=== PATIENT | male | born 1955 | race Caucasian/White ===

== ENCOUNTER 2017-11-28 12:49 | Emergency (ER) | payer OTHER ==
--- OUTSIDE RECORDS SUMMARY | 2017-11-28 12:51 | XMS REPORT | Summary of Care ---
:1955 Author Name SHENG QUIGLEY N.P. Address Unavailable Unavailable , Care Team Providers Name Role Phone DANN Sarabia, SHENG Unavailable Unavailable Functional Status Name Dates Details Functional status health issues are not documented Status: Name Dates Details Cognitive status health issues are not documented Status: Problems Name Dates Details Abdominal aortic aneurysm (AAA) without rupture (441.4, I71.4) Status: Active Abdominal cramping (789.00, R10.9) Status: Active Diabetes (250.00, E11.9) Status: Active History of hyperlipidemia (V12.29, Z86.39) Status: Active Essential hypertriglyceridemia (272.1, E78.1) Status: Active Left knee injury (959.7, S89.92XA) Status: Active Acute pain of left knee (719.46, M25.562) Status: Active Medications Name Dates Details AmLODIPine Besylate TABS Refills: 0 Active Atorvastatin Calcium TABS Refills: 0 Active Carvedilol TABS Refills: 0 Active Clopidogrel Bisulfate TABS Refills: 0 Active Dexilant CPDR Refills: 0 Active Digoxin TABS Refills: 0 Active Fenofibrate TABS Refills: 0 Active Furosemide TABS Refills: 0 Active Gabapentin TABS Refills: 0 Active Losartan Potassium-HCTZ TABS Refills: 0 Active Lantus SoloStar SOLN Refills: 0 Active HumaLOG SOLN Refills: 0 Active Xyzal TABS Refills: 0 Active Multi-Vitamin TABS Refills: 0 Active Ambien TABS Refills: 0 Active Valsartan-Hydrochlorothiazide 320-12.5 MG Oral Tablet Refills: 0 Active HydroCHLOROthiazide 12.5 MG Oral Capsule Refills: 0 Active Zolpidem Tartrate 10 MG Oral Tablet Refills: 0 Active NexIUM 20 MG Oral Capsule Delayed Release Refills: 0 Active Allergies and Adverse Reactions Name Dates Details Codeine Derivatives (Allergy) Status: Active Past Medical History Name Dates Details History of Anxiety (300.00, F41.9) Status: Resolved History of back pain (V13.59, Z87.39) Status: Resolved History of CAD in [place] artery (414.01, I25.10) Status: Resolved History of chronic kidney disease (V13.09, Z87.448) Status: Resolved History of depression (V11.8, Z86.59) Status: Resolved History of diabetes mellitus (V12.29, Z86.39) Status: Resolved History of diverticulosis (V12.79, Z87.19) Status: Resolved History of Gallbladder problem (575.9, K82.9) Status: Resolved History of hypertension (V12.59, Z86.79) Status: Resolved History of NAFLD (nonalcoholic fatty liver disease) (571.8, K76.0) Status: Resolved History of peripheral vascular disease (V12.59, Z86.79) Status: Resolved Procedures Procedure Dates Details MR Sinclair wo contrast 72900 Date: 09-Oct-2017 History of aortic aneurysm repair Completed History of cholecystectomy Completed History of appendectomy Completed History of back surgery Completed History of shoulder surgery Completed History of tonsillectomy Completed History of shoulder replacement Completed Immunization Name Dates Details Immunizations not documented Family History Name Dates Details Family history of hypertension (V17.49, Z82.49) Status: Active Family history of diabetes mellitus (V18.0, Z83.3) Status: Active Family history of Cardiac abnormality (746.9, Q24.9) Status: Active Family history of arthritis (V17.7, Z82.61) Status: Active Family history of malignant neoplasm (V16.9, Z80.9) Status: Active Name Dates Details Family history of alcohol abuse (V61.41, Z81.1) Status: Active Social History Name Dates Details - Status: Name Dates Details Never smoker Vital Signs Date Test Result Details [id number] BP Systolic 173 mm[Hg] Status: Comments: Location: RUE; Position: Sitting BP Diastolic 82 mm[Hg] Status: Comments: Location: RUE; Position: Sitting Weight 228 lb Status: Height 69 in Status: Body Mass Index Calculated 33.67 kg/m2 Status: Body Surface Area Calculated 2.18 m2 Status: Heart Rate 73 /min Status: Results Date Description Value Details [id number] [U] XRAY KNEE 3 VWS LEFT [id number] XR KNEE 3 VWS LEFT Images acquired, not reported on this accession number. Plan of Care Name Dates Details Planned Observations Planned Goals not documented Planned Encounters Appointment; ORVILLE JACKSON M.D. On: 03-Dec-2017 15:00 Interventions Provided Labs/Procedures/ImagingMR Knee wo contrast 13029; To Be Done: 09 Oct 2017[U] XRAY KNEE 3 VWS LEFT [id number]; Done: 09 Oct 2017PlanPatient Education/Instructions : Patient Education Provided Reassurance Counseling Provided - Discussed with Family/Patient Family/Patient given opportunity to ask questions. Family/ Patient Verbalized Understanding. Patient/Parent to call or return with any abnormal changes Orders: MRI Scan Follow Up: Return to the clinic after imaging study completed or as needed. Will MRI the knee to evaluate for meniscus pathology Instructions Name Dates Details Instructions not documented Encounters Appointment; DANILO CHING M.D. On: 31-Jan-2017 8:30 Encounter Diagnosis: Problem not documented Appointment; DANILO CHING M.D. On: 02-May-2017 8:00 Encounter Diagnosis: Problem not documented Appointment; ALFREDO MUNIZ M.D. On: 31-Jul-2017 13:30 Encounter Diagnosis: Problem not documented Appointment; ALFREDO MUNIZ M.D. On: 01-Aug-2017 10:15 Encounter Diagnosis: Problem not documented Appointment; SHENG QUIGLEY NP On: 09-Oct-2017 8:45 Encounter Diagnosis: Problem not documented
--- OUTSIDE RECORDS SUMMARY | 2017-11-28 12:51 | XMS REPORT | Clinical Summary ---
:1955 Author Organization [facility] Address [address] [place] [address] Care Team Providers Name Role Phone Asked, No Pcp Primary Care Provider Unavailable Allergies Active Allergy Reactions Severity Noted Date Comments Codeine 05/24/2017 Current Medications Prescription Sig. Disp. Refills Start Date End Date Status amLODIPine (NORVASC) 10 mg Take 10 mg by Active tablet mouth daily. atorvastatin (LIPITOR) 40 Take 40 mg by Active MG tablet mouth daily. carvedilol (COREG) 25 MG Take 25 mg by Active tablet mouth 2 (two) times a day with meals. clopidogrel (PLAVIX) 75 mg Take 75 mg by Active tablet mouth daily. dexlansoprazole (DEXILANT) Take 60 mg by Active 60 mg capsule mouth daily. digOXIN (LANOXIN) 125 mcg Take 125 mcg by Active tablet mouth daily. fenofibric acid (FIBRICOR) Take 105 mg by Active 105 mg tablet mouth daily. furosemide (LASIX) 20 mg Take 20 mg by Active tablet mouth 2 (two) times a day. gabapentin (NEURONTIN) 300 Take 300 mg by Active mg capsule mouth 3 (three) times a day. insulin GLARGINE (LANTUS) Inject under the Active 100 unit/mL injection skin nightly. (vial) valsartan-hydrochlorothiaz Take 1 tablet by Active alverto (DIOVAN-HCT) 320-25 mg mouth daily. per tablet insulin lispro (HumaLOG) Inject under the Active 100 unit/mL injection skin 3 (three) times a day before meals. levocetirizine (XYZAL) 5 Take 5 mg by mouth Active MG tablet every evening. zolpidem (AMBIEN) 10 mg Take 10 mg by Active tablet mouth nightly as needed for sleep. Active Problems Problem Noted Date Iliac artery aneurysm, right 05/24/2017 Last Assessment & Plan: s/p EVAR 2008; Excision R IIA aneurysm; ligation of branches of internal iliac 2013. CTA reviewed by me shows a stable infrarenal abdominal aortic aneurysm with patent aortic bi-iliac stent graft. We are not able to see if this is acute or chronic dilation or is there is a true Endoleak. I advised the patient he may resume normal activity. Plan for [facility] MRI. Encounters Date Type Specialty Care Team Description 06/28/2017 Telephone Cardiovascular Kraig Whitehead MD 06/26/2017 Telephone Cardiovascular Veronique Dotson MA 06/04/2017 Hospital Encounter Procedural Cardiology Kraig Whitehead, Iliac artery aneurysm, right; Abdominal aortic aneurysm (AAA) without rupture 05/24/2017 Lab Lab Kraig Whitehead, Aneurysm of iliac artery (Primary Dx); Abdominal aortic aneurysm without rupture 05/24/2017 Office Visit Cardiovascular Kraig Whitehead, Iliac artery aneurysm , right (Primary Dx); Abdominal aortic aneurysm (AAA) without rupture after 11/27/2016 Family History Relation Name Status Comments Mother Alive Social History Tobacco Use Types Packs/Day Years Used Date Former Smoker Sex Assigned at Date Recorded Not on file Last Filed Vital Signs Vital Sign Reading Time Taken Blood Pressure 135/75 06/04/2017 1:51 PM [facility] Pulse 68 06/04/2017 1:51 PM [facility] Temperature 36.3 C (97.3 F) 05/24/2017 9:34 AM CDT Respiratory Rate 18 06/04/2017 1:51 PM [facility] Oxygen Saturation 95% 06/04/2017 1:51 PM [facility] Inhaled Oxygen Concentration - - Weight 103 kg (228 lb) 05/24/2017 9:34 AM CDT Height 175.3 cm (5' 9") 06/04/2017 1:51 PM [facility] Body Mass Index 33.67 05/24/2017 9:34 AM CDT Plan of Treatment Health Maintenance Due Date Last Done Comments COLONOSCOPY 12/06/2007 SHINGRIX VACCINE (#1) 12/06/2007 INFLUENZA VACCINE 02/27/2018 Results Cardiac mra abd pelvis w wo contrast (06/04/2017 2:08 PM) Specimen Performing Laboratory [facility] [id number] [place] [address] [facility] CMR Report Name:FARSHAD SIMMS :1955 Scan Date: 2017-06-04 14:18:39 Signed by Mo Ribera M.D. (uid:34) 18:37:13. SUMMARY ====== 1.ABDOMINAL AORTA: Normal supra-renal and juxta-renal aorta. Normal SMA, celiac and bilateral renal arteries. There is an infrarenal abdominal aortic aneurysm measuring 6.0cm. There is a patent stent graft in the infrarenal abdominal aorta extending distally to the bilateral common iliac arteries.There is no enhancement of the aneurysm on first pass. NO endoleak identified. 2.PELVIC ARTERIES: Bilateral common iliac arteries are enlarged (2.0cm). Bilateral external iliac and femoralarteries are of normal caliber without aneurysm or dissection. 5. VENOUS SYSTEM:The IVC, hepatic veins, and bilateral iliac veins are of normal caliber without dilatation, thrombus or evidence of extrinsic compression. 6.OTHER: Right kidney cyst. VASCULAR ====== SCAN INFO ====== GENERAL ------ ---- SEDATION SEDATION USED?:Yes TYPE:Lorazepam DOSE:1 mg ANY REACTION?:No CONTRAST AGENT TYPE:Other... OTHER TYPE:Feraheme LOT NUMBER:[id number] EXPIRATION DATE:2019-11-28 00:00:00 VOLUME ADMINISTERED:3 ml DOSAGE FOR 0.5M:0.01 mmol/kg SERUM CREATININE:2.4 sCr GFR:29.6 ml/min/1.73m^2 FEMALE:No OR BLACK:No CREATININE DATE:2017-05-24 00:00:00 FERAHEME ADMINISTERED:90 mg VITALS HEIGHT:68.9 in HEIGHT:175.01 cm BODY WEIGHT:227.08 lbs BODY WEIGHT:103 kgs BSA::2.18 m^2 SYSTOLIC BP:135 mmHg DIASTOLIC BP:75 mmHg HEART RATE:68 BPM HEART RHYTHM:Sinus Rhythm PULSE SEQUENCE PULSE SEQUENCES:Single-Shot SSFP, SSFP Cine, Phase Contrast Velocity Mapping, Post-Contrast T1 3D GRE, Time-Resolved 3D MRA SETUP TYPE:Clinical INPATIENT:No [facility] INCOMPLETE SCAN:No REASON(S) FOR SCAN:Aortic Aneurysm REFERRING PHYSICIAN:Kraig Whitehead MD ATTENDING PHYSICIAN:Mo Ribera MD TECHNICIANS:Eliseo Ledesma, RT ASSISTANTS:1) Zhang Chang 2) Phillip FRIEDMAN ------ ---- Patient Account [id number] CPT Codes 45226, [ , ]32808 ICD10 Codes I72.3, [ , ]I71.4 Procedure Note Interface, Radiology Results In - 06/04/2017 6:37 PM [facility] CMR Report Name: FARSHAD SIMMS : 1955 Scan Date: 2017-06-04 14:18:39 Signed by Mo Ribera M.D. (uid:34) 18:37:13. SUMMARY 1. ABDOMINAL AORTA: Normal supra-renal and juxta-renal aorta. Normal SMA, celiac and bilateral renal arteries. There is an infrarenal abdominal aortic aneurysm measuring 6.0cm. There is a patent stent graft in the infrarenal abdominal aorta extending distally to the bilateral common iliac arteries. There is no enhancement of the aneurysm on first pass. NO endoleak identified. 2. PELVIC ARTERIES: Bilateral common iliac arteries are enlarged (2.0cm). Bilateral external iliac and femoral arteries are of normal caliber without aneurysm or dissection. 5. VENOUS SYSTEM: The IVC, hepatic veins, and bilateral iliac veins are of normal caliber without dilatation, thrombus or evidence of extrinsic compression. 6. OTHER: Right kidney cyst. VASCULAR SCAN INFO GENERAL SEDATION SEDATION USED?: Yes TYPE: Lorazepam DOSE: 1 mg ANY REACTION?: No CONTRAST AGENT TYPE: Other... OTHER TYPE: Feraheme LOT NUMBER: [id number] EXPIRATION DATE: 2019-11-28 00:00:00 VOLUME ADMINISTERED: 3 ml DOSAGE FOR 0.5M: 0.01 mmol/kg SERUM CREATININE: 2.4 sCr GFR: 29.6 ml/min/1.73m^2 FEMALE: No OR BLACK: No CREATININE DATE: 2017-05-24 00:00:00 FERAHEME ADMINISTERED: 90 mg VITALS HEIGHT: 68.9 in HEIGHT: 175.01 cm BODY WEIGHT: 227.08 lbs BODY WEIGHT: 103 kgs BSA:: 2.18 m^2 SYSTOLIC BP: 135 mmHg DIASTOLIC BP: 75 mmHg HEART RATE: 68 BPM HEART RHYTHM: Sinus Rhythm PULSE SEQUENCE PULSE SEQUENCES: Single-Shot SSFP, SSFP Cine, Phase Contrast Velocity Mapping, Post-Contrast T1 3D GRE, Time-Resolved 3D MRA SETUP TYPE: Clinical INPATIENT: No LOCATION: [facility] INCOMPLETE SCAN: No REASON(S) FOR SCAN: Aortic Aneurysm REFERRING PHYSICIAN: Kraig Whitehead MD ATTENDING PHYSICIAN: Mo Ribera MD TECHNICIANS: Eliseo Ledesma, RT ASSISTANTS: 1) Zhang Chang 2) Phillip FRIEDMAN Patient Account [id number] CPT Codes 88129, [ , ]14312 ICD10 Codes I72.3, [ , ]I71.4 Total iron binding capacity (05/24/2017 11:52 AM) Component Value Ref Range Iron level 95 59 - 158 ug/dL Iron binding capacity 112 (L) 200 - 400 ug/dL % Saturation 84.8 (H) 20.0 - 40.0 % Specimen Performing Laboratory Plasma specimen [facility] [address] [place] [address] Estimated GFR (05/24/2017 11:52 AM) Component Value Ref Range GFR Non Af Amer 28 (A) mL/min/1.73 m2 GFR Af Amer 34 (A) mL/min/1.73 m2 Comment: Chronic kidney disease: <60 mL/min/1.73m2 Kidney failure: <15 mL/min/1.73m2 The estimated GFR is calculated from the IDMS-traceable Modification of Diet in Renal Disease Equation. The accuracy of the calculation is poor when the creatinine is normal. Calculated values >90 mL/min/1.73m2 are not reported. This equation has not been validated in children (<18 years), women, the elderly (>70 years), or ethnic groups other than Caucasians and Americans. Specimen Performing Laboratory Plasma specimen [facility] [address] [place] [address] BUN level (05/24/2017 11:52 AM) Component Value Ref Range BUN 60 (H) 6 - 20 mg/dL Specimen Performing Laboratory Plasma specimen [facility] [address] [place] [address] Ferritin level (05/24/2017 11:52 AM) Component Value Ref Range Ferritin level 105 30 - 400 ng/mL Specimen Performing Laboratory Plasma specimen [facility] [address] [place] [id number] Creatinine level (05/24/2017 11:52 AM) Component Value Ref Range Creatinine 2.4 (H) 0.7 - 1.2 mg/dL Specimen Performing Laboratory Plasma specimen [facility] [address] [place] [address] after 11/27/2016 Insurance Payer Benefit Plan / Group Subscriber ID Type Phone Address MEDICARE MEDICARE PART A AND B xxxxxxxxxx Medicare [place], [place] MEDICAID MEDICAID xxxxxxxxx Medicaid Home: [address] [phone] [place] [phone]
--- NOTE | 2017-11-28 14:26 | RAD REPORT ---
EXAM DESCRIPTION: RAD - Foot Right 3 View - 11/28/2017 2:04 pm CLINICAL HISTORY: Right foot pain FINDINGS: No fracture or dislocation is seen The bones are osteoporotic. Vascular calcifications are seen. A large plantar calcaneal spur is prese nt. Moderate narrowing involves the first MTP joint with osteophytes. This probably represents osteoarthr itis
[2017-11-28] MEDS ORDERED: IBUPROFEN 400 MG TAB ONE (15:08)
--- NOTE | 2017-11-28 15:11 | EDPHYS ---
Physician Documentation [facility] Name: Farshad Padilla Age: 61 yrs Sex: Male : 1955 Arrival Date: 11/28/2017 Time: 12:53 Bed 17 Private MD: ED Physician Dannie Mas HPI: 11/28 14:30 This 61 yrs old Male presents to ER via Wheelchair with complaints of Foot cp Pain. Historical: - Allergies: 13:16 Codeine; aj - PMHx: 13:16 AAA; Diabetes - IDDM; Hypertension; aj - PSHx: 13:16 Cholecystectomy; Appendectomy; AAA repair; shoulder replacement x 2; back surgery x 5; aj - Immunization history:: Adult Immunizations up to date. - Social history:: Smoking status: Patient/guardian denies using tobacco. ROS: 14:25 Constitutional: Negative for body aches, chills, fever, poor PO intake. cp 14:25 Eyes: Negative for injury, pain, redness, and discharge. cp 14:25 ENT: Negative for drainage from ear(s), ear pain, sore throat, difficulty swallowing, difficulty handling secretions. 14:25 Cardiovascular: Negative for chest pain, palpitations. 14:25 Respiratory: Negative for cough, shortness of breath, wheezing. 14:25 Abdomen/GI: Negative for abdominal pain, nausea, vomiting, and diarrhea. 14:25 MS/extremity: Positive for erythema, pain, swelling, tenderness, of the right first toe, Negative for injury or acute deformity, paresthesias. 14:25 All other systems are negative. Exam: 14:45 Constitutional: The patient appears in no acute distress, alert, awake, non-toxic, well cp developed, well nourished, uncomfortable. 14:45 Head/Face: Normocephalic, atraumatic. cp 14:45 Eyes: Periorbital structures: appear normal, Conjunctiva: normal, no exudate, no injection, Sclera: no appreciated abnormality, Lids and lashes: appear normal, bilaterally. 14:45 ENT: External ear(s): are unremarkable, Nose: is normal, Mouth: is normal. 14:45 Chest/axilla: Inspection: normal. 14:45 Cardiovascular: Rate: normal, Pulses: Pulses are 2+ in right dorsalis pedis artery. Edema: is not appreciated, JVD: is not appreciated. 14:45 Respiratory: the patient does not display signs of respiratory distress, Respirations: normal, no use of accessory muscles, no retractions, no splinting, no tachypnea. 14:45 Abdomen/GI: Exam negative for discomfort, distension, guarding, Inspection: abdomen appears normal. 14:45 Musculoskeletal/extremity: Extremities: grossly normal except: noted in the right great toe: noted erythema, swelling, tenderness to palpation. 14:45 Skin: noted superficial wounds anterior aspect right lower leg with erythema, mild swelling. Vital Signs: 13:16 BP 162 / 91; Pulse 76; Resp 18; Temp 98.0; Pulse Ox 97% on R/A; Weight 99.79 kg; Height aj 5 ft. 9 in. (175.26 cm); Pain 10/10; 14:45 BP 154 / 87; Pulse 68; Resp 16; Pulse Ox 97% on R/A; Pain 9/10; em 13:16 Body Mass Index 32.49 (99.79 kg, 175.26 cm) MDM: 14:28 Patient medically screened. 15:08 Data reviewed: vital signs, nurses notes, radiologic studies, plain films, and as a cp result, I will discharge patient. 15:08 Counseling: I had a detailed discussion with the patient and/or guardian regarding: the cp historical points, exam findings, and any diagnostic results supporting the discharge/admit diagnosis, radiology results, the need for outpatient follow up, a family practitioner, to return to the emergency department if symptoms worsen or persist or if there are any questions or concerns that arise at home. 11/28 13:18 Order name: XRAY Foot RIGHT 3 View; Complete Time: 14:38 11/28 14:39 Interpretation: Report reviewed. cp 11/28 15:11 Order name: Crutches; Complete Time: 15:11 cp 11/28 15:11 Order name: Post-op shoe; Complete Time: 15:42 cp Administered Medications: 15:12 Not Given (Patient Refused): Ibuprofen 800 mg PO once em Disposition: 11/28/17 15:10 Discharged to Home. Impression: Cellulitis of right toe - Right Great. - Condition is Stable. - Discharge Instructions: Cellulitis. - Prescriptions for Tramadol 50 mg Oral Tablet - take 1 tablet by ORAL route every 8 hours as needed; 20 tablet. Clindamycin HCl 300 mg Oral Capsule - take 1 capsule by ORAL route every 6 hours for 10 days; 40 capsule. Prednisone 20 mg Oral Tablet - take 1 tablet by ORAL route every 12 hours for 5 days; 10 tablet. - Medication Reconciliation Form, Thank You Letter, Antibiotic Education, Prescription Opioid Use form. - Follow up: Private Physician; When: 48 Hours; Reason: Recheck today's complaints. - Problem is new. - Symptoms are unchanged. Addendum: 11/30/2017 06:42 Co-signature as Attending Physician, Dannie Mas MD I agree with the assessment and w a plan of care. Signatures: Dispatcher [employer] Babs Dewey RN RN Jonathon Newberry, MIDDLE SCHOOL COACH [employer] COACH em Heber Manzanares PA PA cp Appiah, William, MD MD nm Corrections: (The following items were deleted from the chart) 11/28 15:51 15:10 11/28/2017 15:10 Discharged to Home. Impression: Cellulitis of right toe - Right em Great. Condition is Stable. Forms are Medication Reconciliation Form, Thank You Letter, Antibiotic Education, Prescription Opioid Use. Follow up: Private Physician; When: 48 Hours; Reason: Recheck today's complaints. Problem is new. Symptoms are unchanged. cp
--- NOTE | 2017-11-28 15:11 | ER ---
Nurse's Notes [facility] Name: Farshad Padilla Age: 61 yrs Sex: Male : 1955 Arrival Date: 11/28/2017 Time: 12:53 Bed 17 Private MD: Diagnosis: Cellulitis of right toe-Right Great Presentation: 11/28 13:14 Presenting complaint: Patient states: Right great toe pain for 2 days. Transition of aj care: patient was not received from another setting of care. Onset of symptoms was November 27, 2017. Initial Sepsis Screen: Does the patient meet any 2 criteria? No. Patient's initial sepsis screen is negative. Does the patient have a suspected source of infection? No. Patient's initial sepsis screen is negative. Care prior to arrival: None. 13:14 Method Of Arrival: Wheelchair aj 13:14 Acuity: DEVAUGHN 3 aj Triage Assessment: 13:16 General: Appears in no apparent distress. uncomfortable, Behavior is calm, cooperative, aj appropriate for age. Pain: Complains of pain in right first toe Pain currently is 10 out of 10 on a pain scale. Neuro: Level of Consciousness is awake, alert, obeys commands, Oriented to person, place, time, situation, Appropriate for age. Respiratory: Airway is patent Respiratory effort is even, unlabored, Respiratory pattern is regular, symmetrical. Derm: Skin is intact, is healthy with good turgor, Skin is pink, warm \\T\\ dry. normal. Musculoskeletal: Reports pain in right first toe. Historical: - Allergies: 13:16 Codeine; aj - PMHx: 13:16 AAA; Diabetes - IDDM; Hypertension; aj - PSHx: 13:16 Cholecystectomy; Appendectomy; AAA repair; shoulder replacement x 2; back surgery x 5; aj - Immunization history:: Adult Immunizations up to date. - Social history:: Smoking status: Patient/guardian denies using tobacco. Screenin:00 Abuse screen: Denies threats or abuse. Nutritional screening: No deficits noted. em Tuberculosis screening: No symptoms or risk factors identified. Fall Risk None identified. Assessment: 14:45 General: Appears in no apparent distress. uncomfortable, Behavior is calm, cooperative, em Reports reports pain in right toe of right foot for 2 days Denies fever. Pain: Complains of pain in right first toe. Neuro: Level of Consciousness is awake, alert, obeys commands, Oriented to person, place, time, situation. Cardiovascular: Capillary refill < 3 seconds Patient's skin is warm and dry. Respiratory: Airway is patent Respiratory effort is even, unlabored, Respiratory pattern is regular, symmetrical. GI: Abdomen is round. : No signs and/or symptoms were reported regarding the genitourinary system. EENT: No signs and/or symptoms were reported regarding the EENT system. Derm: Skin is intact, Skin is pink, warm \\T\\ dry. redness noted to right toe. Musculoskeletal: Range of motion: intact in all extremities. 15:00 Reassessment: Patient appears in no apparent distress at this time. No changes from iw previously documented assessment. I agree with above assessment by Jonathon Briscoe LVN. 15:10 Reassessment: pt refused medication due to "bad kidneys," FRANCISCO Isabel notified. em 15:10 Reassessment: Patient appears in no apparent distress at this time. Patient and/or em family updated on plan of care and expected duration. Pain level reassessed. Patient is alert, oriented x 3, equal unlabored respirations, skin warm/dry/pink. Vital Signs: 13:16 BP 162 / 91; Pulse 76; Resp 18; Temp 98.0; Pulse Ox 97% on R/A; Weight 99.79 kg; Height aj 5 ft. 9 in. (175.26 cm); Pain 10/10; 14:45 BP 154 / 87; Pulse 68; Resp 16; Pulse Ox 97% on R/A; Pain 9/10; em 13:16 Body Mass Index 32.49 (99.79 kg, 175.26 cm) aj ED Course: 12:53 Patient arrived in ED. rg4 13:15 Triage completed. aj 13:16 Arm band placed on right wrist. Patient placed in waiting room, Patient notified of aj wait time. X-ray ordered. 14:00 Patient has correct armband on for positive identification. Bed in low position. Call em light in reach. Side rails up X2. 14:03 X-ray completed. Patient tolerated procedure well. Patient moved back from radiology. jb2 14:04 XRAY Foot RIGHT 3 View In Process Unspecified. EDMS 14:28 Heber Manzanares PA is PHCP. cp 14:28 Dannie Mas MD is Attending Physician. cp 14:51 Jonathon Briscoe LVN is Primary Nurse. em 15:44 No provider procedures requiring assistance completed. Patient did not have IV access em during this emergency room visit. Administered Medications: 15:12 Not Given (Patient Refused): Ibuprofen 800 mg PO once em Outcome: 15:10 Discharge ordered by MD. cp 15:50 Discharged to home via wheelchair. em 15:50 Condition: good 15:50 Discharge instructions given to patient, Instructed on discharge instructions, follow up and referral plans. medication usage, Demonstrated understanding of instructions, follow-up care, medications, Prescriptions given X 3. 15:51 Patient left the ED. em Signatures: Dispatcher [employer] EDMS Babs Campuzano RN RN Doron Mary jb2 Jonathon Briscoe LVN LVN em Princess Retana RN Heber Castillo, FRANCISCO PA Leilani Funes rg4
[2017-11-28 15:56] VITALS: TEMP 98; O2SAT 97
[2017-11-28 15:57] VITALS: BP 154/87
== END 2017-11-28 15:51 | disposition home or self-care (01) ==
LOC: ER 12:49
DX: L03.031 Cellulitis of right toe (principal); Z88.6 Allergy status to analgesic agent
CPT/HCPCS: 99283

== ENCOUNTER 2017-12-01 00:09 | Emergency (ER) | payer OTHER ==
--- OUTSIDE RECORDS SUMMARY | 2017-12-01 00:11 | XMS REPORT | Clinical Summary ---
:1955 Author Organization [facility] Address [address] [place] [address] Care Team Providers Name Role Phone Asked, [...] he may resume normal activity. Plan for [facility] MRI. Encounters Date Type Specialty Care Team [...] Abdominal aortic aneurysm (AAA) without rupture after 11/30/2016 Family History Relation Name Status Comments Mother Alive Social History Tobacco Use Types Packs/Day Years Used Date Former Smoker Sex Assigned at Date Recorded Not on file Last Filed Vital Signs Vital Sign Reading Time Taken Blood Pressure 135/75 06/04/2017 1:51 PM [employer]AL[employer] ASS[employer]ANCE PRACTICE MANAGER Pulse 68 06/04/2017 1:51 PM QUALITY ASS[employer]ANCE PRACTICE MANAGER Temperature 36.3 C (97.3 F) 05/24/2017 9:34 AM CDT Respiratory Rate 18 06/04/2017 1:51 PM QUALITY ASSURANCE PRACTICE MANAGER Oxygen Saturation 95% 06/04/2017 1:51 PM QUALITY ASSURANCE PRACTICE MANAGER Inhaled Oxygen Concentration - - Weight 103 kg (228 lb) 05/24/2017 9:34 AM CDT Height 175.3 cm (5' 9") 06/04/2017 1:51 PM QUALITY ASSURANCE PRACTICE MANAGER Body Mass Index 33.67 05/24/2017 9:34 AM CDT Plan of Treatment Health Maintenance Due Date Last Done Comments COLONOSCOPY 12/06/2007 SHINGRIX VACCINE (#1) 12/06/2007 INFLUENZA VACCINE 02/27/2018 Results Cardiac mra abd pelvis w wo contrast (06/04/2017 2:08 PM) Specimen Performing Laboratory [facility] [address] [place] [address] [facility] CMR Report Name:FARSHAD SIMMS :1955 Scan Date: [...] REACTION?:No CONTRAST AGENT TYPE:Other... OTHER TYPE:Feraheme LOT NUMBER:[id number] EXPIRATION DATE:2019-11-28 00:00:00 VOLUME ADMINISTERED:3 ml DOSAGE [...] GRE, Time-Resolved 3D MRA SETUP TYPE:Clinical INPATIENT:No [facility]:No REASON(S) FOR SCAN:Aortic Aneurysm REFERRING PHYSICIAN:Kraig Whitehead MD ATTENDING PHYSICIAN:Mo Ribera MD TECHNICIANS:Eliseo Ledesma, RT ASSISTANTS:1) Zhang Chang 2) Phillip FRIEDMAN ------ ---- Patient Account [id number] CPT Codes 18849, [ , ]88062 ICD10 Codes I72.3, [ , ]I71.4 Procedure Note Interface, Radiology Results In - 06/04/2017 6:37 PM [facility] CMR Report Name: FARSHAD SIMMS : 1955 [...] TYPE: Other... OTHER TYPE: Feraheme LOT NUMBER: [id number] EXPIRATION DATE: 2019-11-28 00:00:00 VOLUME ADMINISTERED: 3 [...] Zhang Chang 2) Phillip FRIEDMAN Patient Account [id number] CPT Codes 55590, [ , ]30052 ICD10 Codes I72.3, [ , ]I71.4 Total iron binding capacity (05/24/2017 11:52 AM) Component Value Ref Range Iron level 95 59 - 158 ug/dL Iron binding capacity 112 (L) 200 - 400 ug/dL % Saturation 84.8 (H) 20.0 - 40.0 % Specimen Performing Laboratory Plasma specimen [facility] DEPARTMENT OF PATHOLOGY AND GENOMIC MEDICINE [address] [place] [id number] Estimated GFR (05/24/2017 11:52 AM) Component Value [...] and Americans. Specimen Performing Laboratory Plasma specimen [facility] DEPARTMENT OF PATHOLOGY AND GENOMIC MEDICINE [address] [place] [id number] BUN level (05/24/2017 11:52 AM) Component Value Ref Range BUN 60 (H) 6 - 20 mg/dL Specimen Performing Laboratory Plasma specimen [facility] DEPARTMENT OF PATHOLOGY AND GENOMIC MEDICINE [address] [place] [id number] Ferritin level (05/24/2017 11:52 AM) Component Value Ref Range Ferritin level 105 30 - 400 ng/mL Specimen Performing Laboratory Plasma specimen [facility] DEPARTMENT OF PATHOLOGY AND GENOMIC MEDICINE [address] [place] [id number] Creatinine level (05/24/2017 11:52 AM) Component Value Ref Range Creatinine 2.4 (H) 0.7 - 1.2 mg/dL Specimen Performing Laboratory Plasma specimen [facility] DEPARTMENT OF PATHOLOGY AND GENOMIC MEDICINE [address] [place] [address] after 11/30/2016 Insurance Payer Benefit Plan / Group Subscriber ID Type Phone Address MEDICARE MEDICARE PART A AND B xxxxxxxxxx Medicare [place], [place] MEDICAID MEDICAID xxxxxxxxx Medicaid Home: [address] [phone] [place] [phone]
[2017-12-01 00:44] LABS: Absolute Lymphocytes (CBC) 0.9 K/uL (0.7-4.9); Absolute Monocytes 0.5 K/uL (0.1-1.3); Absolute Neutrophil 7.3 K/uL (1.8-8.0); Basophils % 0.3 % (0-1.3); Eosinophils % 0.4 % (0-4.4); Hematocrit 30.8 % (39.6-49.0); Lymphocytes % 9.8 % (15.3-44.8); MCH 30.2 pg (27.0-35.0); MCV 83.5 fL (80-100); MPV 8.7 fL (7.6-11.3); Monocytes % 6.2 % (3.3-12.3); RBC Red Blood Cell Count 3.69 M/uL (4.33-5.43)
[2017-12-01 00:54] LABS: Protime INR 1.03
[2017-12-01 01:33] LABS: Potassium 4.5 mEq/L (3.6-5.0)
[2017-12-01 01:54] LABS: Albumin 3.4 g/dL (3.2-5.5); Bilirubin Direct 0.1 mg/dL (0-0.2); Bilirubin Total 0.5 mg/dL (0.3-1.2); Digoxin Level 0.2 ng/ml (1.0-2.0); Magnesium 1.6 mg/dL (1.8-2.5); Protein, Total 6.9 g/dL (6.0-8.3)
[2017-12-01 01:58] LABS: CKMB Creatine Kinase MB 31.5 ng/ml (0.3-4.0)
--- NOTE | 2017-12-01 02:37 | ER ---
Nurse's Notes [facility] Name: Farshad Padilla Age: 61 yrs Sex: Male : 1955 Arrival Date: 12/01/2017 Time: 00:10 Bed 19 Private MD: Diagnosis: Renal Insufficiency;Atrial fibrillation and flutter;Palpitations;Dehydration Presentation: 12/01 00:24 Presenting complaint: Patient states: palpitations. pt with hx afib. pt does not ak1 currently have a consultant intern. Transition of care: patient was not received from another setting of care. Onset of symptoms was December 01, 2017. Initial Sepsis Screen: Does the patient meet any 2 criteria? No. Patient's initial sepsis screen is negative. Does the patient have a suspected source of infection? No. Patient's initial sepsis screen is negative. Care prior to arrival: None. 00:24 Method Of Arrival: Wheelchair ak1 00:24 Acuity: DEVAUGHN 3 ak1 Triage Assessment: 00:34 General: Appears in no apparent distress. Behavior is calm, cooperative. Pain: ak1 Complains of pain in chest. EENT: No signs and/or symptoms were reported regarding the EENT system. Neuro: No deficits noted. Cardiovascular: Rhythm is atrial fibrillation. Respiratory: No deficits noted. GI: No signs and/or symptoms were reported involving the gastrointestinal system. : No signs and/or symptoms were reported regarding the genitourinary system. Derm: No signs and/or symptoms reported regarding the dermatologic system. Musculoskeletal: No signs and/or symptoms reported regarding the musculoskeletal system. Historical: - Allergies: 00:34 Codeine; ak1 - Home Meds: 00:34 amlodipine 10 mg tab 1 tab once daily [Active]; atorvastatin 40 mg oral tab 1 tab once ak1 daily [Active]; carvedilol 25 mg oral tab 1 tab 2 times per day [Active]; clopidogrel 75 mg oral tab 1 tab once daily [Active]; digoxin 125 mcg Oral tab 1 tab once daily [Active]; fenofibric acid (choline) 135 mg oral cpDR 1 cap once daily [Active]; furosemide 20 mg Oral tab 1 tab once daily [Active]; gabapentin 300 mg oral cap 2 caps daily [Active]; hydrochlorothiazide-valsartan 25mg-320mg daily [Active]; Dexilant 60 mg oral CpDB 1 cap once daily [Active]; Insulin Glargine 50 units Sub-Q nightly [Active]; Humalog Pen 45 units Sub-Q three times a day [Active]; levocetrizine 5mg daily [Active]; Ambien 10 mg Oral tab 1 tab once daily [Active]; - PMHx: 00:34 AAA; Diabetes - IDDM; Hypertension; Atrial Fib; ak1 - PSHx: 00:34 Cholecystectomy; Appendectomy; AAA repair; shoulder replacement x 2; back surgery x 5; ak1 - Immunization history:: Adult Immunizations unknown. - Social history:: Smoking status: Patient/guardian denies using tobacco. Screenin:34 Abuse screen: Denies threats or abuse. Denies injuries from another. Nutritional ak1 screening: No deficits noted. Tuberculosis screening: No symptoms or risk factors identified. Fall Risk None identified. Assessment: 00:35 Pain: Pain does not radiate. Pain began 1 hour ago. ak1 00:35 Reassessment: Patient appears in no apparent distress at this time. No changes from ak1 previously documented assessment. see triage assessment. 00:38 General: Appears distressed, uncomfortable, well groomed, Behavior is calm, mb3 cooperative, appropriate for age. Neuro: No deficits noted. Cardiovascular: Reports palpitations, shortness of breath, Heart tones present Capillary refill < 3 seconds Pulses are all present. are 2+ in right radial artery, right posterior tibial artery, right dorsalis pedis artery, left radial artery, left posterior tibial artery and left dorsalis pedis artery Rhythm is atrial fibrillation. Respiratory: Respiratory effort is even, unlabored, Respiratory pattern is regular, symmetrical, Breath sounds are clear bilaterally. GI: No signs and/or symptoms were reported involving the gastrointestinal system. : No signs and/or symptoms were reported regarding the genitourinary system. EENT: No signs and/or symptoms were reported regarding the EENT system. Musculoskeletal: No signs and/or symptoms reported regarding the musculoskeletal system. Vital Signs: 00:27 BP 166 / 88; Pulse 84 MON; Resp 17; Temp 98; Pulse Ox 97% on R/A; Weight 99.79 kg (R); ak1 Height 5 ft. 9 in. (175.26 cm) (R); Pain 2/10; 00:41 BP 157 / 91; Pulse 95; Resp 20; Pulse Ox 94% on R/A; mb3 01:29 BP 144 / 88; Pulse 67; Resp 16; Pulse Ox 96% on R/A; Pain 0/10; mb3 02:48 BP 124 / 73; Pulse 74; Resp 18; Pulse Ox 95% on R/A; mb3 00:27 Body Mass Index 32.49 (99.79 kg, 175.26 cm) ak1 00:27 A fib ak1 ED Course: 00:10 Patient arrived in ED. al2 00:17 Mike Coats, RN is Primary Nurse. mb3 00:22 Ade Saldana FNP-C is PHCP. snw 00:22 Jonn Tierney MD is Attending Physician. snw 00:25 Triage completed. ak1 00:28 Patient has correct armband on for positive identification. Placed in gown. Bed in low mb3 position. Call light in reach. Side rails up X 1. clinical research monitor on. Pulse ox on. NIBP on. 00:29 Inserted saline lock: 18 gauge in right forearm, using aseptic technique. mb3 00:34 Arm band placed on Patient placed in an exam room, on a stretcher, on quality assurance monitor, ak1 on pulse oximetry, Patient notified of wait time. EKG completed in triage. Results shown to MD. 00:34 No provider procedures requiring assistance completed. Patient maintains SpO2 ak1 saturation greater than 95% on room air. 00:56 X-ray completed. Portable x-ray completed in exam room. jr1 00:57 XRAY Chest (1 view) In Process Unspecified. EDMS 02:34 Alexey George MD is Hospitalizing Provider. snw 03:39 IV discontinued, intact, bleeding controlled, No redness/swelling at site. Pressure ak1 dressing applied. Administered Medications: 02:55 Drug: NS 0.9% 1000 ml Route: IV; Rate: 125 ml/hr; Site: right forearm; mb3 03:39 Follow up: IV Status: Order to discontinue infusion ak1 Output: 03:07 Urine: 500ml (Voided); Total: 500ml. mb3 Outcome: 02:36 Decision to Hospitalize by Provider. snw 03:26 Discharge ordered by . snw 03:39 Discharged to home ambulatory. ak1 03:39 Condition: stable 03:39 Discharge instructions given to patient, Instructed on discharge instructions, follow up and referral plans. medication usage, Demonstrated understanding of instructions, follow-up care, medications. 03:55 Patient left the ED. ak1 Signatures: Dispatcher [employer] EDMS Ade Saldana, PCAT INSTRUCTOR-C PCAT INSTRUCTOR-Csnw Julia Lobo Amber RN RN ak1 Sanjuana Thapa Mark RN RN mb3
--- NOTE | 2017-12-01 02:37 | EDPHYS ---
Physician Documentation [facility] Name: Farshad Padilla Age: 61 yrs Sex: Male : 1955 Arrival Date: 12/01/2017 Time: 00:10 Bed 19 Private MD: ED Physician Jonn Tierney HPI: 12/01 00:47 This 61 yrs old Male presents to ER via Wheelchair with complaints of snw Irregular Pulse, IRREGULAR HEARTBEAT, Chest Pain. 00:47 The patient presents with a history of irregular heart beat, heart racing. Context: The snw symptoms occur at rest. Onset: The symptoms/episode began/occurred suddenly, and became persistent. Duration: The patient or guardian reports a single episode. Modifying factors: The symptoms are aggravated by nothing. Associated signs and symptoms: Pertinent positives: anxiety, Pertinent negatives: chest pain, cough, lightheadedness, nausea, SOB, syncope, vomiting. Severity of symptoms: At their worst the symptoms were moderate. The patient has experienced a previous episode, approximately 5 years ago. The patient has not recently seen a physician. Historical: - Allergies: 00:34 Codeine; ak1 - Home Meds: 00:34 amlodipine 10 mg tab 1 tab once daily [Active]; atorvastatin 40 mg oral tab 1 tab once ak1 daily [Active]; carvedilol 25 mg oral tab 1 tab 2 times per day [Active]; clopidogrel 75 mg oral tab 1 tab once daily [Active]; digoxin 125 mcg Oral tab 1 tab once daily [Active]; fenofibric acid (choline) 135 mg oral cpDR 1 cap once daily [Active]; furosemide 20 mg Oral tab 1 tab once daily [Active]; gabapentin 300 mg oral cap 2 caps daily [Active]; hydrochlorothiazide-valsartan 25mg-320mg daily [Active]; Dexilant 60 mg oral CpDB 1 cap once daily [Active]; Insulin Glargine 50 units Sub-Q nightly [Active]; Humalog Pen 45 units Sub-Q three times a day [Active]; levocetrizine 5mg daily [Active]; Ambien 10 mg Oral tab 1 tab once daily [Active]; - PMHx: 00:34 AAA; Diabetes - IDDM; Hypertension; Atrial Fib; ak1 - PSHx: 00:34 Cholecystectomy; Appendectomy; AAA repair; shoulder replacement x 2; back surgery x 5; ak1 - Immunization history:: Adult Immunizations unknown. - Social history:: Smoking status: Patient/guardian denies using tobacco. ROS: 00:45 Constitutional: Negative for fever, chills, and weight loss, Eyes: Negative for injury, snw pain, redness, and discharge, ENT: Negative for injury, pain, and discharge, Neck: Negative for injury, pain, and swelling, Respiratory: Negative for shortness of breath, cough, wheezing, and pleuritic chest pain, Abdomen/GI: Negative for abdominal pain, nausea, vomiting, diarrhea, and constipation, Back: Negative for injury and pain, : Negative for injury, bleeding, discharge, and swelling, MS/Extremity: Negative for injury and deformity, Skin: Negative for injury, rash, and discoloration, Neuro: Negative for headache, weakness, numbness, tingling, and seizure. 00:45 Cardiovascular: Positive for palpitations. Exam: 00:44 Constitutional: This is a well developed, well nourished patient who is awake, alert, snw and in no acute distress. Head/Face: Normocephalic, atraumatic. Eyes: Pupils equal round and reactive to light, extra-ocular motions intact. Lids and lashes normal. Conjunctiva and sclera are non-icteric and not injected. Cornea within normal limits. Periorbital areas with no swelling, redness, or edema. ENT: Nares patent. No nasal discharge, no septal abnormalities noted. Tympanic membranes are normal and external auditory canals are clear. Oropharynx with no redness, swelling, or masses, exudates, or evidence of obstruction, uvula midline. Mucous membranes moist. Neck: Trachea midline, no thyromegaly or masses palpated, and no cervical lymphadenopathy. Supple, full range of motion without nuchal rigidity, or vertebral point tenderness. No Meningismus. Chest/axilla: Normal chest wall appearance and motion. Nontender with no deformity. No lesions are appreciated. Cardiovascular: Irregular rate and rhythm with a normal S1 and S2. No gallops, murmurs, or rubs. Normal PMI, no JVD. No pulse deficits. Respiratory: Lungs have equal breath sounds bilaterally, clear to auscultation and percussion. No rales, rhonchi or wheezes noted. No increased work of breathing, no retractions or nasal flaring. Abdomen/GI: Soft, non-tender, with normal bowel sounds. No distension or tympany. No guarding or rebound. No evidence of tenderness throughout. Back: No spinal tenderness. No costovertebral tenderness. Full range of motion. Skin: Warm, dry with normal turgor. Normal color with no rashes and no evidence of cellulitis. + scabbed areas to right lower leg that are improved per pt report post beginning Clindamycin and Prednisone. Pt states blood sugars are increased since steroids MS/ Extremity: Pulses equal, no cyanosis. Neurovascular intact. Full, normal range of motion. Neuro: Awake and alert, GCS 15, oriented to person, place, time, and situation. Cranial nerves II-XII grossly intact. Motor strength 5/5 in all extremities. Sensory grossly intact. Cerebellar exam normal. Normal gait. Vital Signs: 00:27 BP 166 / 88; Pulse 84 MON; Resp 17; Temp 98; Pulse Ox 97% on R/A; Weight 99.79 kg (R); ak1 Height 5 ft. 9 in. (175.26 cm) (R); Pain 2/10; 00:41 BP 157 / 91; Pulse 95; Resp 20; Pulse Ox 94% on R/A; mb3 01:29 BP 144 / 88; Pulse 67; Resp 16; Pulse Ox 96% on R/A; Pain 0/10; mb3 02:48 BP 124 / 73; Pulse 74; Resp 18; Pulse Ox 95% on R/A; mb3 00:27 Body Mass Index 32.49 (99.79 kg, 175.26 cm) ak1 00:27 A fib ak1 MDM: 00:22 Patient medically screened. snw 02:33 Data reviewed: vital signs, nurses notes. Data interpreted: Pulse oximetry: on room air snw is 96 %. Interpretation: acceptable. Counseling: I had a detailed discussion with the patient and/or guardian regarding: the historical points, exam findings, and any diagnostic results supporting the discharge/admit diagnosis, the presence of at least one elevated blood pressure reading (>120/80) during this emergency department visit, lab results, the need for outpatient follow up, to return to the emergency department if symptoms worsen or persist or if there are any questions or concerns that arise at home. Physician consultation: Alexey George MD was called at 02:34, was contacted at 02:34, regarding admission, to the telemetry unit. 03:22 Special discussion: Based on the patient's history, exam, and Dx evaluation, there is snw no indication for emergent intervention or inpatient Tx. It is understood by the patient/guardian that if the Sx's persist or worsen they need to return immediately for re-evaluation. I have referred the patient to see his PCP for further evaluation of high blood pressure. Based on the history and exam findings, there is no indication for further emergent testing or inpatient evaluation. I discussed with the patient/guardian the need to see the branch chief for further evaluation of the symptoms. I discussed with the patient/guardian the need to see the primary care provider for further evaluation of the symptoms. Nephrology. ED course: Pt does not really desire admission. States he will follow up with Cardiology and Nephrology next week. Will suggest aspirin and follow up. 12/01 00:24 Order name: Basic Metabolic Panel; Complete Time: 02: snw 12/01 00:24 Order name: BNP; Complete Time: 01:24 snw 12/01 00:24 Order name: CBC with Diff; Complete Time: 00:49 snw 12/01 00:24 Order name: Ckmb; Complete Time: 02: snw 12/01 00:24 Order name: CPK; Complete Time: 02: snw 12/01 00:24 Order name: LFT's; Complete Time: 02:02 snw 12/01 00:24 Order name: Magnesium; Complete Time: 02:02 snw 12/01 00:24 Order name: PT-INR; Complete Time: 01:08 snw 12/01 00:24 Order name: Ptt, Activated; Complete Time: 01:08 snw 12/01 00:24 Order name: Troponin (emerg Dept Use Only); Complete Time: 01:08 snw 12/01 00:24 Order name: XRAY Chest (1 view) snw 12/01 00:24 Order name: Digoxin; Complete Time: 02:02 snw 12/01 03:24 Order name: Urine Dipstick--Ancillary (enter results) em1 12/01 00:24 Order name: EKG; Complete Time: 00:25 snw 12/01 00:24 Order name: Cardiac monitoring; Complete Time: 00:36 12/01 00:24 Order name: EKG - Nurse/Tech; Complete Time: 00:36 12/01 00:24 Order name: IV Saline Lock; Complete Time: 00:41 12/01 00:24 Order name: Labs collected and sent; Complete Time: 00:41 12/01 00:24 Order name: O2 Per Protocol; Complete Time: 00:36 12/01 00:24 Order name: O2 Sat Monitoring; Complete Time: 00:36 12/01 00:24 Order name: Urine Dipstick-Ancillary (obtain specimen); Complete Time: 03:06 snw Administered Medications: 02:55 Drug: NS 0.9% 1000 ml Route: IV; Rate: 125 ml/hr; Site: right forearm; mb3 03:39 Follow up: IV Status: Order to discontinue infusion ak1 Disposition: 12/01/17 03:26 Discharged to Home. Impression: Renal Insufficiency, Atrial fibrillation and flutter, Palpitations, Dehydration. - Condition is Stable. - Discharge Instructions: Atrial Fibrillation, Dehydration, Adult, Palpitations, Aspirin and Your Heart, Rehydration, Adult. - Medication Reconciliation Form, Thank You Letter, Antibiotic Education, Prescription Opioid Use form. - Follow up: Private Physician; When: 48 Hours; Reason: Recheck today's complaints, Continuance of care, Re-evaluation by your physician. Follow up: Emergency Department; When: As needed; Reason: Worsening of condition. Addendum: 12/04/2017 19:49 Co-signature as Attending Physician, Jonn Tierney MD. g s Signatures: Dispatcher [employer] EDPR Ade Saldana, RAILWAY YARD ASSISTANT-C RAILWAY YARD ASSISTANT-Csnw Antonia Gonzalez, RN RN ak1 Jonn Tierney MD MD gs Barnett, Mark, RN RN mb3 Corrections: (The following items were deleted from the chart) 12/01 00:46 00:44 Constitutional: This is a well developed, well nourished patient who is awake, snw alert, and in no acute distress. Head/Face: Normocephalic, atraumatic. Eyes: Pupils equal round and reactive to light, extra-ocular motions intact. Lids and lashes normal. Conjunctiva and sclera are non-icteric and not injected. Cornea within normal limits. Periorbital areas with no swelling, redness, or edema. ENT: Nares patent. No nasal discharge, no septal abnormalities noted. Tympanic membranes are normal and external auditory canals are clear. Oropharynx with no redness, swelling, or masses, exudates, or evidence of obstruction, uvula midline. Mucous membranes moist. Neck: Trachea midline, no thyromegaly or masses palpated, and no cervical lymphadenopathy. Supple, full range of motion without nuchal rigidity, or vertebral point tenderness. No Meningismus. Chest/axilla: Normal chest wall appearance and motion. Nontender with no deformity. No lesions are appreciated. Cardiovascular: Irregular rate and rhythm with a normal S1 and S2. No gallops, murmurs, or rubs. Normal PMI, no JVD. No pulse deficits. Respiratory: Lungs have equal breath sounds bilaterally, clear to auscultation and percussion. No rales, rhonchi or wheezes noted. No increased work of breathing, no retractions or nasal flaring. Abdomen/GI: Soft, non-tender, with normal bowel sounds. No distension or tympany. No guarding or rebound. No evidence of tenderness throughout. Back: No spinal tenderness. No costovertebral tenderness. Full range of motion. Skin: Warm, dry with normal turgor. Normal color with no rashes, no lesions, and no evidence of cellulitis. MS/ Extremity: Pulses equal, no cyanosis. Neurovascular intact. Full, normal range of motion. Neuro: Awake and alert, GCS 15, oriented to person, place, time, and situation. Cranial nerves II-XII grossly intact. Motor strength 5/5 in all extremities. Sensory grossly intact. Cerebellar exam normal. Normal gait. snw 03:22 02:36 Hospitalization Ordered by Alexey George MD for Inpatient Admission. Preliminary snw diagnosis is Atrial fibrillation and flutter; Renal failure; Hypomagnesemia; Subtherapeutic digoxin level. Bed requested for Telemetry/MedSurg (Inpatient). Status is Inpatient Admission. Condition is Stable. Problem is an acute exacerbation. Symptoms have worsened. UTI on Admission? No. snw 03:55 03:26 12/01/2017 03:26 Discharged to Home. Impression: Renal Insufficiency; Atrial ak1 fibrillation and flutter; Palpitations; Dehydration. Condition is Stable. Forms are Medication Reconciliation Form, Thank You Letter, Antibiotic Education, Prescription Opioid Use. Follow up: Private Physician; When: 48 Hours; Reason: Recheck today's complaints, Continuance of care, Re-evaluation by your physician. Follow up: Emergency Department; When: As needed; Reason: Worsening of condition. snw
[2017-12-01] MEDS ORDERED: NA CHLORIDE 0.9% 1,000 ML ONE (02:55)
[2017-12-01 04:13] LABS: Urine Blood 2+ (NEG); Urine Glucose TRACE (NEG); Urine Protein 3+ (NEG); Urine pH 5.5 (5.0-7.0)
[2017-12-01 04:17] VITALS: TEMP 98
[2017-12-01 04:20] VITALS: BP 124/73; O2SAT 95
--- NOTE | 2017-12-01 07:39 | EKG ---
Test Date: 2017-12-01 Test Time: 00:18:47 Shuttler Car: MIAH MEASUREMENT RESULTS: Intervals: Rate: 80 HI: QRSD: 96 QT: 346 QTc: 399 [place]: P: HI: QRS: 0 T: 45 INTERPRETIVE STATEMENTS: Atrial fibrillation Septal infarct, age undetermined Abnormal ECG Compared to ECG 07/05/2016 09:42:11 Myocardial infarct finding now present Sinus rhythm no longer present ST (T wave) deviation no longer present Electronically Signed On 12-01-17 07:38:17 CDT by Oliver Woods
--- NOTE | 2017-12-01 09:50 | RAD REPORT ---
EXAM DESCRIPTION: [place] Single View12/01/2017 1:00 am CLINICAL HISTORY: Chest pain and palpitations COMPARISON: 2016 FINDINGS: The lungs appear clear of acute infiltrate. The heart is normal size IMPRESSION: No acute abnormalities displayed
== END 2017-12-01 03:55 | disposition home or self-care (01) ==
LOC: ER 00:09 → ERHOLD 02:36 → UNDOADMIN 02:36
DX: E86.0 Dehydration (principal); I48.91 Unspecified atrial fibrillation; I48.92 Unspecified atrial flutter; N28.9 Disorder of kidney and ureter, unspecified; I10 Essential (primary) hypertension; E11.9 Type 2 diabetes mellitus without complications; Z79.4 Long term (current) use of insulin; Z88.5 Allergy status to narcotic agent
CPT/HCPCS: 36415; 71045; 80048; 80076; 80162; 81003; 82550; 82553; 83735; 83880; 84484; 85025; 85610; 85730; 93005; 96360; 99285; J7030

== ENCOUNTER 2018-06-30 11:46 | Inpatient (IN) | payer OTHER ==
--- OUTSIDE RECORDS SUMMARY | 2018-06-30 11:49 | XMS REPORT | Clinical Summary ---
:1955 Author Organization [facility] Address [address] [place] [address] Care Team Providers Name Role Phone Asked, No Pcp Primary Care Provider Unavailable Allergies Active Allergy Reactions Severity Noted Date Comments Codeine 05/24/2017 Medications Medication Sig Dispensed Refills Start Date End Date Status amLODIPine (NORVASC) 10 Take 10 mg by 0 Active mg tablet mouth daily. atorvastatin (LIPITOR) Take 40 mg by 0 Active 40 MG tablet mouth daily. carvedilol (COREG) 25 MG Take 25 mg by 0 Active tablet mouth 2 (two) times a day with meals. clopidogrel (PLAVIX) 75 Take 75 mg by 0 Active mg tablet mouth daily. dexlansoprazole Take 60 mg by 0 Active (DEXILANT) 60 mg capsule mouth daily. digOXIN (LANOXIN) 125 Take 125 mcg by 0 Active mcg tablet mouth daily. fenofibric acid Take 105 mg by 0 Active (FIBRICOR) 105 mg tablet mouth daily. furosemide (LASIX) 20 mg Take 20 mg by 0 Active tablet mouth 2 (two) times a day. gabapentin (NEURONTIN) Take 300 mg by 0 Active 300 mg capsule mouth 3 (three) times a day. insulin GLARGINE Inject under the 0 Active (LANTUS) 100 unit/mL skin nightly. injection (vial) valsartan-hydrochlorothi Take 1 tablet by 0 Active azide (DIOVAN-HCT) mouth daily. 320-25 mg per tablet insulin lispro (HumaLOG) Inject under the 0 Active 100 unit/mL injection skin 3 (three) times a day before meals. levocetirizine (XYZAL) 5 Take 5 mg by 0 Active MG tablet mouth every evening. zolpidem (AMBIEN) 10 mg Take 10 mg by 0 Active tablet mouth nightly as needed for [...] he may resume normal activity. Plan for fareheme MRI. Family History Relation Name Status Comments Mother Alive Social History Tobacco Use Types Packs/Day Years Used Date Former Smoker Sex Assigned at Date Recorded Not on file Job Start Date Occupation Industry Not on file Not on file Not on file Travel History Travel Start Travel End No recent travel history available. Last Filed Vital Signs Not on file Plan of Treatment Health Maintenance Due Date Last Done Comments MMR VACCINES (1 of 1 - Standard 1958 series) COLON CANCER SCREENING 12/06/2007 SHINGRIX VACCINE (1 of 2) 12/06/2007 ZOSTER VACCINE 2017 INFLUENZA VACCINE 02/27/2018 HEPATITIS B VACCINES Aged Out No longer eligible based on patient's age to complete this topic IPV VACCINES Aged Out No longer eligible based on patient's age to complete this topic MENINGOCOCCAL VACCINE Aged Out No longer eligible based on patient's age to complete this topic VARICELLA VACCINES Aged Out No longer eligible based on patient's age to complete this topic Results Not on fileafter 06/29/2017 Insurance Payer Benefit Plan / Group Subscriber ID Type Phone Address MEDICARE MEDICARE PART A AND B xxxxxxxxxx Medicare [place], [place] MEDICAID MEDICAID xxxxxxxxx Medicaid Advance Directives Patient has advance care planning documents on file. For more information, please contact:[place] [address]
--- OUTSIDE RECORDS SUMMARY | 2018-06-30 11:56 | XMS REPORT | Continuity of Care Document ---
:1955 Author Organization Interface Problems Problem Status Onset Classification Date Comments Source Date Reported Unspecified injury of right lower leg, 018 8 [facility] subsequent encounter Encounter for medical Medical screening examination 018 8 Group Injury of right knee Medical 018 8 Group LEFT KNEE INJURY Active [facility] 018 Alex UNK Active [facility] 017 Alex FLUID OVERLOAD, AORTIC Active [facility] ANEURYSM 017 [place] DOC SENT Active [facility] 017 Alex Allergic Active Problem Data [facility] rhinitis<sup>1</sup> 015 8 migrated [facility] on 02/03/15. Cramp<sup>3</sup> Resolved Problem Data OPID 015 8 [facility] on 02/03/15. Fracture of Resolved Problem Data OPID rib<sup>5</sup> 015 8 [facility] on 02/03/15. Hip pain<sup>6</sup> Active Problem Data OPID 015 8 [facility] on 02/03/15. Allergic Active Problem Data OPID rhinitis<sup>1</sup> 015 8 Jenifer Kim from [facility] on 02/03/15. Cramp<sup>3</sup> Resolved Problem Data MH OPID 015 8 Jenifer Kim from [facility] on 02/03/15. Fracture of Resolved Problem Data OPID rib<sup>5</sup> 015 8 migrated Jenifer Martinez from [facility] on 02/03/15. Hip pain<sup>6</sup> Active Problem Data OPID 015 8 migrated Jenifer Martinez from [facility] on 02/03/15. Fracture of Active Problem Data rib<sup>4</sup> 015 7 migrated Michelle from [facility] on 02/03/15. Hip pain<sup>5</sup> Active Problem Data 015 7 migrated Michelle from [facility] on 02/03/15. MUSCLE CRAMPS Active Condition [facility] 015 5 Group FRACTURE, RIB Active Condition [facility] 015 5 Group HIP PAIN, BILATERAL Active Condition Medical 015 5 Group ALLERGIC RHINITIS Active Condition Medical 015 5 Group SPLENOMEGALY Active Condition Medical 014 5 Group Final: Other and Unspecified Disc 014 4 [facility] Disorder of Cervical Region 724.1/724.4/722.[address] 780.2 - SYNCOPE AND Active OPID COL 014 [facility] SYNCOPE AND COLLAPSE Active Condition Medical 014 5 Group HYPOCALCEMIA Active Condition Medical 014 5 Group BACK PAIN, LUMBAR Active Condition Medical 014 5 Group Abnormal liver Resolved Problem OPID function 013 8 [facility] Abnormal liver Resolved Problem OPID function 013 8 [facility] DIABETES MELLITUS, Active Condition [facility] TYPE II, UNCONTROLLED, 013 5 Group W/NEUROLO COMPS PARONYCHIA, RIGHT Active Condition [facility] GREAT TOE 013 5 Group DIARRHEA, CHRONIC Active Condition Medical 013 5 Group ABDOMINAL PAIN, RIGHT Active Condition [facility] UPPER QUADRANT 013 5 Group NAUSEA Active Condition Medical 013 5 Group FATIGUE Active Condition Medical 012 5 Group ROUTINE GENERAL Inactive Condition [facility] MEDICAL EXAM@HEALTH 012 5 Group CARE FACL ANXIETY DEPRESSION Active Condition Medical 012 5 Group GERD Active Condition Medical 012 5 Group RIB PAIN, LEFT SIDED Inactive Condition Medical 012 5 Group MONOCYTOSIS Inactive Condition [facility] SYMPTOMATIC 012 5 Group UNSPECIFIED ANEMIA Active Condition Medical 012 5 Group LIVER MASS Active Condition Medical 012 5 Group ARRHYTHMIA NOS Active Condition Medical 012 5 Group Bronchitis<sup>2</sup> Resolved Problem Data OPID 012 8 migrated [facility],M from [employer] [facility] [facility] on 02/12/15. Bronchitis<sup>2</sup> Resolved Problem Data OPID 012 8 migrated Tar[facility],M from [employer] on 02/12/15. MUSCLE SPASM, BACK Inactive Condition Medical 012 5 Group BRONCHITIS Inactive Condition Medical 012 5 Group BACK PAIN WITH Active Condition [facility] RADICULOPATHY 012 5 Group FLANK PAIN, RIGHT Inactive Condition Medical 012 5 Group WELL ADULT Inactive Condition Medical 012 5 Group NEUROPATHY, Active Condition Medical UNSPECIFIED 012 5 Group MUSCLE SPASM, LUMBAR Active Condition [facility] REGION 012 5 Group INSOMNIA Active Condition Medical 012 5 Group AAA - Abdominal aortic Active Problem aneurysm [place], [facility] Acid reflux Active Problem 7 [place], [facility] Anxiety depression Active Problem 7 [place], [facility] Atrial fibrillation Active Problem 7 [place], [facility] CAD - Coronary artery Active Problem disease 7 [place], [facility] Hypercholesterolemia Active Problem 7 [place], [facility] Hypertension Active Problem 7 [place], [facility] IDDM Active Problem 7 [place], [facility] Poor peripheral Active Problem circulation 7 [place], [facility] Stented coronary Active Problem artery 7 [place], [facility] non-alcholic fatty Active Problem liver disease 4 [place], [facility] AAA - Abdominal aortic Active Problem aneurysm 8 [place] Acid reflux Active Problem 8 [place] Anxiety depression Active Problem 8 [place] Atrial fibrillation Active Problem 8 [place] CAD - Coronary artery Active Problem disease 8 [place] Chronic diarrhea Active Problem OPID 8 [facility] CKD stage 3, GFR Active Problem OPID 38(<span 8 [facility] ID="[id number]">Conf Medical irmed</span>) Group Shortness of Active Problem worse at OPID breath<sup>4</sup> 8 night [facility] GERD (<span Active Problem OPID [id number]">Conf 8 [facility] irmed</span>) Medical Group Hypercholesterolemia Active Problem [facility] [place] Hypertension Active Problem 8 [place] IDDM Active Problem 8 [place] Neuropathy Active Problem OPID 8 [facility] Obesity Active Problem OPID 8 [facility] Poor peripheral Active Problem circulation 8 [place], [facility] Stented coronary Active Problem artery 8 [place], [facility] CKD stage 4, GFR 15-29 Active Problem OPID ml/min(<span 8 [facility],M ID="[id number]">Conf [facility] irmed</span>) Group AAA - Abdominal aortic Active Problem aneurysm 8 [place], [facility] Acid reflux Active Problem 8 [place], [facility] Anxiety depression Active Problem 8 [place], [facility] Atrial fibrillation Active Problem 8 [place], [facility] CAD - Coronary artery Active Problem disease 8 [place], [facility] Chronic diarrhea Active Problem OPID 8 [facility] CKD stage 3, GFR Active Problem OPID 38(<span 8 [facility],M ID="[id number]">Conf [facility] irmed</span>) Shortness of Active Problem worse at OPID breath<sup>4</sup> 8 night [facility] GERD (<span Active Problem OPID ID="[id number]">Conf 8 [facility] irmed</span>) [facility] Hypercholesterolemia Active Problem 8 [place], [facility] Hypertension Active Problem 8 [place], [facility] IDDM Active Problem 8 [place], [facility] Neuropathy Active Problem OPID 8 [facility] Obesity Active Problem OPID 8 [facility] Poor peripheral Active Problem circulation 8 [place], [facility] Stented coronary Active Problem artery 8 [place], [facility] Final: Other Chronic Nonalcoholic Liver 4 [facility] Disease Final: Other and Unspecified Disc 4 [facility] Disorder of Thoracic Region Final: Diabetes mellitus without 4 [place] mention of complication, type II or unspecified type, not stated as uncontrolled Final: Coronary Atherosclerosis of 4 [place] Coronary Artery Final: Unspecified Essential Hypertension 4 [place] Final: Atrial Fibrillation 4 [place] Final: Other Constipation 4 [place] Final: Other Sedatives and Hypnotics Causing 4 Adverse Effects in Therapeutic Use Final: Pure Hypercholesterolemia 4 [place] Final: Pure Hyperglyceridemia 4 [place] Final: Unspecified Gastritis and 4 [place] Gastroduodenitis, without Mention of Hemorrhage Final: Unspecified Disorder of Stomach 4 [place] and [place] Final: Abdominal Aortic Aneurysm 4 without Mention of Rupture Final: Percutaneous Transluminal Coronary 4 [place] Angioplasty, Postsurgical Status Final: Personal History of Tobacco Use 4 Final: Personal History of Colonic 4 Polyps Chronic pain Active Problem Medical 8 Group,[facility] Personal history of nicotine dependence 8 [facility] Atherosclerotic heart disease of [place] 8 [facility] coronary artery without angina pectoris Type 2 diabetes mellitus with diabetic 8 [facility] chronic kidney disease Hypertensive chronic kidney disease with 8 [facility] stage 1 through stage 4 chronic kidney disease, or unspecified chronic kidney disease Chronic kidney disease, stage 4 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 [facility] Type 2 diabetes mellitus with diabetic 8 [facility] neuropathy, unspecified Overexertion from prolonged static or 8 [facility] awkward postures, subsequent encounter CKD stage 4, GFR 15-29 Active Problem OPID ml/min(<span 8 [facility] ID="[id number]">Conf H [facility] irmed</span>) DEPRESSION Active Condition Medical 5 Group HYPERCHOLESTEROLEMIA Active Condition Medical 5 Group HYPERTENSION - BENIGN Active Condition Medical ESSENTIAL 5 Group LEUKEMIA CANCER Inactive Condition Medical 5 Group DIABETES - DM Inactive Condition Medical 5 Group FAMILY HISTORY OF Inactive Condition Medical ALCOHOLISM 5 Group DEPRESSION Inactive Condition Medical 5 Group FH STROKE Inactive Condition Medical 5 Group PAIN IN THORACIC SPINE Active [facility] LUMBOSACRAL NEURITIS Active NOS [facility] THORACIC DISC DEGEN Active [facility] 724.4, 724.1 Active [facility] FLUID OVERLOAD, Active [facility] UNSPECIFIED [place] AORTIC ANEURYSM OF [facility] UNSPECIFIED SITE, WIT [place] CHANGE IN BOWEL HABIT Active [facility] EPIGASTRIC PAIN Active [facility] MELENA Active [facility] Medications Medication Details Route Status Patient Ordering Order Source Instructions Provider Date Zolpidem tartrate 10 mg=1 tab, Active 01/29[facility] Medical 10 MG Oral Tablet PO, Bedtime, 2018 Group [Ambien] PRN for sleep, # 30 tab, 5 Refill(s) Colchicine 0.6 MG 0.6 mg=1 tab, Active 01/21[facility] Medical Oral Tablet PO, Daily, # 2018 Group 30 tab, 2 Refill(s), Pharmacy: [facility]/pharmacy #[id number] amitriptyline 25 25 mg=1 tab, Active 12/27[facility] Medical mg oral tablet PO, Bedtime, # 2018 Group 90 tab, 3 Refill(s), Pharmacy: [facility]/pharmacy #[id number] gabapentin 600 mg 1,200 mg=2 Active 11/28[facility] Medical oral tablet, tab, PO, BID, 2018 Group extended release # 360 tab, 3 Refill(s), Pharmacy: [facility]/pharmacy #[id number] 3 ML Insulin 45 unit, Active 11/22[facility] Medical Lispro 100 UNT/ML SUB-Q, 2018 Group Pen Injector TID-Before [Humalog] Meals, # 15 mL, 3 Refill(s), Pharmacy: [facility]/pharmacy #[id number] tizanidine 4 mg 4 mg=1 tab, Active 11/02[facility] Medical oral tablet PO, Q8H, PRN 2018 Group for muscle spasms, # 90 tab, 1 Refill(s), Pharmacy: [facility]/pharmacy #[id number] Vitamin B12 2500 2,500 Active 10/25[facility] Medical mcg sublingual microgram=1 2018 Group tablet tab, SL, Daily, # 90 tab, 0 Refill(s), Pharmacy: [facility]/pharmacy #[id number] Calcium Carbonate 2 tab, PO, Active Medical 298 MG / Daily, # 60 2018 Group Magnesium tab, 1 Chloride 596 MG Refill(s), Enteric Coated Pharmacy: Tablet [Slow-Mag [facility]/pharmacy Reformulated Fe #[id number] 2011] Ergocalciferol 50,000 Active Medical 76210 UNT Oral IntlUnit=1 2018 Group Capsule cap, PO, qWeek, # 12 cap, 1 Refill(s), Pharmacy: [facility]/pharmacy #[id number] amitriptyline 25 25 mg=1 tab, No Longer Medical mg oral tablet PO, Bedtime, # Active 2018 Group 30 tab, 1 Refill(s), Pharmacy: [facility]/pharmacy #[id number] Furosemide 20 MG 20 mg=1 tab, Active Medical Oral Tablet PO, Daily, # 2018 Group 90 tab, 1 Refill(s), Pharmacy: [facility]/pharmacy #[id number] Acetaminophen 325 1 tab, PO, No Longer Medical MG / tramadol Q8H, PRN Pain, Active 2018 Group hydrochloride X 20 day, # 60 37.5 MG Oral tab, 2 Tablet [Ultracet] Refill(s) BD ULTRA-FINE PEN See Active Medical NDL [id number] Instructions, 2018 Group # 100 syr, Refill(s) 1, USE WITH INSULIN, Pharmacy: [facility]/pharmacy #[id number] gabapentin 600 mg 600 mg=1 tab, Active Medical oral tablet, PO, BID, # 180 2017 Group extended release tab, 3 Refill(s), Pharmacy: [facility] Acetaminophen 325 1 tab, PO, Active Medical MG / tramadol Q8H, PRN Pain, 2017 Group hydrochloride X 10 day, # 30 37.5 MG Oral tab, 2 Tablet [Ultracet] Refill(s) DME Prescription See Active 07/11[facility] Medical Instructions, 2017 Group MISC, ONCE, Disability Parking Plate and Placard, one of each, # 1 ea, 0 Refill(s) dexlansoprazole See Active Medical 60 MG Enteric Instructions, 2017 Group Coated Capsule # 90 unknown [Dexilant] unit, Refill(s) 3, TAKE ONE CAPSULE BY MOUTH EVERY DAY, Pharmacy: [facility]/pharmacy #[id number] gabapentin 300 MG See Active Medical Oral Capsule Instructions, 2017 Group # 180 unknown unit, Refill(s) 3, TAKE ONE CAPSULE BY MOUTH TWICE A DAY, Pharmacy: [facility]/pharmacy #[id number] sodium chloride 1,000 mL, Inactive 0.9% 1000 ml INJ Rate: 2016 [facility] 1,000 mL ml/hr, Infuse over: 40 hr, Route: IV, Dosing Weight 100 kg, Total Volume: 1,000, Start date: 04/20/17 7:32:00 CDT, Duration: 30 day, Stop date: 05/20/17 7:31:00 CDT Sodium Chloride 500 mL, Route: Inactive 0.9% (Bolus) IV IV, ONCE, 2016 [facility] Dosing Weight 100 kg, Start date: 04/20/17 7:30:00 CDT, Stop date: 04/20/17 7:30:00 CDT, Bolus carvedilol 12.5 12.5 mg=1 tab, Active mg oral tablet PO, Q12H, # 60 2016 [facility] tab, 0 Refill(s) Ondansetron 4 MG 4 mg=1 tab, Active Disintegrating PO, BID, PRN 2017 [facility] Tablet [Zofran] Nausea and Vomiting, Dissolve tab under tongue, X 5 day, # 10 tab, 0 Refill(s) carvedilol 12.5 mg, 1 Inactive tab, Route: 2017 [facility] PO, Drug form: TAB, Q12H, Dosing Weight 109.091, kg, Start date: 01/11/17 9:00:00 CDT, Duration: 30 day, Stop date: 02/09/17 21:00:00 CDTNotes: Give with food. (Same As: Coreg) Hydralazine 10 mg, 0.5 mL, Inactive Route: IV, 2016 [facility] Drug form: INJ, Q6H, Dosing Weight 109.091, kg, PRN Hypertension, Start date: 01/11/17 4:14:00 CDT, Duration: 30 day, Stop date: 02/10/17 4:13:00 CDTNotes: (Same as: Apresoline) Push over 5 minutes Dilaudid 0.2 mg, 0.2 No Longer mL, Route: Active 2016 [facility] IVP, Drug form: INJ, ONCE, Dosing Weight 109.091, kg, PRN Pain Score 7-10, Start date: 01/10/17 23:12:00 CDTNotes: Same as: Dilaudid Atropine Sulfate 1 tab, Route: No Longer 0.025 MG / PO, Drug Form: Active 2016 [facility] Diphenoxylate TAB, Dosing Hydrochloride 2.5 Weight MG Oral Tablet 109.091, kg, [Lomotil] QID, PRN Loose Stools, Start date: 01/10/17 9:51:00 CDT, Duration: 30 day, Stop date: 02/09/17 9:50:00 CDTNotes: (Same As: Lomotil) MAX Adult dose=8 tabs/day Dilaudid 0.2 mg, 0.2 Inactive mL, Route: 2016 [facility] IVP, Drug form: INJ, ONCE, Dosing Weight 109.091, kg, Priority: STAT, Start date: 01/10/17 9:51:00 CDT, Stop date: 01/10/17 9:51:00 CDTNotes: Same as: Dilaudid Acetylcysteine 600 mg, 3 mL, No Longer 200 MG/ML Route: PO, Active 2016 [facility] Inhalant Solution Drug form: SOLN, BID, Dosing Weight 109.091, kg, Start date: 01/09/17 17:00:00 CDT, Duration: 2 day, Stop date: 01/11/17 9:00:00 CDTNotes: (Same as: Acetadote) MEDICATION WASTE Product Size: 6000 mg Product Wasted: ___ mg WASTE: F/P - Black; E - Municipal Trash Bin multivitamin with 1 tab, Route: No Longer minerals PO, Drug Form: Active 2017 [facility] TAB, Daily, Start date: 01/09/17 10:00:00 CDT, Duration: 30 day, Stop date: 02/08/17 9:00:00 CDTNotes: (Same as:Thera-M, Theragran-M) WASTE: F/P - Black; E - Municipal Trash Bin Give with food. clopidogrel 75 mg, 1 tab, No Longer Route: PO, Active 2017 [facility] Drug form: TAB, Daily, Dosing Weight 109.091, kg, Start date: 01/09/17 9:00:00 CDT, Duration: 30 day, Stop date: 02/07/17 9:00:00 CDTNotes: (Same As: Plavix) atorvastatin 40 mg, 1 tab, No Longer Route: PO, Active 2017 [facility] Drug form: TAB, Daily, Dosing Weight 109.091, kg, Start date: 01/09/17 9:00:00 CDT, Duration: 30 day, Stop date: 02/07/17 9:00:00 CDTNotes: (Same as: Lipitor) gabapentin 300 MG 300 mg, 1 cap, No Longer Oral Capsule Route: PO, Active 2016 [facility] Drug form: CAP, Daily, Dosing Weight 109.091, kg, Start date: 01/09/17 9:00:00 CDT, Duration: 30 day, Stop date: 02/07/17 9:00:00 CDTNotes: (Same as: Neurontin) Furosemide 20 MG 20 mg, 1 tab, No Longer Oral Tablet Route: PO, Active 2016 [facility] Drug form: TAB, Daily, Dosing Weight 109.091, kg, Start date: 01/09/17 9:00:00 CDT, Duration: 30 day, Stop date: 02/07/17 9:00:00 CDTNotes: (Same as: Lasix) May cause GI upset. Give with food or milk. Trilipix 135 mg, Route: No Longer PO, Drug form: Active 2017 [facility] CAP, Daily, Dosing Weight 109.091, kg, Start date: 01/09/17 9:00:00 CDT, Duration: 30 day, Stop date: 02/07/17 9:00:00 CDT Escitalopram 20 mg, 2 tab, No Longer Route: PO, Active 2017 [facility] Drug form: TAB, Daily, Dosing Weight 109.091, kg, Start date: 01/09/17 9:00:00 CDT, Duration: 30 day, Stop date: 02/07/17 9:00:00 CDTNotes: (Same as: Lexapro) Amlodipine 10 mg, 2 tab, No Longer Route: PO, Active 2016 [facility] Drug form: TAB, Daily, Dosing Weight 109.091, kg, Start date: 01/09/17 9:00:00 CDT, Duration: 30 day, Stop date: 02/07/17 9:00:00 CDTNotes: (Same as: Norvasc) Cetirizine 5 mg, 1 tab, No Longer Route: PO, Active 2016 [facility] Drug form: TAB, Daily, Dosing Weight 109.091, kg, Start date: 01/09/17 9:00:00 CDT, Duration: 30 day, Stop date: 02/07/17 9:00:00 CDTNotes: (Same As: Zyrtec) digoxin 125 mcg 0.125 mg, 1 No Longer (0.125 mg) oral tab, Route: Active 2016 [facility] tablet PO, Drug form: TAB, Daily, Dosing Weight 109.091, kg, Start date: 01/09/17 9:00:00 CDT, Duration: 30 day, Stop date: 02/07/17 9:00:00 CDTNotes: Take on an Empty Stomach (Same as: Lanoxin) fenofibrate 145 mg, 1 tab, No Longer Route: PO, Active 2016 [facility] Drug form: TAB, Daily, Start date: 01/09/17 9:00:00 CDT, Duration: 30 day, Stop date: 02/07/17 9:00:00 CDTNotes: (Same as: Tricor) Dexilant 60 mg, Route: No Longer PO, Drug form: Active 2016 [facility] DRC, Daily, Dosing Weight 109.091, kg, Start date: 01/09/17 9:00:00 CDT, Duration: 30 day, Stop date: 02/07/17 9:00:00 CDT multivitamin with 1 cap, Route: Inactive minerals Multiple PO, Drug Form: 2017 [facility] Vitamins with CAP, Dosing Zinc oral capsule Weight 109.091, kg, Daily, Start date: 01/09/17 9:00:00 CDT, Duration: 30 day, Stop date: 02/07/17 9:00:00 CDTNotes: Same as: Hemocyte Plus Give with Food Non-Formulary Neurontin 300 mg, 1 cap, No Longer Route: PO, Active 2016 [facility] Drug form: CAP, QPM, Start date: 01/08/17 21:36:00 CDT, Duration: 30 day, Stop date: 02/07/17 17:00:00 CDTNotes: (Same as: Neurontin) Levemir FlexPen 50 unit, 0.5 No Longer mL, Route: Active 2016 [facility] SUB-Q, Drug form: SOLN, Bedtime, Start date: 01/08/17 21:00:00 CDT, Stop date: 02/06/17 21:00:00 CDTNotes: Same as Levemir Do not hold insulin without contacting prescriber WASTE: F/P - Black; E - Municipal Trash Bin "single patient use only" metoprolol 50 mg, 1 tab, No Longer tartrate Route: PO, Active 2016 [facility] Drug form: TAB, Q12H, Dosing Weight 109.091, kg, Start date: 01/08/17 21:00:00 CDT, Duration: 30 day, Stop date: 02/07/17 9:00:00 CDTNotes: (Same as: Lopressor) 3 ML Insulin 50 unit, Inactive Glargine 100 Route: SUB-Q, 2017 [facility] UNT/ML Prefilled Drug form: Syringe [Lantus] SOLN, Bedtime, Dosing Weight 109.091, kg, Start date: 01/08/17 21:00:00 CDT, Duration: 30 day, Stop date: 02/06/17 21:00:00 CDT Acetaminophen 325 1 tab, Route: No Longer MG / Hydrocodone PO, Drug Form: Active 2016 [facility] Bitartrate 5 MG TAB, Dosing Oral Tablet Weight [[place] 5/325] 109.091, kg, Q6H, PRN Pain Score 1-3, Start date: 01/08/17 18:06:00 CDT, Duration: 30 day, Stop date: 02/07/17 18:05:00 CDTNotes: (Same as: [place] 325/5) Do not exceed 4gm/day of acetaminophen. Protonix 40 mg, 1 tab, No Longer Route: PO, Active 2016 [facility] Drug form: ECTAB, Q24H, Start date: 01/08/17 18:00:00 CDT, Duration: 30 day, Stop date: 02/06/17 18:00:00 CDTNotes: Tablet should not be chewed or crushed. (Same as: Protonix) insulin aspart 45 unit, 0.45 No Longer mL, Route: Active 2016 Michelle SUB-Q, Drug form: SOLN, TID-Meals, Start date: 01/08/17 18:00:00 CDT, Duration: 30 day, Stop date: 02/07/17 17:00:00 CDTNotes: Roll in palms of hands gently; Do not shake vigorously. (Same as: NovoLOG) "single patient use only" WASTE: F/P - Black; E - [employer] Trash Bin Stable for 28 days at room temperature. Expires in days from Date Docusate 100 mg, 1 cap, No Longer Route: PO, Active 2016 Michelle Drug form: CAP, BID, Dosing Weight 109.091, kg, Start date: 01/08/17 17:00:00 CDT, Duration: 30 day, Stop date: 02/07/17 9:00:00 CDTNotes: (Same as: Colace) (Do Not Crush) Acetylcysteine 800 mg, 4 mL, No Longer 200 MG/ML Route: PO, Active 2016 Michelle Inhalant Solution Drug form: SOLN, BID, Dosing Weight 109.091, kg, Start date: 01/08/17 17:00:00 CDT, Duration: 2 day, Stop date: 01/10/17 9:00:00 CDT Guild-3 Acid 2,000 mg, 2 Inactive Ethyl Esters cap, Route: 2017 [facility] (SNF) 1000 MG PO, Drug Form: Oral Capsule CAP, Dosing [Lovaza] Weight 109.091, kg, BID, Start date: 01/08/17 17:00:00 CDT, Duration: 30 day, Stop date: 02/07/17 9:00:00 CDT Sodium Chloride 1,000 mL, No Longer 0.154 MEQ/ML Rate: 75 Active 2016 [facility] Injectable ml/hr, Infuse Solution over: 13.3 hr, Route: IV, Dosing Weight 109.091 kg, Total Volume: 1,000, Start date: 01/08/17 16:58:00 CDT, Duration: 30 day, Stop date: 02/07/17 16:57:00 CDT Insulin Lispro 45 unit, Inactive Route: SUB-Q, 2016 [facility] Drug form: SOLN, TID-Before Meals, Dosing Weight 109.091, kg, Start date: 01/08/17 16:30:00 CDT, Duration: 30 day, Stop date: 02/07/17 11:30:00 CDT Ambien 10 mg, 2 tab, No Longer Route: PO, Active 2016 [facility] Drug form: TAB, Bedtime, Dosing Weight 109.091, kg, PRN Sleep, Start date: 01/08/17 15:44:00 CDT, Duration: 30 day, Stop date: 02/07/17 15:43:00 CDTNotes: (Same As: Ambien) Hydralazine 10 mg, 0.5 mL, No Longer Route: IVP, Active 2016 [facility] Drug form: INJ, Q4H, Dosing Weight 109.091, kg, PRN Hypertension, Start date: 01/08/17 14:31:00 CDT, Duration: 30 day, Stop date: 02/07/17 14:30:00 CDTNotes: (Same as: Apresoline) Push over 5 minutes Insulin, Aspart, 10 unit, 0.1 No Longer Human mL, Route: Active 2016 [facility] SUB-Q, Drug form: SOLN, TID-Before Meals, Dosing Weight 109.091, kg, PRN Blood Glucose Results, Start date: 01/08/17 14:27:00 CDT, Duration: 30 day, Stop date: 02/07/17 14:26:00 CDTNotes: Roll in palms of hands gently; Do not shake vigorously. (Same as: NovoLOG) "single patient use only" WASTE: F/P - Black; E - Municipal Trash Bin Stable for 28 days at room temperature. Expires in days from Date Glucagon 1 mg, Route: No Longer IM, Drug form: Active 2016 [facility] PDR/INJ, PRN, Dosing Weight 109.091, kg, PRN Blood Glucose Results, Start date: 01/08/17 14:27:00 CDT, Duration: 30 day, Stop date: 02/07/17 14:26:00 CDT Dextrose 50% 25 gm, 50 mL, No Longer Syringe Route: IVP, Active 2016 [facility] Drug Form: INJ, Dosing Weight 109.091, kg, PRN, PRN Blood Glucose Results, Start date: 01/08/17 14:27:00 CDT, Duration: 30 day, Stop date: 02/07/17 14:26:00 CDT Acetaminophen 650 mg, 2 tab, No Longer Route: PO, Active 2016 [facility] Drug form: TAB, Q4H, Dosing Weight 109.091, kg, PRN Pain 1-3/Temp > 100.4 F, Start date: 01/08/17 14:24:00 CDT, Duration: 30 day, Stop date: 02/07/17 14:23:00 CDTNotes: Do not exceed 4 gm/day. (Same as: Tylenol) Ondansetron 4 mg, 2 mL, No Longer Route: IVP, Active 2016 [facility] form: INJ, Q6H, Dosing Weight 109.091, kg, PRN Nausea & Vomiting, Start date: 01/08/17 14:24:00 CDT, Duration: 30 day, Stop date: 02/07/17 14:23:00 CDTNotes: (Same as: Baldev) MEDICATION WASTE Product Size: 4 mg Product Wasted: ___ mg Morphine 2 mg, 1 mL, No Longer Route: IVP, Active 2016 [facility] Drug form: INJ, Q4H, Dosing Weight 109.091, kg, PRN Pain Score 7-10, Start date: 01/08/17 14:24:00 CDT, Duration: 30 day, Stop date: 02/07/17 14:23:00 CDTNotes: (Same as:MORPhine Sulfate) Hydralazine 20 mg, Route: Inactive IVP, ONCE, 2016 [facility] Dosing Weight 109.091, kg, Priority: STAT, Start date: 01/08/17 13:59:00 CDT, Stop date: 01/08/17 13:59:00 CDT Morphine 4 mg, Route: Inactive IVP, ONCE, 2016 [facility] Dosing Weight 109.091, kg, Priority: STAT, Start date: 01/08/17 11:09:00 CDT, Stop date: 01/08/17 11:09:00 CDT Ondansetron 4 mg, Route: Inactive IVP, Drug 2016 [facility] form: INJ, ONCE, Dosing Weight 109.091, kg, Priority: STAT, Start date: 01/08/17 11:09:00 CDT, Stop date: 01/08/17 11:09:00 CDT XYZAL 5 MG TABS 1 tablet daily Active Medical for allergies 2014 Group LUNESTA 3 MG TABS 1 tablet at Active Medical bedtime as 2015 Group needed for insomnia PATANASE 0.6 % Two sprays Active Medical SOLN each nostril 2014 Group twice daily for allergies BLOOD GLUCOSE Check blood Active Medical TEST STRP sugar before 2013 Group meals 3x daily Diagnosis - Insulin dependent diabetes type II, uncontrolled BD ULTRA-FINE use 3x daily Active Medical LANCETS [facility] [place] for blood 2014 Group glucose testing Indication: insulin dependent type II diabetes, uncontrolled LYRICA 75 MG CAPS Take one Active Medical capsule by 2013 Group mouth twice a day for nerve pain LANTUS SOLOSTAR 50 units Active Medical 100 UNIT/ML SOLN nightly 2013 Group HUMALOG KWIKPEN 40 units with Active Medical 100 UNIT/ML SOLN meals 2013 Group BLOOD GLUCOSE Check blood Active Medical TEST STRP sugar before 2013 Group meals 3x daily LANTUS SOLOSTAR 50 units Active Medical 100 UNIT/ML SOLN nightly 2013 Group HUMALOG KWIKPEN 40 units with Active Medical 100 UNIT/ML SOLN meals 2013 Group Insulin, Regular, Route: IV, Inactive Pork ONCE, Dosing 2013 [facility] Weight 100, kg, Start date: 10/01/13 13:53:00, Stop date: 10/01/13 13:53:00 Ancef 1 gm, Route: Inactive IVPB, ONCE, 2013 [facility] Dosing Weight 100, kg, Start date: 10/01/13 10:21:00, Duration: 1 doses or times, Stop date: 10/01/13 10:21:00 Calcium Chloride 1,000 mL, Inactive 0.0014 MEQ/ML / Rate: 25 2013 [facility] Potassium ml/hr, Infuse Chloride 0.004 over: 40 hr, MEQ/ML / Sodium Route: IV, Chloride 0.103 Dosing Weight MEQ/ML / Sodium 100 kg, Total Lactate 0.028 Volume: 1,000, MEQ/ML Injectable Start date: Solution 10/01/13 10:18:00, Duration: 30 day, Stop date: 10/31/13 10:17:00 Fentanyl 25 microgram, Inactive Route: IV, 2013 [facility] ONCE, Dosing Weight 100, kg, Start date: 10/01/13 9:57:00, Stop date: 10/01/13 9:57:00 Aspirin Low Dose 81 mg=1 tab, No Longer 81 mg oral tablet PO, Daily, 0 Active 2013 [facility] Refill(s) 3 ML Insulin 30 units, Active Lispro 100 UNT/ML SUB-Q, 2013 [facility] Prefilled Syringe TID-Before [Humalog] Meals, 0 Refill(s) Acetaminophen 325 2 tab, PO, No Longer MG / Hydrocodone Q4H, Pain Active 2013 [facility] Bitartrate 5 MG Score 6-10, # Oral Tablet 30 tab, 0 Refill(s) cyclobenzaprine 10 mg=1 tab, No Longer 10 mg oral tablet PO, TID, Active 2013 [facility] Spasm, # 30 tab, 0 Refill(s) Saline Flush 0.9% 5 ml, Route: No Longer IVP, Drug Active 2013 [facility] Form: INJ, Dosing Weight 100, kg, Q12H, Start date: 09/18/13 21:00:00, Duration: 30 day, Stop date: 10/18/13 9:00:00preserv ative free. Morphine 4 mg, 2 mL, No Longer Route: IV, Active 2013 [facility] Drug form: INJ, Q2H, Dosing Weight 100, kg, PRN Pain Score 7-10, Start date: 09/18/13 16:44:00, Duration: 30 day, Stop date: 10/18/13 16:43:00(Same as:MORPhine Sulfate) Dilaudid 1 mg, 1 mL, Inactive Route: IVP, 2013 [facility] Drug form: INJ, ONCE, Dosing Weight 100, kg, PRN Pain Score 7-10, Priority: NOW, Start date: 09/18/13 16:34:00 Sodium Chloride 1,000 mL, No Longer 0.154 MEQ/ML Rate: 200 Active 2013 [facility] Injectable ml/hr, Infuse Solution over: 5 hr, Route: IV, Dosing Weight 100 kg, Total Volume: 1,000, Start date: 09/18/13 13:21:00, Duration: 30 day, Stop date: 10/18/13 13:20:00 Acetaminophen 325 2 tab, Route: No Longer MG / Hydrocodone PO, Drug Form: Active 2013 [facility] Bitartrate 5 MG TAB, Dosing Oral Tablet Weight 100, kg, Q4H, PRN Pain Score 6-10, Start date: 09/18/13 13:21:00, Duration: 30 day, Stop date: 10/18/13 13:20:00(Same as: [place] 325/5) Do not exceed 4gm/day of acetaminophen. Ondansetron 4 mg, 1 tab, No Longer Route: PO, Active 2013 [facility] Drug form: TAB, Q8H, Dosing Weight 100, kg, PRN Nausea & Vomiting, Start date: 09/18/13 13:21:00, Duration: 30 day, Stop date: 10/18/13 13:20:00(Same as: Zofran) Acetaminophen 650 mg, 2 tab, No Longer Route: PO, Active 2013 [facility] Drug form: TAB, Q4H, Dosing Weight 100, kg, PRN Headache 1-5, Start date: 09/18/13 13:21:00, Duration: 30 day, Stop date: 10/18/13 13:20:00Do not exceed 4 gm/day. (Same as: Tylenol) Diphenhydramine 25 mg, 1 tab, No Longer Route: PO, Active 2013 [facility] Drug form: TAB, Bedtime, Dosing Weight 100, kg, PRN Insomnia, Start date: 09/18/13 13:21:00, Duration: 30 day, Stop date: 10/18/13 13:20:00 Docusate Sodium 100 mg, 1 cap, No Longer 100 MG Oral Route: PO, Active 2013 [facility] Capsule Drug form: CAP, Q12H, Dosing Weight 100, kg, PRN as needed for constipation, Start date: 09/18/13 13:21:00, Duration: 30 day, Stop date: 10/18/13 13:20:00(Same as: Colace) (Do Not Crush) Nitroglycerin 0.4 mg, Route: Inactive SL, Drug form: 2013 TAB, Q5Min, Dosing Weight 100, kg, PRN Chest Pain, Start date: 09/18/13 13:21:00, Duration: 3 doses or times, Stop date: Limited # of times Saline Flush 0.9% 5 ml, Route: No Longer IVP, Drug Active 2013 [facility] Form: INJ, Dosing Weight 100, kg, PRN, PRN Line Flush, Start date: 09/18/13 13:21:00, Duration: 30 day, Stop date: 10/18/13 14:20:00preser vative free. 24 HR Niacin 500 500 mg, 2 cap, No Longer MG Extended Route: PO, Active 2013 [facility] Release Tablet Drug form: [Niaspan] ERCAP, Daily, Dosing Weight 100, kg, Start date: 09/18/13 9:00:00, Duration: 30 day, Stop date: 10/17/13 9:00:00With food. NovoLOG FlexPen 20 unit, 0.2 No Longer 02/20/ MH mL, Route: Active 2013 [facility] SUB-Q, Drug form: SOLN, TID-Before Meals, Start date: 09/18/13 7:30:00, Duration: 30 day, Stop date: 10/17/13 16:30:00Roll in palms of hands gently; Do not shake vigorously. (Same as: NovoLOG) "single patient use only" Stable for 28 days at room temperature. Expires in days from Date Levemir FlexPen 50 unit, 0.5 No Longer mL, Route: Active 2013 [facility] SUB-Q, Drug form: INJ, Bedtime, Start date: 09/17/13 21:00:00, Duration: 30 day, Stop date: 10/16/13 21:00:00Same as Levemir "single patient use only" Ativan 0.5 mg, 0.25 No Longer 09/18/ MH mL, Route: IV, Active 2013 [facility] Drug form: INJ, ONCE, Dosing Weight 100, kg, PRN Other -See Comment, Start date: 09/17/13 20:01:00, MRI/MRA(Same as: Ativan) Ativan 0.5 mg, 0.25 Inactive MH mL, Route: IV, 2013 [facility] Drug form: INJ, ONCE, Dosing Weight 100, kg, repeat one more dose if the first one does not work., Start date: 09/17/13 19:59:00, Stop date: 09/17/13 19:59:00(Same as: Ativan) Protonix 40 mg, 1 tab, No Longer Route: PO, Active 2013 [facility] Drug form: ECTAB, Before Dinner, Start date: 09/17/13 16:30:00, Duration: 30 day, Stop date: 10/16/13 16:30:00Tablet should not be chewed or crushed. (Same as: Protonix) nitroglycerin 0.4 0.4 mg, 1 tab, No Longer mg sublingual Route: SL, Active 2013 [facility] tablet Drug form: TAB, Q5Min, PRN Chest Pain, Start date: 09/17/13 14:27:00, Duration: 30 day, Stop date: 10/17/13 15:26:00(Same as:Nitroquick, Nitrostat) "Do Not Crush" Sublingual tablet atropine 0.5 mg, 5 mL, No Longer Route: IVP, Active 2013 [facility] Drug form: INJ, PRN, PRN Bradycardia, Start date: 09/17/13 14:27:00, Duration: 30 day, Stop date: 10/17/13 15:26:00 Calcium Gluconate 1,000 mg, 10 Inactive mL, Route: 2013 [facility] IVPB, ONCE, Dosing Weight 100, kg, Start date: 09/17/13 9:21:00, Stop date: 09/17/13 9:21:00 Magnesium Sulfate 4 gm, Route: Inactive IV, ONCE, 2013 [facility] Dosing Weight 100, kg, Start date: 09/17/13 9:20:00, Stop date: 09/17/13 9:20:00 TriCor 145 mg, 1 tab, No Longer Route: PO, Active 2013 [facility] Drug form: TAB, Daily, Start date: 09/17/13 9:00:00, Duration: 30 day, Stop date: 10/16/13 9:00:00(Same as: Tricor) Saline Flush 0.9% 5 ml, Route: No Longer IVP, Drug Active 2013 [facility] Form: INJ, Dosing Weight 100, kg, Q12H, Start date: 09/17/13 9:00:00, Duration: 30 day, Stop date: 10/16/13 21:00:00Same as: BD Posiflush Sterile Ascorbic Acid / 1 cap, Route: No Longer Beta Carotene / PO, Drug Form: Active 2013 [facility] cuprous oxide / TAB, Dosing Lutein / sodium Weight 100, selenate / kg, Daily, Vitamin E / Zinc Start date: Oxide 09/17/13 9:00:00, Duration: 30 day, Stop date: 10/16/13 9:00:00(Same as:Thera-M, Theragran-M) Give with food. metoprolol 25 mg, 1 tab, No Longer tartrate Route: PO, Active 2013 [facility] Drug form: TAB, BID, Dosing Weight 100, kg, Start date: 09/17/13 9:00:00, Duration: 30 day, Stop date: 10/16/13 21:00:00(Same as: Lopressor) Lisinopril 40 mg, 2 tab, No Longer Route: PO, Active 2013 [facility] Drug form: TAB, Daily, Dosing Weight 100, kg, Start date: 09/17/13 9:00:00, Duration: 30 day, Stop date: 10/16/13 17:00:00(Same as: Prinivil, Zestril) Trilipix 135 mg, Route: Inactive PO, Drug form: 2013 [facility] CAP, Daily, Dosing Weight 100, kg, Start date: 09/17/13 9:00:00, Duration: 30 day, Stop date: 10/16/13 9:00:00 Digoxin 0.125 MG 0.125 mg, 1 No Longer Oral Tablet tab, Route: Active 2013 [facility] PO, Drug form: TAB, Daily, Dosing Weight 100, kg, Start date: 09/17/13 9:00:00, Duration: 30 day, Stop date: 10/16/13 9:00:00Take on an Empty Stomach (Same as: Lanoxin) Dexilant 60 mg, Route: Inactive PO, Drug form: 2013 [facility] DRC, Daily, Dosing Weight 100, kg, Start date: 09/17/13 9:00:00, Duration: 30 day, Stop date: 10/16/13 9:00:00 Plavix 75 mg, 1 tab, No Longer Route: PO, Active 2013 [facility] Drug form: TAB, Daily, Dosing Weight 100, kg, Start date: 09/17/13 9:00:00, Duration: 30 day, Stop date: 10/16/13 9:00:00(Same As: Plavix) Bisoprolol 10 mg, 2 tab, No Longer Route: PO, Active 2013 [facility] Drug form: TAB, Daily, Dosing Weight 100, kg, Start date: 09/17/13 9:00:00, Stop date: 10/16/13 9:00:00(Same As: Zebeta) Citalopram 20 mg, 1 tab, No Longer Route: PO, Active 2013 [facility] Drug form: TAB, Daily, Dosing Weight 100, kg, Start date: 09/17/13 9:00:00, Duration: 30 day, Stop date: 10/16/13 9:00:00(Same As: CeleXA) Aspirin 81 MG 81 mg, 1 tab, Inactive Enteric Coated Route: PO, 2013 [facility] Tablet Drug form: ECTAB, Daily, Dosing Weight 100, kg, Start date: 09/17/13 9:00:00, Duration: 30 day, Stop date: 10/16/13 9:00:00 Amlodipine 10 mg, 2 tab, No Longer Route: PO, Active 2013 [facility] Drug form: TAB, Daily, Dosing Weight 100, kg, Start date: 09/17/13 9:00:00, Duration: 30 day, Stop date: 10/16/13 9:00:00(Same as: Norvasc) atorvastatin 40 mg, 1 tab, No Longer Route: PO, 2013 [facility] Drug form: TAB, Daily, Dosing Weight 100, kg, Start date: 09/17/13 9:00:00, Duration: 30 day, Stop date: 10/16/13 17:00:00(Same as: Lipitor) Zofran 4 mg, Route: Inactive IVP, Drug 2013 [facility] form: INJ, ONCE, Dosing Weight 100, kg, Start date: 09/17/13 7:32:00, Stop date: 09/17/13 7:32:00 Calcium Gluconate 2,000 mg, 20 Inactive mL, Route: 2013 [facility] IVPB, ONCE, Dosing Weight 100, kg, Priority: STAT, Start date: 09/17/13 3:11:00, Stop date: 09/17/13 3:11:00 Aspirin 325 MG 325 mg, 1 tab, No Longer Enteric Coated Route: PO, 2013 [facility] Tablet Drug form: ECTAB, Q24H, Dosing Weight 100, kg, Start date: 09/17/13 1:00:00, Duration: 30 day, Stop date: 10/16/13 1:00:00(Do Not Crush) Do not crush or chew. Ambien 10 mg, 1 tab, No Longer Route: PO, Active 2013 [facility] Drug form: TAB, Bedtime, Dosing Weight 100, kg, PRN as needed for sleep, Start date: 09/17/13 0:25:00, Duration: 30 day, Stop date: 10/17/13 0:24:00(Same As: Ambien) Flexeril 10 mg, 1 tab, No Longer Route: PO, Active 2013 [facility] Drug form: TAB, TID, Dosing Weight 100, kg, PRN Spasm, Start date: 09/17/13 0:23:00, Duration: 30 day, Stop date: 10/17/13 0:22:00(Same As: Flexeril) Insulin, Aspart, 10 unit, 0.1 No Longer Human mL, Route: Active 2013 [facility] SUB-Q, Drug form: SOLN, Sliding Scale, Dosing Weight 100, kg, PRN Blood Glucose Results, Start date: 09/17/13 0:20:00, Duration: 30 day, Stop date: 10/17/13 1:19:00Roll in palms of hands gently; Do not shake vigorously. (Same as: NovoLOG) "single patient use only" Stable for 28 days at room temperature. Expires in days from Date Dextrose 50% 12.5 gm, 25 No Longer Syringe mL, Route: Active 2013 [facility] IVP, Drug Form: INJ, Dosing Weight 100, kg, PRN, PRN Blood Glucose Results, Start date: 09/17/13 0:20:00, Duration: 30 day, Stop date: 10/17/13 1:19:00 Glucagon 1 mg, Route: No Longer IM, Drug form: Active 2013 [facility] PDR/INJ, PRN, Dosing Weight 100, kg, PRN Blood Glucose Results, Start date: 09/17/13 0:20:00, Duration: 30 day, Stop date: 10/17/13 1:19:00 Sodium Chloride 1,000 mL, No Longer 0.154 MEQ/ML Rate: 100 Active 2013 [facility] Injectable ml/hr, Infuse Solution over: 10 hr, Route: IV, Dosing Weight 100 kg, Total Volume: 1,000, Start date: 09/17/13 0:19:00, Duration: 30 day, Stop date: 10/17/13 0:18:00 Saline Flush 0.9% 5 ml, Route: No Longer IVP, Drug [facility] 2013 [facility] Form: INJ, Dosing Weight 100, kg, PRN, PRN Line Flush, Start date: 09/17/13 0:08:00, Duration: 30 day, Stop date: 10/17/13 1:07:00Same as: BD Posiflush Sterile Morphine 2 mg, 1 mL, No Longer Route: IVP, Active 2013 [facility] Drug form: INJ, Q4H, Dosing Weight 100, kg, PRN Pain Score 4-6, Start date: 09/17/13 0:08:00, Duration: 30 day, Stop date: 10/17/13 0:07:00(Same as:MORPhine Sulfate) Nitroglycerin 0.4 mg, 1 tab, Inactive Route: SL, 2013 [facility] Drug form: TAB, Q5Min, Dosing Weight 100, kg, PRN Chest Pain, Start date: 09/17/13 0:08:00, Duration: 3 doses or times, Stop date: Limited # of times(Same as:Nitroquick, Nitrostat) "Do Not Crush" Sublingual tablet Acetaminophen 650 mg, 2 tab, No Longer Route: PO, Active 2013 [facility] Drug form: TAB, Q4H, Dosing Weight 100, kg, PRN Headache 1-5, Start date: 09/17/13 0:08:00, Duration: 30 day, Stop date: 10/17/13 0:07:00Do not exceed 4 gm/day. (Same as: Tylenol) Temazepam 15 mg, 1 cap, No Longer Route: PO, Active 2013 [facility] Drug form: CAP, Bedtime, Dosing Weight 100, kg, PRN Insomnia, Start date: 09/17/13 0:08:00, Duration: 30 day, Stop date: 10/17/13 0:07:00(Same As: Restoril) lisinopril 40 mg 40 mg=1 tab, No Longer oral tablet PO, Daily, # Active 2013 [facility] 30 tab, 0 Refill(s) citalopram 20 mg 20 mg=1 tab, Active oral tablet PO, Daily, # 2014 [facility] 30 tab, 0 Refill(s) Cyclobenzaprine 10 mg=1 tab, Active hydrochloride 10 PO, TID, for 2013 [facility] MG Oral Tablet spasm, # 30 [Flexeril] tab, 0 Refill(s) Dilaudid 1 mg, Route: Inactive IV, ONCE, 2013 [facility] Dosing Weight 100, kg, Start date: 09/16/13 22:27:00, Stop date: 09/16/13 22:27:00 Zofran 4 mg, Route: Inactive IVP, Drug 2013 [facility] form: INJ, ONCE, Dosing Weight 100, kg, Priority: STAT, Start date: 09/16/13 20:20:00, Stop date: 09/16/13 20:20:00 Hydromorphone 1 mg, 1 mL, Inactive Route: IVP, 2013 [facility] Drug form: INJ, ONCE, Dosing Weight 100, kg, Priority: STAT, Start date: 09/16/13 20:04:00, Stop date: 09/16/13 20:04:00 METOPROLOL 1 1/2 tab po Active Medical TARTRATE 25 MG bid 2013 Group TABS CYCLOBENZAPRINE 1 tab po Active Medical HCL 10 MG TABS nightly as 2013 Group needed for muscle spasms AMBIEN 10 MG TABS 1 tab po qhs No Longer Medical prn Active 2013 Group NORCO 10-325 MG 1 tab po daily No Longer Medical TABS as needed for Active 2013 Group severe pain AMBIEN 10 MG TABS 1 tab po qhs No Longer Medical prn Active 2013 Group METOPROLOL 1 tab po bid Active Medical TARTRATE 50 MG 2013 Group TABS CYCLOBENZAPRINE 1 tab po Active Medical HCL 10 MG TABS nightly as 2013 Group needed for muscle spasms BACTRIM DS Take one (1) No Longer Medical 800-160 MG TABS by mouth twice Active 2012 Group a day for toenail infection x 7 days PROMETHAZINE HCL 1 tab po q6-8 No Longer Medical 25 MG TABS hrs prn Active 2012 Group nausea/vomitin g HYDROCODONE-ACETA 1 tab po q6 No Longer Medical MINOPHEN 10-325 hours prn Active 2012 Group MG TABS severe pain MUPIROCIN 2 % apply to No Longer Medical OINT affected area Active 2012 Group twice daily for 7 days BACTRIM DS Take one (1) No Longer Medical 800-160 MG TABS by mouth twice Active 2012 Group a day for toenail infection x 7 days PROMETHAZINE HCL 1 tab po q6-8 No Longer Medical 25 MG TABS hrs prn Active 2012 Group nausea/vomitin g HYDROCODONE-ACETA 1 tab po q6 No Longer Medical MINOPHEN 10-325 hours prn Active 2012 Group MG TABS severe pain MUPIROCIN 2 % apply to No Longer Medical OINT affected area Active 2012 Group twice daily for 7 days LANTUS SOLOSTAR start 40 units No Longer Medical 100 UNIT/ML SOLN nightly for Active 2012 Group blood sugar, titrate up as directed LANTUS SOLOSTAR start 40 units No Longer Medical 100 UNIT/ML SOLN nightly for Active 2012 Group blood sugar, titrate up as directed AMBIEN 10 MG TABS 1 tab po qhs No Longer Medical Active 2012 Group AMBIEN 10 MG TABS 1 tab po qhs No Longer Medical Active 2012 Group CITALOPRAM 1 tab po daily Active Medical HYDROBROMIDE 20 for mood 2011 Group MG TABS ALPRAZOLAM 0.5 MG 1 tab po daily Active Medical TABS as needed 2011 Group ALPRAZOLAM 0.5 MG 1 tab po daily Active Medical TABS as needed 2011 Group CITALOPRAM 1 tab po daily Active Medical HYDROBROMIDE 40 for mood 2011 Group MG TABS CARVEDILOL 25 MG 1 tab po twice No Longer Medical TABS daily Active 2011 Group CARVEDILOL 25 MG 1 tab po twice No Longer Medical TABS daily Active 2011 Group DIGOXIN 0.125 MG 1 tab po daily Active Medical TABS for heart 2012 Group PLAVIX 75 MG TABS 1 po qd for Active Medical heart 2012 Group AMLODIPINE 1 tab po daily Active Medical BESYLATE 10 MG for blood 2012 Group TABS pressure TRILIPIX 135 MG 1 tab po daily Active Medical CPDR for 2012 Group cholesterol LISINOPRIL 40 MG 1 tab po daily Active Medical TABS for blood 2012 Group pressure DEXILANT 60 MG 1 tab po daily Active Medical CPDR for stomach 2011 Group ATORVASTATIN 1 tab po Active Medical CALCIUM 40 MG nightly for 2012 Group TABS cholesterol LOVAZA 1 GM CAPS 2 tabs po Active Medical twice daily 2011 Group for cholesterol PEN NEEDLES 31G X insulin pen Active Medical 6 MM MISC needles use as 2012 Group directed AMIODARONE HCL 1/2 tablet No Longer Medical 200 MG TABS daily for Active 2011 Group heart AMLODIPINE 1 tab po daily Active Medical BESYLATE 10 MG for blood 2011 Group TABS pressure LISINOPRIL 40 MG 1 tab po daily Active Medical TABS for blood 2011 Group pressure LOVAZA 1 GM CAPS 2 tabs po Active Medical twice daily 2011 Group for cholesterol ZOLPIDEM TARTRATE 1 tab po Active Medical 10 MG TABS nightly prn 2011 Group sleep ZOLPIDEM TARTRATE 1 tab po No Longer Medical 10 MG TABS nightly prn Active 2011 Group sleep HYDROCODONE-ACETA 1 tabs po q No Longer Medical MINOPHEN 5-500 MG 4-6 hrs as Active 2011 Group TABS needed for pain CYCLOBENZAPRINE 1 tab po No Longer Medical HCL 10 MG TABS nightly for Active 2011 Group muscle spasm FLEXERIL 10 MG 1 po qhs prn No Longer Medical TABS spasm Active 2011 Group HYDROCODONE-ACETA 1 tabs po q No Longer Medical MINOPHEN 5-500 MG 4-6 hrs as Active 2011 Group TABS needed for pain CYCLOBENZAPRINE 1 tab po No Longer Medical HCL 10 MG TABS nightly for Active 2011 Group muscle spasm PREDNISONE 20 MG 2 tabs po qd X No Longer 10/24/ Medical TABS 5 days Active 2011 Group LEVAQUIN 500 MG 1 po qd No Longer 10/24/ Medical TABS Active 2011 Group VENTOLIN HFA 108 2 puffs No Longer 10/24/ Medical (90 BASE) MCG/ACT inhaled q4h Active 2011 Group AERS prn shortness of breath PREDNISONE 20 MG 2 tabs po qd X No Longer 10/24/ Medical TABS 5 days Active 2011 Group LEVAQUIN 500 MG 1 po qd No Longer 10/24/ Medical TABS Active 2011 Group VENTOLIN HFA 108 2 puffs No Longer 10/24/ Medical (90 BASE) MCG/ACT inhaled q4h Active 2011 Group AERS prn shortness of breath CYMBALTA 60 MG 1 po qhs for No Longer Medical CPEP pain and mood Active 2011 Group CYMBALTA 60 MG 1 po qhs for No Longer Medical CPEP pain and mood Active 2011 Group Allergies, Adverse Reactions, Alerts Substance Category Reaction Severity Reaction Status Date Comments Source type Reported codeine Assertion Drug Active allergy Medical Group Immunizations Immunization Date Given Site Status Last Updated Comments Source Results Order Name Results Value Reference Date Interpretation Comments Source Range Hip bilat Hip bilat w BILATERAL HIP, 2 VIEWS AND PELVIS, 1 VIEW 07/11 - OPID w pelvis pelvis 09/30 - [facility] 3/4 views views DX DX HISTORY: - severe bilateral hip pain, limited ROM on internal rotation and adduction; neuropathy Read by: Evgeny Stanley MD Dictated Date/time: 07/11/17 15:59 Electronically Signed by: Evgeny Stanley MD 07/11/17 16:03 FINAL REPORT COMPARISON: CT abdomen/pelvis dated 05/04/2017 RIGHT HIP: No fracture, subluxation, or aggressive osseous lesion. No evidence of femoral head osteonecrosis. The right hip joint space is grossly preserved. Right groin and right pelvic surgical vascular clips ar e noted. Right iliac vascular stent, partially visualized. LEFT HIP: No fracture, subluxation, or aggressive osseous lesion. No evidence of femoral head osteonecrosis. The left hip joint space is grossly preserved. Left iliac vascular stent, partially visualized. PELVIS: Normal bony pelvis. No fracture or aggressive osseous lesion. Sacroiliac joints and symphysis pubis are unremarkable. SL: [id number] Abdomen/Pe Abdomen/Pelv Study: Abdomen/Pelvis wo IV contrast CT 05/04 - [facility] OPID lvis wo IV is wo /2016 - [facility] contrast contrast CT CT Clinical Indication: - eval aaa Read by: Shahid Mccall MD Dictated Date/time: 05/04/17 11:38 Electronically Signed by: Shahid Mccall MD 05/04/17 11:45 FINAL REPORT Comparison: CT of the chest, abdomen, and pelvis from 01/10/2017. TECHNIQUE: Multiple axial CT images of the abdomen and pelvis were acquired without the administration of intravenous contrast. Sagittal and coronal reformatted images were performed. CT Radiation Dose DLP 1135.82 mGy-cm FINDINGS: Limited views of the lung bases show partial visualization of a 9 mm nodule in the left lower lobe. This is stable. Hepatosplenomegaly and mild hepatic steatosis is seen. Patient is status post cholecystectomy. Pancreas, adrenal glands, and right kidney are within the normal limits imposed by the lack of intravenous contrast. Hypodense 1.6 cm left renal cyst is stable. Urinary bladder and prostate are unremarkable. Multiple colonic diverticula are seen without inflammatory change to suggest acute diverticulitis. The appendix is not clearly visualized. No free air, free fluid, or pathologic adenopathy is seen. Stable changes of endovascular stent graft placement across a fusiform infrarenal abdominal aortic aneurysm are seen. The aneurysmal sac measures 5.9 cm transversely and 5.2 cm AP dimension, grossly stable. Small, fat-containing umbilical hernia is present and stable. Degenerative changes of the lumbar spine are seen. Postoperative changes of multilevel laminectomy in the lower lumbar spine are seen. IMPRESSION: 1. Stable changes of endovascular stent graft placement across an infrarenal abdominal aortic aneurysm. The aneurysmal sac measures 5.9 x 5.2 cm axial dimension, stable. 2. Hepatosplenomegaly with hepatic steatosis. 3. Colonic diverticulosis without acute diverticulitis. 4. Stable 9 mm left lower lobe pulmonary nodule. 5. Small, fat-containing umbilical hernia. SL: [id number] CHEM PANEL eGFR 04/20 Result Comment: The eGFR is calculated using the CKD-EPI formula. In most young, healthy individuals the eGFR will be >90 mL/ min/1.73m2. The eGFR declines with age. An eGFR of 60-89 may be normal in mL/min/1.7 /2017 some populations, particularly the elderly, for whom the CKD-EPI formula has not been extensively validated. Use of the eGFR is not recommended in the following populations: [facility] 3m2 Individuals with unstable creatinine concentrations, including patients and those with serious co-morbid conditions. Patients with extremes in muscle mass or diet. The data above are obtained from the National Kidney Disease Education Program (NKDEP) which additionally recommends that when the eGFR is used in patients with extremes of body mass index for purposes of drug dosing, the eGFR should be multiplied by the estimated BMI. CHEM PANEL Calcium Lvl 7.9 mg/dL 8.5 - 10.5 04/20 [facility] CHEM PANEL Glucose Lvl 183 mg/dL 70 - 99 04/20 [facility] CHEM PANEL Creatinine 2.42 mg/dL 0.50 - 04/20 [facility] Lvl 1.40 [facility] CHEM PANEL BUN 49 mg/dL - 04/20 [facility] Comment: [facility] Lipemic specimen. CHEM PANEL Chloride Lvl 101 meq/L 95 - 109 04/20 [facility] CHEM PANEL Potassium 4.4 meq/L 3.5 - 5.1 04/20 Lvl [facility] CHEM PANEL Sodium Lvl 136 meq/L 135 - 145 04/20 [facility] CHEM PANEL AGAP 11.4 meq/L 10.0 - 04/20.0 [facility] CHEM PANEL CO2 28 meq/L 04/20 [facility] SPECIAL Hgb A1C 7.4 % <=5.6 % 04/20 CHEMISTRY [facility] ELECTROLYT CO2 30 meq/L 24 - 32 01/11 ES [facility] ELECTROLYT Sodium Lvl 141 meq/L 135 - 145 01/11 ES [facility] ELECTROLYT Chloride Lvl 105 meq/L 95 - 109 01/11 [facility] ELECTROLYT Calcium Lvl 7.8 mg/dL 8.5 - 10.5 01/11 [facility] ELECTROLYT Potassium 4.2 meq/L 3.5 - 5.1 01/11 ES Lv [facility] ELECTROLYT BUN 30 mg/dL - 01/11 [facility] ELECTROLYT Creatinine 1.79 mg/dL 0.50 - 01/11 ES Lvl 1.40 /2016 [facility] ELECTROLYT Glucose Lvl 185 mg/dL 70 - 99 01/11 ES /2016 [facility] ELECTROLYT AGAP 10.2 meq/L 10.0 - 01/11 ES 20.0 [facility] ELECTROLYT eGFR 41 01/11 Result Comment: The eGFR is calculated using the CKD-EPI formula. In most young, healthy individuals the eGFR will be >90 mL/ min/1.73m2. The eGFR declines with age. An eGFR of 60-89 [address] normal in [facility] mL/min/1.7 some populations, particularly the elderly, for whom the CKD-EPI formula has not been extensively validated. Use of the eGFR is not recommended in the following populations: [place] [address] Individuals with unstable creatinine concentrations, including patients and those with serious co-morbid conditions. Patients with extremes in muscle mass or diet. The data above are obtained from the National Kidney Disease Education Program (NKDEP) which additionally recommends that when the eGFR is used in patients with extremes of body mass index for purposes of drug dosing, the eGFR should be multiplied by the estimated BMI. Chest/Abdo Chest/Abdomi ADDENDUM: The study was reviewed at the request of Dr. Lee. There is faint arterial opacification without demonstration of a large persistent endoleak in the aneurysm sac, although a small endoleak w - [facility] Aorta ould be difficult to exclude without the arterial phase. Due to concerns regarding patient's abnormal renal function, the study will be repeated later date. - [place] Aorta with with Runoff Runoff CTA CTA Read by: Figueroa Madrigal MD [id number] Dictated Date/time: 01/11/17 09:42 Electronically Signed by: Figueroa Madrigal MD 01/11/17 09:46 FINAL REPORT - EXAM: CT ANGIOGRAM AORTA AND RUNOFF WITH CONTRAST - Read by: Janes Ogden MD DATE: 01/10/2017 at 1927 hours. Dictated Date/time: 01/10/17 20:22 Electronically Signed by: Janes Ogden MD 01/10/17 20:45 FINAL REPORT INDICATION: Abdominal pain, acute. Lower extremity edema. COMPARISON: CT abdomen and pelvis dated 01/08/2017 and 10/15/2013.. TECHNIQUE: Helical CT imaging of the chest, abdomen, pelvis, and lower extremities was performed following the intravenous administration of 100 mL Visipaque 320. Axial, sagittal and coronal multiplana r reconstructions provided. 3D reconstructions and maximum intensity projection images were also generated for review. CT radiation dose: TYX=1172.89 mGy-cm FINDINGS: The examination is nondiagnostic for arterial pathology given that the examination was performed in the venous rather than the arterial phase. CHEST LUNG PARENCHYMA AND PLEURA: Mild atelectatic changes are visualized. No interstitial or airspace opacities. No pulmonary nodules or masses visualized. No pneumothorax or pleural effusion. AIRWAYS: The central airways are unremarkable. The trachea is midline. MEDIASTINUM: No significant mediastinal lymphadenopathy. HEART: The heart is not enlarged, however aortic root and coronary artery calcifications are visualized. There is no pericardial effusion. VASCULAR: There is atherosclerotic calcification of the aorta without evidence for aneurysmal dilatation or dissection. The pulmonary arteries are within normal limits. AXILLAE AND LOWER NECK: Visible portions unremarkable. 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 Mild degenerative changes are present within the thoracic spine. No acute osseous abnormality is present. SOFT TISSUES: Unremarkable ABDOMEN AND PELVIS: LIVER: Diffuse fatty infiltration of the liver. GALLBLADDER/BILIARY: Patient is status post cholecystectomy. PANCREAS: Unremarkable SPLEEN: Spleen is enlarged. ADRENALS: Unremarkable KIDNEYS AND URETERS: Simple cortical cyst within the left kidney measures 1.6 cm. BLADDER: Unremarkable STOMACH: Unremarkable BOWEL: The small bowel is normal in course and caliber without evidence for obstruction. Mild diverticulosis is noted throughout the colon. There is mild wall thickening of the sigmoid colon, series 2 i mage 110. No significant surrounding inflammatory stranding is visualized. PELVIS: No pelvic mass or adenopathy. PERITONEUM: No ascites or free air. LYMPH NODES: Unremarkable. VASCULAR: An aortobiiliac stent graft is identified, and appears grossly patent. The surrounding thrombosed infrarenal abdominal aortic aneurysm sac measures approximately 6.0 cm, slightly increased in size from 2014 where previously measured 5.2 cm. No significant surrounding inflammatory stranding within the retroperitoneum is identified. There is no contrast enhancement of the aneurysm sac, althoug h evaluation is limited. There is occlusion of the internal iliac arteries at its origin bilaterally. OSSEOUS STRUCTURES: Degenerative changes are noted throughout the lumbar spine. Postsurgical changes are noted within the lower lumbar spine. SOFT TISSUES: Minimal fat-containing inguinal hernias. A fat-containing lesion adjacent to the sigmoid colon is unchanged from previous examination. LOWER EXTREMITIES: Again, evaluation of the lower extremities arteries was markedly limited given that the contrast bolus is noted in the venous rather than the arterial phase. There is complete thrombosis of the popliteal arteries bilaterally secondary to a combination of both calcified and noncalcified atherosclerotic plaque. Varying degrees of mild to moderate stenosis of t he common femoral and superficial femoral arteries is identified. There is some moderate to severe stenosis involving the distal branches of the profunda femoris artery. A normal trifurcation is not vis ualized, with extensive atherosclerotic disease involving the anterior tibial, posterior tibial, and peroneal arteries of the lower extremities bilaterally. Mild subcutaneous edema is noted throughout the lower extremities bilaterally. No acute osseous abnormality is identified. There is no evidence for a suprapatellar joint effusion. IMPRESSION: 1. Markedly limited, nearly nondiagnostic evaluation for arterial pathology , given that the contrast bolus was noted in the venous rather than the arterial phase throughout the exam. 2. Aortobiiliac stent graft is grossly patent with mild increase in size of the surrounding thrombosed infrarenal abdominal aortic aneurysm sac, now measuring 6.0 cm and previously measuring 5.2 cm in 2 014. No significant surrounding inflammatory stranding within the retroperitoneum or contrast enhancement within the aneurysm sac is visualized on the current study although evaluation for a subtle endoleak would be limited. 3. Occlusion and complete thrombosis of the popliteal arteries bilaterally secondary to a combination of both calcified and noncalcified atherosclerotic plaque. A normal trifurcation within the lower le gs is not visualized with extensive atherosclerotic disease of the anterior tibial, posterior tibial, and peroneal arteries likely with multifocal moderate to severe stenosis. The arteries themselves were not well opacified. 4. Moderate to severe stenosis involving the distal branches of the profunda femoris artery. Varying degrees of mild to moderate stenosis along the common femoral and superficial femoral arteries is noted. 5. Occlusion at the origin of the internal iliac arteries bilaterally secondary to extensive atherosclerotic plaque. 6. Mild subcutaneous edema throughout the lower extremities bilaterally. No organizing fluid collections to suggest abscess formation. 7. Questionable wall thickening of the sigmoid colon with a background of diverticulosis. No surrounding inflammatory stranding is identified, however a low-grade diverticulitis cannot be fully excluded. 8. Diffuse fatty infiltration of the liver with hepatomegaly. Nonspecific enlargement of the spleen. SL: [id number] CHEM PANEL Phosphorus 3.4 mg/dL 2.5 - 4.5 01/10 [facility] CHEM PANEL eGFR 39 01/10 Result Comment: The eGFR is calculated using the CKD-EPI formula. In most young, healthy individuals the eGFR will be >90 mL/ min/1.73m2. The eGFR declines with age. An eGFR of 60-89 may be normal in [facility] mL/min/1. some populations, particularly the elderly, for whom the CKD-EPI formula has not been extensively validated. Use of the eGFR is not recommended in the following populations: [address] Individuals with unstable creatinine concentrations, including patients and those with serious co-morbid conditions. Patients with extremes in muscle mass or diet. The data above are obtained from the National Kidney Disease Education Program (NKDEP) which additionally recommends that when the eGFR is used in patients with extremes of body mass index for purposes of drug dosing, the eGFR should be multiplied by the estimated BMI. CHEM PANEL Sodium Lvl 139 meq/L 135 - 145 01/10 [facility] CHEM PANEL Creatinine 1.86 mg/dL 0.50 - 01/10 MH Lvl 1.40 [facility] CHEM PANEL Glucose Lvl 218 mg/dL 70 - 99 01/10 [facility] CHEM PANEL Calcium Lvl 7.8 mg/dL 8.5 - 10.5 01/10 [facility] CHEM PANEL AGAP 11.9 meq/L 10.0 - 01/10 MH 20.0 [facility] CHEM PANEL CO2 27 meq/L 24 - 32 01/10 [facility] CHEM PANEL Potassium 4.9 meq/L 3.5 - 5.1 01/10 MH Lvl [facility] CHEM PANEL Chloride Lvl 105 meq/L 95 - 109 01/10 [facility] CHEM PANEL BUN 30 mg/dL 7 - 22 01/10 [facility] HEMATOLOGY PROTIME 12.4 s 12.0 - 01/10 MH 14. [facility] HEMATOLOGY INR 0.91 0.85 - 01/10 MH 1.17 [facility] CHEM PANEL Phosphorus 3.4 mg/dL 2.5 - 4.5 01/09 [facility] CHEM PANEL Magnesium 1.8 mg/dL 1.8 - 2.4 01/09 MH Lvl /2017 [facility] CHEM PANEL Calcium Lvl 8.1 mg/dL 8.5 - 10.5 01/09 [facility] CHEM PANEL eGFR 42 01/09 Result Comment: The eGFR is calculated using the CKD-EPI formula. In most young, healthy individuals the eGFR will be >90 mL/ min/1.73m2. The eGFR declines with age. An eGFR of 60-89 may be normal in mL/min/1.7 some populations, particularly the elderly, for whom the CKD-EPI formula has not been extensively validated. Use of the eGFR is not recommended in the following populations: [address] Individuals with unstable creatinine concentrations, including patients and those with serious co-morbid conditions. Patients with extremes in muscle mass or diet. The data above are obtained from the National Kidney Disease Education Program (NKDEP) which additionally recommends that when the eGFR is used in patients with extremes of body mass index for purposes of drug dosing, the eGFR should be multiplied by the estimated BMI. CHEM PANEL CO2 31 meq/L 24 - 32 01/09 [facility] CHEM PANEL Chloride Lvl 103 meq/L 95 - 109 01/09 [facility] CHEM PANEL AGAP 10.5 meq/L 10.0 - 01/09 MH 20.0 [facility] CHEM PANEL Creatinine 1.75 mg/dL 0.50 - 01/09 MH Lvl 1.40 [facility] CHEM PANEL Sodium Lvl 140 meq/L 135 - 145 01/09 [facility] CHEM PANEL Potassium 4.5 meq/L 3.5 - 5.1 01/09 Lvl [facility] CHEM PANEL Glucose Lvl 216 mg/dL 70 - 99 01/09 [facility] CHEM PANEL BUN 27 mg/dL 7 - 22 01/09 [facility] HEMATOLOGY Hct 34.8 % 42.0 - 01/09 MH 54.0 [facility] HEMATOLOGY Hgb 12.3 g/dL 14.0 - 01/09 MH 18.0 [facility] HEMATOLOGY RDW 14.3 % 11.5 - 01/09 MH 14. [facility] HEMATOLOGY RBC X 10x6 3.89 M/CMM 4.70 - 01/09 MH 6.10 [facility] HEMATOLOGY WBC X 10x3 7.2 K/CMM 3.7 - 10.4 01/09 [facility] HEMATOLOGY MCV 83.5 fL 80.0 - 01/09 MH 94.0 [facility] HEMATOLOGY MCH 29.8 pg 27.0 - 01/09 MH 31.0 [facility] HEMATOLOGY MCHC 35.0 g/dL 32.0 - 01/09 MH 36.0 [facility] HEMATOLOGY Platelet 266 K/CMM 133 - 450 01/09 [facility] HEMATOLOGY MPV 9.4 fL 7.4 - 10.4 01/09 [facility] HEMATOLOGY RBC Morph Normal 01/09 [facility] (01/09/17 4:04 AM) HEMATOLOGY Lymphocytes 20.5 % 20.0 - 01/09 MH 40.0 [facility] HEMATOLOGY Plt Morph Normal 01/09 [facility] (01/09/17 4:04 AM) HEMATOLOGY Segs 67.5 % 45.0 - 01/09 MH 75.0 [facility] HEMATOLOGY Lymphocytes 1.5 K/CMM 1.0 - 5.5 01/09 MH # [facility] HEMATOLOGY Basophils 1.6 % 0.0 - 1.0 01/09 [facility] HEMATOLOGY Basophils # 0.1 K/CMM 0.0 - 0.2 01/09 [facility] HEMATOLOGY Monocytes 7.2 % 2.0 - 12.0 01/09 [facility] HEMATOLOGY Segs-Bands # 4.8 K/CMM 1.5 - 8.1 01/09 [facility] HEMATOLOGY Eosinophils 3.2 % 0.0 - 4.0 01/09 [facility] HEMATOLOGY Monocytes # 0.5 K/CMM 0.0 - 0.8 01/09 [facility] HEMATOLOGY Eosinophils 0.2 K/CMM 0.0 - 0.5 01/09 MH # [facility] CARDIAC Troponin-I 0.03 ng/mL 0.00 - 01/09 ENZYMES 0.40 /2016 [facility] CARDIAC Total CK 232 unit/L 12 - 191 01/09 ENZYMES [facility] CARDIAC CK MB 4.1 ng/mL 0.5 - 3.6 01/09 ENZYMES [facility] CHEM PANEL ALANINE 24 unit/L 0 - 65 01/09 AMINOTRANS [facility] RASE CHEM PANEL Albumin Lvl 2.8 g/dL 3.5 - 5.0 01/09 [facility] CHEM PANEL Alk Phos 36 unit/L 39 - 136 01/09 [facility] CHEM PANEL B/C Ratio 16 6 - 25 01/09 [facility] CHEM PANEL Bili Total 0.2 mg/dL 0.2 - 1.3 01/09 [facility] CHEM PANEL Total 5.3 g/dL 6.4 - 8.4 01/09 Protein [facility] CHEM PANEL ASPARTATE 26 unit/L 0 - 37 01/09 TRANSAMINASE [facility] CHEM PANEL Globulin 2.5 g/dL 2.7 - 4.2 01/09 [facility] CHEM PANEL A/G Ratio 1.1 0.7 - 1.6 01/09 [facility] CARDIAC Total CK 246 unit/L 12 - 191 01/08 ENZYMES [facility] CARDIAC CK MB 4.4 ng/mL 0.5 - 3.6 01/08 ENZYMES [facility] CARDIAC Troponin-I 0.02 ng/mL 0.00 - 01/08 ENZYMES 0.40 [facility] URINE AND UA RBC 6-10 /HPF 0 - 2 01/08 STOOL [facility] URINE AND UA Bacteria Occasional None Seen 01/08 STOOL /HPF /HPF [facility] URINE AND UA WBC 3-5 /HPF None Seen 01/08 STOOL /HPF [facility] URINE AND UA Sq Epi None Seen Few 01/08 STOOL [facility] (01/08/17 12:14 PM) URINE AND UA Leuk Est Negative Negative 01/08 STOOL [facility] (01/08/17 12:14 PM) URINE AND UA Nitrite Negative Negative 01/08 STOOL [facility] (01/08/17 12:14 PM) URINE AND UA Bili Negative Negative 01/08 STOOL [facility] *NA* (01/08/17 12:14 PM) URINE AND UA 0.2 EU/dL 0.1 - 1.0 01/08 STOOL Urobilinogen [facility] URINE AND UA Blood Moderate Negative 01/08 STOOL [facility] *ABN* (01/08/17 12:14 PM) URINE AND UA Protein >=300 Negative 01/08 STOOL mg/dL mg/dL [facility] URINE AND UA pH 6.0 5.0 - 8.0 01/08 STOOL [facility] URINE AND UA Ketones Negative Negative 01/08 STOOL [facility] *NA* (01/08/17 12:14 PM) URINE AND UA Glucose 100 mg/dL Negative 01/08 STOOL mg/dL [facility] URINE AND UA Color Yellow Yellow 01/08 STOOL [facility] *NA* (01/08/17 12:14 PM) URINE AND UA Turbidity Clear Clear 01/08 STOOL [facility] (01/08/17 12:14 PM) URINE AND UA Spec Grav 1.020 <=1.030 01/08 STOOL [facility] CARDIAC CK-MB INDEX 2.7 0.0 - 2.5 01/08 ENZYMES [facility] CARDIAC proBNP 733 pg/mL 0 - 125 01/08 ENZYMES [facility] CARDIAC CK MB 5.4 ng/mL 0.5 - 3.6 01/08 ENZYMES [facility] CARDIAC Total CK 203 unit/L 12 - 191 01/08 ENZYMES [facility] CARDIAC Troponin-I 0.03 ng/mL 0.00 - 01/08 ENZYMES 0.40 [facility] CHEM PANEL Alk Phos 43 unit/L 39 - 136 01/08 [facility] CHEM PANEL Albumin Lvl 3.2 g/dL 3.5 - 5.0 01/08 [facility] CHEM PANEL Bili Total 0.4 mg/dL 0.2 - 1.3 01/08 [facility] CHEM PANEL Total 5.9 g/dL 6.4 - 8.4 01/08 Protein [facility] CHEM PANEL ASPARTATE 23 unit/L 0 - 37 01/08 TRANSAMINASE [facility] CHEM PANEL ALANINE 27 unit/L 0 - 65 01/08 AMINOTRANSFE [facility] RASE CHEM PANEL A/G Ratio 1.2 0.7 - 1.6 01/08 [facility] CHEM PANEL Globulin 2.7 g/dL 2.7 - 4.2 01/08 [facility] CHEM PANEL B/C Ratio 18 6 - 25 01/08 [facility] CHEM PANEL Amylase Lvl 17 unit/L 25 - 115 01/08 [facility] CHEM PANEL Lipase Lvl 149 unit/L 73 - 393 01/08 [facility] HEMATOLOGY WBC X 10x3 8.5 K/CMM 3.7 - 10.4 01/08 [facility] HEMATOLOGY Hgb 12.0 g/dL 14.0 - 01/08 MH 18.0 [facility] HEMATOLOGY RBC X 10x6 4.04 M/CMM 4.70 - 01/08 MH 6.10 [facility] HEMATOLOGY MCV 84.8 fL 80.0 - 01/08 MH 94.0 [facility] HEMATOLOGY Hct 34.3 % 42.0 - 01/08 MH 54.0 [facility] HEMATOLOGY MCH 29.7 pg 27.0 - 01/08 MH 31.0 [facility] HEMATOLOGY MPV 8.2 fL 7.4 - 10.4 01/08 [facility] HEMATOLOGY Platelet 176 K/CMM 133 - 450 01/08 [facility] HEMATOLOGY RDW 14.1 % 11.5 - 01/08 MH 14. [facility] HEMATOLOGY MCHC 35.0 g/dL 32.0 - 01/08 MH 36.0 [facility] HEMATOLOGY Segs 70.1 % 45.0 - 01/08 MH 75.0 [facility] HEMATOLOGY Monocytes 6.6 % 2.0 - 12.0 01/08 [facility] HEMATOLOGY Lymphocytes 20.1 % 20.0 - 01/08 MH 40.0 [facility] HEMATOLOGY Eosinophils 0.2 K/CMM 0.0 - 0.5 01/08 # /2016 [facility] HEMATOLOGY Monocytes # 0.6 K/CMM 0.0 - 0.8 01/08 [facility] HEMATOLOGY Lymphocytes 1.7 K/CMM 1.0 - 5.5 01/08 [facility] HEMATOLOGY Segs-Bands # 6.0 K/CMM 1.5 - 8.1 01/08 [facility] HEMATOLOGY Basophils 0.6 % 0.0 - 1.0 01/08 [facility] HEMATOLOGY Eosinophils 2.6 % 0.0 - 4.0 01/08 [facility] HEMATOLOGY RBC Morph Normal 01/08 [facility] (01/08/17 10:48 AM) HEMATOLOGY Plt Morph Normal 01/08 [facility] (01/08/17 10:48 AM) Abdomen Abdomen RUQ RIGHT UPPER QUADRANT ULTRASOUND: 01/08 - [facility] RUQ US US /2016 - Alex HISTORY: Acute right upper quadrant pain, history of cholecystectomy. Read by: Figueroa Madrigal MD Dictated Date/time: 01/08/17 11:56 Electronically Signed by: Figueroa Madrigal MD 01/08/17 11:59 FINAL REPORT FINDINGS: The gallbladder is not visualized consistent with cholecystectomy. There is no evidence of biliary dilatation. The common duct measures 5 mm in diameter. The liver is enlarged, with a right lobe sagittal span of approximately 24 cm. There is increased echogenicity of the liver parenchyma without focal abnormalities or surface nodularity. Hepatopedal flow in the main portal vein is demonstrated. The visible pancreas and inferior vena cava are unremarkable. There is a shadowing echogenicity in the mid right renal hilum corresponding to vascular calcifications seen on the CT of 01/08/2017. There are no other significant right renal abnormalities. IMPRESSION: 1. Hepatomegaly with fatty infiltration. 2. Post cholecystectomy without biliary dilatation. 3. No other significant ultrasound abnormalities of the right upper quadrant. [id number] Abdomen/Pe Abdomen/Pelv CT ABDOMEN PELVIS WITHOUT CONTRAST: 01/08 - [facility] lvis wo IV is wo IV /2016 - Alex contrast contrast CT CT HISTORY: Diffuse abdominal tenderness, fatigue and lower extremity edema. Read by: Figueroa Madrigal MD Dictated Date/time: 01/08/17 12:06 Electronically Signed by: Figueroa Madrigal MD 01/08/17 12:16 FINAL REPORT TECHNIQUE: Multislice acquisition of the abdomen and pelvis was done without IV contrast. Oral contrast was not administered. Sagittal and coronal reconstructions were also done. FINDINGS: The appendix is not visualized. There is mild colonic diverticulosis without evidence of diverticulitis. There is no evidence of obstruction. The gastrointestinal tract is otherwise within normal limits. The liver and spleen are enlarged without focal abnormalities demonstrated. The pancreas, kidneys and adrenal glands show no significant abnormalities. The gallbladder has been removed. There is no evidence of biliary dilatation. An aortic stent graft is noted in satisfactory position. There is a 5.9 cm aneurysm sac, increased in size from 5.[address] of 10/15/2013. The right internal iliac aneurysm seen on the previous spike dy has decreased in size. There is no other significant retroperitoneal abnormality. There is a small circular fat structure in the pelvic region beneath the sigmoid colon, unchanged from the previous exam. There is no intra-abdominal mass or free fluid. There are no acute osseous abnormalities. Degenerative changes in the lumbar spine are noted without significant change from the previous exam. IMPRESSION: 1. Hepatosplenomegaly without focal abnormalities. 2. No evidence of obstruction or other acute gastrointestinal tract abnormalities. 3. Aortic stent graft with slight increase in size of the small infrarenal abdominal aortic aneurysm since 2013. Follow-up with the patient's vascular surgeon is recommended. 4. No other acute CT abnormalities in the abdomen or pelvis. [id number] Chest Chest 1view Portable chest: The cardiomediastinal silhouette and pulmonary vasculature are within normal limits. The lungs and pleural spaces are clear. There are no acute osseous abnormalities. A left shoulder hem - [facility] 1view DX DX iarthroplasty is noted. There is no significant change compared to 09/16/2013. Read by: Figueroa Madrigal MD IMPRESSION: Dictated Date/time: 01/08/17 11:37 Electronically Signed by: Figueroa Madrigal MD 01/08/17 11:38 FINAL REPORT No acute radiographic abnormality in the chest. [id number] Abdomen/Pe Abdomen/Pelv 10/15 - [facility] lvis w IV is w IV /2013 - [facility] contrast contrast CT REASON FOR EXAM: Left upper quadrant abdominal pain, diabetes and hypertension. CT Read by: Ruperto Carmen Dictated Date/time: 10/15/13 16:24 COMPARISON: Abdomen and pelvic CT 09/16/2013. Electronically Signed by: Ruperto Carmen MD 10/15/13 17:22 FINAL REPORT TECHNIQUE: Enhanced axial helical CT images of the abdomen and pelvis were reviewed at 5 mm intervals with IV and oral contrast. Reformatted coronal and sagittal images were also reviewed. ABDOMEN / PELVIC CT FINDINGS: The visualized lung bases are remarkable for elevation of the right diaphragm. Subsegmental atelectasis versus scarring in the right lower lobe and to a lesser extent the right middle lobe. Th ere is a 1.1 cm noncalcified pulmonary nodule in the left lower lobe ( image 4 series 3). Normal heart size. Left coronary artery calcifications. Trace /small amount of pericardial fluid. The gallbladder is surgically absent. No biliary dilatation. There is likely diffuse fatty infiltration of the liver. The liver is enlarged measuring a maximal craniocaudad dimension of 25 cm. The splee n is enlarged measuring a maximal length of 18 cm. 1.6 cm accessory spleen. Cortical scar in the upper pole of the right kidney. Low-density renal cortical lesions likely cysts measuring 1 cm in the low er pole of the right kidney and several in the left kidney the largest measuring 9 mm. No hydronephrosis. The pancreas and adrenal glands are unremarkable. There is a nonobstructive bowel gas pattern. The stomach is poorly distended limiting evaluation of the gastric quiroz. Mild scattered colonic diverticulosis without demonstrable acute diverticulitis. Th e appendix is not seen. No free intraperitoneal air or ascites. The urinary bladder is poorly distended without demonstrable abnormality. The prostate gland and seminal vesicles are unremarkable. Bilateral hydroceles incompletely imaged on this examination. Pelvic a rterial vascular calcifications. Calcified pelvic phleboliths. There is a bifurcated aortic stent graft with limbs extending into the iliac arteries. There is an infrarenal fusiform abdominal aortic aneurysm measuring approximately 5 cm anterior-posterior x 5.2 cm transversely in maximal dimensions. 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 There is density in the lumen of the left internal il iac artery probably representing an occluding device. There are small nonspecific retroperitoneal lymph nodes which are subcentimeter in size in short axis. There is an umbilical hernia containing fat measuring a maximal width of approximately 3 cm. There is a small focus of air in the soft tissues at the level of the left lamina of T9 (image 12 series 2). There is a trace amount of fluid adjacent to the posterior aspect of the air. No demonstrable rim enhancement to suggest an abscess. There is focal linear stranding in the subcutaneous fat of the left posterior thorax at this level. There are degenerative changes of the spine, bilateral sacroiliac joints and right hip. There is a focal cortical defect in the medial right ilium likely the site of a prior bone harvest. There is spina l stenosis at L3-L4 secondary to degenerative changes and posterior disc bulge/protrusion. There are subacute versus chronic fractures involving the lateral right eighth and ninth ribs and the anterior left eighth rib. IMPRESSION: 1. Small amount of air and fluid in the soft tissues at the level of the left lamina of T9 likely due to postsurgical changes. If indicated this would be better assessed with an unenhanced and enhanced thoracic spine MRI. 2. Trace/small amount of pericardial fluid demonstrating interval worsening from the comparison CT examination. 3. Otherwise stable findings from the comparison abdomen and pelvic CT performed 09/16/2013. SL: 15 Spine Spine Single limited lateral intraoperative digital C-arm radiographs of the lumbar spine. 10/01 - Thoracic 1 Thoracic - [place] View View HISTORY: Thoracic disc disease. Read by: Kayden Flannery Dictated Date/time: 10/02/13 08:44 Electronically Signed by: Kayden Flannery MD 10/02/13 08:56 FINAL REPORT COMMENT: A single lateral intraprocedural digital C-arm radiograph was performed. It is indicated a left T9-T10 hemilaminectomy, foraminotomy and discectomy was performed. The fluoroscopy time was indicated to be 55 seconds. An MRI of the thoracic spine of 09/17/2013 was reviewed. FINDINGS: A radiopaque probe has been placed posteriorly and head projects posterior to a disc space in the lower thoracic region. Localization is difficult on this limited single view. However, this ap pears to likely represent T9-T10. It is presumed that fluoroscopy was performed confirming this does represent T9-T10. Further views of the lumbar region or the cervical and thoracic region would be necessary to insure this represents T9-T10. SL: 13 Kayden Flannery M.D. Spine Spine lumbar Examination: Lumbar spine, 3 views 09/30 - lumbar 2 2 or 3 views /2013 - [place] or 3 views History: 724.4 Read by: Shahid Mccall Dictated Date/time: 09/30/13 15:06 Electronically Signed by: Shahid Mccall MD 09/30/13 15:08 FINAL REPORT Comparison: None. Findings: Multiple views of the lumbar spine show 5 nonrib bearing lumbar vertebra. No acute vertebral body height loss is seen. Grade 1 anterolisthesis of L3 over L4 by 5 mm is seen. Grade 1 retrolisth esis of L4 over L5 by 6 mm is seen. Multilevel marginal osteophytes throughout the lumbar spine are seen. There is mild to moderate disc height loss from L2-L3 through L4-L5, compatible with mild to mod erate degenerative disc disease. Osseous fusion at the level of L5-S1 is seen. Advanced facet arthrosis in the lower lumbar spine is seen. Changes of aortobiiliac endovascular stent graft placement are seen. IMPRESSION: Mild to moderate degenerative disc disease with advanced facet arthrosis of the lumbar spine. SL: 13 Spine Spine Examination: Thoracic spine, 3 views 09/30 - thoracic 2 thoracic - [facility] views History: 724.1 Read by: Shahid Mccall Dictated Date/time: 09/30/13 15:08 Electronically Signed by: Shahid Mccall MD 09/30/13 15:09 FINAL REPORT Comparison: None. Findings: Multiple views of the thoracic spine show no acute compression fracture or subluxation. The intervertebral disc spaces are well-maintained. No suspicious osseous lesions are seen. IMPRESSION: No acute bony abnormality of the thoracic spine. SL: 13 CHEM PANEL eGFR 96 09/26 1Result Comment: The eGFR is calculated using the CKD-EPI formula. In most young, healthy individuals the eGFR will be >90 mL/ min/1.73m2. The eGFR declines with age. An eGFR of 60-89 may be normal in mL/min/1.7 some populations, particularly the elderly, for whom the CKD-EPI formula has not been extensively validated. Use of the eGFR is not recommended in the following populations: [facility] 3m2 Individuals with unstable creatinine concentrations, including patients and those with serious co-morbid conditions. Patients with extremes in muscle mass or diet. The data above are obtained from the National Kidney Disease Education Program (NKDEP) which additionally recommends that when the eGFR is used in patients with extremes of body mass index for purposes of drug dosing, the eGFR should be multiplied by the estimated BMI. CHEM PANEL Chloride Lvl 96 meq/L 95 - 109 09/26 [facility] CHEM PANEL CO2 26 meq/L 24 - 32 09/26 [facility] CHEM PANEL BUN 28 mg/dL 7 - 22 09/26 [facility] CHEM PANEL Calcium Lvl 7.5 mg/dL 8.5 - 10.5 09/26 [facility] CHEM PANEL AGAP 14.3 meq/L 10.0 - 09/26 20.0 [facility] CHEM PANEL Potassium 4.3 meq/L 3.5 - 5.1 09/26 [facility] CHEM PANEL Creatinine 0.9 mg/dL 0.5 - 1.4 09/26 Lvl /2013 [facility] CHEM PANEL Sodium Lvl 132 meq/L 135 - 145 09/26 [facility] CHEM PANEL Glucose Lvl 348 mg/dL 70 - 99 09/26 2Interpretive Data: Adult reference range values reflect the clinical guidelines of the [place] [employer]. [facility] HEMATOLOGY Eosinophils 3.0 % 0.0 - 4.0 09/26 [facility] HEMATOLOGY Monocytes 2.0 % 2.0 - 12.0 09/26 [facility] HEMATOLOGY Atypical 0.0 % <=0.0 % 09/26 Lymphs [facility] HEMATOLOGY Monocytes # 0.2 K/CMM 0.0 - 0.8 09/26 [facility] HEMATOLOGY Eosinophils 0.2 K/CMM 0.0 - 0.5 09/26 # /2013 [facility] HEMATOLOGY Lymphocytes 2.4 K/CMM 1.0 - 5.5 09/26 # /2014 [facility] HEMATOLOGY Segs-Bands # 4.7 K/CMM 1.5 - 8.1 09/26 [facility] HEMATOLOGY Lymphocytes 32.0 % 20.0 - 09/26 40.0 /2013 [facility] HEMATOLOGY Bands 4.0 % 0.0 - 11.0 09/26 /2013 [facility] HEMATOLOGY Segs 59.0 % 45.0 - 09/26 75.0 /2013 [facility] HEMATOLOGY Plt Morph Normal 09/26 [facility] (09/26/2013 14:50:00 [place] HEMATOLOGY RBC Morph Normal 09/26 [facility] (09/26/2013 14:50:00 [place] HEMATOLOGY aPTT 26.3 s 22.9 - 09/26 4Interpretive 35.8 /2014 Data: Heparin [facility] Therapeutic Range: 57 - 92 Seconds HEMATOLOGY INR 0.90 0.85 - 09/26 3Interpretive Data: RECOMMENDED RANGES FOR PROTIME INR: . 2.0-3.0 for most medical and surgical thromboembolic states. [facility] 2.5-3.5 for artificial heart valves and recurrent embolism. INR SHOULD BE USED ONLY FOR PATIENTS ON STABLE ANTICOAGULANT THERAPY. HEMATOLOGY PROTIME 12.1 s 12.0 - 09/26 14.7 /2014 [facility] HEMATOLOGY Platelet 181 K/CMM 133 - 450 09/26 [facility] HEMATOLOGY RDW 14.5 % 11.5 - 09/26 MH 14. [facility] HEMATOLOGY MCHC 39.0 g/dL 32.0 - 09/26 MH 36.0 /2013 [facility] HEMATOLOGY MPV 8.1 fL 7.4 - 10.4 09/26 [facility] HEMATOLOGY WBC X 10x3 7.5 K/CMM 3.7 - 10.4 09/26 [facility] HEMATOLOGY MCH 32.5 pg 27.0 - 09/26 MH 31.0 [facility] HEMATOLOGY MCV 83.2 fL 80.0 - 09/26 94.0 [facility] HEMATOLOGY Hgb 13.9 g/dL 14.0 - 09/26 MH 18.0 [facility] HEMATOLOGY RBC X 10x6 4.28 M/CMM 4.70 - 09/26 MH 6.10 [facility] HEMATOLOGY Hct 35.6 % 42.0 - 09/26 54.0 [facility] SPECIAL Hgb A1C 8.5 % <=5.6 % 09/26 CHEMISTRY [facility] CHEM PANEL Calcium Lvl 6.9 mg/dL 8.5 - 10.5 09/19 [facility] CHEM PANEL CO2 30 meq/L 24 - 32 09/19 [facility] CHEM PANEL AGAP 9.9 meq/L 10.0 - 09/19 MH 20.0 [facility] CHEM PANEL Potassium 3.9 meq/L 3.5 - 5.1 09/19 Lv [facility] CHEM PANEL Chloride Lvl 99 meq/L 95 - 109 09/19 [facility] CHEM PANEL Creatinine 0.8 mg/dL 0.5 - 1.4 09/19 [facility] CHEM PANEL BUN 14 mg/dL 7 - 22 09/19 [facility] CHEM PANEL Sodium Lvl 135 meq/L 135 - 145 09/19 [facility] CHEM PANEL Glucose Lvl 217 mg/dL 70 - 99 09/19 3Interpretive Data: Adult reference range values reflect the clinical guidelines of the [place] [employer]. [facility] CHEM PANEL eGFR See Note 09/19 [facility] (09/19/2013 03:25:00 [facility]) CHEM PANEL Amylase Lvl 5 unit/L 25 - 115 09/19 [facility] CHEM PANEL Lipase Lvl 129 unit/L 73 - 393 09/19 [facility] HEMATOLOGY Plt Morph Normal 09/19 [facility] (09/19/2013 03:25:00 [place] HEMATOLOGY RBC Morph Normal 09/19 [facility] (09/19/2013 03:25:00 [place] HEMATOLOGY Atypical 0.0 % <=0.0 % 09/19 Lymphs [facility] HEMATOLOGY Eosinophils 2.0 % 0.0 - 4.0 09/19 [facility] HEMATOLOGY Monocytes 3.0 % 2.0 - 12.0 09/19 [facility] HEMATOLOGY Segs-Bands # 4.1 K/CMM 1.5 - 8.1 09/19 [facility] HEMATOLOGY Monocytes # 0.2 K/CMM 0.0 - 0.8 09/19 [facility] HEMATOLOGY Lymphocytes 1.4 K/CMM 1.0 - 5.5 09/19 [facility] HEMATOLOGY Segs 71.0 % 45.0 - 09/19 75.0 [facility] HEMATOLOGY Eosinophils 0.1 K/CMM 0.0 - 0.5 09/19 # /2013 [facility] HEMATOLOGY Bands 0.0 % 0.0 - 11.0 09/19 [facility] HEMATOLOGY Lymphocytes 24.0 % 20.0 - 09/19 40.0 [facility] HEMATOLOGY Hgb 12.2 g/dL 14.0 - 09/19 18.0 [facility] HEMATOLOGY Hct 32.8 % 42.0 - 09/19 54.0 /2013 [facility] HEMATOLOGY MCV 84.3 fL 80.0 - 09/19 94.0 [facility] HEMATOLOGY MCH 31.5 pg 27.0 - 09/19 31.0 [facility] HEMATOLOGY RDW 14.5 % 11.5 - 09/19 14.5 [facility] HEMATOLOGY MPV 7.3 fL 7.4 - 10.4 09/19 [facility] HEMATOLOGY Platelet 159 K/CMM 133 - 450 09/19 [facility] HEMATOLOGY MCHC 37.3 g/dL 32.0 - 09/19 36.0 [facility] HEMATOLOGY WBC X 10x3 5.8 K/CMM 3.7 - 10.4 09/19 [facility] HEMATOLOGY RBC X 10x6 3.89 M/CMM 4.70 - 09/19 6.10 [facility] TOXICOLOGY Digoxin Lvl 0.6 ng/mL 0.8 - 2.0 09/19 [facility] CHEM PANEL Calcium Lvl 9.0 mg/dL 8.5 - 10.5 09/17 [facility] CARDIAC CK-MB INDEX 4.0 0.0 - 2.5 09/17 ENZYMES [facility] CARDIAC CK-MB INDEX 3.9 0.0 - 2.5 09/17 ENZYMES [facility] CARDIAC CK MB 3.4 ng/mL 0.5 - 3.6 09/17 ENZYMES [facility] CARDIAC Troponin-I 0.04 ng/mL 0.00 - 09/17 MH ENZYMES 0.40 [facility] CARDIAC Total CK 86 unit/L - 09/17 ENZYMES [facility] CARDIAC Troponin-I 0.04 ng/mL 0.00 - 09/17 MH ENZYMES 0.40 [facility] CARDIAC CK MB 3.4 ng/mL 0.5 - 3.6 09/17 ENZYMES [facility] CARDIAC Total CK 87 unit/L - 09/17 ENZYMES [facility] CARDIAC CK MB 2.5 ng/mL 0.5 - 3.6 09/17 ENZYMES [facility] CARDIAC CK-MB INDEX 2.1 0.0 - 2.5 09/17 ENZYMES [facility] CARDIAC Total CK 119 unit/L - 09/17 ENZYMES [facility] CARDIAC Troponin-I null 0.00 - 09/17 MH ENZYMES 0.40 [facility] CHEM PANEL BUN 20 mg/dL 7 - 22 09/17 [facility] CHEM PANEL Creatinine 1.0 mg/dL 0.5 - 1.4 09/17 [facility] CHEM PANEL Glucose Lvl 292 mg/dL 70 - 99 09/17 4Interpretive Data: Adult reference range values reflect the clinical guidelines of the [place] [employer]. [facility] CHEM PANEL Sodium Lvl 134 meq/L 135 - 145 09/17 [facility] CHEM PANEL eGFR 84 09/17 1Result Comment: The eGFR is calculated using the CKD-EPI formula. In most young, healthy individuals the eGFR will be >90 mL/ min/1.73m2. The eGFR declines with age. An eGFR of 60-89 may be normal in /min/1. some populations, particularly the elderly, for whom the CKD-EPI formula has not been extensively validated. Use of the eGFR is not recommended in the following populations: [facility] 3m2 Individuals with unstable creatinine concentrations, including patients and those with serious co-morbid conditions. Patients with extremes in muscle mass or diet. The data above are obtained from the National Kidney Disease Education Program (NKDEP) which additionally recommends that when the eGFR is used in patients with extremes of body mass index for purposes of drug dosing, the eGFR should be multiplied by the estimated BMI. CHEM PANEL Potassium 3.9 meq/L 3.5 - 5.1 09/17 Lvl [facility] CHEM PANEL CO2 28 meq/L 24 - 32 09/17 [facility] CHEM PANEL AGAP 11.9 meq/L 10.0 - 09/17 MH 20.0 [facility] CHEM PANEL Chloride Lvl 98 meq/L 95 - 109 09/17 [facility] CHEM PANEL Calcium Lvl 5.7 mg/dL 8.5 - 10.5 09/17 6Result Comment: [facility] Critical Result(s) called to Lucy Blair at 09/17/2013 02:31 by [email or web address]. Read back OK. CHEM PANEL Lipase Lvl 125 unit/L 73 - 393 09/17 [facility] CHEM PANEL Phosphorus 3.0 mg/dL 2.5 - 4.5 09/17 [facility] CHEM PANEL Magnesium 1.3 mg/dL 1.8 - 2.4 09/17 Lvl [facility] CHEM PANEL Amylase Lvl 8 unit/L 25 - 115 09/17 [facility] LIPIDS HDL 31 mg/dL >=61 mg/dL 09/17 [facility] LIPIDS CHD Risk 11.00 4.00 - 09/17 7.30 /2013 [facility] LIPIDS Chol 341 mg/dL <=199 09/17 mg/dL [facility] LIPIDS Trig null <=149 09/17 mg/dL [facility] LIPIDS LDL SEE NOTE <=99 09/17 7Result (Calculated) Comment: LDL [place] cholesterol cannot be calculated due to very high triglycerides (>400 mg/dL). Recommend Direct LDL if clinically indicated. LDL cholesterol cannot be calculated due to very high triglycerides (>400 mg/dL). Recommend Direct LDL if clinically indicated. CHEM PANEL Lipase Lvl 190 unit/L 73 - 393 09/17 [facility] CHEM PANEL eGFR 68 09/17 2Result Comment: The eGFR is calculated using the CKD-EPI formula. In most young, healthy individuals the eGFR will be >90 mL/ min/1.73m2. The eGFR declines with age. An eGFR of 60-89 may be normal in mL/min/1.7 some populations, particularly the elderly, for whom the CKD-EPI formula has not been extensively validated. Use of the eGFR is not recommended in the following populations: [address] Individuals with unstable creatinine concentrations, including patients and those with serious co-morbid conditions. Patients with extremes in muscle mass or diet. The data above are obtained from the National Kidney Disease Education Program (NKDEP) which additionally recommends that when the eGFR is used in patients with extremes of body mass index for purposes of drug dosing, the eGFR should be multiplied by the estimated BMI. CHEM PANEL Globulin 2.3 g/dL 2.0 - 4.0 09/17 [facility] CHEM PANEL A/G Ratio 1.7 0.7 - 1.6 09/17 [facility] CHEM PANEL ALANINE 26 unit/L 0 - 65 09/17 AMINOTRANSFE [facility] RASE CHEM PANEL B/C Ratio 18 6 - 25 09/17 [facility] CHEM PANEL Total 6.1 g/dL 6.4 - 8.4 09/17 Protein [facility] CHEM PANEL Albumin Lvl 3.8 g/dL 3.5 - 5.0 09/17 [facility] CHEM PANEL ASPARTATE 20 unit/L 0 - 37 09/17 TRANSAMINASE [facility] CHEM PANEL Bili Total 0.4 mg/dL 0.2 - 1.3 09/17 [facility] CHEM PANEL Alk Phos 65 unit/L 39 - 136 09/17 [facility] CHEM PANEL Creatinine 1.2 mg/dL 0.5 - 1.4 09/17 Lvl [facility] CHEM PANEL BUN 21 mg/dL 7 - 22 09/17 [facility] CHEM PANEL Glucose Lvl 293 mg/dL 70 - 99 09/17 5Interpretive Data: Adult reference range values reflect the clinical guidelines of the [place] [employer]. [facility] CHEM PANEL Sodium Lvl 135 meq/L 135 - 145 09/17 [facility] CHEM PANEL Potassium 3.9 meq/L 3.5 - 5.1 09/17 Lvl [facility] CHEM PANEL Chloride Lvl 98 meq/L 95 - 109 09/17 [facility] CHEM PANEL CO2 26 meq/L 24 - 32 09/17 [facility] CHEM PANEL AGAP 14.9 meq/L 10.0 - 09/17 20.0 /2013 [facility] HEMATOLOGY INR 0.88 0.85 - 09/17 8Interpretive Data: RECOMMENDED RANGES FOR PROTIME INR: 1. 2.0-3.0 for most medical and surgical thromboembolic states. [facility] 2.5-3.5 for artificial heart valves and recurrent embolism. INR SHOULD BE USED ONLY FOR PATIENTS ON STABLE ANTICOAGULANT THERAPY. HEMATOLOGY PROTIME 11.9 s 12.0 - 09/17 14.7 [facility] HEMATOLOGY aPTT 27.6 s 22.9 - 09/17 9Interpretive 35.8 Data: Heparin [facility] Therapeutic Range: 57 - 92 Seconds HEMATOLOGY MPV 7.2 fL 7.4 - 10.4 09/17 [facility] HEMATOLOGY RDW 15.1 % 11.5 - 09/17 14.5 [facility] HEMATOLOGY MCHC 35.2 g/dL 32.0 - 09/17 36.0 /2013 [facility] MCH 30.1 pg 27.0 - 09/17 31.0 [facility] HEMATOLOGY Hct 36.7 % 42.0 - 09/17 54.0 /2013 [facility] HEMATOLOGY Hgb 12.9 g/dL 14.0 - 09/17 18.0 [facility] HEMATOLOGY RBC X 10x6 4.30 M/CMM 4.70 - 09/17 6.10 /2013 [facility] HEMATOLOGY Platelet 254 K/CMM 133 - 450 09/17 [facility] HEMATOLOGY MCV 85.5 fL 80.0 - 09/17 94.0 /2013 [facility] WBC X 10x3 8.0 K/CMM 3.7 - 10.4 09/17 [facility] HEMATOLOGY RBC Morph Normal 09/17 [facility] (09/16/2013 19:30:00 [place] HEMATOLOGY Basophils 2.0 % 0.0 - 1.0 09/17 [facility] HEMATOLOGY Plt Morph Normal 09/17 [facility] (09/16/2013 19:30:00 [place] HEMATOLOGY Atypical 0.0 % <=0.0 % 09/17 [facility] HEMATOLOGY Segs 67.0 % 45.0 - 09/17 75.0 [facility] HEMATOLOGY Basophils # 0.2 K/CMM 0.0 - 0.2 09/17 [facility] HEMATOLOGY Eosinophils 0.5 K/CMM 0.0 - 0.5 09/17 # /2013 [facility] HEMATOLOGY Monocytes # 0.5 K/CMM 0.0 - 0.8 09/17 [facility] HEMATOLOGY Lymphocytes 1.4 K/CMM 1.0 - 5.5 09/17 # /2013 [facility] HEMATOLOGY Eosinophils 6.0 % 0.0 - 4.0 09/17 [facility] HEMATOLOGY Monocytes 6.0 % 2.0 - 12.0 09/17 [facility] HEMATOLOGY Bands 1.0 % 0.0 - 11.0 09/17 [facility] HEMATOLOGY Lymphocytes 18.0 % 20.0 - 09/17 MH 40.0 /2013 [facility] HEMATOLOGY Segs-Bands # 5.4 K/CMM 1.5 - 8.1 09/17 [facility] IMMUNOLOGY [facility] HIV 4th Negative Negative 09/17 GEN [facility] (09/16/2013 19:30:00 [facility]) Chemistry HGBA1C 9.1 % - 5.6 08/25 Group Chemistry CHOLESTEROL 355 mg/dl - 199 08/25 Group Chemistry TRIGLYCERIDE >4000 - 149 08/25 [facility] mg/dL /2013 Group mg/dl Chemistry HDL 31 mg/dl >=61 08/25 Group Chemistry LDL See Note - 99 08/25 [facility] mg/dL Group mg/dl Chemistry SODIUM 133 MEQ/L 135 - 145 08/25 [facility] mmol/L Group Chemistry POTASSIUM 3.8 MEQ/L 3.5 - 5.1 08/25 [facility] mmol/L Group Chemistry CREATININE 0.8 mg/dL 0.5 - 1.4 08/25 Group Chemistry BUN 22 mg/dL 7 - 22 08/25 Group Chemistry BUN/CREAT 28 6 - 25 08/25 Group Chemistry ALBUMIN 3.8 g/dL 3.5 - 5.0 08/25 Group Chemistry CALCIUM 6.6 mg/dL 8.5 - 10.5 08/25 Group Chemistry SGPT (ALT) 72 U/L 0 - 65 08/25 Group Chemistry SGOT (AST) 26 U/L 0 - 37 08/25 Group Chemistry ALK PHOS 74 U/L 39 - 136 08/25 Group Hematology HGB 14.1 g/dL 14.0 - 08/25 Medical 18.0 Group Hematology HCT 40.6 % 42.0 - 08/25 Medical 54.0 Group Hematology PLATELETS 189 K/CMM 133 - 450 08/25 Group Urinalysis UA COLOR Yellow 08/25 Group Urinalysis BACTERIA URN Occasional 08/25 Group Chemistry HEMOCCULT Negative 03/04 Group Chemistry HGBA1C 9.0 % - 5.6 03/04 Group Chemistry PO4 2.6 mg/dL 2.5 - 4.5 03/04 Group Chemistry CHOLESTEROL 334 mg/dl - 199 03/04 Group Chemistry TRIGLYCERIDE 928 mg/dl - 149 03/04 Group Chemistry HDL 23 mg/dl >=61 03/04 Group Chemistry LDL See Note - 99 03/04 Medical mg/dL Group mg/dl Chemistry AMYLASE 10 U/L 25 - 115 03/04 Group Chemistry MAGNESIUM 1.5 mg/dL 1.8 - 2.4 03/04 Group Chemistry SODIUM 133 MEQ/L 135 - 145 03/04 Medical mmol/L Group Chemistry POTASSIUM 4.1 MEQ/L 3.5 - 5.1 03/04 mmol/L Group Chemistry CREATININE 1.0 mg/dL 0.5 - 1.4 03/04 Group Chemistry BUN 26 mg/dL 7 - 22 03/04 Group Chemistry BUN/CREAT 26 6 - 25 03/04 Group Chemistry ALBUMIN 4.0 g/dL 3.5 - 5.0 03/04 Group Chemistry CALCIUM 8.4 mg/dL 8.5 - 10.5 03/04 Group Chemistry SGPT (ALT) 42 U/L 0 - 65 03/04 Group Chemistry SGOT (AST) 30 U/L 0 - 37 03/04 Group Chemistry ALK PHOS 75 U/L 39 - 136 03/04 Group Hematology HGB 13.9 g/dL 14.0 - 08 Medical 18.0 /2012 Group Hematology HCT 40.3 % 42.0 - 08 Medical 54.0 /2012 Group Hematology PLATELETS 226 K/CMM 133 - 450 03/04 mm3 Group Urinalysis UA COLOR Yellow 03/04 Group Urinalysis BACTERIA URN Occasional 03/04 Group Chemistry CHOLESTEROL 301 mg/dl 120 - 200 07/11 Group Chemistry TRIGLYCERIDE 1500 mg/dl 0 - 200 07/11 Group Chemistry HDL 30 mg/dl >=35 07/11 Group Chemistry SODIUM 140 MEQ/L 135 - 145 07/11 [facility] mmol/L Group Chemistry POTASSIUM 4.5 MEQ/L 3.5 - 5.1 07/11 [facility] mmol/L Group Chemistry CREATININE 0.9 mg/dL 0.5 - 1.4 07/11 Group Chemistry BUN 20 mg/dL 7 - 22 07/11 Group Chemistry BUN/CREAT 22 6 - 25 07/11 Group Chemistry ALBUMIN 4.6 g/dL 3.5 - 5.0 07/11 Group Chemistry CALCIUM 9.6 mg/dL 8.5 - 10.5 07/11 Group Chemistry SGPT (ALT) 57 U/L 0 - 65 07/11 Group Chemistry SGOT (AST) 44 U/L 0 - 37 07/11 Group Chemistry ALK PHOS 62 U/L 39 - 136 07/11 Group Chemistry TSH 1.530 0.360 - 07/11 Medical uIU/mL 3.740 Group Chemistry PSA 1.14 ng/mL 0.00 - 07/11 Medical 4.00 Group Chemistry CHOLESTEROL 301 mg/dl 120 - 200 07/11 Group Chemistry TRIGLYCERIDE 1500 mg/dl 0 - 200 07/11 Group Chemistry HDL 30 mg/dl >=35 07/11 Group Chemistry LDL See Note 0 - 129 07/11 Medical mg/dL Group mg/dl Chemistry SODIUM 140 MEQ/L 135 - 145 07/11 [facility] mmol/L Group Chemistry POTASSIUM 4.5 MEQ/L 3.5 - 5.1 07/11 Medical mmol/L Group Chemistry CREATININE 0.9 mg/dL 0.5 - 1.4 07/11 Group Chemistry BUN 20 mg/dL 7 - 07/11 Group Chemistry BUN/CREAT 22 6 - 25 07/11 Group Chemistry ALBUMIN 4.6 g/dL 3.5 - 5.0 07/11 Group Chemistry CALCIUM 9.6 mg/dL 8.5 - 10.5 07/11 Group Chemistry SGPT (ALT) 57 U/L 0 - 65 07/11 Group Chemistry SGOT (AST) 44 U/L 0 - 37 07/11 Group Chemistry ALK PHOS 62 U/L 39 - 136 07/11 Group Chemistry TSH 1.530 0.360 - 07/11 [facility] uIU/mL 3.740 /2011 Group Chemistry PSA 1.14 ng/mL 0.00 - 07/11 Medical 4.00 Group Hematology HGB 14.0 g/dL 14.0 - 07/11 Medical 18. Group Hematology HCT 40.8 % 42.0 - 07/11 Medical 54.0 /2011 Group Hematology PLATELETS 160 K/CMM 133 - 450 07/11 Medical /mm3 Group Hematology HGB 14.0 g/dL 14.0 - 07/11 Medical 18.0 Group Hematology HCT 40.8 % 42.0 - 07/11 Medical 54.0 /2011 Group Hematology PLATELETS 160 K/CMM 133 - 450 07/11 Medical /mm3 Group Urinalysis UA COLOR Yellow 07/11 Group Urinalysis BACTERIA URN Few 07/11 Group Urinalysis UA COLOR Yellow 07/11 Group Urinalysis BACTERIA URN Few 07/11 Group Chemistry HGBA1C 8.0 % 12/03 Group Chemistry SODIUM 135 MEQ/L 135 - 145 12/03 [facility] mmol/L Group Chemistry POTASSIUM 4.6 MEQ/L 3.5 - 5.1 12/03 Medical mmol/L Group Chemistry BUN 23 mg/dL 7 - 12/03 Group Chemistry CREATININE 1.2 mg/dL 0.5 - 1.4 12/03 Group Chemistry BUN/CREAT 19 6 - 25 12/03 Group Chemistry ALBUMIN 4.3 g/dL 3.5 - 5.0 12/03 Group Chemistry CALCIUM 9.3 mg/dL 8.5 - 10.5 12/03 Group Chemistry SGOT (AST) 28 U/L 0 - 37 12/03 Group Chemistry SGPT (ALT) 45 U/L 0 - 65 12/03 Group Chemistry ALK PHOS 63 U/L 39 - 136 12/03 Group Chemistry HGBA1C 8.0 % 12/03 Group Chemistry SODIUM 135 MEQ/L 135 - 145 12/03 mmolL Group Chemistry POTASSIUM 4.6 MEQ/L 3.5 - 5.1 12/03 mmolL Group Chemistry BUN 23 mg/dL 7 - 22 12/03 Group Chemistry CREATININE 1.2 mg/dL 0.5 - 1.4 12/03 Group Chemistry BUN/CREAT 19 6 - 25 12/03 Group Chemistry ALBUMIN 4.3 g/dL 3.5 - 5.0 12/03 Group Chemistry CALCIUM 9.3 mg/dL 8.5 - 10.5 12/03 Group Chemistry SGOT (AST) 28 U/L 0 - 37 12/03 Group Chemistry SGPT (ALT) 45 U/L 0 - 65 12/03 Group Chemistry ALK PHOS 63 U/L 39 - 136 12/03 Group Hematology HGB 13.3 g/dL 14.0 - 12/03 Group Hematology HCT 38.4 % 42.0 - 12/03 54.0 Group Hematology PLATELETS 205 K/CMM 133 - 450 12/03 mm3 Group Hematology HGB 13.3 g/dL 14.0 - 12/03 Group Hematology HCT 38.4 % 42.0 - 12/03 54.0 Group Hematology PLATELETS 205 K/CMM 133 - 450 12/03 mm3 Group Urinalysis UA COLOR Dark 12/03 Medical Group Urinalysis BACTERIA URN Occasional 12/03 Group Urinalysis UA COLOR Dark 12/03 Medical Group Urinalysis BACTERIA URN Occasional 12/03 Group Chemistry HGBA1C ordered 12/03 Medical today Group Vital Signs Vital Sign Value Date Comments Source Weight 101.506 10/23/2017 [facility] Systolic (mm Hg) 145 10/23/2017 [facility] Diastolic (mm Hg) 79 10/23/2017 [facility] Heart Rate 78 10/23/2017 [facility] Temperature Oral (F) 98.9 F 10/23/2017 [facility] Weight 102.273 10/02/2017 [facility] BMI Calculated 33.3 10/02/2017 [facility] Temperature Oral (F) 98.2 F 10/02/2017 [facility] Height 175.26 cm 10/02/2017 [facility] Systolic (mm Hg) 159 10/02/2017 [facility] Diastolic (mm Hg) 79 10/02/2017 [facility] Heart Rate 78 10/02/2017 [facility] Respitory Rate 20 10/02/2017 [facility] Systolic (mm Hg) 146 07/13/2017 [facility] Diastolic (mm Hg) 79 07/13/2017 [facility] Height 175.26 cm 07/11/2017 [facility] BMI Calculated 34.08 07/11/2017 [facility] Weight 104.688 07/11/2017 [facility] Temperature Oral (F) 98.9 F 07/11/2017 [facility] Systolic (mm Hg) 46 07/11/2017 [facility] Diastolic (mm Hg) 79 07/11/2017 [facility] Heart Rate 68 07/11/2017 [facility] Respitory Rate 20 04/20/2017 [facility] Systolic (mm Hg) 124 04/20/2017 [facility] Diastolic (mm Hg) 66 04/20/2017 [facility] Systolic (mm Hg) 127 04/20/2017 [facility] Diastolic (mm Hg) 62 04/20/2017 [facility] Respitory Rate 18 04/20/2017 [facility] Systolic (mm Hg) 109 04/20/2017 [facility] Diastolic (mm Hg) 49 04/20/2017 [facility] Respitory Rate 18 04/20/2017 [facility] Height 175.26 cm 04/20/2017 [facility] Weight 100 04/20/2017 [facility] BMI Calculated 32.56 04/20/2017 [facility] Heart Rate 69 04/20/2017 [facility] Systolic (mm Hg) 138 01/11/2017 [facility] Diastolic (mm Hg) 66 01/11/2017 [facility] Temperature Oral (F) 98 F 01/11/2017 [facility] Heart Rate 79 01/11/2017 [facility] Respitory Rate 16 01/11/2017 [facility] Heart Rate 76 01/11/2017 [facility] Systolic (mm Hg) 143 01/11/2017 [facility] Diastolic (mm Hg) 87 01/11/2017 [facility] Respitory Rate 16 01/11/2017 [facility] Temperature Oral (F) 98.4 F 01/11/2017 [facility] Temperature Oral (F) 97.3 F 01/11/2017 [facility] Heart Rate 84 01/11/2017 [facility] Respitory Rate 18 01/11/2017 [facility] Systolic (mm Hg) 179 01/11/2017 [facility] Diastolic (mm Hg) 96 01/11/2017 [facility] Weight 109.091 01/08/2017 [facility] Height 175.26 cm 01/08/2017 [facility] BMI Calculated 35.52 01/08/2017 [facility] Weight 229 10/14/2014 [facility] Height 69 10/14/2014 [facility] Temperature Oral (F) 98.5 F 10/14/2014 [facility] Systolic (mm Hg) 162 10/14/2014 [facility] Diastolic (mm Hg) 83 10/14/2014 [facility] Heart Rate 75 10/14/2014 [facility] Weight 219 10/28/2013 [facility] Temperature Oral (F) 98.4 F 10/28/2013 [facility] Heart Rate 89 10/28/2013 [facility] Systolic (mm Hg) 146 10/28/2013 [facility] Diastolic (mm Hg) 95 10/28/2013 [facility] Weight 195 10/20/2013 [facility] Heart Rate 101 10/20/2013 [facility] Systolic (mm Hg) 170 10/20/2013 [facility] Diastolic (mm Hg) 94 10/20/2013 [facility] Temperature Oral (F) 98.4 F 10/20/2013 [facility] Diastolic (mm Hg) 72 10/01/2013 [facility] Systolic (mm Hg) 130 10/01/2013 [facility] Systolic (mm Hg) 128 10/01/2013 [facility] Diastolic (mm Hg) 71 10/01/2013 [facility] Systolic (mm Hg) 146 10/01/2013 [facility] Diastolic (mm Hg) 75 10/01/2013 [facility] Respitory Rate 16 10/01/2013 [facility] Respitory Rate 10 10/01/2013 [facility] Respitory Rate 11 10/01/2013 [facility] Weight 100 09/26/2013 [facility] Height 175.26 cm 09/26/2013 [facility] BMI Calculated 32.56 09/26/2013 [facility] Heart Rate 85 09/26/2013 [facility] Temperature Oral (F) 98.5 F 09/26/2013 [facility] Systolic (mm Hg) 168 09/19/2013 [facility] Diastolic (mm Hg) 91 09/19/2013 [facility] Respitory Rate 18 09/19/2013 [facility] Heart Rate 73 09/19/2013 [facility] Temperature Oral (F) 98.7 F 09/19/2013 [facility] Heart Rate 67 09/19/2013 [facility] Respitory Rate 18 09/19/2013 [facility] Diastolic (mm Hg) 84 09/19/2013 [facility] Systolic (mm Hg) 149 09/19/2013 [facility] Temperature Oral (F) 98.2 F 09/19/2013 [facility] Temperature Oral (F) 97.8 F 09/19/2013 [facility] Heart Rate 86 09/19/2013 [facility] Systolic (mm Hg) 154 09/19/2013 [facility] Respitory Rate 18 09/19/2013 [facility] Diastolic (mm Hg) 91 09/19/2013 [facility] Weight 100 09/17/2013 [facility] BMI Calculated 32.56 09/17/2013 [facility] Height 175.26 cm 09/17/2013 [facility] Weight 100 09/16/2013 [facility] Height 175.26 cm 09/16/2013 [facility] BMI Calculated 32.56 09/16/2013 [facility] Weight 230 08/14/2013 [facility] Temperature Oral (F) 98.1 F 08/14/2013 [facility] Systolic (mm Hg) 174 08/14/2013 [facility] Diastolic (mm Hg) 84 08/14/2013 [facility] Heart Rate 82 08/14/2013 [facility] Temperature Oral (F) 97.8 F 03/04/2013 [facility] Weight 230 03/04/2013 [facility] Systolic (mm Hg) 145 03/04/2013 [facility] Diastolic (mm Hg) 84 03/04/2013 [facility] Heart Rate 66 03/04/2013 [facility] Temperature Oral (F) 98.5 F 08/20/2012 [facility] Weight 226 08/20/2012 [facility] Heart Rate 68 08/20/2012 [facility] Systolic (mm Hg) 147 08/20/2012 [facility] Diastolic (mm Hg) 75 08/20/2012 [facility] Weight 226 07/11/2012 [facility] Systolic (mm Hg) 155 07/11/2012 [facility] Diastolic (mm Hg) 86 07/11/2012 [facility] Heart Rate 60 07/11/2012 [facility] Weight 225 04/23/2012 [facility] Temperature Oral (F) 98.6 F 04/23/2012 [facility] Systolic (mm Hg) 139 04/23/2012 [facility] Diastolic (mm Hg) 78 04/23/2012 [facility] Heart Rate 73 04/23/2012 [facility] Weight 221 01/08/2012 [facility] Systolic (mm Hg) 151 01/08/2012 [facility] Diastolic (mm Hg) 92 01/08/2012 [facility] Temperature Oral (F) 98.4 F 01/08/2012 [facility] Heart Rate 91 01/08/2012 [facility] Weight 224 12/04/2011 [facility] Temperature Oral (F) 98.1 F 12/04/2011 [facility] Systolic (mm Hg) 119 12/04/2011 [facility] Diastolic (mm Hg) 76 12/04/2011 [facility] Heart Rate 74 12/04/2011 [facility] Weight 224 10/25/2011 [facility] Temperature Oral (F) 98.1 F 10/25/2011 [facility] Systolic (mm Hg) 153 10/25/2011 [facility] Diastolic (mm Hg) 80 10/25/2011 [facility] Heart Rate 80 10/25/2011 [facility] Height 69 10/18/2011 [facility] Weight 223 10/18/2011 [facility] Temperature Oral (F) 98.5 F 10/18/2011 [facility] Systolic (mm Hg) 152 10/18/2011 [facility] Diastolic (mm Hg) 81 10/18/2011 [facility] Heart Rate 70 10/18/2011 [facility] Encounters Location Location Encounter Encounter Reason Attending ADM DC Status Source Details Type Number For Provider Date Date Visit [facility] [id number] _MAPID: Сергей Lomas 09/16 09/20 Alex 1 [id number] [facility] /2013 [facility] [id number] t Hospital 170 [facility] Outpatient [id number] _MAPID: Kranthi 09/30 10/01 [place] 3 [id number] E[facility]NTRR Bonnen /2013 [facility] [id number] t Hospital 259 [facility] OBS Day [id number] _MAPID: Steven 10/01 10/01 [place] [facility] 2 [id number] ENCNTRR Mcfarlane /2013 [facility] [id number] Hospital 264 [facility] Outpt Diag [id number] _MAPID: Addison 10/15 10/16 [facility] 6 [id number] ENCNTRR Frahan /2013 [facility] [id number] [address] Office [id number] Jarrell 10/20 10/20 [place] Visit [id number] MD Jimy /2013 [facility] Lab Report [id number] [facility] 10/22 10/22 Alex [id number] MD Ric /2013 [facility] Office [id number] Jarrell 10/28 10/28 [place] Visit [id number] MD Jimy /2013 [facility] General Surgery 350 [facility] Office [id number] [facility] 10/14 10/14 Alex Visit [id number] MD Ric /2014 [facility] Outpatient [id number] ZENITHE 03/10 [facility] 1 [facility] Outpatient [id number] ITHE 03/25 Active [facility] 0 [place] Outpatient [id number] ZENITHE 05/27 Active [facility] Alex Outpatient [id number] ZENITHE 09/09 Active [facility] Outpatient [id number] JUWAN BOLANOS 08/01 Active [facility] Outpatient [id number] JUWAN BOLANOS 10/27 Active [facility] [place] Outpatient [id number] JUWAN BOLANOS 06/05 Active [facility] Outpatient [id number] JUWAN BOLANOS 01/08 Active [facility] Alex [facility] Observation [id number] Aaron 01/08 01/11 [facility] Outpatient [id number] JUWAN BOLANOS 02/02 [facility] [id number] Sri Gomez 04/20 04/20 [facility] [place] Outpatient 0 Kike [facility] Outpt Diag [id number] Yfn 05/04 05/05 [facility] Outpatient Services [facility] Outpatient [id number] JUWAN BOLANOS 06/12 Active [facility] [place] [facility] Ambulatory [id number] Zen[facility] 06/12 06/12 [facility] Pre-Reg [facility] Phone [id number] 06/26 06/28 MH Primary Message Medical Care [facility] Phone [id number] 06/28 06/30 [facility] Primary Message Medical Care [facility] Outpatient [id number] JUWAN BOLANOS 07/11 Active [facility] [place] [facility] Outpatient [id number] [facility] 07/11 07/12 [facility] Outpt Diag [id number] Juwan Bolanos 07/11 07/12 [facility] Outpatient Services [facility] Phone [id number] 08/02 08/04 MH Primary Message Medical Care [facility] Phone [id number] 08/30 09/01 MH Primary Message Medical Care [facility] Phone [id number] 08/31 09/02 MH Primary Message Medical Care [facility] Emergency [id number] Reeva Pruitt 10/02 10/02 [facility] [place] [facility] Phone [id number] 10/02 10/04 MH Primary Message Medical Care [facility] Outpatient [id number] JUWAN BOLANOS 10/17 Active [facility] Ambulatory [id number] Zen[facility] 10/17 10/17 [facility] Primary Pre-Reg 1 [facility] Outpatient [id number] JUWAN BOLANOS 10/23 Active [facility] Outpatient [id number] Zenithe 10/23 10/24 MH Primary 2 [facility] Phone [id number] 11/02 11/04 MH Primary Message Medical Care [facility] Outpatient [id number] JUWAN BOLANOS 11/22 Active [facility] Ambulatory [id number] Juwan Bolanos 11/22 11/22 MH Primary Pre-Reg Medical Care [facility] Phone [id number] 11/28 11/30 MH Primary Message Medical Care [facility] Phone [id number] 12/27 12/29 MH Primary Message Medical Care [facility] Phone [id number] 01/21 01/23 MH Primary Message Medical Care [facility] Phone [id number] 01/29 01/31 MH Primary Message Medical Care [facility] Outpatient [id number] JUWAN BOLANOS 02/20 Active [facility] Alex Procedures Procedure Code Date Perfomer Comments Source Cardiac angiogram [id number] [address] Cardiac angiogram [id number] [place] [address] Group Cardiac angiogram [id number] [place] [address] Cardiac angiogram [id number] [facility] 4 Angiocardiography of [id number] [facility] Left Heart Structures 4 Aortography [id number] [place] [address] Coronary Arteriography 94602939 [facility] Using Two Catheters 4 Left Heart Cardiac [id number] [facility] Catheterization 4 Abdominal aorta [id number] [facility] angiogram [facility] Appendectomy [id number] [facility] Cholecystectomy [id number] [facility] Lumbar [id number] [facility] Placement of stent in [id number] [facility] cardiac conduit x2 [facility] Total shoulder [id number] [facility] replacement [facility] Abdominal aorta [id number] Medical angiogram Group Appendectomy [id number] Medical [facility] Cholecystectomy 55265926 [facility] Lumbar spinal fusion 04270521 [facility] Placement of stent in [id number] Medical cardiac conduit x2 Group Total shoulder [id number] Medical replacement Group Abdominal aorta [id number] [facility] angiogram Appendectomy [id number] [facility] Cholecystectomy 88021865 [facility] Lumbar spinal fusion 93174442 [facility] Placement of stent in [id number] [facility] cardiac conduit x2 Total shoulder [id number] [facility] replacement Appendectomy [id number] [facility] Placement of stent in [id number] [facility] cardiac conduit x2
--- OUTSIDE RECORDS SUMMARY | 2018-06-30 11:57 | XMS REPORT | Summary of Care ---
:1955 Author Encounter Dates Location Diagnoses Discharge Disposition Providers 10/01/2013 - [facility] Steven Mcfarlane 10/01/2013 [id number] Rajat Ballesteros Steven Mcfarlane [place], [place] [address] , [facility] Reason for Visit 724.1/724.4/722.51 Vital Signs Most recent to oldest 1 2 3 [Reference Range]: Height 175.26 cm (09/26/2013 14:30:00 [facility] Temperature Oral 98.5 DegF [96.4-99.1 DegF] (09/26/2013 14:29:00 [facility] Systolic Blood Pressure 130 mmHg 128 mmHg 146 mmHg [90-140 mmHg] (10/01/2013 16:00:00 [facility]) (10/01/2013 15:30:00 [facility]) *HI* (10/01/2013 15:15:00 [facility] Diastolic Blood Pressure 72 mmHg 71 mmHg 75 mmHg [60-90 mmHg] (10/01/2013 16:00:00 [facility]) (10/01/2013 15:30:00 [facility]) (10/01/2013 15:15:00 [facility] Respiratory Rate [14-20 16 BRMIN 10 BRMIN 11 BRMIN BRMIN] (10/01/2013 14:05:00 [facility] *LOW* *LOW* (10/01/2013 13:50:00 [facility]) (10/01/2013 13:35:00 [facility] ) Peripheral Pulse Rate 85 bpm [60-100 bpm] (09/26/2013 14:29:00 [facility] Weight 100 kg (09/26/2013 14:30:00 [facility] Body Mass Index 32.56 m2 (09/26/2013 14:30:00 [facility]) Problem List Condition Effective Dates Status Health Status Informant AAA - Abdominal aortic Resolved aneurysm(Confirmed) Abnormal liver function(Confirmed) Active Acid reflux(Confirmed) Active Anxiety depression(Confirmed) Active Atrial fibrillation(Confirmed) Resolved CAD - Coronary artery Active disease(Confirmed) Hypercholesterolemia(Confirmed) Active Hypertension(Confirmed) Active IDDM(Confirmed) Active non-alcholic fatty liver Active disease(Confirmed) Poor peripheral Active circulation(Confirmed) Stented coronary artery(Confirmed) Active Allergies, Adverse Reactions, Alerts Substance Reaction Severity Status NKDA Active Medications Medication Instructions Start Date Stop Date Status Ancef 1 gm, Route: IVPB, ONCE, 10/01/2013 10/01/2013 Completed Dosing Weight 100, kg, Start date: 10/01/13 10:21:00, Duration: 1 doses or times, Stop date: 10/01/13 10:21:00 Aspirin Low Dose 81 mg 81 mg=1 tab, PO, Daily, 0 09/26/2013 10/01/2013 Discontinued oral tablet Refill(s) fentanyl 25 microgram, Route: IV, 10/01/2013 10/01/2013 Completed ONCE, Dosing Weight 100, kg, Start date: 10/01/13 9:57:00, Stop date: 10/01/13 9:57:00 Humalog 100 units/mL 30 units, SUB-Q, 09/26/2013 Ordered TID-Before Meals, 0 Refill(s) Insulin regular Route: IV, ONCE, Dosing 10/01/2013 10/01/2013 Completed Weight 100, kg, Start date: 10/01/13 13:53:00, Stop date: 10/01/13 13:53:00 Lactated Ringers 1,000 mL, Rate: 25 ml/hr, 10/01/2013 10/01/2013 Discontinued Injection IV 1000 mL Infuse over: 40 hr, Route: IV, Dosing Weight 100 kg, Total Volume: 1,000, Start date: 10/01/13 10:18:00, Duration: 30 day, Stop date: 10/31/13 10:17:00 Results ELECTROLYTES Most recent to oldest [Reference Range]: 1 Sodium Lvl [135-145 mEq/L] 132 mEq/L *LOW* (09/26/2013 14:50:00 [facility]) Potassium Lvl [3.5-5.1 mEq/L] 4.3 mEq/L (09/26/2013 14:50:00 [facility]) Chloride Lvl [95-109 mEq/L] 96 mEq/L (09/26/2013 14:50:[facility] CO2 [24-32 mEq/L] 26 mEq/L (09/26/2013 14:50:00 [facility]) AGAP [10.0-20.0 mEq/L] 14.3 mEq/L (09/26/2013 14:50:00 [facility]) CHEM PANEL Most recent to oldest [Reference Range]: 1 Creatinine Lvl [0.5-1.4 mg/dL] 0.9 mg/dL (09/26/2013 14:50:00 [facility]) eGFR 96 mL/min/1.73m2 1 *NA* (09/26/2013:50:00 [facility]) BUN [7-22 mg/dL] 28 mg/dL *HI* (09/26/2013 14:50:00 [facility]) Glucose Lvl [70-99 mg/dL] 348 mg/dL 2 *HI* (09/26/2013 14:50:00 [facility]) Calcium Lvl [8.5-10.5 mg/dL] 7.5 mg/dL *LOW* (09/26/2013 14:50:00 [facility]) 1Result Comment: The eGFR is calculated using the CKD-EPI formula. In most young , healthy individualsthe eGFR will be >90 mL/min/1.73m2. The eGFR declines with age. An eGFR of 60-89 may be normal in some populations, particularly the elderly, for whom the CKD-EPI formula has not been extensively validated. Use of the eGFR is not recommended in the following populations: Individuals with unstable creatinine concentrations, including patients and those with serious co-morbid conditions. Patients with extremes in muscle mass or diet. The data above are obtained from the National Kidney Disease Education Program ( NKDEP) which additionally recommends that when the eGFR is used in patients with extremes of body mass index for purposesof drug dosing, the eGFR should be multiplied by the estimated BMI.2Interpretive Data: Adult reference range values reflect the clinical guidelines of the [place] [employer].SPECIAL CHEMISTRY Most recent to oldest [Reference Range]: 1 Hgb A1C [<=5.6 %] 8.5 % *HI* (09/26/2013 14:50:00 [facility]) HEMATOLOGY Most recent to oldest [Reference Range]: 1 WBC [3.7-10.4 K/CMM] 7.5 K/CMM (09/26/2013 14:50:00 [facility]) RBC [4.70-6.10 M/CMM] 4.28 M/CMM *LOW* (09/26/2013 14:50:00 [facility]) Hgb [14.0-18.0 g/dL] 13.9 g/dL *LOW* (09/26/2013 14:50:00 [facility]) Hct [42.0-54.0 %] 35.6 % *LOW* (09/26/2013 14:50:00 [facility]) MCV [80.0-94.0 fL] 83.2 fL (09/26/2013 14:50:00 [facility]) MCH [27.0-31.0 pg] 32.5 pg *HI* (09/26/2013 14:50:00 [facility]) MCHC [32.0-36.0 g/dL] 39.0 g/dL *HI* (09/26/2013 14:50:00 [facility]) RDW [11.5-14.5 %] 14.5 % (09/26/2013 14:50:00 [facility]) Platelet [133-450 K/CMM] 181 K/CMM (09/26/2013 14:50:00 [facility]) MPV [7.4-10.4 fL] 8.1 fL (09/26/2013 14:50:00 [facility]) Segs [45.0-75.0 %] 59.0 % (09/26/2013 14:50:00 [facility]) Bands [0.0-11.0 %] 4.0 % (09/26/2013 14:50:00 [facility]) Lymphocytes [20.0-40.0 %] 32.0 % (09/26/2013 14:50:00 [facility]) Atypical Lymphs [<=0.0 %] 0.0 % (09/26/2013 14:50:00 [facility]) Monocytes [2.0-12.0 %] 2.0 % (09/26/2013 14:50:00 [facility] Eosinophils [0.0-4.0 %] 3.0 % (09/26/2013 14:50:00 [facility] Segs-Bands # [1.5-8.1 K/CMM] 4.7 K/CMM (09/26/2013 14:50:00 [facility] Lymphocytes # [1.0-5.5 K/CMM] 2.4 K/CMM (09/26/2013 14:50:00 [facility] Monocytes # [0.0-0.8 K/CMM] 0.2 K/CMM (09/26/2013 14:50:00 [facility] Eosinophils # [0.0-0.5 K/CMM] 0.2 K/CMM (09/26/2013 14:50:00 [facility] RBC Morph Normal (09/26/2013 [facility] Plt Morph Normal (09/26/2013 14:50:00 [facility]) PT [12.0-14.7 seconds] 12.1 seconds (09/26/2013 14:50:00 [facility] INR [0.85-1.17] 0.90 3 (09/26/2013 14:50:00 [facility] PTT [22.9-35.8 seconds] 26.3 seconds 4 (09/26/2013 14:50:00 [facility]) 3Interpretive Data: RECOMMENDED RANGES FOR PROTIME INR: 2.0-3.0 for most medical and surgical thromboembolic states. 2.5-3.5 for artificial heart valves and recurrent embolism. INR SHOULD BE USED ONLY FOR PATIENTS ON STABLE ANTICOAGULANT THERAPY.4Interpretive Data: Heparin Therapeutic Range: 57 - 92 Seconds Medications Administered During Your Visit No data available for this section Immunizations No data available for this section Procedures Procedure Type Body Site Date of Procedure Related Diagnosis Cardiac angiogram 09/18/2013 00:00:00 /[place] Social History Social History Type Response Smoking Status Use: Former smoker. Tobacco smoke exposure: None. Did the Patient Smoke Cigarettes Anytime During the Last 365 Days? No. Cessation Counseling Provided? No.
--- OUTSIDE RECORDS SUMMARY | 2018-06-30 11:57 | XMS REPORT | Summary of Care ---
:1955 Author Encounter Dates Location Diagnoses Discharge Providers Disposition 09/16/2013 - [facility] Final: Other and Unspecified Disc Disorder of Cervical Region Home Сергей Lomas Bee 09/19/2013 [id number] [place] Сергей Hutchins Bee [address] , [facility] Final: Other Chronic Nonalcoholic Liver Disease Final: Other and Unspecified Disc Disorder of Thoracic Region Final: Diabetes mellitus without mention of complication, type II or unspecified type, not stated as uncontrolled Final: Coronary Atherosclerosis of [place] Coronary Artery Final: Unspecified Essential Hypertension Final: Atrial Fibrillation Final: Other Constipation Final: Other Sedatives and Hypnotics Causing Adverse Effects in Therapeutic Use Final: Pure Hypercholesterolemia Final: Pure Hyperglyceridemia Final: Unspecified Gastritis and Gastroduodenitis, without Mention of Hemorrhage Final: Unspecified Disorder of Stomach and Duodenum Final: Abdominal Aortic Aneurysm without Mention of Rupture Final: Percutaneous Transluminal Coronary Angioplasty, Postsurgical Status Final: Personal History of Tobacco Use Final: Personal History of Colonic Polyps Reason for Visit CONCERN FOR ACS Vital Signs Most recent to oldest 1 2 3 [Reference Range]: Height 175.26 cm 175.26 cm (09/17/2013 13:25:00 [facility]) [facility] Temperature Oral 98.7 DegF 98.2 DegF 97.8 DegF [96.4-99.1 DegF] (09/19/2013 [facility] Systolic Blood Pressure 168 mmHg 149 mmHg 154 mmHg [90-140 mmHg] *HI* *HI* *HI* (09/19/2013 [facility] Diastolic Blood Pressure 91 mmHg 84 mmHg 91 mmHg [60-90 mmHg] *HI* (09/19/2013 12:09:00 [facility]) *HI* (09/19/2013 16:00:00 [facility]) (09/19/2013 08:00:00 [facility] ) Respiratory Rate [14-20 18 BRMIN 18 BRMIN 18 BRMIN BRMIN] (09/19/2013 16:00:00 [facility]) (09/19/2013 12:09:00 [facility]) (09/19/2013 08:00:00 [facility]) Peripheral Pulse Rate 73 bpm 67 bpm 86 bpm [60-100 bpm] (09/19/2013 16:00:00 [facility]) (09/19/2013 12:09:00 [facility]) (09/19/2013 08:00:00 [facility]) Weight 100 kg 100 kg (09/17/2013 13:25:00 [facility]) (09/16/2013 17:38:00 [facility]) Body Mass Index 32.56 m2 32.56 m2 (09/17/2013 13:25:00 [facility]) (09/16/2013 17:38:00 [facility]) Problem List Condition Effective Dates Status Health [...] Medication Instructions Start Date Stop Date Status acetaminophen 650 mg, 2 tab, Route: PO, Drug form: TAB, Q4H, Dosing Weight 100 , kg, PRN Headache 1-5, Start date: 09/17/13 0:08:00, Duration: 30 day, Stop date: 10/17/13 0:07:00 09/17/2013 09/19/2013 Discontinued Do not exceed 4 gm/day. (Same as: Tylenol) acetaminophen 650 mg, 2 tab, Route: PO, Drug form: TAB, Q4H, Dosing Weight 100 , kg, PRN Headache 1-5, Start date: 09/18/13 13:21:00, Duration: 30 day, Stop date: 10/18/13 13:20:00 09/18/2013 09/19/2013 Discontinued Do not exceed 4 gm/day. (Same as: Tylenol) acetaminophen-hydrocodone 2 tab, PO, Q4H, Pain 09/19/2013 09/26/2013 Completed 325 mg-5 mg oral tablet Score 6-10, # 30 tab, 0 Refill(s) acetaminophen-hydrocodone 2 tab, Route: PO, Drug Form: TAB, Dosing Weight 100 , kg, Q4H, PRN Pain Score 6-10, Start date: 09/18/13 13:21:00, Duration: 30 day , Stop date: 10/18/13 13:20:00 09/18/2013 09/19/2013 Discontinued 325 mg-5 mg oral tablet (Same as: [place] 325/5) Do not exceed 4gm/day of acetaminophen. Ambien 10 mg, 1 tab, Route: PO, Drug form: TAB, Bedtime, Dosing Weight 100, kg , PRN as needed for sleep, Start date: 09/17/13 0:25:00, Duration: 30 day, Stop date: 10/17/13 0:24:00 09/17/2013 09/19/2013 Discontinued (Same As: Ambien) amLODIPine 10 mg, 2 tab, Route: PO, Drug form: TAB, Daily, Dosing Weight 100, kg, Start date: 09/17/13 9:00:00, Duration: 30 day, Stop date: 10/16/13 9:00:00 09/17/2013 09/19/2013 Discontinued (Same as: Norvasc) aspirin 325 mg tablet, 325 mg, 1 tab, Route: PO, Drug form: ECTAB, Q24H, Dosing Weight 100, kg, Start date: 09/17/13 1:00:00, Duration: 30 day, Stop date : 10/16/13 1:00:00 09/17/2013 09/19/2013 Discontinued enteric coated (Do Not Crush) Do not crush or chew. aspirin 81 mg tablet, 81 mg, 1 tab, Route: 09/17/2013 09/17/2013 Deleted enteric coated PO, Drug form: ECTAB, Daily, Dosing Weight 100, kg, Start date: 09/17/13 9:00:00, Duration: 30 day, Stop date: 10/16/13 9:00:00 Ativan 0.5 mg, 0.25 mL, Route: IV, Drug form: INJ, ONCE, Dosing Weight 100, kg , PRN Other -See Comment, Start date: 09/17/13 20:01:00, MRI/MRA 09/17/2013 Discontinued (Same as: Ativan) Ativan 0.5 mg, 0.25 mL, Route: IV, Drug form: INJ, ONCE, Dosing Weight 100, kg , repeat one more dose if the first one does not work., Start date: 09/17/13 19: 59:00, Stop date: 09/17/13 19:59:00 09/17/2013 09/17/2013 Completed (Same as: Ativan) atorvastatin 40 mg, 1 tab, Route: PO, Drug form: TAB, Daily, Dosing Weight 100 , kg, Start date: 09/17/13 9:00:00, Duration: 30 day, Stop date: 10/16/13 17:00: 00 09/17/2013 09/19/2013 Discontinued (Same as: Lipitor) atropine 0.5 mg, 5 mL, Route: 09/17/2013 09/19/2013 Discontinued IVP, Drug form: INJ, PRN, PRN Bradycardia, Start date: 09/17/13 14:27:00, Duration: 30 day, Stop date: 10/17/13 15:26:00 bisoprolol 10 mg, 2 tab, Route: PO, Drug form: TAB, Daily, Dosing Weight 100, kg, Start date: 09/17/13 9:00:00, Stop date: 10/16/13 9:00:00 09/17/201309/19 Discontinued (Same As: Zebeta) calcium gluconate + Sodium 2,000 mg, 20 mL, Route: 09/17/2013 09/17/2013 Completed Chloride 0.9% IV 100 mL IVPB, ONCE, Dosing Weight 100, kg, Priority: STAT, Start date: 09/17/13 3:11:00, Stop date: 09/17/13 3:11:00 calcium gluconate + Sodium 1,000 mg, 10 mL, Route: 09/17/2013 09/17/2013 Completed Chloride 0.9% IV 40 mL IVPB, ONCE, Dosing Weight 100, kg, Start date: 09/17/13 9:21:00, Stop date: 09/17/13 9:21:00 citalopram 20 mg, 1 tab, Route: PO, Drug form: TAB, Daily, Dosing Weight 100, kg, Start date: 09/17/13 9:00:00, Duration: 30 day, Stop date: 10/16/13 9:00:00 09/17/2013 09/19/2013 Discontinued (Same As: CeleXA) citalopram 20 mg oral 20 mg=1 tab, PO, Daily, 09/17/2013 Ordered tablet # 30 tab, 0 Refill(s) cyclobenzaprine 10 mg oral 10 mg=1 tab, PO, TID, 09/19/2013 09/26/2013 Completed tablet Spasm, # 30 tab, 0 Refill(s) Dexilant 60 mg, Route: PO, Drug 09/17/2013 09/17/2013 Deleted form: DRC, Daily, Dosing Weight 100, kg, Start date: 09/17/13 9:00:00, Duration: 30 day, Stop date: 10/16/13 9:00:00 Dextrose 50% Syringe 12.5 gm, 25 mL, Route: 09/17/2013 09/19/2013 Discontinued IVP, Drug Form: INJ, Dosing Weight 100, kg, PRN, PRN Blood Glucose Results, Start date: 09/17/13 0:20:00, Duration: 30 day, Stop date: 10/17/13 1:19:00 Dextrose 50% Syringe 25 gm, 50 mL, Route: 09/17/2013 09/19/2013 Discontinued IVP, Drug Form: INJ, Dosing Weight 100, kg, PRN, PRN Blood Glucose Results, Start date: 09/17/13 0:20:00, Duration: 30 day, Stop date: 10/17/13 1:19:00 digoxin 125 mcg (0.125 mg) 0.125 mg, 1 tab, Route: PO, Drug form: TAB, Daily, Dosing Weight 100, kg, Start date: 09/17/13 9:00:00, Duration: 30 day, Stop date : 10/16/13 9:00:00 09/17/2013 09/19/2013 Discontinued oral tablet Take on an Empty Stomach (Same as: Lanoxin) Dilaudid 1 mg, 1 mL, Route: IVP, 09/18/2013 09/18/2013 Completed Drug form: INJ, ONCE, Dosing Weight 100, kg, PRN Pain Score 7-10, Priority: NOW, Start date: 09/18/13 16:34:00 Dilaudid 1 mg, Route: IV, ONCE, 09/16/2013 09/16/2013 Completed Dosing Weight 100, kg, Start date: 09/16/13 22:27:00, Stop date: 09/16/13 22:27:00 diphenhydrAMINE 25 mg, 1 tab, Route: 09/18/2013 09/19/2013 Discontinued PO, Drug form: TAB, Bedtime, Dosing Weight 100, kg, PRN Insomnia, Start date: 09/18/13 13:21:00, Duration: 30 day, Stop date: 10/18/13 13:20:00 docusate sodium 100 mg oral 100 mg, 1 cap, Route: PO, Drug form: CAP, Q12H, Dosing Weight 100, kg, PRN as needed for constipation, Start date: 09/18/13 13: 21:00, Duration: 30 day, Stop date: 10/18/13 13:20:00 09/18/2013 09/19/2013 Discontinued capsule (Same as: Colace) (Do Not Crush) Flexeril 10 mg, 1 tab, Route: PO, Drug form: TAB, TID, Dosing Weight 100, kg, PRN Spasm, Start date: 09/17/13 0:23:00, Duration: 30 day, Stop date: 10/17/13 0 :22:00 09/17/2013 09/19/2013 Discontinued (Same As: Flexeril) Flexeril 10 mg oral tablet 10 mg=1 tab, PO, TID, 09/17/2013 Ordered for spasm, # 30 tab, 0 Refill(s) glucagon 1 mg, Route: IM, Drug 09/17/2013 09/19/2013 Discontinued form: PDR/INJ, PRN, Dosing Weight 100, kg, PRN Blood Glucose Results, Start date: 09/17/13 0:20:00, Duration: 30 day, Stop date: 10/17/13 1:19:00 hydromorphone 1 mg, 1 mL, Route: IVP, 09/16/2013 09/16/2013 Completed Drug form: INJ, ONCE, Dosing Weight 100, kg, Priority: STAT, Start date: 09/16/13 20:04:00, Stop date: 09/16/13 20:04:00 insulin aspart 10 unit, 0.1 mL, Route: SUB-Q, Drug form: SOLN, Sliding Scale, Dosing Weight 100, kg, PRN Blood Glucose Results, Start date: 09/17/13 0:20:00, Duration: 30 day, Stop date: 10/17/13 1:19:00 09/17/2013 09/19/2013 Discontinued Roll in palms of hands gently; Do not shake vigorously. (Same as: NovoLOG) "single patient use only" Stable for 28 days at room temperature.Expires in ___ __ days from Date insulin aspart 8 unit, 0.08 mL, Route: SUB-Q, Drug form: SOLN, Sliding Scale, Dosing Weight 100, kg, PRN Blood Glucose Results, Start date: 09/17/13 0:20:00, Duration: 30 day, Stop date: 10/17/13 1:19:00 09/17/2013 09/19/2013 Discontinued Roll in palms of hands gently; Do not shake vigorously. (Same as: NovoLOG) "single patient use only" Stable for 28 days at room temperature.Expires in ___ __ days from Date insulin aspart 6 unit, 0.06 mL, Route: SUB-Q, Drug form: SOLN, Sliding Scale, Dosing Weight 100, kg, PRN Blood Glucose Results, Start date: 09/17/13 0:20:00, Duration: 30 day, Stop date: 10/17/13 1:19:00 09/17/2013 09/19/2013 Discontinued Roll in palms of hands gently; Do not shake vigorously. (Same as: NovoLOG) "single patient use only" Stable for 28 days at room temperature.Expires in ___ __ days from Date insulin aspart 2 unit, 0.02 mL, Route: SUB-Q, Drug form: SOLN, Sliding Scale, Dosing Weight 100, kg, PRN Blood Glucose Results, Start date: 09/17/13 0:20:00, Duration: 30 day, Stop date: 10/17/13 1:19:00 09/17/2013 09/19/2013 Discontinued Roll in palms of hands gently; Do not shake vigorously. (Same as: NovoLOG) "single patient use only" Stable for 28 days at room temperature.Expires in ___ __ days from Date insulin aspart 4 unit, 0.04 mL, Route: SUB-Q, Drug form: SOLN, Sliding Scale, Dosing Weight 100, kg, PRN Blood Glucose Results, Start date: 09/17/13 0:20:00, Duration: 30 day, Stop date: 10/17/13 1:19:00 09/17/2013 09/19/2013 Discontinued Roll in palms of hands gently; Do not shake vigorously. (Same as: NovoLOG) "single patient use only" Stable for 28 days at room temperature.Expires in ___ __ days from Date Levemir FlexPen 50 unit, 0.5 mL, Route: SUB-Q, Drug form: INJ, Bedtime, Start date: 09/17/13 21:00:00, Duration: 30 day, Stop date: 10/16/13 21:00:00 201309/19/2013 Discontinued Same as Levemir "single patient use only" lisinopril 40 mg, 2 tab, Route: PO, Drug form: TAB, Daily, Dosing Weight 100, kg, Start date: 09/17/13 9:00:00, Duration: 30 day, Stop date: 10/16/13 17:00: 00 09/17/2013 09/19/2013 Discontinued (Same as: Prinivil, Zestril) lisinopril 40 mg oral 40 mg=1 tab, PO, Daily, 09/17/2013 09/26/2013 Completed tablet # 30 tab, 0 Refill(s) magnesium sulfate 2 gm in 4 gm, Route: IV, ONCE, 09/17/2013 09/17/2013 Completed Water 50 ml Dosing Weight 100, kg, Start date: 09/17/13 9:20:00, Stop date: 09/17/13 9:20:00 metoprolol tartrate 25 mg, 1 tab, Route: PO, Drug form: TAB, BID, Dosing Weight 100, kg, Start date: 09/17/13 9:00:00, Duration: 30 day, Stop date: 10/16 21:00:00 09/17/2013 09/19/2013 Discontinued (Same as: Lopressor) morphine Sulfate 4 mg, 2 mL, Route: IV, Drug form: INJ, Q2H, Dosing Weight 100 , kg, PRN Pain Score 7-10, Start date: 09/18/13 16:44:00, Duration: 30 day, Stop date: 10/18/13 16:43:00 09/18/2013 09/19/2013 Discontinued (Same as:MORPhine Sulfate) morphine Sulfate 2 mg, 1 mL, Route: IVP, Drug form: INJ, Q4H, Dosing Weight 100, kg, PRN Pain Score 4-6, Start date: 09/17/13 0:08:00, Duration: 30 day, Stop date: 10/17/13 0:07:00 09/17/2013 09/19/2013 Discontinued (Same as:MORPhine Sulfate) morphine Sulfate 2 mg, 1 mL, Route: IVP, Drug form: INJ, Q15Min, Dosing Weight 100, kg, PRN Chest Pain, Start date: 09/17/13 0:08:00, Duration: 2 doses or times, Stop date: Limited # of times 09/17/2013 09/19/2013 Discontinued (Same as:MORPhine Sulfate) morphine Sulfate 4 mg, 2 mL, Route: IVP, Drug form: INJ, Q4H, Dosing Weight 100, kg, PRN Pain Score 7-10, Start date: 09/17/13 0:08:00, Duration: 30 day, Stop date: 10/17/13 0:07:00 09/17/2013 09/18/2013 Discontinued (Same as:MORPhine Sulfate) multivitamin with minerals 1 cap, Route: PO, Drug Form: TAB, Dosing Weight 100 , kg, Daily, Start date: 09/17/13 9:00:00, Duration: 30 day, Stop date: 9:00:00 09/17/2013 09/19/2013 Discontinued (Same as:Thera-M, Theragran-M) Give with food. Niacin SR 500 mg, 2 cap, Route: PO, Drug form: ERCAP, Daily, Dosing Weight 100 , kg, Start date: 09/18/13 9:00:00, Duration: 30 day, Stop date: 10/17/13 9:00: 00 09/18/2013 09/19/2013 Discontinued With food. nitroglycerin 0.4 mg 0.4 mg, 1 tab, Route: SL, Drug form: TAB, Q5Min, PRN Chest Pain, Start date: 09/17/13 14:27:00, Duration: 30 day, Stop date: 15:26:00 09/17/2013 09/19/2013 Discontinued sublingual tablet (Same as:Nitroquick, Nitrostat)"Do Not Crush" Sublingual tablet nitroglycerin SL Tab 0.4 mg, 1 tab, Route: SL, Drug form: TAB, Q5Min, Dosing Weight 100, kg, PRN Chest Pain, Start date: 09/17/13 0:08:00, Duration: 3 doses or times, Stop date: Limited # of times 09/17/2013 09/17/2013 Discontinued (Same as:Nitroquick, Nitrostat)"Do Not Crush" Sublingual tablet nitroglycerin SL Tab 0.4 mg, Route: SL, Drug 09/18/2013 09/18/2013 Deleted form: TAB, Q5Min, Dosing Weight 100, kg, PRN Chest Pain, Start date: 09/18/13 13:21:00, Duration: 3 doses or times, Stop date: Limited # of times NovoLOG FlexPen 20 unit, 0.2 mL, Route: SUB-Q, Drug form: SOLN, TID-Before Meals, Start date: 09/18/13 7:30:00, Duration: 30 day, Stop date: 10/17/13 16:30 :00 09/18/2013 09/19/2013 Discontinued Roll in palms of hands gently; Do not shake vigorously. (Same as: NovoLOG) "single patient use only" Stable for 28 days at room temperature.Expires in ___ __ days from Date ondansetron 4 mg, 1 tab, Route: PO, Drug form: TAB, Q8H, Dosing Weight 100, kg , PRN Nausea & Vomiting, Start date: 09/18/13 13:21:00, Duration: 30 day, Stop date: 10/18/13 13:20:00 09/18/2013 09/19/2013 Discontinued (Same as: Zofran) Plavix 75 mg, 1 tab, Route: PO, Drug form: TAB, Daily, Dosing Weight 100, kg, Start date: 09/17/13 9:00:00, Duration: 30 day, Stop date: 10/16/13 9:00:00 09/19/2013 Discontinued (Same As: Plavix) Protonix 40 mg, 1 tab, Route: PO, Drug form: ECTAB, Before Dinner, Start date : 09/17/13 16:30:00, Duration: 30 day, Stop date: 10/16/13 16:30:00 09/17/2013 09/19/2013 Discontinued Tablet should not be chewed or crushed.(Same as: Protonix) Saline Flush 0.9% 5 ml, Route: IVP, Drug Form: INJ, Dosing Weight 100, kg, Q12H, Start date: 09/17/13 9:00:00, Duration: 30 day, Stop date: 10/16/13 21:00: 00 09/17/2013 09/19/2013 Discontinued Same as: BD Posiflush Sterile Saline Flush 0.9% 5 ml, Route: IVP, Drug Form: INJ, Dosing Weight 100, kg, PRN , PRN Line Flush, Start date: 09/17/13 0:08:00, Duration: 30 day, Stop date: 1:07:00 09/17/2013 09/19/2013 Discontinued Same as: BD Posiflush Sterile Saline Flush 0.9% 5 ml, Route: IVP, Drug Form: INJ, Dosing Weight 100, kg, PRN , PRN Line Flush, Start date: 09/18/13 13:21:00, Duration: 30 day, Stop date: 14:20:00 09/18/2013 09/19/2013 Discontinued preservative free. Saline Flush 0.9% 5 ml, Route: IVP, Drug Form: INJ, Dosing Weight 100, kg, Q12H, Start date: 09/18/13 21:00:00, Duration: 30 day, Stop date: 10/18/13 9:00: 00 09/18/2013 09/19/2013 Discontinued preservative free. Sodium Chloride 0.9% IV 1,000 mL, Rate: 200 09/18/2013 09/19/2013 Discontinued 1,000 mL ml/hr, Infuse over: 5 hr, Route: IV, Dosing Weight 100 kg, Total Volume: 1,000, Start date: 09/18/13 13:21:00, Duration: 30 day, Stop date: 10/18/13 13:20:00 Sodium Chloride 0.9% IV 1,000 mL, Rate: 100 09/17/2013 09/19/2013 Discontinued 1,000 mL ml/hr, Infuse over: 10 hr, Route: IV, Dosing Weight 100 kg, Total Volume: 1,000, Start date: 09/17/13 0:19:00, Duration: 30 day, Stop date: 10/17/13 0:18:00 temazepam 15 mg, 1 cap, Route: PO, Drug form: CAP, Bedtime, Dosing Weight 100 , kg, PRN Insomnia, Start date: 09/17/13 0:08:00, Duration: 30 day, Stop date: 10/17/13 0:07:00 09/17/2013 09/19/2013 Discontinued (Same As: Restoril) TriCor 145 mg, 1 tab, Route: PO, Drug form: TAB, Daily, Start date: 09/17/13 9 :00:00, Duration: 30 day, Stop date: 10/16/13 9:00:00 09/17/2013 09/19/2013 Discontinued (Same as: Tricor) Trilipix 135 mg, Route: PO, Drug 09/17/2013 09/17/2013 Deleted form: CAP, Daily, Dosing Weight 100, kg, Start date: 09/17/13 9:00:00, Duration: 30 day, Stop date: 10/16/13 9:00:00 Zofran 4 mg, Route: IVP, Drug 09/17/2013 09/17/2013 Completed form: INJ, ONCE, Dosing Weight 100, kg, Start date: 09/17/13 7:32:00, Stop date: 09/17/13 7:32:00 Zofran 4 mg, Route: IVP, Drug 09/16/2013 09/16/2013 Completed form: INJ, ONCE, Dosing Weight 100, kg, Priority: STAT, Start date: 09/16/13 20:20:00, Stop date: 09/16/13 20:20:00 Results ELECTROLYTES Most recent to oldest 1 2 3 [Reference Range]: Sodium Lvl [135-145 mEq/L] 135 mEq/L 134 mEq/L 135 mEq/L (09/19/2013 03:25:00 [facility]) *LOW* (09/16/2013 19:30:00 [facility] [place]) (09/17/2013 01:30:00 [facility]) Potassium Lvl [3.5-5.1 3.9 mEq/L 3.9 mEq/L 3.9 mEq/L mEq/L] (09/19/2013 03:25:00 [facility]) (09/17/2013 01:30:00 [facility] [place]) (09/16/2013 19:30:00 [facility]) Chloride Lvl [95-109 mEq/L] 99 mEq/L 98 mEq/L 98 mEq/L (09/19/2013 03:25:00 [facility]) (09/17/2013 01:30:00 [facility]) (09/16/2013 19:30:00 [facility]) CO2 [24-32 mEq/L] 30 mEq/L 28 mEq/L 26 mEq/L (09/19/2013 03:25:00 [facility]) (09/17/2013 01:30:00 [facility]) (09/16/2013 19:30:00 [facility]) AGAP [10.0-20.0 mEq/L] 9.9 mEq/L 11.9 mEq/L 14.9 mEq/L *LOW* (09/17/2013 01:30:00 [facility]) (09/16/2013 19:30:00 [facility] [place]) (09/19/2013 03:25:00 [facility]) CHEM PANEL Most recent to oldest 1 2 3 [Reference Range]: Creatinine Lvl [0.5-1.4 0.8 mg/dL 1.0 mg/dL 1.2 mg/dL mg/dL] *NA* (09/17/2013 01:30:00 [facility]) (09/16/2013 19:30:00 [facility]) [facility] e[facility] See Note (09/19/2013 [facility] eGFR 84 mL/min/1.73m2 1 68 mL/min/1.73m2 2 *NA* *NA* (09/17/2013 01:30:00 [facility]) (09/16/2013 [facility]:30[facility] BUN [7-22 mg/dL] 14 mg/dL 20 mg/dL 21 mg/dL *NA* (09/17/2013 01:30:00 [facility] B/C Ratio [6-25] 18 (09/16/2013 19:30:00 [facility]) Glucose Lvl [70-99 mg/dL] 217 mg/dL 3 292 mg/dL 4 293 mg/dL 5 *HI* *HI* *HI* (09/19/2013 03:25:00 [facility]) (09/17/2013 01:30:00 [facility]) ([facility]16[facility]2013 [facility] Total Protein [6.4-8.4 6.1 g/dL g/dL] *LOW* (09/16/2013 19:30:00 [facility] Albumin Lvl [3.5-5.0 g/dL] 3.8 g/dL (09/16/2013 19:30:00 [facility]) Globulin [2.0-4.0 g/dL] 2.3 g/dL (09/16/2013 19:30:00 [facility] A/G Ratio [0.7-1.6] 1.7 *HI* (09/16/2013 19:30:00 [facility] Calcium Lvl [8.5-10.5 6.9 mg/dL 9.0 mg/dL 5.7 mg/dL 6 mg/dL] *NA* *NA* *CRIT* (09/19/2013 03:25:00 [facility] System) (09/17/2013 07:11:22 [facility] System) (09/17/2013 01:30:00 [facility]) Phosphorus [2.5-4.5 mg/dL] 3.0 mg/dL (09/17/2013 01:30:00 [facility]) Magnesium Lvl [1.8-2.4 1.3 mg/dL mg/dL] *LOW* (09/17/2013:30:00 [facility]) ALT [0-65 unit/L] 26 unit/L (09/16/2013:30:00 [facility]) AST [0-37 unit/L] 20 unit/L (09/16/2013:30:00 [facility]) Alk Phos [39-136 unit/L] 65 unit/L (09/16/2013:30:00 [facility]) Bili Total [0.2-1.3 mg/dL] 0.4 mg/dL (09/16/2013:30:00 [facility]) Amylase Lvl [25-115 unit/L] 5 unit/L 8 unit/L *LOW* *LOW* (09/19/2013 03:25:00 [facility]) (09/17/2013:30:00 [facility]) Lipase Lvl [73-393 unit/L] 129 unit/L 125 unit/L 190 unit/L (09/19/2013 03:25:00 [facility]) (09/17/2013:30:00 [facility]) (09/16/2013 19:30:00 [facility]) 1Result Comment: The eGFR is calculated using [...] eGFR should be multiplied by the estimated BMI.2Result Comment: The eGFR is calculated using the CKD-EPI formula. In most young, healthy individualsthe eGFR will be >90 mL/ min/1.73m2. The [...] eGFR should be multiplied by the estimated BMI.3Interpretive Data: Adult reference range values reflect the clinical guidelines of the [employer].4Interpretive Data: Adult reference range values reflect the clinical guidelines of the [employer].5Interpretive Data: Adult reference range values reflect the clinical guidelines of the [employer].6Result Comment: Critical Result(s) called to Lucy Blair at 09/17/2013 02:31 by [email or web address]. Read back OK.CARDIAC ENZYMES Most recent to oldest 1 2 3 [Reference Range]: Total CK [12-191 unit/L] 86 unit/L 87 unit/L 119 unit/L (09/17/2013 07:11:00 [facility]) (09/17/2013 07:11:00 [facility]) [facility] CK MB [0.5-3.6 ng/mL] 3.4 ng/mL 3.4 ng/mL 2.5 ng/mL (09/17/2013 07:11:00 [facility]) (09/17/2013 07:11:00 [facility]) (09/17/2013 01:30:00 [facility]) CK MB Index [0.0-2.5] 4.0 3.9 2.1 *HI* *HI* (09/17/2013 01:30:00 [facility]) (09/17/2013 07:11:00 [facility]) (09/17/2013 07:11:00 [facility]) Troponin-I [0.00-0.40 0.04 ng/mL 0.04 ng/mL <0.02 ng/mL ng/mL] (09/17/2013 07:11:00 [facility]) (09/17/2013 07:11:00 [facility]) (09/17/2013 01:30:00 [facility]) LIPIDS Most recent to oldest [Reference Range]: 1 2 3 CHD Risk [4.00-7.30] 11.00 *HI* (09/17/2013:30:00 [facility]) Chol [<=199 mg/dL] 341 mg/dL *HI* (09/17/2013:30:00 [facility]) Trig [<=149 mg/dL] >4000 mg/dL *HI* (09/17/2013:30:00 [facility]) HDL [>=61 mg/dL] 31 mg/dL *LOW* (09/17/2013:30:00 [facility]) LDL (Calculated) [<=99] SEE NOTE 7 *NA* (09/17/2013:30:00 [facility]) 7Result Comment: LDL cholesterol cannot be calculated due to very high triglycerides (>400 mg/dL). Recommend Direct LDL if clinically indicated. LDL cholesterol cannot be calculated due to very high triglycerides (>400 mg/dL). Recommend Direct LDL if clinically indicated.TOXICOLOGY Most recent to oldest [Reference Range]: 1 2 3 Digoxin Lvl [0.8-2.0 ng/mL] 0.6 ng/mL *LOW* (09/19/2013 03:25:00 [facility]) IMMUNOLOGY Most recent to oldest [Reference Range]: 1 2 3 CDC HIV 4th GEN [Negative] Negative (09/16/2013:30:00 [facility]) HEMATOLOGY Most recent to oldest 1 2 3 [Reference Range]: WBC [3.7-10.4 K/CMM] 5.8 K/CMM 8.0 K/CMM (09/19/2013 03:25:00 [facility]) (09/16/2013:30:00 [facility]) RBC [4.70-6.10 M/CMM] 3.89 M/CMM 4.30 M/CMM *LOW* *LOW* (09/19/2013 03:25:00 [facility]) (09/16/2013 19:30:00 [facility]) Hgb [14.0-18.0 g/dL] 12.2 g/dL 12.9 g/dL *LOW* *LOW* (09/19/2013 03:25:00 [facility]) (09/16/2013 19:30:00 [facility]) Hct [42.0-54.0 %] 32.8 % 36.7 % *LOW* *LOW* (09/19/2013 03:25:00 [facility]) (09/16/2013:30:00 [facility]) MCV [80.0-94.0 fL] 84.3 fL 85.5 fL (09/19/2013 03:25:00 [facility]) (09/16/2013:30:00 [facility]) MCH [27.0-31.0 pg] 31.5 pg 30.1 pg *HI* (09/16/2013 19:30:00 [facility]) (09/19/2013 03:25:00 [facility]) MCHC [32.0-36.0 g/dL] 37.3 g/dL 35.2 g/dL *HI* (09/16/2013 19:30:00 [facility]) (09/19/2013 03:25:00 [facility]) RDW [11.5-14.5 %] 14.5 % 15.1 % (09/19/2013 03:25:00 [facility]) *HI* (09/16/2013 19:30:00 [facility]) Platelet [133-450 K/CMM] 159 K/CMM 254 K/CMM (09/19/2013 [facility]) (09/16/2013 19:30:00 [facility]) MPV [7.4-10.4 fL] 7.3 fL 7.2 fL *LOW* *LOW* (09/19/2013 03:25:00 [facility]) (09/16/2013 19:30:00 [facility]) Segs [45.0-75.0 %] 71.0 % 67.0 % (09/19/2013 03:25:00 [facility]) (09/16/2013 19:30:00 [facility]) Bands [0.0-11.0 %] 0.0 % 1.0 % (09/19/2013 03:25:00 [facility] Lymphocytes [20.0-40.0 %] 24.0 % 18.0 % (09/19/2013 03:25:00 [facility]) *LOW* (09/16/2013 19:30:00 [facility]) Atypical Lymphs [<=0.0 %] 0.0 % 0.0 % (09/19/2013 03:25:00 [facility]) (09/16/2013 19:30:00 [facility]) Monocytes [2.0-12.0 %] 3.0 % 6.0 % (09/19/2013 03:25:00 [facility]) (09/16/2013 19:30:00 [facility]) Eosinophils [0.0-4.0 %] 2.0 % 6.0 % (09/19/2013 03:25:00 [facility]) *HI* (09/16/2013 19:30:00 [facility]) Basophils [0.0-1.0 %] 2.0 % *HI* (09/16/2013 19:30:00 [facility]) Segs-Bands # [1.5-8.1 K/CMM] 4.1 K/CMM 5.4 K/CMM (09/19/2013 03:25:00 [facility]) (09/16/2013 19:30:00 [facility]) Lymphocytes # [1.0-5.5 K/CMM] 1.4 K/CMM 1.4 K/CMM (09/19/2013 03:25:00 [place]) (09/16/2013 19:30:00 [facility]) Monocytes # [0.0-0.8 K/CMM] 0.2 K/CMM 0.5 K/CMM (09/19/2013 03:25:00 [facility]) (09/16/2013 [facility]) Eosinophils # [0.0-0.5 K/CMM] 0.1 K/CMM 0.5 K/CMM (09/19/2013 03:25:00 [facility]) (09/16/2013 19:30:[facility]) Basophils # [0.0-0.2 K/CMM] 0.2 K/CMM (09/16/2013 19:30:00 [facility]) RBC Morph Normal Normal (09/19/2013 03:25:00 [facility]) (09/16/2013 19:30:00 [facility]) Plt Morph Normal Normal (09/19/2013 03:25:00 [facility]) (09/16/2013 19:30:00 [facility]) PT [12.0-14.7 seconds] 11.9 seconds *LOW* (09/16/2013 19:30:00 [facility]) INR [0.85-1.17] 0.88 8 (09/16/2013 19:30:00 [facility]) PTT [22.9-35.8 seconds] 27.6 seconds 9 (09/16/2013 19:30:00 [facility]) 8Interpretive Data: RECOMMENDED RANGES FOR PROTIME INR: 2.0-3.0 for most medical and surgical thromboembolic states. 2.5-3.5 for artificial heart valves and recurrent embolism. INR SHOULD BE USED ONLY FOR PATIENTS ON STABLE ANTICOAGULANT THERAPY.9Interpretive Data: Heparin Therapeutic Range: 57 - 92 Seconds Medications Administered During Your Visit No data available for this section Immunizations No data available for this section Procedures Procedure Type Body Site Date of Procedure Related Diagnosis Angiocardiography of Left Heart 09/18/2013 00:00:00 Structures US/Central Aortography 09/18/2013 00:00:00 US/Central Appendectomy Coronary Arteriography Using Two 09/18/2013 00:00:00 Catheters US/Central Left Heart Cardiac 09/18/2013 00:00:00 Catheterization US/Central Placement of stent in cardiac conduit x2 Social History Social History Type Response Smoking Status Use: Former smoker. Tobacco smoke exposure: None. Did the Patient Smoke Cigarettes Anytime During the Last 365 Days? No. Cessation Counseling Provided? No. Assessment and Plan Extracted from: Title: Clinical Document Author: Danielle Valles Date: 09/19/2013 [facility] Daily Progress Note [facility] Danielle Valles MD SUBJECTIVE: pt seen and examined, events noted He denies any headaches or dizziness at this time. He denies any fevers or chills. He denies any nausea or vomiting. He denies any neck pain or stiffness. He denies any chest pain or pressure or pa lpitations. He denies any shortness of breath. He denies any abdominal pain or any changes in his bowel or bladder habits. He denies any rashes or any focal motor or sensory deficits. He denies any de pression or anxiety, and all other systems have been reviewed and are negative except as listed. OBJECTIVE: Vitals and Temp: Vitals Tmp(F) Pulse BP RR SpO2 FIO2 09/19 08:05 ---- 80 ----- -- --- --- 09/19 08:00 97.8 86 154/91 18 94 --- 09/19 07:00 ---- --- ----- 20 97 21% 09/19 04:00 98.1 80 131/73 18 --- --- 09/19 00:00 98.2 83 147/84 20 --- --- 24 Hr Tmax: 98.2F (36.78c) at 09/19 00:00 Vital Signs are the last 5 in the past 48 hours. Input/Output Record In Out Bal 09/19 24hr Tot 1 0 1 09/18 24hr Tot 2063 0 2063 Labs (Last four charted values) WBC 5.8 (SEP 19) 8.0 (SEP 16) Hgb L 12.2 (SEP 19) L 12.9 (FEB 18) Hct L 32.8 (SEP 19) L 36.7 (FEB 18) Plt 159 (SEP 19) 254 (B 18) Na 135 (SEP 19) L 134 (B ) 135 (AUG 18) K 3.9 (SEP 19) 3.9 (B ) 3.9 (B 18) CO2 30 (SEP 19) 28 (B ) 26 (B 18) Cl 99 (SEP 19) 98 (B ) 98 (B 18) Cr 0.8 (SEP 19) 1.0 (SEP 17) 1.2 (SEP 16) BUN 14 (SEP 19) 20 (SEP 17) 21 (SEP 16) Glucose Random H 217 (SEP 19) H 292 (SEP 17) H 293 (SEP 16) Mg L 1.3 (SEP 17) Phos 3.0 (SEP 17) Ca 6.9 (SEP 19) 9.0 (SEP 17) C 5.7 (SEP 17) L 8.2 (SEP 16) PT L 11.9 (SEP 16) INR 0.88 (SEP 16) PTT 27.6 (SEP 16) Troponin 0.04 (SEP 17) 0.04 (SEP 17) <0.02 (SEP 17) <0.02 (SEP 16) CK MB 3.4 (SEP 17) 3.4 (SEP 17) 2.5 (SEP 17) 3.0 (SEP 16) Total CK 86 (SEP 17) 87 (SEP 17) 119 (SEP 17) 115 (SEP 16) ASSESSMENT & EXAM: GENERAL: in no apparent distress at this time. HEENT: Normocephalic, atraumatic. Pupils equal and reactive to light and accommodation. NECK: Supple. No jugular venous distention or bruits. CARDIOVASCULAR: Regular rate and rhythm, S1, S2 positive, no murmurs, rubs or gallops. LUNGS: Clear to auscultation bilateral. No rales, rhonchi or wheezes. GASTROINTESTINAL: Soft, nontender, nondistended, positive bowel sounds. EXTREMITIES: No clubbing, cyanosis or edema. NEUROLOGICAL: Intact. No gross deficits. SKIN: no rashes noted. DIAGNOSES & PROBLEMS: 1. abdominal pain 2. chest pain 3. DM2 4. hyperlipidemia PLAN & TREATMENT: s/p cardiac cath cont pain meds PPI for MRA to r/o mesenteric ischemia NSGY eval for disc disease seen in Thoracic and Cervical spine MEDICATIONS Scheduled Meds (17):amLODIPine, aspirin (aspirin 325 mg tablet, enteric coated) , atorvastatin, bisoprolol, citalopram, clopidogrel (Plavix), digoxin (digoxin 125 mcg (0.125 mg) oral tablet), fenofibrate (TriCor), insulin aspart (NovoLOG FlexPen), insulin detemir (Levemir FlexPen) , lisinopril, metoprolol (metoprolol tartrate), multivitamin with minerals, niacin (Niacin SR), pantoprazole (Protonix), sod ium chloride (Saline Flush 0.9%), sodium chloride (Saline Flush 0.9%) Unscheduled Meds: None PRN Meds (24):Dextrose 50% in Water IV (Dextrose 50% Syringe), Dextrose 50% in Water IV (Dextrose 50% Syringe), acetaminophen-hydrocodone (acetaminophen- hydrocodone 325 mg-5 mg oral tablet), acetaminoph en, acetaminophen, atropine, cyclobenzaprine (Flexeril), diphenhydrAMINE, docusate (docusate sodium 100 mg oral capsule), glucagon, insulin aspart, insulin aspart, insulin aspart, insulin aspart, insuli n aspart, morphine Sulfate, morphine Sulfate, morphine Sulfate, nitroglycerin ( nitroglycerin 0.4 mg sublingual tablet), ondansetron, sodium chloride (Saline Flush 0.9%), sodium chloride (Saline Flush 0.9%), temazepam, zolpidem (Ambien) One Time Meds: None Continuous Infusions (2):Sodium Chloride 0.9% IV 1,000 mL, Sodium Chloride 0.9 % IV 1,000 mL Extracted from: Title: History and Physical Author: Kaylie Saba Date: 09/17/2013 History and Physical [facility] Completed: Aug, 00:05 by Kaylie Saba MD RM: ED01 - 03, PHILIPPE CONSTANTINO 57y (: 1955) M Attending: Сергей Lomas MD Service: Internal Medicine Reason for Admission: CONCERN FOR ACS Working DRG: None Documented Code status: None Specified=FULL CODE Current diet: Isolation: None Documented Allergies: NKDA HISTORY AND PHYSICAL CC: Abdominal pain HPI: This is a 57 year old gentleman with a known history of HTN, DM, atrial fibrillation, aortic dissection and colon polyps, fatty liver, hypercholesterolemia and triglyceridemia who presents since h is last hospitalization with persistent abdominal pain. The patient states the pain is intermittent, midepigastric, radiates to his back and has been progressively worsening since his last hospitalization. He states he has been trying to coordinate care with is Land[employer] Crew Member Dr. Anderson at [facility] without success and saw Dr. Lao with GI. ROS: no fever, cough or congestion. +nausea, vomiting. Last BM this morning but has bouts of loose stool. Unintentional 5lb weight loss. PAST MEDICAL HISTORY: As noted in HPI PAST SURGICAL HISTORY: 1. Bilateral shoulder hemiarthroplasty 2. Aortic stent graft 3. Heart surgery 2011 4. Cholecystectomy MEDICATIONS: Medication reconciliation reviewed by myself. ALLERGIES: NKDA SOCIAL Denies current tobacco, alcohol or drugs. Remote history of tobacco. FAMILY: Grandparents with heart disease. OBJECTIVE HEENT: Laying on stretcher, appears ill,not toxic Head normocephalic, nontraumatic. EOMI, sclera non icteric OP moist Neck Supple Lungs: clear to ausculation bilaterally Cardiovascular: normal S1S2 RRR Abdomen: soft, midepigastric discomfort with hypoactive bowel sounds. I cannot appreciate abdominal bruit or palpable mass. Lower extremities: without edema Neurological: AOx3, CN I-XII grossly intact. Labs and Diagnostic imaging reviewed. ASSESSMENT & EXAM 57 year old gentleman with above noted medical problems, now with recurrent ( persistent) worsening abdominal pain, "chest pain" admitted for additional supportive care. PLAN & TREATMENT 1. Admit to telemetry 2. NPO except ice chips. 3. IVF and FSBS with SS 4. repeat cardiac enzymes in am 5. and consult GI and Cardioloy for additional recommendations * will request Dr. Anderson [phone] number to help facilite communication with him and Mr. Cristina assigned Landscape Crew Member here at [facility]. Code status: full code DVT prophylaxis: ambulatory DIAGNOSES & PROBLEMS Ready for Discharge (Yes/No)? Claire still necessary (Yes/No): Line still necessary (Yes/No): 24hr Labs 09/16 1930 Lipase Lvl 190 Troponin-I <0.02 CK MB 3.0 Sodium Lvl 135 Potassium Lvl 3.9 Chloride Lvl 98 CO2 26 AGAP 14.9 Glucose Lvl 293 H Creatinine Lvl 1.2 BUN 21 B/C Ratio 18 Total Protein 6.1 L Albumin Lvl 3.8 Globulin 2.3 A/G Ratio 1.7 H Calcium Lvl 8.2 L ALT 26 AST 20 Alk Phos 65 Bili Total 0.4 eGFR 68 Total CK 115 CK MB Index 2.6 H PTT 27.6 PT 11.9 L INR 0.88 WBC 8.0 RBC 4.30 L Hgb 12.9 L Hct 36.7 L MCV 85.5 MCH 30.1 MCHC 35.2 RDW 15.1 H Platelet 254 MPV 7.2 L Segs 67.0 Bands 1.0 Lymphocytes 18.0 L Atypical Lymphs 0.0 Monocytes 6.0 Eosinophils 6.0 H Basophils 2.0 H Segs-Bands # 5.4 Lymphocytes # 1.4 Monocytes # 0.5 Eosinophils # 0.5 Basophils # 0.2 RBC Morph Normal Plt Morph Normal Vitals Tmp(F) Pulse BP RR SpO2 FIO2 09/16 23:39 ---- 86 ----- 18 93 --- 09/16 20:20 ---- 83 143/93 18 96 --- 09/16 19:53 ---- 85 137/73 18 96 --- 09/16 17:38 98.9 86 147/91 20 96 --- 24 Hr Tmax: 98.9F (37.17c) at 09/16 17:38 Vital Signs are the last 5 in the past 48 hours. Date Wt(kg) Wt(lb) Ht(cm) Ht(in) Method 09/16 (initial) 100.00 220.00 175.26 69.00 Stated I&O Record In Out Bal 24hr Tot 0 0 0 24hr Tot 0 0 0 Medications (3) Active Scheduled Meds: None Unscheduled Meds: None PRN Meds: None One Time Meds (3): 09/16/13 (Completed) hydromorphone 1 mg IVP ONCE 09/16/13 (Completed) hydromorphone (Dilaudid) 1 mg IV ONCE 09/16/13 (Completed) ondansetron (Zofran) 4 mg IVP ONCE Continuous Infusions: None
--- OUTSIDE RECORDS SUMMARY | 2018-06-30 11:58 | XMS REPORT | Summary of Care ---
:1955 Author Organization [facility] Primary Care [facility] Address [address] [place] [address], [address] [address]- Encounter HQ Álvaror_rylan(FIN) [id number] Date(s): 07/11/17 - 07/11/17 [facility] [id number] [place] [address], [address] [address]- [phone] Discharge Disposition: Home or Self Care Attending Physician: Juwan Milner MD Referring Physician: Lakshmi Torres MD Vital Signs Most recent to oldest [Reference Range]: 1 2 Height 175.26 cm (07/11/17 1:03 PM) Temperature Oral [96.4-99.1 DegF] 98.9 DegF (07/11/17 1:03 PM) Blood Pressure [90-140/60-90 mmHg] 146/79 mmHg 46/79 mmHg *HI* *LOW* (07/12/17 11:55 PM) (07/11/17 1:03 PM) Peripheral Pulse Rate [60-100 bpm] 68 bpm (07/11/17 1:03 PM) Weight 104.688 kg (07/11/17 1:03 PM) Body Mass Index 34.08 m2 (07/11/17 1:03 PM) Problem List Condition Effective Dates Status Health Status Informant AAA - Abdominal aortic Active aneurysm(Confirmed) Abnormal liver function(Confirmed) < 05/19/13 Resolved Acid reflux(Confirmed) Active Allergic rhinitis1 10/14/14 Active Anxiety depression(Confirmed) Active Atrial fibrillation(Confirmed) Active Bronchitis2 10/25/11 Resolved CAD - Coronary artery Active disease(Confirmed) Chronic diarrhea(Confirmed) Active CKD (chronic kidney disease) stage Active 3, GFR 38(Confirmed) CKD (chronic kidney disease) stage Active 4, GFR 15-29 ml/min(Confirmed) Cramp(Confirmed)3 10/14/14 Active Shortness of breath(Confirmed)4 Active Fracture of rib5 10/14/14 Resolved GERD (gastroesophageal reflux Active disease)(Confirmed) Hip pain6 10/14/14 Active Hypercholesterolemia(Confirmed) Active Hypertension(Confirmed) Active IDDM(Confirmed) Active Neuropathy(Confirmed) Active Obesity(Confirmed) Active Poor peripheral Active circulation(Confirmed) Stented coronary artery(Confirmed) Active 1Data migrated from [employer] on 02/03/15.2Data migrated from [employer] on 02/12/15.3Data migrated from [employer] on 02/03/15.4worse at [email or web address] migrated from [employer] on 02/03/15.6Data migrated from [employer] on . Allergies, Adverse Reactions, Alerts Substance Reaction Severity Status NKDA Active Medications DME Prescription See Instructions, MISC, ONCE, Disability Parking Plate and Placard, one of each , # 1 ea, 0 Refill(s) Start Date: 07/11/17 Status: Orderedgabapentin 600 mg oral tablet, extended release 600 mg=1 tab, PO, BID, # 180 tab, 3 Refill(s), Pharmacy: [facility] Start Date: 07/11/17 Status: OrderedUltracet oral tablet 1 tab, PO, Q8H, PRN Pain, X 10 day, # 30 tab, 2 Refill(s) Start Date: 07/11/17 Stop Date: 08/10/17 Status: Ordered Results No data available for this section Immunizations No data available for this section Procedures Procedure Date Related Diagnosis Body Site Cardiac angiogram 09/18/13 Abdominal aorta angiogram Appendectomy Cholecystectomy Lumbar spinal fusion Placement of stent in cardiac conduit x2 Total shoulder replacement Social History Social History Type Response Alcohol Never Smoking Status Former smoker; Exposure to Tobacco Smoke None; Cigarette Smoking Last 365 Days No; Reg Smoking Cessation Counseling No Assessment and Plan No data available for this section
--- OUTSIDE RECORDS SUMMARY | 2018-06-30 11:58 | XMS REPORT | Summary of Care ---
:1955 Author Organization [facility] Primary Care [facility] Address [address] [place] [address], [address] [address]- Encounter HQ Encntr_alijuana(FIN) [id number] Date(s): 06/12/17 - 06/12/17 [facility] [id number] [place] [address], [address] [address]- [phone] Attending Physician: Juwan Milner MD Referring Physician: Lakshmi Torres MD Vital Signs No data available for this section Problem List Condition Effective Dates Status Health Status Informant AAA - Abdominal aortic Active aneurysm(Confirmed) Abnormal liver function(Confirmed) < 05/19/13 Resolved Acid reflux(Confirmed) Active Allergic rhinitis1 10/14/14 Active Anxiety depression(Confirmed) Active Atrial fibrillation(Confirmed) Active Bronchitis2 10/25/11 Resolved CAD - Coronary artery Active disease(Confirmed) Chronic diarrhea(Confirmed) Active CKD (chronic kidney disease) stage Active 3, GFR 38(Confirmed) Cramp(Confirmed)3 10/14/14 Active Shortness of breath(Confirmed)4 Active Fracture of rib5 10/14/14 Resolved GERD (gastroesophageal reflux Active disease)(Confirmed) Hip pain6 10/14/14 Active Hypercholesterolemia(Confirmed) Active Hypertension(Confirmed) Active IDDM(Confirmed) Active Neuropathy(Confirmed) Active Obesity(Confirmed) Active Poor peripheral Active circulation(Confirmed) Stented coronary artery(Confirmed) Active 1Data migrated from [employer] on 02/03/15.2Data migrated from [employer] on 02/12/15.3Data migrated from [employer] on 02/03/15.4worse at [email or web address] migrated from [employer] on 02/03/15.6Data migrated from [employer] on . Allergies, Adverse Reactions, Alerts Substance Reaction Severity Status NKDA Active Medications No data available for this section Results No data available for this section [...]
--- OUTSIDE RECORDS SUMMARY | 2018-06-30 11:58 | XMS REPORT | Summary of Care ---
:1955 Author Organization [facility] Outpatient Imaging [place] Address [address] [place], [place] [address]- Encounter HQ Encntr_alias(FIN) [id number] Date(s): 05/04/17 - 05/04/17 [facility] Outpatient Imaging [address], [address] [place] [address]- [phone] Discharge Disposition: Home or Self Care Attending Physician: Yfn Lee MD Vital Signs No data available for [...] migrated from [employer] on 02/03/15.4worse at [email or web address] migrated from [employer] on 02/03/15.6Data migrated [...]
--- OUTSIDE RECORDS SUMMARY | 2018-06-30 11:58 | XMS REPORT | Summary of Care ---
:1955 Author Encounter Dates Location Diagnoses Discharge Disposition Providers 09/30/2013 - [facility] Kranthi Taylor 09/30/2013 [address] [address] Kranthi Jonn [address] Reason for Visit 724.4, 724.1 Problem List Condition Effective Dates Status Health [...] Medications No data available for this section Medications Administered During Your Visit No data available for this section Immunizations No data available for this section Social History Social History Type Response Smoking Status Use: Former smoker. Tobacco smoke exposure: None. Did the Patient Smoke Cigarettes Anytime During the Last 365 Days? No. Cessation Counseling Provided? No.
--- OUTSIDE RECORDS SUMMARY | 2018-06-30 11:58 | XMS REPORT | Summary of Care ---
:1955 Author Organization [facility] Outpatient Imaging [place] Address [address] [place], [place] [address]- Encounter HQ Encntr_alijuana(FIN) [id number] Date(s): 07/11/17 - 07/11/17 [facility] Outpatient Imaging [address], [address] [place] [address]- [phone] Discharge Disposition: Home or Self Care Attending Physician: Juwan Milner MD Vital Signs No data available for [...] migrated from [employer] on 02/03/15.4worse at [email or web address] migrated from [employer] on 02/03/15.6Data migrated [...]
--- OUTSIDE RECORDS SUMMARY | 2018-06-30 11:58 | XMS REPORT | Summary of Care ---
:1955 Author Encounter Dates Location Diagnoses Discharge Disposition Providers 10/15/2013 - [facility] Outpatient Imaging [facility] Addison Real 10/15/[address] [phone] , [facility] Reason for Visit 270.02 - ABDMNAL PAIN LF Problem List Condition Effective Dates Status Health [...]
--- OUTSIDE RECORDS SUMMARY | 2018-06-30 11:58 | XMS REPORT | Summary of Care ---
:1955 Author Organization [facility] Address [id number] [place] [id number] Encounter HQ Encntr_rylan(FIN) [id number] Date(s): 01/08/17 - 01/11/[address] [phone] Discharge Disposition: Home or Self Care Attending Physician: Aaron Matthews MD Admitting Physician: Aaron Matthews MD Vital Signs Most recent to oldest 1 2 3 [Reference Range]: Height 175.26 cm (01/08/17 10:18 AM) Temperature Oral [96.4-99.1 98 DegF 98.4 DegF 97.3 DegF DegF] (01/11/17 3:43 PM) (01/11/17 11:44 AM) (01/11/17 8:18 AM) Blood Pressure [90-140/60-90 138/66 mmHg 143/87 mmHg 179/96 mmHg mmHg] (01/11/17 3:43 PM) *HI* *HI* (01/11/17 11:44 AM) (01/11/17 8:18 AM) Respiratory Rate [14-20 16 BRMIN 16 BRMIN 18 BRMIN BRMIN] (01/11/17 3:43 PM) (01/11/17 11:44 AM) (01/11/17 8:18 AM) Peripheral Pulse Rate [60-100 79 bpm 76 bpm 84 bpm bpm] (01/11/17 3:43 PM) (01/11/17 11:44 AM) (01/11/17 8:18 AM) Weight 109.091 kg (01/08/17 10:18 AM) Body Mass Index 35.52 m2 (01/08/17 10:18 AM) Problem List Condition Effective Dates Status Health Status Informant AAA - Abdominal aortic Resolved aneurysm(Confirmed) Abnormal liver function(Confirmed) < 05/19/13 Resolved Acid reflux(Confirmed) Active Allergic rhinitis1 10/14/14 Active Anxiety depression(Confirmed) Active Atrial fibrillation(Confirmed) Resolved Bronchitis2 10/25/11 Resolved CAD - Coronary artery Active disease(Confirmed) CKD (chronic kidney disease) stage Active 3, GFR 38(Confirmed) Cramp(Confirmed)3 10/14/14 Active Fracture of rib4 10/14/14 Active Hip pain5 10/14/14 Active Hypercholesterolemia(Confirmed) Active Hypertension(Confirmed) Active IDDM(Confirmed) Active Obesity(Confirmed) Active Poor peripheral Active circulation(Confirmed) Stented coronary artery(Confirmed) Active 1Data migrated from [employer] on 02/03/15.2Data migrated from [employer] on 02/12/15.3Data migrated from [employer] on 02/03/15.4Data migrated from [employer] on 02/03/15.5Data migrated from [employer] on 02/03/15. Allergies, Adverse Reactions, Alerts Substance Reaction Severity Status NKDA Active Medications acetaminophen 650 mg, 2 tab, Route: PO, Drug form: TAB, Q4H, Dosing Weight 109.091, kg, PRN Pain 1-3/Temp > 100.4 F, Start date: 01/08/17 14:24:00 CDT, Duration: 30 day, Stop date: 02/07/17 14:23:00 CDT Notes: Do not exceed 4 gm/day. (Same as: Tylenol) Start Date: 01/08/17 Stop Date: 01/11/17 Status: Discontinuedacetylcysteine oral solution (mg) 800 mg, 4 mL, Route: PO, Drug form: SOLN, BID, Dosing Weight 109.091, kg, Start date: 01/08/17 17:00:00 CDT, Duration: 2 day, Stop date: 01/10/17 9:00:00 CDT Start Date: 01/08/17 Stop Date: 01/09/17 Status: Discontinuedacetylcysteine oral solution (mg) 600 mg, 3 mL, Route: PO, Drug form: SOLN, BID, Dosing Weight 109.091, kg, Start date: 01/09/17 17:00:00 CDT, Duration: 2 day, Stop date: 01/11/17 9:00:00 CDT Notes: (Same as: Acetadote) MEDICATION WASTE Product Size: 6000 mgProduct Wasted: ___ mgWASTE: F/P - Black; E - Municipal Trash Bin Start Date: 01/09/17 Stop Date: 01/11/17 Status: CompletedAmbien 10 mg, 2 tab, Route: PO, Drug form: TAB, Bedtime, Dosing Weight 109.091, kg, PRN Sleep, Start date: 01/08/17 15:44:00 CDT, Duration: 30 day, Stop date: 02/07 15:43:00 CDT Notes: (Same As: Ambien) Start Date: 01/08/17 Stop Date: 01/11/17 Status: DiscontinuedamLODIPine 10 mg, 2 tab, Route: PO, Drug form: TAB, Daily, Dosing Weight 109.091, kg, Start date: 01/09/17 9:00:00 CDT, Duration: 30 day, Stop date: 02/07/17 9:00:00 CDT Notes: (Same as: Norvasc) Start Date: 01/09/17 Stop Date: 01/11/17 Status: Discontinuedatorvastatin 40 mg, 1 tab, Route: PO, Drug form: TAB, Daily, Dosing Weight 109.091, kg, Start date: 01/09/17 9:00:00 CDT, Duration: 30 day, Stop date: 02/07/17 9:00:00 CDT Notes: (Same as: Lipitor) Start Date: 01/09/17 Stop Date: 01/11/17 Status: Discontinuedcarvedilol 12.5 mg, 1 tab, Route: PO, Drug form: TAB, Q12H, Dosing Weight 109.091, kg, Start date: 01/11/17 9:00:00 CDT, Duration: 30 day, Stop date: 02/09/17 21:00: 00 CDT Notes: Give with food. (Same As: Coreg) Start Date: 01/11/17 Stop Date: 01/11/17 Status: Discontinuedcarvedilol 12.5 mg oral tablet 12.5 mg=1 tab, PO, Q12H, # 60 tab, 0 Refill(s) Start Date: 01/11/17 Stop Date: 02/10/17 Status: Orderedcetirizine 5 mg, 1 tab, Route: PO, Drug form: TAB, Daily, Dosing Weight 109.091, kg, Start date: 01/09/17 9:00:00 CDT, Duration: 30 day, Stop date: 02/07/17 9:00:00 CDT Notes: (Same As: Zyrtec) Start Date: 01/09/17 Stop Date: 01/11/17 Status: Discontinuedclopidogrel 75 mg, 1 tab, Route: PO, Drug form: TAB, Daily, Dosing Weight 109.091, kg, Start date: 01/09/17 9:00:00 CDT, Duration: 30 day, Stop date: 02/07/17 9:00:00 CDT Notes: (Same As: Plavix) Start Date: 01/09/17 Stop Date: 01/11/17 Status: DiscontinuedDexilant 60 mg, Route: PO, Drug form: DRC, Daily, Dosing Weight 109.091, kg, Start date: 01/09/17 9:00:00 CDT, Duration: 30 day, Stop date: 02/07/17 9:00:00 CDT Start Date: 01/09/17 Stop Date: 01/08/17 Status: DeletedDextrose 50% Syringe 25 gm, 50 mL, Route: IVP, Drug Form: INJ, Dosing Weight 109.091, kg, PRN, PRN Blood Glucose Results,Start date: 01/08/17 14:27:00 CDT, Duration: 30 day, Stop date: 02/07/17 14:26:00 CDT Start Date: 01/08/17 Stop Date: 01/11/17 Status: DiscontinuedDextrose 50% Syringe 12.5 gm, 25 mL, Route: IVP, Drug Form: INJ, Dosing Weight 109.091, kg, PRN, PRN Blood Glucose Results, Start date: 01/08/17 14:27:00 CDT, Duration: 30 day, Stop date: 02/07/17 14:26:00 CDT Start Date: 01/08/17 Stop Date: 01/11/17 Status: Discontinueddigoxin 125 mcg (0.125 mg) oral tablet 0.125 mg, 1 tab, Route: PO, Drug form: TAB, Daily, Dosing Weight 109.091, kg, Start date: 01/09/17 9:00:00 CDT, Duration: 30 day, Stop date: 02/07/17 9:00:00 CDT Notes: Take on an Empty Stomach (Same as: Lanoxin) Start Date: 01/09/17 Stop Date: 01/11/17 Status: DiscontinuedDilaudid 0.2 mg, 0.2 mL, Route: IVP, Drug form: INJ, ONCE, Dosing Weight 109.091, kg, Priority: STAT, Start date: 01/10/17 9:51:00 CDT, Stop date: 01/10/17 9:51:00 CDT Notes: Same as: Dilaudid Start Date: 01/10/17 Stop Date: 01/10/17 Status: CompletedDilaudid 0.2 mg, 0.2 mL, Route: IVP, Drug form: INJ, ONCE, Dosing Weight 109.091, kg, PRN Pain Score 7-10, Start date: 01/10/17 23:12:00 CDT Notes: Same as: Dilaudid Start Date: 01/10/17 Stop Date: 01/11/17 Status: Completeddocusate 100 mg, 1 cap, Route: PO, Drug form: CAP, BID, Dosing Weight 109.091, kg, Start date: 01/08/17 17:00:00 CDT, Duration: 30 day, Stop date: 02/07/17 9:00:00 CDT Notes: (Same as: Colace) (Do Not Crush) Start Date: 01/08/17 Stop Date: 01/11/17 Status: Discontinuedescitalopram 20 mg, 2 tab, Route: PO, Drug form: TAB, Daily, Dosing Weight 109.091, kg, Start date: 01/09/17 9:00:00 CDT, Duration: 30 day, Stop date: 02/07/17 9:00:00 CDT Notes: (Same as: Lexapro) Start Date: 01/09/17 Stop Date: 01/11/17 Status: Discontinuedfenofibrate 145 mg, 1 tab, Route: PO, Drug form: TAB, Daily, Start date: 01/09/17 9:00:00 CDT, Duration: 30 day,Stop date: 02/07/17 9:00:00 CDT Notes: (Same as: Tricor) Start Date: 01/09/17 Stop Date: 01/11/17 Status: Discontinuedfurosemide 20 mg oral tablet 20 mg, 1 tab, Route: PO, Drug form: TAB, Daily, Dosing Weight 109.091, kg, Start date: 01/09/17 9:00:00 CDT, Duration: 30 day, Stop date: 02/07/17 9:00:00 CDT Notes: (Same as: Lasix) May cause GI upset. Give with food or milk. Start Date: 01/09/17 Stop Date: 01/08/17 Status: Canceledgabapentin 300 mg oral capsule 300 mg, 1 cap, Route: PO, Drug form: CAP, Daily, Dosing Weight 109.091, kg, Start date: 01/09/17 9:00:00 CDT, Duration: 30 day, Stop date: 02/07/17 9:00:00 CDT Notes: (Same as: Neurontin) Start Date: 01/09/17 Stop Date: 01/11/17 Status: Discontinuedglucagon 1 mg, Route: IM, Drug form: PDR/INJ, PRN, Dosing Weight 109.091, kg, PRN Blood Glucose Results, Start date: 01/08/17 14:27:00 CDT, Duration: 30 day, Stop date : 02/07/17 14:26:00 CDT Start Date: 01/08/17 Stop Date: 01/11/17 Status: DiscontinuedhydrALAZINE 10 mg, 0.5 mL, Route: IVP, Drug form: INJ, Q4H, Dosing Weight 109.091, kg, PRN Hypertension, Start date: 01/08/17 14:31:00 CDT, Duration: 30 day, Stop date: 14:30:00 CDT Notes: (Same as: Apresoline)Push over 5 minutes Start Date: 01/08/17 Stop Date: 01/11/17 Status: DiscontinuedhydrALAZINE 10 mg, 0.5 mL, Route: IV, Drug form: INJ, Q6H, Dosing Weight 109.091, kg, PRN Hypertension, Start date: 01/11/17 4:14:00 CDT, Duration: 30 day, Stop date: 4:13:00 CDT Notes: (Same as: Apresoline)Push over 5 minutes Start Date: 01/11/17 Stop Date: 01/11/17 Status: DiscontinuedhydrALAZINE 20 mg, Route: IVP, ONCE, Dosing Weight 109.091, kg, Priority: STAT, Start date: 01/08/17 13:59:00 CDT, Stop date: 01/08/17 13:59:00 CDT Start Date: 01/08/17 Stop Date: 01/08/17 Status: Completedinsulin aspart 10 unit, 0.1 mL, Route: SUB-Q, Drug form: SOLN, TID-Before Meals, Dosing Weight 109.091, kg, PRN Blood Glucose Results, Start date: 01/08/17 14:27:00 CDT, Duration: 30 day, Stop date: 02/07/17 14:26:00CDT Notes: Roll in palms of hands gently; Do not shake vigorously. (Same as: NovoLOG)"single patient use only"WASTE: F/P - Black; E - Municipal Trash Bin Stable for 28 days at room temperature.Expires in days from Date Start Date: 01/08/17 Stop Date: 01/11/17 Status: Discontinuedinsulin aspart 8 unit, 0.08 mL, Route: SUB-Q, Drug form: SOLN, TID-Before Meals, Dosing Weight 109.091, kg, PRN Blood Glucose Results, Start date: 01/08/17 14:27:00 CDT, Duration: 30 day, Stop date: 02/07/17 14:26:00CDT Notes: Roll in palms of hands gently; Do not shake vigorously. (Same as: NovoLOG)"single patient use only"WASTE: F/P - Black; E - Municipal Trash Bin Stable for 28 days at room temperature.Expires in days from Date Start Date: 01/08/17 Stop Date: 01/11/17 Status: Discontinuedinsulin aspart 6 unit, 0.06 mL, Route: SUB-Q, Drug form: SOLN, TID-Before Meals, Dosing Weight 109.091, kg, PRN Blood Glucose Results, Start date: 01/08/17 14:27:00 CDT, Duration: 30 day, Stop date: 02/07/17 14:26:00CDT Notes: Roll in palms of hands gently; Do not shake vigorously. (Same as: NovoLOG)"single patient use only"WASTE: F/P - Black; E - Municipal Trash Bin Stable for 28 days at room temperature.Expires in days from Date Start Date: 01/08/17 Stop Date: 01/11/17 Status: Discontinuedinsulin aspart 2 unit, 0.02 mL, Route: SUB-Q, Drug form: SOLN, TID-Before Meals, Dosing Weight 109.091, kg, PRN Blood Glucose Results, Start date: 01/08/17 14:27:00 CDT, Duration: 30 day, Stop date: 02/07/17 14:26:00CDT Notes: Roll in palms of hands gently; Do not shake vigorously. (Same as: NovoLOG)"single patient use only"WASTE: F/P - Black; E - Municipal Trash Bin Stable for 28 days at room temperature.Expires in days from Date Start Date: 01/08/17 Stop Date: 01/11/17 Status: Discontinuedinsulin aspart 4 unit, 0.04 mL, Route: SUB-Q, Drug form: SOLN, TID-Before Meals, Dosing Weight 109.091, kg, PRN Blood Glucose Results, Start date: 01/08/17 14:27:00 CDT, Duration: 30 day, Stop date: 02/07/17 14:26:00CDT Notes: Roll in palms of hands gently; Do not shake vigorously. (Same as: NovoLOG)"single patient use only"WASTE: F/P - Black; E - Municipal Trash Bin Stable for 28 days at room temperature.Expires in days from Date Start Date: 01/08/17 Stop Date: 01/11/17 Status: Discontinuedinsulin aspart 45 unit, 0.45 mL, Route: SUB-Q, Drug form: SOLN, TID-Meals, Start date: 18:00:00 CDT, Duration: 30 day, Stop date: 02/07/17 17:00:00 CDT Notes: Roll in palms of hands gently; Do not shake vigorously. (Same as: NovoLOG)"single patient use only"WASTE: F/P - Black; E - Municipal Trash Bin Stable for 28 days at room temperature.Expires in days from Date Start Date: 01/08/17 Stop Date: 01/11/17 Status: Discontinuedinsulin lispro 45 unit, Route: SUB-Q, Drug form: SOLN, TID-Before Meals, Dosing Weight 109.091 , kg, Start date: 01/08/17 16:30:00 CDT, Duration: 30 day, Stop date: 02/07/17 11:30:00 CDT Start Date: 01/08/17 Stop Date: 01/08/17 Status: DeletedLantus Solostar Pen 100 units/mL subcutaneous solution 50 unit, Route: SUB-Q, Drug form: SOLN, Bedtime, Dosing Weight 109.091, kg, Start date: 01/08/17 21:00:00 CDT, Duration: 30 day, Stop date: 02/06/17 21:00: 00 CDT Start Date: 01/08/17 Stop Date: 01/08/17 Status: DeletedLevemir FlexPen 50 unit, 0.5 mL, Route: SUB-Q, Drug form: SOLN, Bedtime, Start date: 01/08/17 21 :00:00 CDT, Stop date: 02/06/17 21:00:00 CDT Notes: Same as LevemirDo not hold insulin without contacting prescriberWASTE: F/ P - Black; E - Municipal Trash Bin "single patient use only" Start Date: 01/08/17 Stop Date: 01/11/17 Status: DiscontinuedLomotil oral tablet 1 tab, Route: PO, Drug Form: TAB, Dosing Weight 109.091, kg, QID, PRN Loose Stools, Start date: 01/10/17 9:51:00 CDT, Duration: 30 day, Stop date: 02/09/17 9:50:00 CDT Notes: (Same As: Lomotil) MAX Adult dose=8 tabs/day Start Date: 01/10/17 Stop Date: 01/11/17 Status: DiscontinuedLovaza oral capsule 2,000 mg, 2 cap, Route: PO, Drug Form: CAP, Dosing Weight 109.091, kg, BID, Start date: 01/08/17 17:00:00 CDT, Duration: 30 day, Stop date: 02/07/17 9:00: 00 CDT Start Date: 01/08/17 Stop Date: 01/08/17 Status: Deletedmetoprolol tartrate 50 mg, 1 tab, Route: PO, Drug form: TAB, Q12H, Dosing Weight 109.091, kg, Start date: 01/08/17 21:00:00 CDT, Duration: 30 day, Stop date: 02/07/17 9:00:00 CDT Notes: (Same as: Lopressor) Start Date: 01/08/17 Stop Date: 01/11/17 Status: Discontinuedmorphine Sulfate 2 mg, 1 mL, Route: IVP, Drug form: INJ, Q4H, Dosing Weight 109.091, kg, PRN Pain Score 7-10, Start date: 01/08/17 14:24:00 CDT, Duration: 30 day, Stop date : 02/07/17 14:23:00 CDT Notes: (Same as:MORPhine Sulfate) Start Date: 01/08/17 Stop Date: 01/10/17 Status: Discontinuedmorphine Sulfate 4 mg, Route: IVP, ONCE, Dosing Weight 109.091, kg, Priority: STAT, Start date: 01/08/17 11:09:00 CDT, Stop date: 01/08/17 11:09:00 CDT Start Date: 01/08/17 Stop Date: 01/08/17 Status: Completedmultivitamin with minerals 1 tab, Route: PO, Drug Form: TAB, Daily, Start date: 01/09/17 10:00:00 CDT, Duration: 30 day, Stop date: 02/08/17 9:00:00 CDT Notes: (Same as:Kitty-Cecilio uBrgess-M)WASTE: F/P - Black; E - Municipal Trash Bin Give with food. Start Date: 01/09/17 Stop Date: 01/11/17 Status: Discontinuedmultivitamin with minerals Multiple Vitamins with Zinc oral capsule 1 cap, Route: PO, Drug Form: CAP, Dosing Weight 109.091, kg, Daily, Start date: 01/09/17 9:00:00 CDT, Duration: 30 day, Stop date: 02/07/17 9:00:00 CDT Notes: Same as: Hemocyte PlusGive with Food Non-Formulary Start Date: 01/09/17 Stop Date: 01/09/17 Status: DeletedNeurontin 300 mg, 1 cap, Route: PO, Drug form: CAP, QPM, Start date: 01/08/17 21:36:00 CDT , Duration: 30 day, Stop date: 02/07/17 17:00:00 CDT Notes: (Same as: Neurontin) Start Date: 01/08/17 Stop Date: 01/11/17 Status: DiscontinuedNorco 5/325 oral tablet 1 tab, Route: PO, Drug Form: TAB, Dosing Weight 109.091, kg, Q6H, PRN Pain Score 1-3, Start date: 01/08/17 18:06:00 CDT, Duration: 30 day, Stop date: 02/07 18:05:00 CDT Notes: (Same as: [place] 325/5) Do not exceed 4gm/day of acetaminophen. Start Date: 01/08/17 Stop Date: 01/11/17 Status: Discontinuedondansetron 4 mg, 2 mL, Route: IVP, Drug form: INJ, Q6H, Dosing Weight 109.091, kg, PRN Nausea & Vomiting, Start date: 01/08/17 14:24:00 CDT, Duration: 30 day, Stop date: 02/07/17 14:23:00 CDT Notes: (Same as: Baldev) MEDICATION WASTE Product Size: 4 mgProduct Wasted: ___ mg Start Date: 01/08/17 Stop Date: 01/11/17 Status: Discontinuedondansetron 4 mg, Route: IVP, Drug form: INJ, ONCE, Dosing Weight 109.091, kg, Priority: STAT, Start date: 01/08/17 11:09:00 CDT, Stop date: 01/08/17 11:09:00 CDT Start Date: 01/08/17 Stop Date: 01/08/17 Status: CompletedProtonix 40 mg, 1 tab, Route: PO, Drug form: ECTAB, Q24H, Start date: 01/08/17 18:00:00 CDT, Duration: 30 day, Stop date: 02/06/17 18:00:00 CDT Notes: Tablet should not be chewed or crushed.(Same as: Protonix) Start Date: 01/08/17 Stop Date: 01/11/17 Status: Discontinuedsodium chloride 0.9% 1000 ml INJ 1,000 mL 1,000 mL, Rate: 75 ml/hr, Infuse over: 13.3 hr, Route: IV, Dosing Weight 109.091 kg, Total Volume: 1,000, Start date: 01/08/17 16:58:00 CDT, Duration: 30 day, Stop date: 02/07/17 16:57:00 CDT Start Date: 01/08/17 Stop Date: 01/11/17 Status: DiscontinuedTrilipix 135 mg, Route: PO, Drug form: CAP, Daily, Dosing Weight 109.091, kg, Start date : 01/09/17 9:00:00 CDT, Duration: 30 day, Stop date: 02/07/17 9:00:00 CDT Start Date: 01/09/17 Stop Date: 01/08/17 Status: DeletedZofran ODT 4 mg oral tablet, disintegrating 4 mg=1 tab, PO, BID, PRN Nausea and Vomiting, Dissolve tab under tongue, X 5 day , # 10 tab, 0 Refill(s) Start Date: 01/11/17 Stop Date: 01/16/17 Status: Ordered Results ELECTROLYTES Most recent to oldest 1 2 3 [Reference Range]: Sodium Lvl [135-145 mEq/L] 141 mEq/L 139 mEq/L 140 mEq/L (01/11/17 3:56 AM) (01/10/17 5:26 AM) (01/09/17 4:04 AM) Potassium Lvl [3.5-5.1 4.2 mEq/L 4.9 mEq/L 4.5 mEq/L mEq/L] (01/11/17 3:56 AM) (01/10/17 5:26 AM) (01/09/17 4:04 AM) Chloride Lvl [95-109 mEq/L] 105 mEq/L 105 mEq/L 103 mEq/L (01/11/17 3:56 AM) (01/10/17 5:26 AM) (01/09/17 4:04 AM) CO2 [24-32 mEq/L] 30 mEq/L 27 mEq/L 31 mEq/L (01/11/17 3:56 AM) (01/10/17 5:26 AM) (01/09/17 4:04 AM) AGAP [10.0-20.0 mEq/L] 10.2 mEq/L 11.9 mEq/L 10.5 mEq/L (01/11/17 3:56 AM) (01/10/17 5:26 AM) (01/09/17 4:04 AM) CHEM PANEL Most recent to oldest 1 2 3 [Reference Range]: Creatinine Lvl [0.50-1.40 1.79 mg/dL 1.86 mg/dL 1.75 mg/dL mg/dL] *HI* *HI* *HI* (01/11/17 3:56 AM) (01/10/17 5:26 AM) (01/09/17 4:04 AM) eGFR 41 mL/min/1.73m2 1 39 mL/min/1.73m2 2 42 mL/min/1.73m2 3 *NA* *NA* *NA* (01/11/17 3:56 AM) (01/10/17 5:26 AM) (01/09/17 4:04 AM) BUN [7-22 mg/dL] 30 mg/dL 30 mg/dL 27 mg/dL *HI* *HI* *HI* (01/11/17 3:56 AM) (01/10/17 5:26 AM) (01/09/17 4:04 AM) B/C Ratio [6-25] 16 18 (01/08/17 10:53 PM) (01/08/17 10:48 AM) Glucose Lvl [70-99 mg/dL] 185 mg/dL 218 mg/dL 216 mg/dL *HI* *HI* *HI* (01/11/17 3:56 AM) (01/10/17 5:26 AM) (01/09/17 4:04 AM) Total Protein [6.4-8.4 5.3 g/dL 5.9 g/dL g/dL] *LOW* *LOW* (01/08/17 10:53 PM) (01/08/17 10:48 AM) Albumin Lvl [3.5-5.0 g/dL] 2.8 g/dL 3.2 g/dL *LOW* *LOW* (01/08/17 10:53 PM) (01/08/17 10:48 AM) Globulin [2.7-4.2 g/dL] 2.5 g/dL 2.7 g/dL *LOW* (01/08/17 10:48 AM) (01/08/17 10:53 PM) A/G Ratio [0.7-1.6] 1.1 1.2 (01/08/17 10:53 PM) (01/08/17 10:48 AM) Calcium Lvl [8.5-10.5 7.8 mg/dL 7.8 mg/dL 8.1 mg/dL mg/dL] *LOW* *LOW* *LOW* (01/11/17 3:56 AM) (01/10/17 5:26 AM) (01/09/17 4:04 AM) Phosphorus [2.5-4.5 mg/dL] 3.4 mg/dL 3.4 mg/dL (01/10/17 5:26 AM) (01/09/17 4:04 AM) Magnesium Lvl [1.8-2.4 1.8 mg/dL mg/dL] (01/09/17 4:04 AM) ALT [0-65 unit/L] 24 unit/L 27 unit/L (01/08/17 10:53 PM) (01/08/17 10:48 AM) AST [0-37 unit/L] 26 unit/L 23 unit/L (01/08/17 10:53 PM) (01/08/17 10:48 AM) Alk Phos [39-136 unit/L] 36 unit/L 43 unit/L *LOW* (01/08/17 10:48 AM) (01/08/17 10:53 PM) Bili Total [0.2-1.3 mg/dL] 0.2 mg/dL 0.4 mg/dL (01/08/17 10:53 PM) (01/08/17 10:48 AM) Amylase Lvl [25-115 unit/L] 17 unit/L *LOW* (01/08/17 10:48 AM) Lipase Lvl [73-393 unit/L] 149 unit/L (01/08/17 10:48 AM) 1Result Comment: The eGFR is calculated using [...] eGFR should be multiplied by the estimated BMI.3Result Comment: The eGFR is calculated using the [...] eGFR should be multiplied by the estimated BMI.CARDIAC ENZYMES Most recent to oldest 1 2 3 [Reference Range]: Total CK [12-191 unit/L] 232 unit/L 246 unit/L 203 unit/L *HI* *HI* *HI* (01/08/17 10:53 PM) (01/08/17 3:53 PM) (01/08/17 10:48 AM) CK MB [0.5-3.6 ng/mL] 4.1 ng/mL 4.4 ng/mL 5.4 ng/mL *HI* *HI* *HI* (01/08/17 10:53 PM) (01/08/17 3:53 PM) (01/08/17 10:48 AM) CK MB Index [0.0-2.5] 2.7 *HI* (01/08/17 10:48 AM) Troponin-I [0.00-0.40 0.03 ng/mL 0.02 ng/mL 0.03 ng/mL ng/mL] (01/08/17 10:53 PM) (01/08/17 3:53 PM) (01/08/17 10:48 AM) proBNP [0-125 pg/mL] 733 pg/mL *HI* (01/08/17 10:48 AM) URINE AND STOOL Most recent to oldest [Reference Range]: 1 2 3 UA Turbidity [Clear] Clear (01/08/17 12:14 PM) UA Color [Yellow] Yellow *NA* (01/08/17 12:14 PM) UA pH [5.0-8.0] 6.0 (01/08/17 12:14 PM) UA Spec Grav [<=1.030] 1.020 (01/08/17 12:14 PM) UA Glucose [Negative mg/dL] 100 mg/dL *ABN* (01/08/17 12:14 PM) UA Blood [Negative] Moderate *ABN* (01/08/17 12:14 PM) UA Ketones [Negative] Negative *NA* (01/08/17 12:14 PM) UA Protein [Negative mg/dL] >=300 mg/dL *ABN* (01/08/17 12:14 PM) UA Urobilinogen [0.1-1.0 EU/dL] 0.2 EU/dL (01/08/17 12:14 PM) UA Bili [Negative] Negative *NA* (01/08/17 12:14 PM) UA Leuk Est [Negative] Negative (01/08/17 12:14 PM) UA Nitrite [Negative] Negative (01/08/17 12:14 PM) UA WBC [None Seen /HPF] 3-5 /HPF (01/08/17 12:14 PM) UA RBC [0-2 /HPF] 6-10 /HPF *ABN* (01/08/17 12:14 PM) UA Bacteria [None Seen /HPF] Occasional /HPF (01/08/17 12:14 PM) UA Sq Epi [Few] None Seen (01/08/17 12:14 PM) HEMATOLOGY Most recent to oldest [Reference Range]: 1 2 3 WBC [3.7-10.4 K/CMM] 7.2 K/CMM 8.5 K/CMM (01/09/17 4:04 AM) (01/08/17 10:48 AM) RBC [4.70-6.10 M/CMM] 3.89 M/CMM 4.04 M/CMM *LOW* *LOW* (01/09/17 4:04 AM) (01/08/17 10:48 AM) Hgb [14.0-18.0 g/dL] 12.3 g/dL 12.0 g/dL *LOW* *LOW* (01/09/17 4:04 AM) (01/08/17 10:48 AM) Hct [42.0-54.0 %] 34.8 % 34.3 % *LOW* *LOW* (01/09/17 4:04 AM) (01/08/17 10:48 AM) MCV [80.0-94.0 fL] 83.5 fL 84.8 fL (01/09/17 4:04 AM) (01/08/17 10:48 AM) MCH [27.0-31.0 pg] 29.8 pg 29.7 pg (01/09/17 4:04 AM) (01/08/17 10:48 AM) MCHC [32.0-36.0 g/dL] 35.0 g/dL 35.0 g/dL (01/09/17 4:04 AM) (01/08/17 10:48 AM) RDW [11.5-14.5 %] 14.3 % 14.1 % (01/09/17 4:04 AM) (01/08/17 10:48 AM) Platelet [133-450 K/CMM] 266 K/CMM 176 K/CMM (01/09/17 4:04 AM) (01/08/17 10:48 AM) MPV [7.4-10.4 fL] 9.4 fL 8.2 fL (01/09/17 4:04 AM) (01/08/17 10:48 AM) Segs [45.0-75.0 %] 67.5 % 70.1 % (01/09/17 4:04 AM) (01/08/17 10:48 AM) Lymphocytes [20.0-40.0 %] 20.5 % 20.1 % (01/09/17 4:04 AM) (01/08/17 10:48 AM) Monocytes [2.0-12.0 %] 7.2 % 6.6 % (01/09/17 4:04 AM) (01/08/17 10:48 AM) Eosinophils [0.0-4.0 %] 3.2 % 2.6 % (01/09/17 4:04 AM) (01/08/17 10:48 AM) Basophils [0.0-1.0 %] 1.6 % 0.6 % *HI* (01/08/17 10:48 AM) (01/09/17 4:04 AM) Segs-Bands # [1.5-8.1 K/CMM] 4.8 K/CMM 6.0 K/CMM (01/09/17 4:04 AM) (01/08/17 10:48 AM) Lymphocytes # [1.0-5.5 K/CMM] 1.5 K/CMM 1.7 K/CMM (01/09/17 4:04 AM) (01/08/17 10:48 AM) Monocytes # [0.0-0.8 K/CMM] 0.5 K/CMM 0.6 K/CMM (01/09/17 4:04 AM) (01/08/17 10:48 AM) Eosinophils # [0.0-0.5 K/CMM] 0.2 K/CMM 0.2 K/CMM (01/09/17 4:04 AM) (01/08/17 10:48 AM) Basophils # [0.0-0.2 K/CMM] 0.1 K/CMM (01/09/17 4:04 AM) RBC Morph Normal Normal (01/09/17 4:04 AM) (01/08/17 10:48 AM) Plt Morph Normal Normal (01/09/17 4:04 AM) (01/08/17 10:48 AM) PT [12.0-14.7 seconds] 12.4 seconds (01/10/17 5:26 AM) INR [0.85-1.17] 0.91 (01/10/17 5:26 AM) Immunizations No data available for this section [...] Smoking Cessation Counseling No Assessment and Plan Extracted from: Title: Clinical Document Author: Yfn Lee MD Date: 01/11/17 VASCULAR SURGERY PROGRESS NOTE SUBJECTIVE -Dx: AAA Doing ok OBJECTIVE - Vitals Tmp(F) Tmp(C) Ttype BP MAP Pulse RR SpO2 FIO2 ETCO2 01/11 11:44 98.4 36.89 oral 143/87 --- 76 16 92 --- --- 01/11 09:07 ---- ---- ---- ----- --- 84 -- --- --- --- 01/11 08:18 97.3 36.28 oral 179/96 --- 84 18 91 --- --- 01/11 06:00 ---- ---- ---- 168/82 --- 86 18 100 --- --- 01/11 04:37 97.9 36.61 oral 182/111 --- 69 19 95 --- --- 24 Hr Tmax: 98.4F (36.89c) at 01/11 11:44 Vital Signs are the last 5 in the past 48 hours. 24 Hr Tmin: 97.3F (36.28c) at 01/11 08:18 Weights are the last 5 in 60 days, plus initial. Date Wt(kg) Wt(lb) Ht(cm) Ht(in) Method BMI BSA 01/08 (initial) 109.09 240.00 Estimated 35.5 2.30 01/08 175.26 69.00 Stated 24 Hr Point of Care Glucoses 01/11 1128 Glucose POC 155 H 01/11 0747 Glucose POC 183 H 01/10 2053 Glucose POC 178 H 01/10 1546 Glucose POC 131 H 01/10 1222 Glucose POC 161 H Most Recent Scores: 01/11/17 Pain Intensity NRS (0-10) 7 01/10/17 Leone Naknek Fall Score 4 01/10/17 Marshall Score 20 01/10/17 Rubén Coma Score 15 Lines, Tubes, and Drains: 01/10/2017 16:30 Peripheral Lines: Antecubital Left 20 gauge Over the needle catheter (no surgical procedures documented) I/O Intake Output Balance 01/11/2017 7a-3p 0.00 0.00 0.00 3p-11p 0.00 0.00 0.00 11p-7a 0.00 0.00 0.00 Totals 0.00 0.00 0.00 As of 12:24 01/10/2017 7a-3p 506.50 0.00 506.50 3p-11p 603.00 0.00 603.00 11p-7a 2.70 0.00 2.70 Totals 1112.20 0.00 1112.20 01/09/2017 7a-3p 6.00 0.00 6.00 3p-11p 3.00 0.00 3.00 11p-7a 0.00 0.00 0.00 Totals 9.00 0.00 9.00 EXAM: - General: AAO Chest: Clear to ausculation Abdomen: Soft, nontender, No peritoneal signs Vascular Exam: stable PLAN & TREATMENT Reviewed CTA with DR. Figueroa Castro. Unfortunately CTA performed primarily in venous phase. However, there does not appear to be any obvious endoleak. AAA sac has enlaged modestly over 3 year period. I have advised a follow up CTA as outpt. in a few weeks to see if we can get better imaging.Would not repeat CTA now due to CKD.
--- OUTSIDE RECORDS SUMMARY | 2018-06-30 11:58 | XMS REPORT | Summary of Care ---
:1955 Author Organization [facility] Address [address] [place] [address]- Encounter HQ Vasuntr_rylan(FIN) [id number] Date(s): 04/20/17 - 04/20/17 [facility] [address] [place] [address]- [phone] Discharge Disposition: Home or Self Care Attending Physician: Geovanna Stokes MD Referring Physician: Geovanna Stokes MD Vital Signs Most recent to oldest 1 2 3 [Reference Range]: Height 175.26 cm (04/20/17 7:00 AM) Blood Pressure [90-140/60-90 124/66 mmHg 127/62 mmHg 109/49 mmHg mmHg] (04/20/17 8:35 AM) (04/20/17 8:21 AM) (04/20/17 8:06 AM) Respiratory Rate [14-20 BRMIN] 20 BRMIN 18 BRMIN 18 BRMIN (04/20/17 8:35 AM) (04/20/17 8:21 AM) (04/20/17 8:06 AM) Peripheral Pulse Rate [60-100 69 bpm bpm] (04/20/17 6:30 AM) Weight 100 kg (04/20/17 7:00 AM) Body Mass Index 32.56 m2 (04/20/17 7:00 AM) Problem List Condition Effective Dates Status [...] migrated from [employer] on 02/03/15.4worse at [id number] migrated from [employer] on 02/03/15.6Data migrated from [employer] on . Allergies, Adverse Reactions, Alerts Substance Reaction Severity Status NKDA Active Medications Sodium Chloride 0.9% (Bolus) IV 500 mL, Route: IV, ONCE, Dosing Weight 100 kg, Start date: 04/20/17 7:30:00 CDT , Stop date: 177:30:00 CDT, Bolus Start Date: 04/20/17 Stop Date: 04/20/17 Status: Discontinuedsodium chloride 0.9% 1000 ml INJ 1,000 mL 1,000 mL, Rate: 25 ml/hr, Infuse over: 40 hr, Route: IV, Dosing Weight 100 kg, Total Volume: 1,000, Start date: 04/20/17 7:32:00 CDT, Duration: 30 day, Stop date: 05/20/17 7:31:00 CDT Start Date: 04/20/17 Stop Date: 04/20/17 Status: Discontinued Results ELECTROLYTES Most recent to oldest [Reference Range]: 1 Sodium Lvl [135-145 mEq/L] 136 mEq/L (04/20/17 7:02 AM) Potassium Lvl [3.5-5.1 mEq/L] 4.4 mEq/L (04/20/17 7:02 AM) Chloride Lvl [95-109 mEq/L] 101 mEq/L (04/20/17 7:02 AM) CO2 [24-32 mEq/L] 28 mEq/L (04/20/17 7:02 AM) AGAP [10.0-20.0 mEq/L] 11.4 mEq/L (04/20/17 7:02 AM) CHEM PANEL Most recent to oldest [Reference Range]: 1 Creatinine Lvl [0.50-1.40 mg/dL] 2.42 mg/dL *HI* (04/20/17 7:02 AM) eGFR 28 mL/min/1.73m2 1 *NA* (04/20/17 7:02 AM) BUN [7-22 mg/dL] 49 mg/dL 2 *HI* (04/20/17 7:02 AM) Glucose Lvl [70-99 mg/dL] 183 mg/dL *HI* (04/20/17 7:02 AM) Calcium Lvl [8.5-10.5 mg/dL] 7.9 mg/dL *LOW* (04/20/17 7:02 AM) 1Result Comment: The eGFR is calculated [...] be multiplied by the estimated BMI.2Result Comment: Lipemic specimen.SPECIAL CHEMISTRY Most recent to oldest [Reference Range]: 1 Hgb A1C [<=5.6 %] 7.4 % *HI* (04/20/17 7:02 AM) Immunizations No data available for this [...]
--- OUTSIDE RECORDS SUMMARY | 2018-06-30 11:59 | XMS REPORT | Summary of Care ---
:1955 Author Organization [facility] Primary Care [facility] Address [address] [place] [address], [address] [address]- Encounter HQ Encntr_alias(FIN) [id number] Date(s): 08/30/17 - 08/31/17 [facility] [id number] [place] [address], [address] [address]- [phone] Vital Signs No data available for this [...] disease) stage Active 4, GFR 15-29 ml/min(Confirmed) Chronic pain(Confirmed) Active Cramp(Confirmed)3 10/14/14 Resolved Shortness of breath(Confirmed)4 Active Fracture of rib5 10/14/14 Resolved GERD (gastroesophageal reflux Active disease)(Confirmed) Hip pain6 10/14/14 Active Hypercholesterolemia(Confirmed) Active Hypertension(Confirmed) Active IDDM(Confirmed) Active Neuropathy(Confirmed) Active Obesity(Confirmed) Active Poor peripheral Active circulation(Confirmed) Stented coronary artery(Confirmed) Active 1Data migrated from [employer] on 02/03/15.2Data migrated from [employer] on 02/12/15.3Data migrated from [employer] on 02/03/15.4worse at [id number] migrated from [employer] on 02/03/15.6Data migrated from [employer] on . Allergies, Adverse Reactions, Alerts Substance Reaction Severity Status codeine Active Medications BD ULTRA-FINE PEN NDL [id number] See Instructions, # 100 syr, Refill(s) 1, USE WITH INSULIN, Pharmacy: [id number] Start Date: 08/30/17 Status: Ordered Results No data available for this section Immunizations No data available for this section Procedures Procedure Date Related Diagnosis Body Site Status Cardiac angiogram 09/18/13 Completed Abdominal aorta angiogram Completed Appendectomy Completed Cholecystectomy Completed Lumbar spinal fusion Completed Placement of stent in cardiac conduit Completed x2 Total shoulder replacement Completed Social History Social History Type Response Alcohol Never Smoking Status Former smoker; Exposure to Tobacco Smoke None; Cigarette Smoking Last 365 Days No; Reg Smoking Cessation Counseling No entered on: 10/23/17 Assessment and Plan No data available for this section
--- OUTSIDE RECORDS SUMMARY | 2018-06-30 11:59 | XMS REPORT | Summary of Care ---
:1955 Author Organization [facility] Address [address] [place] [address]- Encounter HQ Michael(FIN) [id number] Date(s): 10/02/17 - 10/02/[address] [address] [phone] Encounter Diagnosis Unspecified injury of right lower leg, subsequent encounter (Final) - 10/18/17 Personal history of nicotine dependence (Final) - Atherosclerotic heart disease of [place] coronary artery without angina pectoris (Final) - Type 2 diabetes mellitus with diabetic chronic kidney disease (Final) - Hypertensive chronic kidney disease with stage 1 through stage 4 chronic kidney disease, or unspecified chronic kidney disease (Final) - Chronic kidney disease, stage 4 (severe) (Final) - 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) - Type 2 diabetes mellitus with diabetic neuropathy, unspecified (Final) - Overexertion from prolonged static or awkward postures, subsequent encounter ( Final) - Discharge Disposition: Non-Emergent Attending Physician: Александр Pruitt MD Vital Signs Most recent to oldest [Reference Range]: 1 Height 175.26 cm (10/02/17 11:40 AM) Temperature Oral [96.4-99.1 DegF] 98.2 DegF (10/02/17 11:40 AM) Blood Pressure [90-140/60-90 mmHg] 159/79 mmHg *HI* (10/02/17 11:40 AM) Respiratory Rate [14-20 BRMIN] 20 BRMIN (10/02/17 11:40 AM) Peripheral Pulse Rate [60-100 bpm] 78 bpm (10/02/17 11:40 AM) Weight 102.273 kg (10/02/17 11:40 AM) Body Mass Index 33.3 m2 (10/02/17 11:40 AM) Problem List Condition Effective Dates Status [...] migrated from [employer] on 02/03/15.4worse at [id number] migrated from [employer] on 02/03/15.6Data migrated from [employer] on . Allergies, Adverse Reactions, Alerts Substance Reaction Severity Status codeine Active Medications No data available for this [...]
--- OUTSIDE RECORDS SUMMARY | 2018-06-30 11:59 | XMS REPORT | Summary of Care ---
:1955 Author Organization [facility] Address [address] [place] [address], [address] [address]- Encounter HQ Encntr_alias(FIN) [id number] Date(s): 10/02/17 - 10/03/17 [facility] [address] [place] [address], [address] [address]- [phone] Vital Signs No data available for this [...] migrated from [employer] on 02/03/15.4worse at [id number] migrated from [employer] on 02/03/15.6Data migrated from [employer] on . Allergies, Adverse Reactions, Alerts Substance Reaction Severity Status codeine Active Medications Ultracet oral tablet 1 tab, PO, Q8H, PRN Pain, X 20 day, # 60 tab, 2 Refill(s) Start Date: 10/02/17 Stop Date: 12/01/17 Status: Completed Results No data available for this section [...]
--- OUTSIDE RECORDS SUMMARY | 2018-06-30 11:59 | XMS REPORT | Summary of Care ---
:1955 Author Organization [facility] Primary Care [facility] Address [address] [place] [address], [address] [place] [address]- Encounter HQ Encntr_rylan(FIN) [id number] Date(s): 10/17/17 - 10/17/17 [facility] [address] [place] [address], [address] [address]- [phone] Encounter Diagnosis Encounter for medical screening examination (Discharge Diagnosis) - 10/17/17 Injury of right knee (Discharge Diagnosis) - 10/17/17 Attending Physician: Juwan Milner MD Referring Physician: [...] Stented coronary artery(Confirmed) Active 1Data migrated from [email or web address] on 02/03/15.2Data migrated from [employer] on 02/12/15.3Data migrated from [employer] on 02/03/15.4worse at [email or web address] migrated from [employer] on 02/03/15.6Data migrated [...]
--- OUTSIDE RECORDS SUMMARY | 2018-06-30 11:59 | XMS REPORT | Summary of Care ---
:1955 Author Organization [facility] Primary Care [facility] Address [address] [place] [address], [address] [address]- Encounter HQ Encntr_alijuana(FIN) [id number] Date(s): 06/28/17 - 06/29/17 [facility] [address] [place] [address], [address] [address]- [phone] Vital Signs No data available for this [...] migrated from [employer] on 02/03/15.4worse at [id number] migrated from [employer] on 02/03/15.6Data migrated from [employer] on . Allergies, Adverse Reactions, Alerts Substance Reaction Severity Status NKDA Active Medications Dexilant 60 mg oral delayed release capsule See Instructions, # 90 unknown unit, Refill(s) 3, TAKE ONE CAPSULE BY MOUTH EVERY DAY, Pharmacy: [facility]/pharmacy #[id number] Start Date: 06/28/17 Status: Ordered Results No data available for [...]
--- OUTSIDE RECORDS SUMMARY | 2018-06-30 11:59 | XMS REPORT | Summary of Care ---
:1955 Author Organization [facility] Primary Care [facility] Address [address] [place] [address], [address] [address]- Encounter HQ Encntr_alias(FIN) [id number] Date(s): 11/28/17 - 11/29/17 [facility] [address] [place] [address], [address] [address]- [phone] Vital Signs No data available for this [...] migrated from [employer] on 02/03/15.4worse at [id number] migrated from [employer] on 02/03/15.6Data migrated from [employer] on . Allergies, Adverse Reactions, Alerts Substance Reaction Severity Status codeine Active Medications gabapentin 600 mg oral tablet, extended release 1,200 mg=2 tab, PO, BID, # 360 tab, 3 Refill(s), Pharmacy: [facility]/pharmacy #[id number] Start Date: 11/28/17 Status: Ordered Results No data available for [...]
--- OUTSIDE RECORDS SUMMARY | 2018-06-30 11:59 | XMS REPORT | Summary of Care ---
:1955 Author Organization [facility] Primary Care [facility] Address [address] [place] [address], [address] [address]- Encounter HQ Encntr_alias(FIN) [id number] Date(s): 01/21/18 - 01/22/[address] [facility] [address] [place] [address], [address] [address]- [phone] Vital Signs No data available for this [...] migrated from [employer] on 02/03/15.4worse at [id number] migrated from [employer] on 02/03/15.6Data migrated from [employer] on . Allergies, Adverse Reactions, Alerts Substance Reaction Severity Status codeine Active Medications colchicine 0.6 mg oral tablet 0.6 mg=1 tab, PO, Daily, # 30 tab, 2 Refill(s), Pharmacy: [facility]/pharmacy #[id number] Start Date: 01/21/18 Stop Date: 04/21/18 Status: Ordered Results No data available for [...]
--- OUTSIDE RECORDS SUMMARY | 2018-06-30 11:59 | XMS REPORT | Summary of Care ---
:1955 Author Organization [facility] Primary Care [facility] Address [address] [place] [address], [address] [address]- Encounter HQ Encntr_alias(FIN) [id number] Date(s): 08/31/17 - 09/01/17 [facility] [address] [place] [address], [address] [address]- [phone] Vital Signs No data available for this [...] migrated from [employer] on 02/03/15.4worse at [id number] migrated from [employer] on 02/03/15.6Data migrated [...]
--- OUTSIDE RECORDS SUMMARY | 2018-06-30 11:59 | XMS REPORT | Summary of Care ---
:1955 Author Organization [facility] Address [address] [place] [address], [address] [address]- Encounter HQ Vasuntr_rylan(FIN) [id number] Date(s): 12/27/17 - 12/28/17 [facility] [address] [place] [address], [address] [address]- [phone] Vital Signs No data available for this [...] migrated from [employer] on 02/03/15.4worse at [id number] migrated from [employer] on 02/03/15.6Data migrated from [employer] on . Allergies, Adverse Reactions, Alerts Substance Reaction Severity Status codeine Active Medications amitriptyline 25 mg oral tablet 25 mg=1 tab, PO, Bedtime, # 90 tab, 3 Refill(s), Pharmacy: [facility]/pharmacy #[id number] Start Date: 12/27/17 Status: Ordered Results No data available for [...]
--- OUTSIDE RECORDS SUMMARY | 2018-06-30 11:59 | XMS REPORT | Summary of Care ---
:1955 Author Organization [facility] Primary Care [facility] Address [address] [place] [address], [address] [address]- Encounter HQ Encntr_alijuana(FIN) [id number] Date(s): 08/02/17 - 08/03/17 [facility] [address] [place] [address], [address] [address]- [phone] Vital Signs No data available for this [...] migrated from [employer] on 02/03/15.4worse at [id number] migrated from [employer] on 02/03/15.6Data migrated [...]
--- OUTSIDE RECORDS SUMMARY | 2018-06-30 11:59 | XMS REPORT | Summary of Care ---
:1955 Author Organization [facility] Primary Care [facility] Address [address] [place] [address], [address] [address]- Encounter HQ Encntr_alijuana(FIN) [id number] Date(s): 11/22/17 - 11/22/17 [facility] [address] [place] [address], [address] [address]- [phone] Attending Physician: Juwan Milner MD Vital Signs [...] migrated from [employer] on 02/03/15.4worse at [id number] migrated from [employer] on 02/03/15.6Data migrated from [employer] on . Allergies, Adverse Reactions, Alerts Substance Reaction Severity Status codeine Active Medications ergocalciferol 50,000 intl units oral capsule 50,000 IntlUnit=1 cap, PO, qWeek, # 12 cap, 1 Refill(s), [id number] Start Date: 10/25/17 Stop Date: 04/11/18 Status: OrderedHumalog Kwik Pen 100 units/mL subcutaneous injection 45 unit, SUB-Q, TID-Before Meals, # 15 mL, 3 Refill(s), [id number] Start Date: 11/22/17 Status: OrderedSlow-Mag 119 mg-71.5 mg oral enteric coated tablet 2 tab, PO, Daily, # 60 tab, 1 Refill(s), Pharmacy: [facility] #[id number] Start Date: 10/25/17 Status: OrderedVitamin B12 2500 mcg sublingual tablet 2,500 microgram=1 tab, SL, Daily, # 90 tab, 0 Refill(s), Pharmacy: [facility] #[id number] Start Date: 10/25/17 Status: Ordered Results No data available for [...]
--- OUTSIDE RECORDS SUMMARY | 2018-06-30 11:59 | XMS REPORT | Summary of Care ---
:1955 Author Organization [facility] Primary Care [facility] Address [address] [place] [address], [address] [place] [address]- Encounter HQ Encntr_alijuana(FIN) [id number] Date(s): 06/26/17 - 06/27/17 [facility] [address] [place] [address], [address] [address]- [phone] Vital Signs No data available for this [...] migrated from [employer] on 02/03/15.4worse at [id number] migrated from [employer] on 02/03/15.6Data migrated from [employer] on . Allergies, Adverse Reactions, Alerts Substance Reaction Severity Status NKDA Active Medications gabapentin 300 mg oral capsule See Instructions, # 180 unknown unit, Refill(s) 3, TAKE ONE CAPSULE BY MOUTH TWICE A DAY, Pharmacy: [facility]/pharmacy #[id number] Start Date: 06/26/17 Status: Ordered Results No data available for [...]
--- OUTSIDE RECORDS SUMMARY | 2018-06-30 12:00 | XMS REPORT | Summary of Care ---
:1955 Author Organization [facility] Primary Care [facility] Address [address] [place] [address], [address] [address]- Encounter HQ Encntr_alias(FIN) [id number] Date(s): 11/02/17 - 11/03/17 [facility] [address] [place] [address], [address] [address]- [phone] Vital Signs No data available for this [...] migrated from [employer] on 02/03/15.4worse at [id number] migrated from [employer] on 02/03/15.6Data migrated from [employer] on . Allergies, Adverse Reactions, Alerts Substance Reaction Severity Status codeine Active Medications tizanidine 4 mg oral tablet 4 mg=1 tab, PO, Q8H, PRN for muscle spasms, # 90 tab, 1 Refill(s), Pharmacy: [facility] /pharmacy #[id number] Start Date: 11/02/17 Status: Ordered Results No data available for [...]
--- OUTSIDE RECORDS SUMMARY | 2018-06-30 12:00 | XMS REPORT | Continuity of Care Document ---
:1955 Author Organization [facility] Care Team Providers Name Role Phone MD Larios Zenithe Unavailable Unavailable Insurance Providers Payer name Policy type / Policy ID Covered libertarian ID Policy Louis Coverage type [place] [place]: ACS - TMHP - TRADITIONAL MEDICARE B-[place]: [employer] MEDICARE B-[place]: [employer] MEDICARE B[place]: [employer] [place] ACS - TMHP - TRADITIONAL Encounters Encounter Performer Location Date Lab Report Lakshmi Larios MD [facility] - Oct 22, 2013 [place] Problems Problem Effective Dates Problem Status DEPRESSION Active DIABETES MELLITUS, TYPE II, UNCONTROLLED, W/NEUROLO Mar 30, 2013 Active COMPS HYPERCHOLESTEROLEMIA Active HYPERTENSION - BENIGN ESSENTIAL Active FH LEUKEMIA CANCER Inactive FH DIABETES - DM Inactive FAMILY HISTORY OF ALCOHOLISM Inactive FH DEPRESSION Inactive FH STROKE Inactive FLANK PAIN, RIGHT Oct 18, 2011 Inactive WELL ADULT Oct 18, 2011 Inactive NEUROPATHY, UNSPECIFIED Oct 18, 2011 Active MUSCLE SPASM, LUMBAR REGION Oct 18, 2011 Active INSOMNIA Oct 18, 2011 Active MUSCLE SPASM, BACK Oct 25, 2011 Inactive BRONCHITIS Oct 25, 2011 Inactive BACK PAIN WITH RADICULOPATHY Oct 25, 2011 Active ARRHYTHMIA NOS Oct 27, 2011 Active LIVER MASS December 04, 2011 Active MONOCYTOSIS SYMPTOMATIC 2011 Inactive UNSPECIFIED ANEMIA 2011 Active GERD Jan 08, 2012 Active RIB PAIN, LEFT SIDED Jan 08, 2012 Inactive FATIGUE Jul 11, 2012 Active ROUTINE GENERAL MEDICAL EXAM@[facility] Jul 11, 2012 Inactive ANXIETY DEPRESSION Jul 11, 2012 Active PARONYCHIA, RIGHT GREAT TOE Mar 04, 2013 Active DIARRHEA, CHRONIC Mar 04, 2013 Active ABDOMINAL PAIN, RIGHT UPPER QUADRANT Mar 04, 2013 Active NAUSEA Mar 04, 2013 Active BACK PAIN, LUMBAR Aug 14, 2013 Active HYPOCALCEMIA Aug 26, 2013 Active SYNCOPE AND COLLAPSE Aug 29, 2013 Active Procedures Date Description Comments Oct 18, 2011 smoking status never smoker Mar 04, 2013 smoking status never smoker Medications Medication Instructions Start Date Status PREDNISONE 20 MG TABS 2 tabs po qd X 5 days Oct 25, 2011 Inactive CYMBALTA 60 MG CPEP 1 po qhs for pain and mood Oct 18, 2011 Inactive HYDROCODONE-ACETAMINOPHEN 5-500 1 tabs po q 4-6 hrs as needed Nov 01, 2011 Inactive MG TABS for pain CYCLOBENZAPRINE HCL 10 MG TABS 1 tab po nightly for muscle Nov 01, 2011 Inactive spasm LEVAQUIN 500 MG TABS 1 po qd Oct 25, 2011 Inactive ZOLPIDEM TARTRATE 10 MG TABS 1 tab po nightly prn sleep December 04, 2011 Active DIGOXIN 0.125 MG TABS 1 tab po daily for heart Jan 08, 2012 Active PLAVIX 75 MG TABS 1 po qd for heart Jan 08, 2012 Active AMLODIPINE BESYLATE 10 MG TABS 1 tab po daily for blood Jan 08, 2012 Active pressure TRILIPIX 135 MG CPDR 1 tab po daily for cholesterol Jan 08, 2012 Active LISINOPRIL 40 MG TABS 1 tab po daily for blood Jan 08, 2012 Active pressure DEXILANT 60 MG CPDR 1 tab po daily for stomach Jan 08, 2012 Active ATORVASTATIN CALCIUM 40 MG TABS 1 tab po nightly for Jan 08, 2012 Active cholesterol LOVAZA 1 GM CAPS 2 tabs po twice daily for Jan 08, 2012 Active cholesterol PEN NEEDLES 31G X 6 MM MISC insulin pen needles use as Jan 08, 2012 Active directed CITALOPRAM HYDROBROMIDE 20 MG 1 tab po daily for mood Jul 11, 2012 Active TABS ALPRAZOLAM 0.5 MG TABS 1 tab po daily as needed Jul 11, 2012 Active AMIODARONE HCL 200 MG TABS 1/2 tablet daily for heart Jan 08, 2012 Inactive CARVEDILOL 25 MG TABS 1 tab po twice daily Apr 23, 2012 Inactive BACTRIM DS 800-160 MG TABS Take one (1) by mouth twice a Mar 04, 2013 Inactive day for toenail infection x 7 days LANTUS SOLOSTAR 100 UNIT/ML SOLN start 40 units nightly for Aug 20, 2012 Inactive blood sugar, titrate up as directed AMBIEN 10 MG TABS 1 tab po qhs Aug 06, 2012 Inactive VENTOLIN HFA 108 (90 BASE) 2 puffs inhaled q4h prn Oct 25, 2011 Inactive MCG/ACT AERS shortness of breath FLEXERIL 10 MG TABS 1 po qhs prn spasm Nov 01, 2011 Inactive METOPROLOL TARTRATE 25 MG TABS 1 1/2 tab po bid Aug 14, 2013 Active PROMETHAZINE HCL 25 MG TABS 1 tab po q6-8 hrs prn Mar 04, 2013 Inactive nausea/vomiting HYDROCODONE-ACETAMINOPHEN 10-325 1 tab po q6 hours prn severe Mar 04, 2013 Inactive MG TABS pain MUPIROCIN 2 % OINT apply to affected area twice Mar 04, 2013 Inactive daily for 7 days CYCLOBENZAPRINE HCL 10 MG TABS 1 tab po nightly as needed for Aug 14, 2013 Active muscle spasms AMBIEN 10 MG TABS 1 tab po qhs prn Aug 14, 2013 Inactive NORCO 10-325 MG TABS 1 tab po daily as needed for Aug 14, 2013 Active severe pain LANTUS SOLOSTAR 100 UNIT/ML SOLN 50 units nightly Oct 20, 2013 Active HUMALOG KWIKPEN 100 UNIT/ML SOLN 40 units with meals Oct 20, 2013 Active Vital Signs Date Description Test Result Oct 18, 2011 height E&M - 8302-2 HEIGHT 69 in Oct 18, 2011 weight E&M - 3141-9 WEIGHT 223 lb Oct 18, 2011 temperature E&M TEMPERATURE 98.5 deg f Oct 18, 2011 blood pressure, systolic - 8480-6 BP SYSTOLIC 152 mm Hg Oct 18, 2011 blood pressure, diastolic - 8462-4 BP DIASTOLIC 81 mm Hg Oct 18, 2011 pulse rate E&M - 8867-4 PULSE RATE 70 /min Oct 25, 2011 weight E&M - 3141-9 WEIGHT 224 lb Oct 25, 2011 temperature E&M TEMPERATURE 98.1 deg f Oct 25, 2011 blood pressure, systolic - 8480-6 BP SYSTOLIC 153 mm Hg Oct 25, 2011 blood pressure, diastolic - 8462-4 BP DIASTOLIC 80 mm Hg Oct 25, 2011 pulse rate E&M - 8867-4 PULSE RATE 80 /min December 04, 2011 weight E&M - 3141-9 WEIGHT 224 lb December 04, 2011 temperature E&M TEMPERATURE 98.1 deg f December 04, 2011 blood pressure, systolic - 8480-6 BP SYSTOLIC 119 mm Hg December 04, 2011 blood pressure, diastolic - 8462-4 BP DIASTOLIC 76 mm Hg December 04, 2011 pulse rate E&M - 8867-4 PULSE RATE 74 /min Jan 08, 2012 weight E&M - 3141-9 WEIGHT 221 lb Jan 08, 2012 blood pressure, systolic - 8480-6 BP SYSTOLIC 151 mm Hg Jan 08, 2012 blood pressure, diastolic - 8462-4 BP DIASTOLIC 92 mm Hg Jan 08, 2012 temperature E&M TEMPERATURE 98.4 deg f Jan 08, 2012 pulse rate E&M - 8867-4 PULSE RATE 91 /min Apr 23, 2012 weight E&M - 3141-9 WEIGHT 225 lb Apr 23, 2012 temperature E&M TEMPERATURE 98.6 deg f Apr 23, 2012 blood pressure, systolic - 8480-6 BP SYSTOLIC 139 mm Hg Apr 23, 2012 blood pressure, diastolic - 8462-4 BP DIASTOLIC 78 mm Hg Apr 23, 2012 pulse rate E&M - 8867-4 PULSE RATE 73 /min Jul 11, 2012 weight E&M - 3141-9 WEIGHT 226 lb Jul 11, 2012 blood pressure, systolic - 8480-6 BP SYSTOLIC 155 mm Hg Jul 11, 2012 blood pressure, diastolic - 8462-4 BP DIASTOLIC 86 mm Hg Jul 11, 2012 pulse rate E&M - 8867-4 PULSE RATE 60 /min Aug 20, 2012 temperature E&M TEMPERATURE 98.5 deg f Aug 20, 2012 weight E&M - 3141-9 WEIGHT 226 lb Aug 20, 2012 pulse rate E&M - 8867-4 PULSE RATE 68 /min Aug 20, 2012 blood pressure, systolic - 8480-6 BP SYSTOLIC 147 mm Hg Aug 20, 2012 blood pressure, diastolic - 8462-4 BP DIASTOLIC 75 mm Hg Mar 04, 2013 temperature E&M TEMPERATURE 97.8 deg f Mar 04, 2013 weight E&M - 3141-9 WEIGHT 230 lb Mar 04, 2013 blood pressure, systolic - 8480-6 BP SYSTOLIC 145 mm Hg Mar 04, 2013 blood pressure, diastolic - 8462-4 BP DIASTOLIC 84 mm Hg Mar 04, 2013 pulse rate E&M - 8867-4 PULSE RATE 66 /min Aug 14, 2013 weight E&M - 3141-9 WEIGHT 230 lb Aug 14, 2013 temperature E&M TEMPERATURE 98.1 deg f Aug 14, 2013 blood pressure, systolic - 8480-6 BP SYSTOLIC 174 mm Hg Aug 14, 2013 blood pressure, diastolic - 8462-4 BP DIASTOLIC 84 mm Hg Aug 14, 2013 pulse rate E&M - 8867-4 PULSE RATE 82 /min Oct 20, 2013 weight E&M - 3141-9 WEIGHT 195 lb Oct 20, 2013 pulse rate E&M - 8867-4 PULSE RATE 101 /min Oct 20, 2013 blood pressure, systolic - 8480-6 BP SYSTOLIC 170 mm Hg Oct 20, 2013 blood pressure, diastolic - 8462-4 BP DIASTOLIC 94 mm Hg Oct 20, 2013 temperature E&M TEMPERATURE 98.4 deg f Results Date Description Test Name Value Reference Interpretation Status December 03, hemoglobin, blood HGB 13.3 g/dL 14.0-18.0 Low 2011December 03, hematocrit, blood HCT 38.4 % 42.0-54.0 Low 2011December 03, platelet count PLATELETS 205 K/CMM 152-034 7606 /mm3 Jul 11, hemoglobin, blood HGB 14.0 g/dL 14.0-18.0 2011Jul 11, hematocrit, blood HCT 40.8 % 42.0-54.0 Low 2011Jul 11, platelet count PLATELETS 160 K/CMM 726-371 5975 /mm3 December 03, hemoglobin, blood HGB 13.3 g/dL 14.0-18.0 Low 2011December 03, hematocrit, blood HCT 38.4 % 42.0-54.0 Low 2011December 03, platelet count PLATELETS 205 K/CMM 503-284 6605 /mm3 Jul 11, hemoglobin, blood HGB 14.0 g/dL 14.0-18.0 2011Jul 11, hematocrit, blood HCT 40.8 % 42.0-54.0 Low 2011Jul 11, platelet count PLATELETS 160 K/CMM 906-084 8588 /mm3 Mar 04, hemoglobin, blood HGB 13.9 g/dL 14.0-18.0 Low 2012Mar 04, hematocrit, blood HCT 40.3 % 42.0-54.0 Low 2012Mar 04, platelet count PLATELETS 226 K/CMM 094-703 1845 /mm3 Aug 25, hemoglobin, blood HGB 14.1 g/dL 14.0-18.0 2013Aug 25, hematocrit, blood HCT 40.6 % 42.0-54.0 Low 2013Aug 25, platelet count PLATELETS 189 K/CMM 267-185 7461 /mm3 December 03, urine color UA COLOR Dark Yellow Yellow 2011December 03, bacteria, urine BACTERIA URN Occasional None Seen 2011 microscopy Jul 11, urine color UA COLOR Yellow null Yellow 2011Jul 11, bacteria, urine BACTERIA URN Few null None Seen 2011 microscopy December 03, urine color UA COLOR Dark Yellow Yellow 2011 null December 03, bacteria, urine BACTERIA URN Occasional None Seen 2011 microscopy null Jul 11, urine color UA COLOR Yellow null Yellow 2011Jul 11, bacteria, urine BACTERIA URN Few null None Seen 2011 microscopy Mar 04, urine color UA COLOR Yellow null Yellow 2012Mar 04, bacteria, urine BACTERIA URN Occasional None Seen 2012 microscopy null Aug 25, urine color UA COLOR Yellow null Yellow 2013Aug 25, bacteria, urine BACTERIA URN Occasional None Seen 2013 microscopy null December 03, hemoglobin A1C, HGBA1C 8.0 % 2011 blood, as % of total hemoglobin December 03, sodium, serum SODIUM 135 MEQ/L 695-873 1435 mmol/L December 03, potassium, serum POTASSIUM 4.6 MEQ/L 3.5-5.1 2011 mmol/L December 03, urea nitrogen, BUN 23 mg/dL 7-22 High 2011 blood December 03, creatinine, serum CREATININE 1.2 mg/dL 0.5-1.4 2011December 03, urea BUN/CREAT 19 null -25 2011 nitrogen/creatinine ratio, serum December 03, albumin, serum ALBUMIN 4.3 g/dL 3.5-5.0 2011December 03, calcium, serum CALCIUM 9.3 mg/dL 8.5-10.5 2011December 03, aspartate SGOT (AST) 28 U/L 0-37 2011 aminotransferase (SGOT), serum December 03, alanine SGPT (ALT) 45 U/L 0-65 2011 aminotransferase (SGPT), serum December 03, alkaline ALK PHOS 63 U/L 39-136 2011 phosphatase, serum Jul 11, cholesterol, serum CHOLESTEROL 301 mg/dl 120-200 High 2011Jul 11, triglyceride, TRIGLYCERIDE 1500 mg/dl 0-200 High 2011 serum, fasting Jul 11, HDL cholesterol, HDL 30 mg/dl >=35 Low 2011 serum Jul 11, sodium, serum SODIUM 140 MEQ/L 876-805 8611 mmol/L Jul 11, potassium, serum POTASSIUM 4.5 MEQ/L 3.5-5.1 2011 mmol/L Jul 11, creatinine, serum CREATININE 0.9 mg/dL 0.5-1.4 2011Jul 11, urea nitrogen, BUN 20 mg/dL -2011 blood Jul 11, urea BUN/CREAT 22 null -2011 nitrogen/creatinine ratio, serum Jul 11, albumin, serum ALBUMIN 4.6 g/dL 3.5-5.0 2011Jul 11, calcium, serum CALCIUM 9.6 mg/dL 8.5-10.5 2011Jul 11, alanine SGPT (ALT) 57 U/L 0-65 2011 aminotransferase (SGPT), serum Jul 11, aspartate SGOT (AST) 44 U/L 0-37 High 2011 aminotransferase (SGOT), serum Jul 11, alkaline ALK PHOS 62 U/L 39-136 2011 phosphatase, serum Jul 11, thyroid stimulating TSH 1.530 uIU/mL 0.360-3.740 2011 hormone, serum Jul 11, prostate specific PSA 1.14 ng/mL 0.00-4.00 2011 antigen December 03, hemoglobin A1C, HGBA1C ordered today 2011 blood, as % of % total hemoglobin December 03, hemoglobin A1C, HGBA1C 8.0 % 2011 blood, as % of total hemoglobin December 03, sodium, serum SODIUM 135 MEQ/L 595-874 2145 mmol/L December 03, potassium, serum POTASSIUM 4.6 MEQ/L 3.5-5.1 2011 mmol/L December 03, urea nitrogen, BUN 23 mg/dL - High 2011 blood December 03, creatinine, serum CREATININE 1.2 mg/dL 0.5-1.4 2011December 03, urea BUN/CREAT 19 null 6-25 2011 nitrogen/creatinine ratio, serum December 03, albumin, serum ALBUMIN 4.3 g/dL 3.5-5.0 2011December 03, calcium, serum CALCIUM 9.3 mg/dL 8.5-10.5 2011December 03, aspartate SGOT (AST) 28 U/L 0-37 2011 aminotransferase (SGOT), serum December 03, alanine SGPT (ALT) 45 U/L 0-65 2011 aminotransferase (SGPT), serum December 03, alkaline ALK PHOS 63 U/L 39-136 2011 phosphatase, serum Jul 11, cholesterol, serum CHOLESTEROL 301 mg/dl 120-200 High 2011Jul 11, triglyceride, TRIGLYCERIDE 1500 mg/dl 0-200 High 2011 serum, fasting Jul 11, HDL cholesterol, HDL 30 mg/dl >=35 Low 2011 serum Jul 11, LDL cholesterol, LDL See Note 0-129 2011 serum mg/dL mg/dl Jul 11, sodium, serum SODIUM 140 MEQ/L 889-913 4426 mmol/L Jul 11, potassium, serum POTASSIUM 4.5 MEQ/L 3.5-5.1 2011 mmol/L Jul 11, creatinine, serum CREATININE 0.9 mg/dL 0.5-1.4 2011Jul 11, urea nitrogen, BUN 20 mg/dL -2011 blood Jul 11, urea BUN/CREAT 22 null 6-25 2011 nitrogen/creatinine ratio, serum Jul 11, albumin, serum ALBUMIN 4.6 g/dL 3.5-5.0 2011Jul 11, calcium, serum CALCIUM 9.6 mg/dL 8.5-10.5 2011Jul 11, alanine SGPT (ALT) 57 U/L 0-65 2011 aminotransferase (SGPT), serum Jul 11, aspartate SGOT (AST) 44 U/L 0-37 High 2011 aminotransferase (SGOT), serum Jul 11, alkaline ALK PHOS 62 U/L 39-136 2011 phosphatase, serum Jul 11, thyroid stimulating TSH 1.530 uIU/mL 0.360-3.740 2011 hormone, serum Jul 11, prostate specific PSA 1.14 ng/mL 0.00-4.00 2011 antigen Mar 04, hemoglobin A1C, HGBA1C 9.0 % <=5.6 High 2012 blood, as % of total hemoglobin Mar 04, phosphate, serum PO4 2.6 mg/dL 2.5-4.5 2012Mar 04, cholesterol, serum CHOLESTEROL 334 mg/dl <=199 High 2012Mar 04, triglyceride, TRIGLYCERIDE 928 mg/dl <=149 High 2012 serum, fasting Mar 04, HDL cholesterol, HDL 23 mg/dl >=61 Low 2012 serum Mar 04, LDL cholesterol, LDL See Note <=99 2013 serum mg/dL mg/dl Mar 04, amylase, serum AMYLASE 10 U/L 25-115 Low 2012Mar 04, magnesium, serum MAGNESIUM 1.5 mg/dL 1.8-2.4 Low 2012Mar 04, sodium, serum SODIUM 133 MEQ/L 135-145 Low 2012 mmol/L Mar 04, potassium, serum POTASSIUM 4.1 MEQ/L 3.5-5.1 2012 mmol/L Mar 04, creatinine, serum CREATININE 1.0 mg/dL 0.5-1.4 2012Mar 04, urea nitrogen, BUN 26 mg/dL 7-22 High 2012 blood Mar 04, urea BUN/CREAT 26 null 6-25 High 2012 nitrogen/creatinine ratio, serum Mar 04, albumin, serum ALBUMIN 4.0 g/dL 3.5-5.0 2012Mar 04, calcium, serum CALCIUM 8.4 mg/dL 8.5-10.5 Low 2012Mar 04, alanine SGPT (ALT) 42 U/L 0-65 2012 aminotransferase (SGPT), serum Mar 04, aspartate SGOT (AST) 30 U/L 0-37 2012 aminotransferase (SGOT), serum Mar 04, alkaline ALK PHOS 75 U/L 39-136 2012 phosphatase, serum Mar 04, occult blood, stool HEMOCCULT Negative null Negative 2012 (E&M) Aug 25, hemoglobin A1C, HGBA1C 9.1 % <=5.6 High 2013 blood, as % of total hemoglobin Aug 25, cholesterol, serum CHOLESTEROL 355 mg/dl <=199 High 2013Aug 25, triglyceride, TRIGLYCERIDE >4000 mg/dL <=149 High 2013 serum, fasting mg/dl Aug 25, HDL cholesterol, HDL 31 mg/dl >=61 Low 2013 serum Aug 25, LDL cholesterol, LDL See Note <=99 2014 serum mg/dL mg/dl Aug 25, sodium, serum SODIUM 133 MEQ/L 135-145 Low 2013 mmol/L Aug 25, potassium, serum POTASSIUM 3.8 MEQ/L 3.5-5.1 2013 mmol/L Aug 25, creatinine, serum CREATININE 0.8 mg/dL 0.5-1.4 2013Aug 25, urea nitrogen, BUN 22 mg/dL 7- 2014 blood Aug 25, urea BUN/CREAT 28 null 6-25 High 2013 nitrogen/creatinine ratio, serum Aug 25, albumin, serum ALBUMIN 3.8 g/dL 3.5-5.0 2013Aug 25, calcium, serum CALCIUM 6.6 mg/dL 8.5-10.5 Abnormal 2013Aug 25, alanine SGPT (ALT) 72 U/L 0-65 High 2014 aminotransferase (SGPT), serum Aug 25, aspartate SGOT (AST) 26 U/L 0-37 2013 aminotransferase (SGOT), serum Aug 25, alkaline ALK PHOS 74 U/L 39-136 2013 phosphatase, serum
--- OUTSIDE RECORDS SUMMARY | 2018-06-30 12:00 | XMS REPORT | Summary of Care ---
:1955 Author Organization [facility] Address [id number] [place] [address], [address] [address]- Encounter HQ Encntr_alias(FIN) [id number] Date(s): 01/29/18 - 01/30/18 [facility] [id number] [place] [address], [address] [address]- [phone] Vital Signs No data available for this [...] migrated from [employer] on 02/03/15.4worse at [email or web address] migrated from [employer] on 02/03/15.6Data migrated from [employer] on . Allergies, Adverse Reactions, Alerts Substance Reaction Severity Status codeine Active Medications Ambien 10 mg oral tablet 10 mg=1 tab, PO, Bedtime, PRN for sleep, # 30 tab, 5 Refill(s) Start Date: 01/29/18 Status: Ordered Results No data available for [...]
--- OUTSIDE RECORDS SUMMARY | 2018-06-30 12:00 | XMS REPORT | Continuity of Care Document ---
:1955 Author Organization [facility] Care Team Providers Name Role Phone MD Jimy, Jarrell Unavailable Unavailable Insurance Providers Payer name Policy type / Policy ID Covered alliance party ID Policy Louis Coverage type [facility] [place] [employer] [place]: ACS - [place] - [place]ADITION[place] MED[place]: [employer] MEDICARE B-[place]: [employer] MEDICARE [place]: [employer] [place] ACS - [place] - TRADITIONAL Encounters Encounter Performer Location Date Office Visit Jarrell Ahn MD [facility] Oct 20, 2013 Problems Problem Effective Dates Problem Status DEPRESSION [...] SYNCOPE AND COLLAPSE Aug 29, 2013 Active SPLENOMEGALY Oct 20, 2013 Active Procedures Date Description Comments Oct [...] units with meals Oct 20, 2013 Active BLOOD GLUCOSE TEST STRP Check blood sugar before meals Oct 20, 2013 Active 3x daily Vital Signs Date Description Test Result Oct [...] 2013 temperature E&M TEMPERATURE 98.4 deg f Oct 28, 2013 weight E&M - 3141-9 WEIGHT 219 lb Oct 28, 2013 temperature E&M TEMPERATURE 98.4 deg f Oct 28, 2013 pulse rate E&M - 8867-4 PULSE RATE 89 /min Oct 28, 2013 blood pressure, systolic - 8480-6 BP SYSTOLIC 146 mm Hg Oct 28, 2013 blood pressure, diastolic - 8462-4 BP DIASTOLIC 95 mm Hg Results Date Description Test Name Value Reference Interpretation Status December 03, hemoglobin, blood HGB 13.3 g/dL 14.0-18.0 Low 2011December 03, hematocrit, blood HCT 38.4 % 42.0-54.0 Low 2011December 03, platelet count PLATELETS 205 K/CMM 990-040 4531 /mm3 Jul 11, hemoglobin, blood HGB 14.0 g/dL 14.0-18.0 2011Jul 11, hematocrit, blood HCT 40.8 % 42.0-54.0 Low 2011Jul 11, platelet count PLATELETS 160 K/CMM 095-345 1130 /mm3 December 03, hemoglobin, blood HGB 13.3 g/dL 14.0-18.0 Low 2011December 03, hematocrit, blood HCT 38.4 % 42.0-54.0 Low 2011December 03, platelet count PLATELETS 205 K/CMM 022-816 5313 /mm3 Jul 11, hemoglobin, blood HGB 14.0 g/dL 14.0-18.0 2011Jul 11, hematocrit, blood HCT 40.8 % 42.0-54.0 Low 2011Jul 11, platelet count PLATELETS 160 K/CMM 816-809 6817 /mm3 Mar 04, hemoglobin, blood HGB 13.9 g/dL 14.0-18.0 Low 2012Mar 04, hematocrit, blood HCT 40.3 % 42.0-54.0 Low 2012Mar 04, platelet count PLATELETS 226 K/CMM 541-163 6120 /mm3 Aug 25, hemoglobin, blood HGB 14.1 g/dL 14.0-18.0 2013Aug 25, hematocrit, blood HCT 40.6 % 42.0-54.0 Low 2013Aug 25, platelet count PLATELETS 189 K/CMM 231-035 4654 /mm3 December 03, urine color UA COLOR [...] December 03, sodium, serum SODIUM 135 MEQ/L 320-499 9964 mmol/L December 03, potassium, serum POTASSIUM 4.6 [...] Jul 11, sodium, serum SODIUM 140 MEQ/L 956-728 3051 mmol/L Jul 11, potassium, serum POTASSIUM 4.5 [...] December 03, sodium, serum SODIUM 135 MEQ/L 765-073 5635 mmol/L December 03, potassium, serum POTASSIUM 4.6 [...] Jul 11, sodium, serum SODIUM 140 MEQ/L 725-503 6830 mmol/L Jul 11, potassium, serum POTASSIUM 4.5 [...] 04, LDL cholesterol, LDL See Note <=99 2012 serum mg/dL mg/dl Mar 04, amylase, serum AMYLASE 10 U/L 25-115 Low 2012Mar 04, magnesium, serum MAGNESIUM 1.5 mg/dL 1.8-2.4 Low 2012Mar 04, sodium, serum SODIUM 133 MEQ/L 135-145 Low 2012 mmol/L Mar 04, potassium, serum POTASSIUM 4.1 MEQ/L 3.5-5.1 2012 mmol/L Mar 04, creatinine, serum CREATININE 1.0 mg/dL 0.5-1.4 2012Mar 04, urea nitrogen, BUN 26 mg/dL 7- High 2012 blood Mar 04, urea BUN/CREAT [...] 2013Aug 25, urea nitrogen, BUN 22 mg/dL -2013 blood Aug 25, urea BUN/CREAT 28 null 6-25 High 2013 nitrogen/creatinine ratio, serum Aug 25, albumin, serum ALBUMIN 3.8 g/dL 3.5-5.0 2013Aug 25, calcium, serum CALCIUM 6.6 mg/dL 8.5-10.5 Abnormal 2013Aug 25, alanine SGPT (ALT) 72 U/L 0-65 High 2013 aminotransferase (SGPT), serum Aug 25, aspartate SGOT (AST) 26 U/L 0-37 2013 aminotransferase (SGOT), serum Aug 25, alkaline ALK PHOS 74 U/L 39-136 2013 phosphatase, serum
--- OUTSIDE RECORDS SUMMARY | 2018-06-30 12:00 | XMS REPORT | Summary of Care ---
:1955 Author Organization [facility] Address [address] [place] [address], [address] [place] [address]- Encounter HQ Encntr_alijuana(FIN) [id number] Date(s): 10/23/17 - 10/23/17 [facility] [address] [place] [address], [address] [address]- [phone] Discharge Disposition: Home or Self Care Attending Physician: Juwan Milner MD Referring Physician: Lakshmi Torres MD Vital Signs Most recent to oldest [Reference Range]: 1 Temperature Oral [96.4-99.1 DegF] 98.9 DegF (10/23/17 9:45 AM) Blood Pressure [90-140/60-90 mmHg] 145/79 mmHg *HI* (10/23/17 9:45 AM) Peripheral Pulse Rate [60-100 bpm] 78 bpm (10/23/17 9:45 AM) Weight 101.506 kg (10/23/17 9:45 AM) Problem List Condition Effective Dates Status [...] migrated from [employer] on 02/03/15.4worse at [email or web address] migrated from [employer] on 02/03/15.6Data migrated from [employer] on . Allergies, Adverse Reactions, Alerts Substance Reaction Severity Status codeine Active Medications amitriptyline 25 mg oral tablet 25 mg=1 tab, PO, Bedtime, # 30 tab, 1 Refill(s), Pharmacy: [id number] Start Date: 10/23/17 Stop Date: 12/27/17 Status: Completedfurosemide 20 mg oral tablet 20 mg=1 tab, PO, Daily, # 90 tab, 1 Refill(s), Pharmacy: [id number] Start Date: 10/23/17 Status: Ordered Results No data available for [...]
--- OUTSIDE RECORDS SUMMARY | 2018-06-30 12:01 | XMS REPORT | Continuity of Care Document ---
:1955 Author Organization [facility] Care Team Providers Name Role Phone MD Larios Zenithe Unavailable Unavailable Insurance Providers Payer name Policy type / Policy ID Covered democrat ID Policy Louis Coverage type [place] [employer] [place]: [place] - [place] - TRADITIONAL [place]: [employer] [place]: [employer] [place] [employer] [place]: [place] - TMHP - [place] ACS - TM[place] - [place] ACS - TMHP - TRADITIONAL Encounters Encounter Performer Location Date Office Visit Lakshmi Larios MD [facility] Oct 14, 2014 [place] Problems Problem Effective Dates Problem Status DEPRESSION [...] 2013 Active SPLENOMEGALY Oct 20, 2013 Active MUSCLE CRAMPS Oct 14, 2014 Active FRACTURE, RIB Oct 14, 2014 Active HIP PAIN, BILATERAL Oct 14, 2014 Active ALLERGIC RHINITIS Oct 14, 2014 Active Procedures Date Description Comments Oct 18, 2011 smoking status never smoker Mar 04, 2013 smoking status never smoker Oct 14, 2014 smoking status Never smoker Medications Medication Instructions Start Date Status [...] 1 po qd Oct 25, 2011 Inactive DIGOXIN 0.125 MG TABS 1 tab po [...] use as Jan 08, 2012 Active directed ALPRAZOLAM 0.5 MG TABS 1 tab po [...] qhs prn spasm Nov 01, 2011 Inactive PROMETHAZINE HCL 25 MG TABS 1 tab po q6-8 hrs prn Mar 04, 2013 Inactive nausea/vomiting HYDROCODONE-ACETAMINOPHEN 10-325 1 tab po q6 hours prn severe Mar 04, 2013 Inactive MG TABS pain MUPIROCIN 2 % OINT apply to affected area twice Mar 04, 2013 Inactive daily for 7 days AMBIEN 10 MG TABS 1 tab po qhs prn Aug 14, 2013 Inactive LANTUS SOLOSTAR 100 UNIT/ML SOLN 50 units nightly Oct 20, 2013 Active HUMALOG KWIKPEN 100 UNIT/ML SOLN 40 units with meals Oct 20, 2013 Active LYRICA 75 MG CAPS Take one capsule by mouth December 04, 2013 Active twice a day for nerve pain BLOOD GLUCOSE TEST STRP Check blood sugar before meals December 13, 2013 Active 3x daily Diagnosis - Insulin dependent diabetes type II, uncontrolled BD ULTRA-FINE LANCETS MISC use 3x daily for blood glucose December 13, 2013 Active testing Indication: insulin dependent type II diabetes, uncontrolled NORCO 10-325 MG TABS 1 tab po daily as needed for Aug 14, 2013 Inactive severe pain XYZAL 5 MG TABS 1 tablet daily for allergies Oct 14, 2014 Active METOPROLOL TARTRATE 50 MG TABS 1 tab po bid Aug 14, 2013 Active ZOLPIDEM TARTRATE 10 MG TABS 1 tab po nightly prn sleep December 04, 2011 Inactive LUNESTA 3 MG TABS 1 tablet at bedtime as needed Oct 14, 2014 Active for insomnia CYCLOBENZAPRINE HCL 10 MG TABS 1 tab po nightly as needed for Aug 14, 2013 Active muscle spasms CITALOPRAM HYDROBROMIDE 40 MG 1 tab po daily for mood Jul 11, 2012 Active TABS PATANASE 0.6 % SOLN Two sprays each nostril twice Oct 14, 2014 Active daily for allergies Vital Signs Date Description Test Result Oct [...] - 8462-4 BP DIASTOLIC 95 mm Hg Oct 14, 2014 weight E&M - 3141-9 WEIGHT 229 lb Oct 14, 2014 height E&M - 8302-2 HEIGHT 69 in Oct 14, 2014 temperature E&M TEMPERATURE 98.5 deg f Oct 14, 2014 blood pressure, systolic - 8480-6 BP SYSTOLIC 162 mm Hg Oct 14, 2014 blood pressure, diastolic - 8462-4 BP DIASTOLIC 83 mm Hg Oct 14, 2014 pulse rate E&M - 8867-4 PULSE RATE 75 /min Results Date Description Test Name Value Reference Interpretation Status December 03, hemoglobin, blood HGB 13.3 g/dL 14.0-18.0 Low 2011December 03, hematocrit, blood HCT 38.4 % 42.0-54.0 Low 2011December 03, platelet count PLATELETS 205 K/CMM 603-714 5036 /mm3 Jul 11, hemoglobin, blood HGB 14.0 g/dL 14.0-18.0 2011Jul 11, hematocrit, blood HCT 40.8 % 42.0-54.0 Low 2011Jul 11, platelet count PLATELETS 160 K/CMM 738-127 4553 /mm3 December 03, hemoglobin, blood HGB 13.3 g/dL 14.0-18.0 Low 2011December 03, hematocrit, blood HCT 38.4 % 42.0-54.0 Low 2011December 03, platelet count PLATELETS 205 K/CMM 844-439 5032 /mm3 Jul 11, hemoglobin, blood HGB 14.0 g/dL 14.0-18.0 2011Jul 11, hematocrit, blood HCT 40.8 % 42.0-54.0 Low 2011Jul 11, platelet count PLATELETS 160 K/CMM 921-383 6770 /mm3 Mar 04, hemoglobin, blood HGB 13.9 g/dL 14.0-18.0 Low 2012Mar 04, hematocrit, blood HCT 40.3 % 42.0-54.0 Low 2012Mar 04, platelet count PLATELETS 226 K/CMM 730-723 6136 /mm3 Aug 25, hemoglobin, blood HGB 14.1 g/dL 14.0-18.0 2013Aug 25, hematocrit, blood HCT 40.6 % 42.0-54.0 Low 2013Aug 25, platelet count PLATELETS 189 K/CMM 596-546 9473 /mm3 December 03, urine color UA COLOR [...] December 03, sodium, serum SODIUM 135 MEQ/L 121-499 4444 mmol/L December 03, potassium, serum POTASSIUM 4.6 [...] Jul 11, sodium, serum SODIUM 140 MEQ/L 917-574 0064 mmol/L Jul 11, potassium, serum POTASSIUM 4.5 [...] December 03, sodium, serum SODIUM 135 MEQ/L 910-580 9743 mmol/L December 03, potassium, serum POTASSIUM 4.6 [...] Jul 11, sodium, serum SODIUM 140 MEQ/L 351-652 6598 mmol/L Jul 11, potassium, serum POTASSIUM 4.5 MEQ/L 3.5-5.1 2011 mmol/L Jul 11, creatinine, serum CREATININE 0.9 mg/dL 0.5-1.4 2011Jul 11, urea nitrogen, BUN 20 mg/dL -22 2011 blood Jul 11, urea BUN/CREAT 22 null [...] 2013Aug 25, urea nitrogen, BUN 22 mg/dL 7-2013 blood Aug 25, urea BUN/CREAT 28 null 6-25 High 2013 nitrogen/creatinine ratio, serum Aug 25, albumin, serum ALBUMIN 3.8 g/dL 3.5-5.0 2013Aug 25, calcium, serum CALCIUM 6.6 mg/dL 8.5-10.5 Abnormal 2013Aug 25, alanine SGPT (ALT) 72 U/L 0-65 High 2013 aminotransferase (SGPT), serum Aug 25, aspartate SGOT (AST) 26 U/L 0-37 2014 aminotransferase (SGOT), serum Aug 25, alkaline ALK PHOS 74 U/L 39-136 2014 phosphatase, serum
--- OUTSIDE RECORDS SUMMARY | 2018-06-30 12:01 | XMS REPORT | Continuity of Care Document ---
:1955 Author Organization [facility] Care Team Providers Name Role Phone MD Jimy, Jarrell Unavailable Unavailable Insurance Providers Payer name Policy type / Policy ID Covered alliance party ID Policy Louis Coverage type [facility] [place] [employer] [facility] [place]: [place] - TM[place] - [place]ADITIONAL MED[place]: [employer] MED[place]: [employer] [place] [employer] [place] - TMHP - TRADITIONAL Encounters Encounter Performer Location Date Office Visit Jarrell Ahn MD [facility] Oct 28, 2013 [place] 350 Problems Problem Effective Dates Problem Status DEPRESSION [...] 2011December 03, platelet count PLATELETS 205 K/CMM 810-228 0634 /mm3 Jul 11, hemoglobin, blood HGB 14.0 g/dL 14.0-18.0 2011Jul 11, hematocrit, blood HCT 40.8 % 42.0-54.0 Low 2011Jul 11, platelet count PLATELETS 160 K/CMM 489-675 2121 /mm3 December 03, hemoglobin, blood HGB 13.3 g/dL 14.0-18.0 Low 2011December 03, hematocrit, blood HCT 38.4 % 42.0-54.0 Low 2011December 03, platelet count PLATELETS 205 K/CMM 533-165 9218 /mm3 Jul 11, hemoglobin, blood HGB 14.0 g/dL 14.0-18.0 2011Jul 11, hematocrit, blood HCT 40.8 % 42.0-54.0 Low 2011Jul 11, platelet count PLATELETS 160 K/CMM 464-152 2694 /mm3 Mar 04, hemoglobin, blood HGB 13.9 g/dL 14.0-18.0 Low 2012Mar 04, hematocrit, blood HCT 40.3 % 42.0-54.0 Low 2012Mar 04, platelet count PLATELETS 226 K/CMM 733-434 7544 /mm3 Aug 25, hemoglobin, blood HGB 14.1 g/dL 14.0-18.0 2013Aug 25, hematocrit, blood HCT 40.6 % 42.0-54.0 Low 2013Aug 25, platelet count PLATELETS 189 K/CMM 517-742 2048 /mm3 December 03, urine color UA COLOR [...] December 03, sodium, serum SODIUM 135 MEQ/L 212-438 8319 mmol/L December 03, potassium, serum POTASSIUM 4.6 [...] Jul 11, sodium, serum SODIUM 140 MEQ/L 700-662 3925 mmol/L Jul 11, potassium, serum POTASSIUM 4.5 [...] December 03, sodium, serum SODIUM 135 MEQ/L 007-176 3564 mmol/L December 03, potassium, serum POTASSIUM 4.6 [...] Jul 11, sodium, serum SODIUM 140 MEQ/L 404-167 7773 mmol/L Jul 11, potassium, serum POTASSIUM 4.5 [...]
[2018-06-30] MEDS ORDERED: ALBUTEROL 2.5 MG/3 ML NEB SOL ONE (12:46)
[2018-06-30] MEDS ORDERED: IPRATROPIUM BROM 0.5MG/2.5ML ONE (12:47)
[2018-06-30 12:49] LABS: Absolute Lymphocytes (CBC) 1.3 K/uL (0.7-4.9); Absolute Monocytes 0.5 K/uL (0.1-1.3); Basophils % 0.7 % (0-1.3); Eosinophils % 2.3 % (0-4.4); Hematocrit 33.6 % (39.6-49.0); MCV 82.1 fL (80-100); MPV 9.1 fL (7.6-11.3); Monocytes % 6.2 % (3.3-12.3); RBC Red Blood Cell Count 4.09 M/uL (4.33-5.43)
[2018-06-30 12:52] LABS: Protime INR 1.06
[2018-06-30 13:34] LABS: Albumin 2.9 g/dL (3.4-5.0); Bilirubin Direct 0.1 mg/dL (0-0.2); Bilirubin Total 0.6 mg/dL (0.2-1.0); Magnesium 1.8 mg/dL (1.8-2.4); Potassium 4.4 mmol/L (3.5-5.1); Protein, Total 6.4 g/dL (6.4-8.2); Troponin (Emerg Dept Use Only) 0.02 ng/mL (0.0-0.045)
--- NOTE | 2018-06-30 14:18 | RAD REPORT ---
EXAM DESCRIPTION: RAD - Chest Single View - 06/30/2018 1:06 pm CLINICAL HISTORY: Shortness of breath COMPARISON: December 01, 2017 TECHNIQUE: AP portable chest image was obtained 1302 hours . FINDINGS: Lungs are clear. Lung markings are similar to comparison. Heart and vasculature are normal . No measurable pleural effusion and no pneumothorax. No acute bone finding. Left shoulder prosthesis in place. Right shoulder is obscured. No acute aortic findings suspected. IMPRESSION: No acute cardiopulmonary process. No significant change from comparison.
--- NOTE | 2018-06-30 14:29 | ER ---
Nurse's Notes [facility] Name: Farshad Padilla Age: 62 yrs Sex: Male : 1955 Arrival Date: 06/30/2018 Time: 11:49 Bed 8 Private MD: out of town, doctor Diagnosis: Chest pain, unspecified;Chronic kidney disease, unspecified Presentation: 06/30 12:00 Presenting complaint: Patient states: "I went to bed last night and a couple hours aj1 later I woke up and I couldn't breathe. I felt like someone was sitting on me and I've felt like that ever since. Reports substernal chest pain, coughing, shortness of breath. Transition of care: patient was not received from another setting of care. Onset of symptoms was June 30, 2018 at 03:30. Risk Assessment: Do you want to hurt yourself or someone else? Patient reports no desire to harm self or others. Initial Sepsis Screen: Does the patient meet any 2 criteria? No. Patient's initial sepsis screen is negative. Does the patient have a suspected source of infection? No. Patient's initial sepsis screen is negative. Care prior to arrival: None. 12:00 Method Of Arrival: Ambulatory aj1 12:01 Acuity: DEVAUGHN 2 aj1 Triage Assessment: 12:04 General: Appears in no apparent distress. uncomfortable, Behavior is calm, cooperative, aj1 appropriate for age. Pain: Complains of pain in chest Pain currently is 2 out of 10 on a pain scale. Quality of pain is described as pressure. Neuro: Level of Consciousness is awake, alert, obeys commands. Cardiovascular: Patient's skin is warm and dry. Respiratory: Reports shortness of breath Airway is patent Respiratory effort is even, unlabored, Respiratory pattern is regular, symmetrical, Onset: The symptoms/episode began/occurred this morning, the patient has mild shortness of breath. Historical: - Allergies: 12:04 Codeine; aj1 - Home Meds: 12:04 Ambien 10 mg Oral tab 1 tab once daily [Active]; atorvastatin 40 mg Oral tab 1 tab once aj1 daily [Active]; carvedilol 25 mg Oral tab 1 tab 2 times per day [Active]; clopidogrel 75 mg Oral tab 1 tab once daily [Active]; Dexilant 60 mg Oral CpDB 1 cap once daily [Active]; digoxin 125 mcg Oral tab 1 tab once daily [Active]; fenofibric acid (choline) 135 mg Oral cpDR 1 cap once daily [Active]; furosemide 20 mg Oral tab 1 tab once daily [Active]; gabapentin 300 mg Oral cap 2 caps daily [Active]; Humalog Pen 45 units Sub-Q three times a day [Active]; hydrochlorothiazide-valsartan 25mg-320mg daily [Active]; Insulin Glargine 50 units Sub-Q nightly [Active]; losartan 50 mg oral tab 1 tab 2 times per day [Active]; - PMHx: 12:04 AAA; Atrial Fib; Diabetes - IDDM; Hypertension; aj1 - Immunization history:: Flu vaccine is up to date. - Social history:: Smoking status: Patient/guardian denies using tobacco. - Ebola Screening: : Patient denies travel to an Ebola-affected area in the 21 days before illness onset. Screenin:47 Abuse screen: Denies threats or abuse. Denies injuries from another. Nutritional sg screening: No deficits noted. Tuberculosis screening: No symptoms or risk factors identified. Never had TB. Fall Risk None identified. Assessment: 12:47 General: Appears in no apparent distress. comfortable, well groomed, well developed, sg well nourished, Behavior is calm, cooperative, appropriate for age. Pain: Complains of pain in chest Quality of pain is described as aching, tightness. Neuro: Level of Consciousness is awake, alert, obeys commands, Oriented to person, place, time, situation, [employer] are equal bilaterally Moves all extremities. Full function Speech is normal, Facial symmetry appears normal, Pupils are PERRLA. Cardiovascular: Capillary refill is brisk in bilateral fingers Patient's skin is warm and dry. Chest pain is described as vague, is located in anterior chest wall. Respiratory: Reports shortness of breath at rest cough that is non-productive, dry, persistent Airway is patent Respiratory effort is even, unlabored, Respiratory pattern is regular, symmetrical, Breath sounds are clear. GI: Abdomen is round non-distended, Bowel sounds present X 4 quads. Reports normal bowel habits, tolerance of fluids, tolerance of food. : No signs and/or symptoms were reported regarding the genitourinary system. EENT: No signs and/or symptoms were reported regarding the EENT system. Derm: Skin is pink, warm \\T\\ dry. Musculoskeletal: No signs and/or symptoms reported regarding the musculoskeletal system. 13:04 Reassessment: Patient appears in no apparent distress at this time. Patient and/or sg family updated on plan of care and expected duration. Pain level reassessed. Patient is alert, oriented x 3, equal unlabored respirations, skin warm/dry/pink. xray at bedside at this time Patient states feeling better. Vital Signs: 12:04 BP 143 / 95; Pulse 90; Resp 20; Temp 97.8; Pulse Ox 96% on R/A; Weight 99.79 kg (R); aj1 Height 5 ft. 9 in. (175.26 cm) (R); Pain 2/10; 14:31 BP 148 / 81; Pulse 80; Resp 17; Pulse Ox 95% on R/A; Pain 2/10; sg 16:45 BP 146 / 77; Pulse 78; Resp 17; Temp 97.7; Pulse Ox 96% on R/A; Pain 0/10; sg 12:04 Body Mass Index 32.49 (99.79 kg, 175.26 cm) aj1 ED Course: 11:49 Patient arrived in ED. sb2 11:50 out of town, doctor is Private Physician. sb2 12:01 Triage completed. aj1 12:04 Arm band placed on. aj1 12:18 Heber Manzanares PA is PHCP. cp 12:18 Heber Guadalupe MD is Attending Physician. cp 12:29 Rex Greene, ALIN is Primary Nurse. sg 12:46 EKG done, by ED staff, reviewed by Heber Guadalupe MD. Initial lab(s) drawn, by mi, sent jb1 to lab. Inserted saline lock: 20 gauge in right antecubital area, using aseptic technique. Blood collected. 12:47 Patient has correct armband on for positive identification. Bed in low position. Call sg light in reach. Side rails up X2. academic physician on. Pulse ox on. NIBP on. Warm blanket given. Head of bed elevated. 12:47 No provider procedures requiring assistance completed. Patient admitted, IV remains in sg place. intact, No redness/swelling at site. 13:06 XRAY Chest (1 view) In Process Unspecified. EDMS 13:15 Awaiting radiology results. sg 14:28 Bhavana Greenwood MD is Hospitalizing Provider. cp 14:29 LAB Add On Sent. sg Administered Medications: 12:45 Drug: Albuterol 2.5 mg Route: Inhalation; sg 12:46 Follow up: Response: No adverse reaction sg 12:45 Drug: AtroVENT Aerosol 0.5 mg Route: Inhalation; sg 13:24 CANCELLED (Physician Discretion): Insulin Regular Human 10 units IVP once cp 13:24 CANCELLED (Physician Discretion): NS 0.9% 1000 ml IV at 1 bolus Per protocol; 1000 mL cp bolus 14:38 Drug: Lasix 40 mg Route: IVP; Site: right antecubital; sg 14:38 Drug: Aspirin Chewable Tablet 324 mg Route: PO; sg Outcome: 14:28 Decision to Hospitalize by Provider. cp 16:43 Admitted to Tele accompanied by tech, via wheelchair, room 226, with chart, Report sg called to ALIN Hardin 16:43 Condition: stable 16:43 Instructed on the need for admit, safety practices, Demonstrated understanding of instructions, follow-up care. 16:47 Patient left the ED. hb Signatures: Dispatcher [employer] EDMS Ruperto Lofton Angela RN RN aj1 Rex Greene RN RN sg Heber Manzanares, FRANCISCO PA Violetta Johnson, RN RN Abbie Gonzalez sb2
--- NOTE | 2018-06-30 14:29 | EDPHYS ---
Physician Documentation [facility] Name: Farshad Padilla Age: 62 yrs Sex: Male : 1955 Arrival Date: 06/30/2018 Time: 11:49 Bed 8 Private MD: out of town, doctor ED Physician Heber Guadalupe HPI: 06/30 12:43 This 62 yrs old Male presents to ER via Ambulatory with complaints of cp Shortness Of Breath. 12:43 The patient has shortness of breath at rest. Onset: The symptoms/episode began/occurred cp last night. Duration: The symptoms are continuous, and are unchanged since they started. The patient's shortness of breath is aggravated by deep inspiration. Severity of symptoms: in the emergency department the symptoms are unchanged despite home interventions. 12:43 Associated signs and symptoms: Pertinent positives: chest pain, productive cough, cp Pertinent negatives: diaphoresis, fever, hemoptysis, vomiting. Historical: - Allergies: 12:04 Codeine; aj1 - Home Meds: 12:04 Ambien 10 mg Oral tab 1 tab once daily [Active]; atorvastatin 40 mg Oral tab 1 tab once aj1 daily [Active]; carvedilol 25 mg Oral tab 1 tab 2 times per day [Active]; clopidogrel 75 mg Oral tab 1 tab once daily [Active]; Dexilant 60 mg Oral CpDB 1 cap once daily [Active]; digoxin 125 mcg Oral tab 1 tab once daily [Active]; fenofibric acid (choline) 135 mg Oral cpDR 1 cap once daily [Active]; furosemide 20 mg Oral tab 1 tab once daily [Active]; gabapentin 300 mg Oral cap 2 caps daily [Active]; Humalog Pen 45 units Sub-Q three times a day [Active]; hydrochlorothiazide-valsartan 25mg-320mg daily [Active]; Insulin Glargine 50 units Sub-Q nightly [Active]; losartan 50 mg oral tab 1 tab 2 times per day [Active]; - PMHx: 12:04 AAA; Atrial Fib; Diabetes - IDDM; Hypertension; aj1 - Immunization history:: Flu vaccine is up to date. - Social history:: Smoking status: Patient/guardian denies using tobacco. - Ebola Screening: : Patient denies travel to an Ebola-affected area in the 21 days before illness onset. ROS: 12:45 Constitutional: Negative for body aches, chills, fever, poor PO intake. cp 12:45 Eyes: Negative for injury, pain, redness, and discharge. cp 12:45 ENT: Negative for drainage from ear(s), ear pain, sore throat, difficulty swallowing, cp difficulty handling secretions. 12:45 Neck: Negative for pain with movement, pain at rest, stiffness. 12:45 Cardiovascular: Positive for chest pain, Negative for edema, palpitations. 12:45 Respiratory: Positive for cough, shortness of breath, at rest. Negative for wheezing. 12:45 Abdomen/GI: Negative for abdominal pain, nausea, vomiting, and diarrhea, constipation, black/tarry stool, rectal bleeding. 12:45 Back: Negative for pain at rest, pain with movement, radiated pain. 12:45 : Negative for urinary symptoms, flank pain. 12:45 Neuro: Negative for altered mental status, headache, syncope, weakness. 12:45 All other systems are negative. Exam: 12:20 ECG was reviewed by the Attending Physician. cp 12:50 Constitutional: The patient appears in no acute distress, alert, awake, cp non-diaphoretic, non-toxic, well developed, well nourished. 12:50 Head/Face: Normocephalic, atraumatic. Eyes: Pupils equal round and reactive to light, cp extra-ocular motions intact. Lids and lashes normal. Conjunctiva and sclera are non-icteric and not injected. Cornea within normal limits. Periorbital areas with no swelling, redness, or edema. ENT: Nares patent. No nasal discharge, no septal abnormalities noted. Tympanic membranes are normal and external auditory canals are clear. Oropharynx with no redness, swelling, or masses, exudates, or evidence of obstruction, uvula midline. Mucous membranes moist. Neck: Trachea midline, no thyromegaly or masses palpated, and no cervical lymphadenopathy. Supple, full range of motion without nuchal rigidity, or vertebral point tenderness. No Meningismus. Chest/axilla: Normal chest wall appearance and motion. Nontender with no deformity. No lesions are appreciated. 12:50 Cardiovascular: Rate: normal, Rhythm: regular, Heart sounds: murmur, not appreciated, Edema: is not appreciated, JVD: is not appreciated. 12:50 Respiratory: the patient does not display signs of respiratory distress, Respirations: normal, no use of accessory muscles, no retractions, no splinting, no tachypnea, labored breathing, is not present, Breath sounds: bronchial sounds, that are mild, are heard diffusely, decreased breath sounds, are not appreciated, stridor, is not appreciated, wheezing: is not appreciated. 12:50 Abdomen/GI: Inspection: abdomen appears normal, Bowel sounds: active, all quadrants, Palpation: abdomen is soft and non-tender, in all quadrants, rebound tenderness, is not appreciated, voluntary guarding, is not appreciated, involuntary guarding, is not appreciated. 12:50 Back: pain, is absent, ROM is normal. 12:50 Musculoskeletal/extremity: Exam is negative for calf tenderness, edema. 12:50 Skin: cellulitis, is not appreciated, no rash present. 12:50 Neuro: Orientation: to person, place \T\ time. Mentation: is normal, Cerebellar function: is grossly normal, Motor: moves all fours, strength is normal, Sensation: is normal. Vital Signs: 12:04 BP 143 / 95; Pulse 90; Resp 20; Temp 97.8; Pulse Ox 96% on R/A; Weight 99.79 kg (R); aj1 Height 5 ft. 9 in. (175.26 cm) (R); Pain 2/10; 14:31 BP 148 / 81; Pulse 80; Resp 17; Pulse Ox 95% on R/A; Pain 2/10; sg 16:45 BP 146 / 77; Pulse 78; Resp 17; Temp 97.7; Pulse Ox 96% on R/A; Pain 0/10; sg 12:04 Body Mass Index 32.49 (99.79 kg, 175.26 cm) [facility] MDM: 12:18 Patient medically screened. cp 14:00 Data reviewed: vital signs, nurses notes, lab test result(s), radiologic studies, plain cp films. 14:00 Antibiotic administration: Not indicated, the patient does not have an appreciated cp infiltrate. Test interpretation: by ED physician or midlevel provider: ECG, plain radiologic studies. 14:30 Physician consultation: Bhavana Greenwood MD was called at 14:25, was contacted at 14:25, cp regarding admission, to the telemetry unit. patient's condition. 06/30 12:36 Order name: Basic Metabolic Panel; Complete Time: 14:05 cp 06/30 13:57 Interpretation: Normal except: CL 111; GLUC 193; BUN 43; CRE 3.00; GFR 21; CA 7.8. cp 06/30 12:36 Order name: CBC with Diff; Complete Time: 13:35 cp 06/30 13:36 Interpretation: Normal except: RBC 4.09; HGB 11.9; HCT 33.6; SWETA% 74.8. cp 06/30 12:36 Order name: LFT's; Complete Time: 14:05 cp 06/30 12:36 Order name: Magnesium; Complete Time: 14:05 cp 06/30 12:36 Order name: NT PRO-BNP; Complete Time: 14:05 cp 06/30 13:36 Interpretation: Abnormal: NT PRO-BNP 5217. 06/30 12:36 Order name: PT-INR; Complete Time: 13:35 cp 06/30 12:36 Order name: Troponin (emerg Dept Use Only); Complete Time: 14:05 cp 06/30 14:00 Order name: LAB Add On 06/30 14:07 Order name: Digoxin Level; Complete Time: 14:05 EDMS 06/30 15:06 Order name: CBC with Automated Diff EDMS 06/30 15:06 Order name: CBC with Automated Diff; Complete Time: 14:05 EDMS 06/30 15:06 Order name: CBC with Automated Diff EDMS 06/30 15:06 Order name: CBC with Automated Diff EDMS 06/30 15:07 Order name: Comprehensive Metabolic Panel EDMS 06/30 12:36 Order name: XRAY Chest (1 view); Complete Time: 14:27 cp 06/30 12:36 Order name: EKG; Complete Time: 12:37 cp 06/30 12:36 Order name: Cardiac monitoring; Complete Time: 12:46 cp 06/30 12:36 Order name: EKG - Nurse/Tech; Complete Time: 12:46 cp 06/30 14:42 Order name: Diet Heart Healthy; Complete Time: 14:43 06/30 15:06 Order name: CONS Physician Consult EDMS 06/30 15:06 Order name: Echo with Doppler EDMS 06/30 15:07 Order name: Comprehensive Metabolic Panel; Complete Time: 14:05 EDMS 06/30 15:07 Order name: Comprehensive Metabolic Panel EDMS 06/30 15:07 Order name: Comprehensive Metabolic Panel EDCT 06/30 12:36 Order name: IV Saline Lock; Complete Time: 12:46 cp 06/30 12:36 Order name: Labs collected and sent; Complete Time: 12:46 cp 06/30 12:36 Order name: O2 Per Protocol; Complete Time: 12:46 cp 06/30 12:36 Order name: O2 Sat Monitoring; Complete Time: 12:46 cp EC:20 Rate is 89 beats/min. Rhythm is regular. MO interval is normal. QRS interval is normal. cp QT interval is normal. T waves are Inverted in leads I, aVL, V4, V6. Interpreted by me. Reviewed by me. Administered Medications: 12:45 Drug: Albuterol 2.5 mg Route: Inhalation; sg 12:46 Follow up: Response: No adverse reaction sg 12:45 Drug: AtroVENT Aerosol 0.5 mg Route: Inhalation; sg 13:24 CANCELLED (Physician Discretion): Insulin Regular Human 10 units IVP once cp 13:24 CANCELLED (Physician Discretion): NS 0.9% 1000 ml IV at 1 bolus Per protocol; 1000 mL cp bolus 14:38 Drug: Lasix 40 mg Route: IVP; Site: right antecubital; sg 14:38 Drug: Aspirin Chewable Tablet 324 mg Route: PO; sg Disposition: 07/01 07:40 Co-signature as Attending Physician, Heber Guadalupe MD I agree with the assessment and jaci plan of care. Disposition: 06/30/18 14:28 Hospitalization ordered by Bhavana Greenwood for Observation. Preliminary diagnosis are Chest pain, unspecified, Chronic kidney disease, unspecified. - Bed requested for Telemetry/MedSurg (observation). - Status is Observation. hb - Condition is Stable. - Problem is new. - Symptoms have improved. UTI on Admission? No Signatures: Dispatcher [employer] EDCT Malu Robles Angela, RN RN aj1 Rex Greene RN RN sg Anderson, Corey, MD MD cha Page, Corey, PA PA cp Violetta Bautista RN RN hb Corrections: (The following items were deleted from the chart) 06/30 13:24 13:23 Insulin Regular Human 10 units IVP once ordered. cp cp 13:24 13:23 NS 0.9% 1000 ml IV at 1 bolus Per protocol; 1000 mL bolus ordered. cp cp 13:57 13:35 Normal except: CL 111; GLUC 193; BUN 43; CRE 3.00; GFR 21. cp cp 14:49 14:28 Hospitalization Ordered by Bhavana Greenwood MD for Observation. Preliminary diagnosis cp is Chest pain, unspecified. Bed requested for Telemetry/MedSurg (observation). Status is Observation. Condition is Stable. Problem is new. Symptoms have improved. UTI on Admission? No. cp 16:24 14:49 06/30/2018 14:28 Hospitalization Ordered by Bhavana Greenwood MD for Observation. bd Preliminary diagnosis is Chest pain, unspecified; Chronic kidney disease, unspecified. Bed requested for Telemetry/MedSurg (observation). Status is Observation. Condition is Stable. Problem is new. Symptoms have improved. UTI on Admission? No. cp 16:47 16:24 06/30/2018 14:28 Hospitalization Ordered by Bhavana Greenwood MD for Observation. hb Preliminary diagnosis is Chest pain, unspecified; Chronic kidney disease, unspecified. Bed requested for Telemetry/MedSurg (observation). Status is Observation. Condition is Stable. Problem is new. Symptoms have improved. UTI on Admission? No. bd 12 14:07 12 12:43 Associated signs and symptoms: Pertinent positives: productive cough, cp Pertinent negatives: chest pain, diaphoresis, dizziness, fever, vomiting, cp
[2018-06-30 14:31] LABS: Digoxin Level 0.7 ng/mL (0.80-2.00)
[2018-06-30] MEDS ORDERED: ASPIRIN 81 MG CHEWABLE TABLET ONE (14:43)
[2018-06-30] MEDS ORDERED: FUROSEMIDE 40 MG/4 ML VIAL ONE (14:44)
[2018-06-30] MEDS ORDERED: IPRATROPIUM BROM 0.5MG/2.5ML NEB PRN (17:21)
[2018-06-30] MEDS ORDERED: ALBUTEROL 2.5 MG/3 ML NEB SOL NEB PRN (17:21)
[2018-06-30 17:23] VITALS: BMI 31.8
[2018-06-30] MEDS: FUROSEMIDE 40 MG/4 ML VIAL IV SCH (18:06)
[2018-06-30] MEDS: ACETAMINOPHEN 500 MG TAB PO PRN (20:51)
[2018-06-30] MEDS: GABAPENTIN 300 MG CAP PO SCH (20:57)
[2018-06-30] MEDS: ATORVASTATIN 40 MG TAB PO SCH (20:57)
[2018-06-30] MEDS: INSULIN GLARGINE 100 UNITS/ML SQ SCH (20:58)
[2018-06-30] MEDS ORDERED: METOPROLOL TAR 50 MG TAB PO SCH (21:00)
[2018-06-30] MEDS ORDERED: INSULIN GLARGINE HUM REC ANLOG 50 UNIT SQ SCH (21:00)
[2018-06-30] MEDS ORDERED: INSULIN LISPRO 30 UNIT SQ SCH (21:00)
[2018-06-30] MEDS ORDERED: METOPROLOL TAR 50 MG TAB PO ONE (21:04)
[2018-06-30] MEDS: ONDANSETRON 4 MG/2 ML VIAL IV PRN (21:19)
[2018-06-30] MEDS: ZOLPIDEM TARTRATE 10 MG TABLET PO SCH (22:16)
[2018-06-30] MEDS ORDERED: HYDROCODONE/APAP 10/325 TAB PO PRN (23:16)
[2018-07-01] MEDS: TRAMADOL HCL 50 MG TAB PO PRN ×3 (04:12→21:42)
--- NOTE | 2018-07-01 04:34 | HP ---
Date of Admission: 06/30/2018 Primary Care Physician: Dr. Burciaga in [place]. Chief Complaint: Shortness of breath. History Of Present Illness: The patient is a 62-year-old male with past medical history of diabetes, insulin requiring; hypertension; atrial fibrillation; back pain, who comes in with sudden onset of s hortness of breath, which woke him up. The patient states that his symptoms are constant, moderate, progressively worsening. He does report some chest tightness and productive cough with white phlegm. The patient denies any fevers or chills. No ill contacts. The patient also has history of chronic kidney disease. The patient came into the ER for further evaluation of his symptoms. His workup re vealed a white count of 8, his creatinine was 3. His BNP was over 5000. The patient was then referr ed for admission. His chest x-ray did show volume overload. When the patient was seen in the ER, he was awake, alert, oriented x3. He stated he felt significantly better after the breathing treatment . Past Medical History: Hypertension; diabetes mellitus type 2, insulin requiring; atrial fibrillation , on anticoagulation; mass in the pancreas; muscle spasms; back pain; GERD; pancreatitis. Past Surgical History: Appendectomy, cholecystectomy, spinal fusion x2, disk surgery x3, repair of A AA, coronary stents, shoulder surgery. Allergies: CODEINE CAUSES ITCHING. HYDROCODONE ALSO CAUSES ITCHING. Medications: List reviewed. Social History: The patient is a former smoker. No alcohol use or illicit drug use. Lives at home. Recently moved back to [place] from [place]. Family History: Denies any premature coronary artery disease in the family. Review of Systems: An 11-point system reviewed, negative except as per HPI. Physical Examination: Vital Signs: Blood pressure 143/95, pulse 90, respirations 20, temperature 97.8, O2 96% on room air. General: Awake, alert, oriented x3. Some mild respiratory distress. Ill-appearing male, appears ol krysta than stated age. Obese, BMI 31.9. HEENT: Normocephalic, atraumatic. PERRLA, EOMI. Moist mucous membranes. Oropharynx is clear. Con junctivae anicteric. Poor dentition. Neck: Supple. No JVD. Trachea midline. CV: S1, S2, irregularly irregular. Peripheral pulses present. Respiratory: Diminished breath sounds especially at the bases. Some crackles heard. No wheezing or stridor. Gastrointestinal: Abdomen is soft, nontender, nondistended. No rebound or guarding. Positive bowel sounds. Extremities: No clubbing, cyanosis. The patient does have some pedal edema. No calf tenderness. Skin: The patient has excoriated skin bilateral lower extremities. No rashes. Neuro: Cranial nerves 2 through 12 intact grossly. No focal neurological deficit. Speech is normal . Strength is 5/5 bilateral upper and lower extremities. Laboratory Data: Sodium 141, potassium 4.4, chloride 111, CO2 22, BUN 43, creatinine 3, glucose 193, calcium 7.8, magnesium 1.8. Troponin less than 0.02. BNP 5217. INR 1.06. WBC 8.1, H and H 11.9 a nd 33.6, platelets 153, neutrophils 74.8%. Digoxin level 0.7. Chest x-ray shows no acute cardiopulm onary process. No significant change from comparison. Left shoulder prosthesis in place. Assessment And Plan: A 62-year-old male with: 1.Acute congestive heart failure exacerbation. We will obtain echocardiogram, new onset, unknown ej ection fraction. We will continue with daily weights. Monitor I's and O's strictly. Place on fluid restricted diet. 2.Chronic kidney disease stage 4. The patient's creatinine is slightly above baseline. The patient sees lamp replacer in [place]. We will consult Dr. Wilkins. The patient has seen Dr. Wilkins pre viously. We will continue to monitor creatinine and avoid nephrotoxins. 3.Atrial fibrillation, chronic, on anticoagulation. We will resume home medications as appropriate. Continue rate control. 4.Shortness of breath, likely secondary to congestive heart failure exacerbation. No fevers. Lungs clear. Doubt pneumonia. He has a cough with clear sputum production. Denies any significant histo ry of recent smoking. May have element of chronic obstructive pulmonary disease. We will continue w ith nebulizer treatments. 5.Essential hypertension. Resume home medications as appropriate. 6.Mass on pancreas. 7.Chronic back pain, midline with sciatica. 8.Gastroesophageal reflux disease. We will continue PPI. 9.Obesity, BMI 31.9. Plan: Admit the patient to Med-Surg, place on observation. SA/MODL Voice ID: [id number]
[2018-07-01 06:52] LABS: Albumin 2.6 g/dL (3.4-5.0); Bilirubin Total 0.4 mg/dL (0.2-1.0); Potassium 4.3 mmol/L (3.5-5.1); Protein, Total 5.7 g/dL (6.4-8.2)
[2018-07-01 07:06] LABS: Absolute Lymphocytes (CBC) 1.2 K/uL (0.7-4.9); Absolute Monocytes 0.5 K/uL (0.1-1.3); Absolute Neutrophil 4.4 K/uL (1.8-8.0); Eosinophils % 3.3 % (0-4.4); Lymphocytes % 19.2 % (15.3-44.8); MCV 82.7 fL (80-100); MPV 9.2 fL (7.6-11.3); Monocytes % 7.1 % (3.3-12.3); RBC Red Blood Cell Count 3.51 M/uL (4.33-5.43)
--- NOTE | 2018-07-01 07:41 | EKG ---
Test Date: 2018-06-30 Test Time: 12:12:41 Ground Control Approach Technician: MEASUREMENT RESULTS: Intervals: Rate: 89 DC: 184 QRSD: 90 QT: 352 QTc: 428 Shafter: P: 47 DC: 184 QRS: -32 T: 197 INTERPRETIVE STATEMENTS: Normal sinus rhythm Left axis deviation ST & T wave abnormality, consider lateral ischemia Abnormal ECG Compared to ECG 12/01/2017 00:18:47 Left-axis deviation now present ST (T wave) deviation now present Possible ischemia now present Atrial fibrillation no longer present Myocardial infarct finding no longer present Electronically Signed On 07-01-18 07:40:07 GAS DERRICK OPERATOR by Oliver Woods
[2018-07-01] MEDS: INSULIN LISPRO 100 UNIT/1 ML SQ SCH ×3 (08:00→17:00)
[2018-07-01] MEDS ORDERED: HOME MED 1 EA UNK (Dexlansoprazole [Dexilant] 60 MG) PO SCH (09:00)
[2018-07-01] MEDS ORDERED: CARVEDILOL 25 MG TAB PO SCH (09:00)
[2018-07-01] MEDS ORDERED: FENOFIBRIC ACID 135 MG PO SCH (09:00)
[2018-07-01] MEDS: FENOFIBRATE 160 MG TAB PO SCH (09:45)
[2018-07-01] MEDS: FUROSEMIDE 40 MG/4 ML VIAL IV SCH (09:45)
[2018-07-01] MEDS: DIGOXIN 0.125 MG TABLET PO SCH (09:45)
[2018-07-01] MEDS: ACETAMINOPHEN 500 MG TAB PO PRN (09:45)
[2018-07-01] MEDS: PANTOPRAZOLE 40MG TABLET PO SCH (09:45)
[2018-07-01] MEDS: CLOPIDOGREL 75 MG TABLET PO SCH (09:50)
--- NOTE | 2018-07-01 12:20 | ECHO ---
HEIGHT: 5 ft 9 in WEIGHT: 216 lb 0 oz DATE OF STUDY: 07/01/[address]: Bhavana Greenwood MD 2-DIMENSIONAL: YES M.MODE: YES DOPPLER: YES COLOR FLOW: YES TDS: NO PORTABLE: NO DEFINITY: NO BUBBLE STUDY: NO DIAGNOSIS: CONGESTIVE HEART FAILURE CARDIAC HISTORY: CATHERIZATION: YES SURGERY: NO PROSTHETIC VALVE: NO PACEMAKER: NO MEASUREMENTS (cm) DIASTOLIC (NORMALS) SYSTOLIC (NORMALS) IVSd 1.5 (0.6-1.2) LA Diam 4.5 (1.9-4.0) LVEF 50-55% LVIDd 5.3 (3.5-5.7) LVIDs 4.1 (2.0-3.5) %FS 22% LVPWd 1.3 (0.6-1.2) Ao Diam 3.4 (2.0-3.7) 2 DIMENSIONAL ASSESSMENT: RIGHT ATRIUM: NORMAL LEFT ATRIUM: DILATED RIGHT VENTRICLE: NORMAL LEFT VENTRICLE: LEFT VENTRICULAR HYPERTROPHY TRICUSPID VALVE: NORMAL MITRAL VALVE: NORMAL PULMONIC VALVE: NORMAL AORTIC VALVE: SCLEROSIS PERICARDIAL EFFUSION: SMALL AORTIC ROOT: NONE LEFT VENTRICULAR WALL MOTION: NORMAL. DOPPLER/COLOR FLOW: MILD MITRAL AND TRICUSPID REGURGITATION. NORMAL RIGHT VENTRICULAR SYSTOLIC PRESSURE. NO AORTIC STENOSIS OR AORTIC REGURITATION. IMPAIRED LEFT VENTRICULAR RELAXATION. COMMENTS: NORMAL LEFT VENTRICULAR EJECTION FRACTION. LEFT VENTRICULAR HYPERTROPHY. DILATED LEFT ATRIUM. AORTIC SCLEROSIS WITH NO AORTIC STENOSIS OR AORTIC REGURGITATION. MILD MITRAL AND TRICUSPID REGURGITATION. NORMAL RIGHT VENTRICULAR SYSTOLIC PRESSURE. IMPAIRED LEFT VENTRICULAR RELAXATION. TECHNOLOGIST: JEREMY WESTON
[2018-07-01] MEDS: NA CHLORIDE 0.9% 1,000 ML IV SCH ×2 (12:27→21:40)
[2018-07-01] MEDS: ONDANSETRON 4 MG/2 ML VIAL IV PRN (12:27)
[2018-07-01 17:27] LABS: Urine Appearance CLEAR; Urine Bilirubin NEGATIVE (NEG); Urine Blood 1+ (NEG); Urine Color YELLOW; Urine Glucose 1+ (NEG); Urine Protein 3+ (NEG); Urine Specific Gravity 1.015 (1.005-1.030); Urine Urobilinogen 0.2 mg/dL (0.2-1.0); Urine pH 5.5 (5.0-7.0)
[2018-07-01 18:00] LABS: Urine Microscopic Reflex ORDER UMIC
[2018-07-01 18:09] LABS: Urine Bacteria <20 /HPF (NONE SEEN); Urine RBC <5 /HPF (NONE SEEN)
[2018-07-01 18:10] LABS: Urine Culture Reflex Order NOT NEEDED
[2018-07-01] MEDS: INSULIN GLARGINE 100 UNITS/ML SQ SCH (21:41)
[2018-07-01] MEDS: ATORVASTATIN 40 MG TAB PO SCH (21:42)
[2018-07-01] MEDS: ZOLPIDEM TARTRATE 10 MG TABLET PO SCH (21:42)
[2018-07-01] MEDS: GABAPENTIN 300 MG CAP PO SCH (21:42)
--- NOTE | 2018-07-02 04:02 | CON ---
Date of Consultation: 07/01/2018 Chief Complaint: Abnormal kidney function test, elevated BUN and creatinine. History Of Present Illness: Blood work in the hospital showed elevated BUN and creatinine; BUN 49, c reatinine 3.0, estimated GFR 2.1. Blood glucose was abnormal. Electrolytes as follows: Sodium 141, potassium 4.3, chloride 109, CO2 27, BUN 49, calcium is 7.8. Review of previous medical records adan wed creatinine level fluctuating from 1.4 to 2.85. In November 2017, creatinine was 2.85. Back in 2013, creatinine was 0.91. The patient is a 62-year-old male with past medical history of diabetes mellitus, insulin; hypertensi on; atrial fibrillation; chronic back pain. He came with sudden onset of shortness of breath. He de nied wheezing, fever, hemoptysis. Today, he developed orthostatic hypotension. He denies syncope. Blood pressure apparently dropped after blood pressure medication. Medications were adjusted. BNP elevated up to 5000. Chest x-ray showed some volume overload. There is some peripheral edema pr esent. Review of Systems: General: The patient is somewhat lethargic. He cannot provide review of systems. He denies syncope , although he has some dizziness. Eyes: Denies new vision changes. Ears, Nose, Mouth, And Throat: Denies sore throat, earache. Respiratory: Has some shortness of breath. Denies wheezing. GI: Denies nausea or vomiting. : Denies dysuria or hematuria. Musculoskeletal: Denies muscle aches or joint swelling. All other systems reviewed and all are negative. Past Medical History: Hypertension; diabetes mellitus; atrial fibrillation, remains on anticoagulati on; mass in the pancreas; muscle pain, chronic; GERD; pancreatitis. Past Surgical History: Appendectomy, cholecystectomy, spinal fusion, disk surgery, repair of aortic aneurysm, coronary stents, shoulder surgery. Social History: The patient is a former smoker. He denies alcohol or illicit drug. He lives at [facility]. Family History: Coronary artery disease, hypertension. Physical Examination: Vital Signs: Blood pressure 143/95, heart rate 90, respiratory rate 20, temperature 97.8, SpO2 is 96 %. Eyes: Anicteric sclerae. EOMI. Ears, Nose, mouth, and Throat: Oral mucosa moist. No pallor. Neck: Supple. No JVD or bruits. Lungs: Crackles bilaterally at bases. Heart: S1, S2. Abdomen: Soft, benign, nontender. No rebound. No guarding. Extremities: Slight edema. Laboratory Data: Sodium 141, potassium 4.0, chloride 111, CO2 22, BUN 43, creatinine 3, glucose 193, calcium 7.8, magnesium 1.8. Troponin less than 0.02. BNP 5217. INR 1.06. WBC 8.1, hemoglobin is 11.9. Chest x-ray showed no acute cardiopulmonary process, and recommendation was made to have follo wup done with chest x-rays. Impression And Plan: 1.Congestive heart failure exacerbation, acute on chronic congestive heart failure. Pending workup to assess ejection fraction. 2.Chronic kidney disease, stage 4. There is some element of prerenal azotemia and nonoliguric acute tubular necrosis. Monitor renal function closely. 3.Chronic kidney disease, stage 4. The patient remains at baseline, although the patient will have workup to rule out obstructive uropathy. 4.Atrial fibrillation, on anticoagulation. 5.Shortness of breath, secondary to congestive heart failure. The patient may have some element of pneumonia. Recommend antibiotics. JULIUS/JJ Voice ID: [id number] Report ID: [id number]
[2018-07-02] MEDS: TRAMADOL HCL 50 MG TAB PO PRN ×2 (04:59→21:07)
[2018-07-02] MEDS: ONDANSETRON 4 MG/2 ML VIAL IV PRN ×2 (05:51→21:07)
[2018-07-02] MEDS ORDERED: FUROSEMIDE 20 MG/ 2ML VIAL IV ONE (07:01)
[2018-07-02 07:08] LABS: Absolute Lymphocytes (CBC) 1.1 K/uL (0.7-4.9); Absolute Monocytes 0.4 K/uL (0.1-1.3); Absolute Neutrophil 5.8 K/uL (1.8-8.0); Basophils % 0.9 % (0-1.3); Eosinophils % 2.7 % (0-4.4); Hematocrit 32.1 % (39.6-49.0); Lymphocytes % 14.7 % (15.3-44.8); MCH 29.6 pg (27.0-35.0); MCV 83.7 fL (80-100); MPV 9.4 fL (7.6-11.3); Monocytes % 4.8 % (3.3-12.3); RBC Red Blood Cell Count 3.84 M/uL (4.33-5.43)
[2018-07-02 07:28] LABS: Albumin 2.8 g/dL (3.4-5.0); Bilirubin Total 0.4 mg/dL (0.2-1.0); Potassium 4.4 mmol/L (3.5-5.1)
[2018-07-02] MEDS: INSULIN LISPRO 100 UNIT/1 ML SQ SCH ×3 (08:00→17:00)
--- NOTE | 2018-07-02 08:39 | RAD REPORT ---
EXAM DESCRIPTION: RAD - Chest Single View - 07/02/2018 8:31 am CLINICAL HISTORY: Pneumonia COMPARISON: June 30 TECHNIQUE: AP portable chest image was obtained 0816 hour . FINDINGS: Interstitial and alveolar opacities are present in the lower left lung field. This is a pr ogressive finding since June 30. Interstitial markings have increased in the right base. Heart s ize is normal range for portable imaging. Vasculature is mildly prominent. No pneumothorax or large p leural effusion. No acute bony abnormality seen. No acute aortic findings suspected. IMPRESSION: Left lower lung field pneumonia. Increased interstitial markings in the lower right lung field a mild increase in the bilateral vascul ature. Patient may have a mild component of failure or volume overload as well.
[2018-07-02] MEDS: PANTOPRAZOLE 40MG TABLET PO SCH (09:53)
[2018-07-02] MEDS: DIGOXIN 0.125 MG TABLET PO SCH (09:53)
[2018-07-02] MEDS: FENOFIBRATE 160 MG TAB PO SCH (09:53)
[2018-07-02] MEDS: CLOPIDOGREL 75 MG TABLET PO SCH (09:53)
--- NOTE | 2018-07-02 10:38 | DS ---
Date of Discharge: 07/01/2018 Consultants: Dr. Wilkins with Nephrology. Admitting Diagnoses: 1. Acute congestive heart failure exacerbation. 2. Chronic kidney disease stage 4. 3. Atrial fibrillation, chronic, not on anticoagulation other than Plavix. 4. Shortness of breath, resolved. 5. Essential hypertension, stable. 6. Mass on pancreas. 7. Chronic back pain, midline with sciatica. 8. Obesity, BMI 31.9. Hospital Course: The patient is a 62-year-old male, who came into the hospital with shortness of breath. The patient was found to have elevated BNP of 5000. Chest x-ray showed volume overload. He was given Lasix, breathing treatments, which improved his condition. The patient was started on CHF guidelines and Lasix. He improved with treatment. Nephrology was also consulted due to his chronic kidney disease. He has been following with a bottle caser in [place], however, has not seen the bottle caser for a long time. Last known records from [facility], his creatinine was 1.7 and 2 and this has increased in his levels. The patient otherwise did well. His shortness of breath resolved. His symptoms did improve significantly. Going forward, the patient will be on low-dose Lasix for his heart failure. Echocardiogram was also done. The patient will also need to follow up with Cardiology. The patient states he is in the process of switching his physicians back to [place], including his primary care physician and bottle caser. The patient was then discharged home in a stable condition. Activity: As tolerated. Medications: As per medication reconciliation list. Diet: Heart healthy, fluid-restricted diet. Followup: Follow up with primary care physician in 2 to 3 days. Follow up with bottle caser in 2 weeks. Follow up with Cardiology in 2 to 4 weeks. Return to ER for worsening condition. Physical Examination: General: Awake, alert, oriented, no acute distress. CV: S1, S2. No murmurs. Respiratory: Moving air well bilaterally. No wheezing. Gastrointestinal: Abdomen is soft, nontender, nondistended. Positive bowel sounds. Extremities: No clubbing, cyanosis, or edema. Neurologic: Nonfocal. ADDENDUM: Patient had episode of hypotension and discharge was held. Given IVFs , BP meds held. Lasix held. SA/MODL Voice ID: [id number] Report ID: [id number] [id number]
--- NOTE | 2018-07-02 12:01 | EKG ---
Test Date: 2018-07-02 Test Time: 05:02:10 Under Trimmer: HAIM MEASUREMENT RESULTS: Intervals: Rate: 79 MS: 156 QRSD: 96 QT: 372 QTc: 426 [place]: P: 47 MS: 156 QRS: 19 T: -86 INTERPRETIVE STATEMENTS: Normal sinus rhythm T wave abnormality, consider inferior ischemia Abnormal ECG Compared to ECG 06/30/2018 12:12:41 T-wave abnormality now present Left-axis deviation no longer present ST (T wave) deviation no longer present Possible ischemia still present Electronically Signed On 07-02-18 12:00:20 BRYOLOGIST by Jaskaran Ramos
--- NOTE | 2018-07-02 17:19 | PN ---
Date of Progress Note: 07/02/2018 Subjective: The patient was admitted with atrial fibrillation and shortness of breath. Physical Examination: Vital Signs: Blood pressure 142/70, pulse of 77. Chest: Faint crackles on the base. Heart: S1, S2. Regular. Abdomen: Soft and nontender. Extremity: No edema. Laboratory Data: WBC 7.5, hemoglobin and hematocrit 11.4 and 32.1, platelet 154. Sodium 141, potass ium 4.4, bicarb 27, BUN 50, creatinine 3.3, GFR of 19. BNP of 5217. Chest x-ray, congestion. UA ne gative, +3 protein. Current Medications: The patient on include: 1.Lasix 20 mg. 2.Plavix. 3.Atorvastatin. 4.Fenofibrate. 5.Digoxin. 6.Ambien. 7.Lovenox. 8.Pantoprazole. 9.Insulin. 10.Tramadol. Assessment And Plan: 1.Acute kidney injury secondary to cardiorenal over volume. I am going to resume the patient on Las ix 40 daily. We will discontinue fenofibrate and I am going to go ahead and send for full workup giv en the anemia light chain disease needs to be ruled out. I am going to go ahead and send for SPEP. We will send for protein creatinine to quantify the protein urea and we will follow up the patient. 2.Anemia. We will send for the workup. 3.The patient apparently follow up with Nephrology outside and according to him, he has kidney disea se for a long time. I am going to go ahead and send for renal ultrasound and PTH to evaluate the chr onicity of the disease and we will follow up. 4.Hypertension, currently on the upper side. I will go ahead and we will utilize blood pressure for more diuresis. 5.Anemia with the presence of renal failure. Light chain disease needs to be ruled out. We will se nd for the workup. 6.Pneumonia. I am going to go ahead and start the patient on Levaquin and we will follow up the pat ient. 7.Congestive heart failure. Consider Cardiology evaluation. DELIA Voice ID: [id number] Report ID: [id number]
--- NOTE | 2018-07-02 18:37 | RAD REPORT ---
EXAM DESCRIPTION: US - Renal Ultrasound-Complete - 07/02/2018 6:26 pm CLINICAL HISTORY: . Acute renal insufficiency COMPARISON: 2016 FINDINGS: The right kidney measures 12 cm with a normal echotexture. The left kidney measures 13 cm with a normal echotexture. Hydronephrosis is not seen. Bladder is decompressed IMPRESSION: Unremarkable renal ultrasound.
[2018-07-02] MEDS: ATORVASTATIN 40 MG TAB PO SCH (21:03)
[2018-07-02] MEDS: GABAPENTIN 300 MG CAP PO SCH (21:03)
[2018-07-02] MEDS: ZOLPIDEM TARTRATE 10 MG TABLET PO SCH (21:03)
[2018-07-02] MEDS: INSULIN GLARGINE 100 UNITS/ML SQ SCH (21:11)
--- NOTE | 2018-07-02 21:44 | P.PN ---
Subjective Date of Service: 07/02/18 Subjective: No new changes, No C/O voiced, Improving Patient seen and examined at bedside. No family at bedside. Chart reviewed and case discussed with Nursing staff. Reports improved breathing at the time of my exam. States he did have some SOB overnight, which has improved after the lasix. Review of Systems As noted Physical Examination - Vital Signs Temperature: 97.9 F Blood Pressure: 168/79 Pulse: 83 Respirations: 18 Pulse Ox (%): 96 - Physical Exam General: Alert, In no apparent distress, Oriented x3 HEENT: Atraumatic, PERRLA, EOMI Neck: Supple, JVD not distended Respiratory: Diminished (Left lower lobe) Cardiovascular: Regular rate/rhythm, Normal S1 S2 Gastrointestinal: Normal bowel sounds, No tenderness Musculoskeletal: No tenderness Integumentary: No rashes Neurological: Normal speech, Normal tone, Normal affect Lymphatics: No axilla or inguinal lymphadenopathy - Studies Laboratory Data (last 24 hrs) 07/02/18 05:21: Sodium 141, Potassium 4.4, BUN 50 H, Creatinine 3.30 H, Glucose 106, Total Bilirubin 0.4, AST 18, ALT 21, Alkaline Phosphatase 43 L 07/02/18 05:21: WBC 7.5 D, Hgb 11.4 L, Hct 32.1 L, Plt Count 154 Assessment And Plan - Plan A 62-year-old male with: 1. Acute congestive heart failure exacerbation, diastolic. ECHO with 50% EF. We will continue with daily weights. Monitor I's and O's strictly. Place on fluid restricted diet. Continue IV lasix. 2. Chronic kidney disease stage 4. The patient's creatinine is slightly above baseline. The patient sees plant tech in [place]. We will consult Dr. Wilkins. Recommendations appreciated. We will continue to monitor creatinine and avoid nephrotoxins. 3. Atrial fibrillation, chronic, on anticoagulation. We will resume home medications as appropriate. Continue rate control. 4. Shortness of breath, likely secondary to congestive heart failure exacerbation. No fevers though diminished breath sounds on LLL, concerning for pneumonia. He has a cough with clear sputum production. Denies any significant history of recent smoking. May have element of chronic obstructive pulmonary disease. We will continue with nebulizer treatments. 5. Left Lower lobe Pneumonia: diminished breath sounds and xray concerning for PNA. Will start patient on levaquin PO. 5. Essential hypertension. Continue home medications as appropriate. 6. Mass on pancreas. 7. Chronic back pain, midline with sciatica. 8. Gastroesophageal reflux disease. We will continue PPI. 9. Obesity, BMI 31.9. Physician Review: Patient Assessed, Agree with Above Assessment and Plan Time Spent Managing PTS Care (In Minutes): 35
[2018-07-02] MEDS ORDERED: levoFLOXacin 500 MG TAB PO ONE (23:00)
[2018-07-03] MEDS: ONDANSETRON 4 MG/2 ML VIAL IV PRN ×3 (03:01→11:31)
[2018-07-03 07:00] LABS: Absolute Lymphocytes (CBC) 0.8 K/uL (0.7-4.9); Absolute Monocytes 0.6 K/uL (0.1-1.3); Absolute Neutrophil 8.3 K/uL (1.8-8.0); Basophils % 0.4 % (0-1.3); Eosinophils % 1.9 % (0-4.4); Hematocrit 32.2 % (39.6-49.0); Lymphocytes % 7.8 % (15.3-44.8); MCH 29.2 pg (27.0-35.0); MCV 83.3 fL (80-100); MPV 8.8 fL (7.6-11.3); Monocytes % 6.1 % (3.3-12.3); RBC Red Blood Cell Count 3.87 M/uL (4.33-5.43)
[2018-07-03 07:58] LABS: ALT/SGPT 22 U/L (12-78); AST/SGOT 16 U/L (15-37); Albumin 2.9 g/dL (3.4-5.0); Alkaline Phosphatase 44 U/L (45-117); BUN Blood Urea Nitrogen 49 mg/dL (7-18); Bicarbonate 27 mmol/L (21-32); Bilirubin Total 0.5 mg/dL (0.2-1.0); Ferritin 128.1 ng/mL (26-388); Folic Acid, (Folate) > 20.0 ng/mL (3.1-17.5); Glucose Level 104 mg/dL (74-106); Magnesium 1.8 mg/dL (1.8-2.4); Phosphorus 4.4 mg/dL (2.5-4.9); Protein, Total 6.5 g/dL (6.4-8.2); Sodium Level 142 mmol/L (136-145); Transferrin 319 mg/dL (200-360)
[2018-07-03] MEDS: INSULIN LISPRO 100 UNIT/1 ML SQ SCH ×3 (08:00→16:57)
[2018-07-03] MEDS: PANTOPRAZOLE 40MG TABLET PO SCH (08:38)
[2018-07-03] MEDS ORDERED: FUROSEMIDE 40 MG/4 ML VIAL IV SCH ×2 (09:00→21:00)
[2018-07-03] MEDS: DIGOXIN 0.125 MG TABLET PO SCH (09:16)
[2018-07-03] MEDS: CLOPIDOGREL 75 MG TABLET PO SCH (09:17)
[2018-07-03] MEDS: TRAMADOL HCL 50 MG TAB PO PRN ×2 (09:17→18:09)
--- NOTE | 2018-07-03 17:40 | P.PN ---
Subjective Date of Service: 07/03/18 Patient seen and examined at bedside. No family at bedside. Chart reviewed and case discussed with Nursing staff. Reports improved breathing at the time of my exam. As complaining of a headache, that does not go away with tramadol. He is allergic to codeine, states it causes itching and he is also allergic to hydrocodone which also causes itching. States he did have some SOB overnight , which has improved after the lasix. Review of Systems As noted Physical Examination - Vital Signs Temperature: 98.1 F Blood Pressure: 147/70 Pulse: 91 Respirations: 20 Pulse Ox (%): 91 - Physical Exam General: Alert, Oriented x3, Mild distress HEENT: Atraumatic, PERRLA, EOMI Neck: Supple, JVD not distended Respiratory: Clear to auscultation bilaterally, Normal air movement Cardiovascular: Regular rate/rhythm, Normal S1 S2 Gastrointestinal: Normal bowel sounds, No tenderness Musculoskeletal: No tenderness Integumentary: No rashes Neurological: Normal speech, Normal tone, Normal affect Lymphatics: No axilla or inguinal lymphadenopathy Assessment And Plan - Plan A 62-year-old male with: 1. Acute congestive heart failure exacerbation, diastolic. ECHO with 50% EF. We will continue with daily weights. Monitor I's and O's strictly. Place on fluid restricted diet. Increase IV lasix to b.i.d. 2. Chronic kidney disease stage 4. The patient's creatinine is slightly above baseline. The patient sees fresh food manager in [place]. We will consult Dr. Wilkins. Recommendations appreciated. We will continue to monitor creatinine and avoid nephrotoxins. 3. Atrial fibrillation, chronic, on anticoagulation. We will resume home medications as appropriate. Continue rate control. 4. Shortness of breath, likely secondary to congestive heart failure exacerbation. No fevers though diminished breath sounds on LLL, concerning for pneumonia. He has a cough with clear sputum production. Denies any significant history of recent smoking. May have element of chronic obstructive pulmonary disease. We will continue with nebulizer treatments. 5. Left Lower lobe Pneumonia: diminished breath sounds and xray concerning for PNA. Continue levaquin PO. 5. Essential hypertension. Continue home medications as appropriate. 6. Headache. CT scan ordered as head patient states headache does not let out. Patient allergic to codeine and hydrocodone. Trial of Reglan to see if that helps headache. 7. Chronic back pain, midline with sciatica. 8. Gastroesophageal reflux disease. We will continue PPI. 9. Obesity, BMI 31.9. Physician Review: Patient Assessed, Agree with Above Assessment and Plan Time Spent Managing PTS Care (In Minutes): 45
[2018-07-03] MEDS ORDERED: METOCLOPRAMIDE 5 MG TAB PO ONE (18:00)
--- NOTE | 2018-07-03 19:48 | RAD REPORT ---
EXAM DESCRIPTION: CT - Head Brain Wo Cont - 07/03/2018 7:13 pm CLINICAL HISTORY: Headache COMPARISON: 2017 TECHNIQUE: Computed axial tomography of the head was obtained. IV contrast was not requested. All CT scans are performed using dose optimization technique as appropriate and may include automated exposure control or mA/KV adjustment according to patient size. FINDINGS: An intracranial bleed is not seen . The ventricles are normal in caliber. No extra-axial fluid collection is noted. Fluid within the sinuses/ mastoids is not seen. Coarse right vertebral artery calcifications IMPRESSION: No acute intracranial abnormality is seen. If patient's symptoms persist MRI of the bra in would be recommended.
[2018-07-03] MEDS: INSULIN GLARGINE 100 UNITS/ML SQ SCH (21:20)
[2018-07-03] MEDS: GABAPENTIN 300 MG CAP PO SCH (21:20)
[2018-07-03] MEDS: ATORVASTATIN 40 MG TAB PO SCH (21:20)
[2018-07-03] MEDS: ZOLPIDEM TARTRATE 10 MG TABLET PO SCH (21:20)
[2018-07-03] MEDS: DIPHENHYDRAMINE 25 MG TAB/CAP PO PRN (23:47)
[2018-07-03] MEDS: levoFLOXacin 250 MG TAB PO SCH (23:47)
[2018-07-03] MEDS: HYDROCODONE/APAP 5/325 MG TAB PO PRN (23:47)
[2018-07-04] MEDS ORDERED: METOPROLOL TAR 50 MG TAB PO ONE (00:33)
[2018-07-04] MEDS ORDERED: AMLODIPINE 5 MG TAB PO ONE (00:34)
--- NOTE | 2018-07-04 00:35 | P.PN ---
Date of Service: 07/04/18 Notified re: elevated BP. 190/90 with HR in the 80s BP meds adjusted. Started lopressor and amlodipine
--- NOTE | 2018-07-04 01:55 | PN ---
Date of Progress Note: 07/03/2018 Subjective: The patient is still complaining from shortness of breath. According to him, it is connie le bit worsened than yesterday. Physical Examination: Vital Signs: Blood pressure 147/70, pulse of 91. Chest: Faint crackles on the right base. Heart: S1, S2. Regular. Abdomen: Soft, nontender. Extremities: No edema. Laboratory Data: WBC 9.9, H and H 11.3/72.2, platelets 160. Sodium of 142, potassium 5, bicarb 27, BUN 49, creatinine 3.4, calcium 8.1, phosphorus 4.4, T sat of 7.4, ferritin 128, TSH 3.2, PTH 147. T he patient's BNP on admission 52. Current Medications: The patient on its include: 1.Levaquin. 2.Breathing treatment. 3.Atorvastatin. 4.Digoxin. 5.Gabapentin. 6.Lasix 40 b.i.d. 7.Metoclopramide. 8.Pantoprazole. 9.Insulin. 10.Hydrocodone. Assessment And Plan: 1.Acute kidney injury on advanced chronic kidney disease, normal size kidney, proteinuric, slightly on the over volume side. I am going to continue on the Lasix. We will increase the Lasix to 60 mg b .i.d. and we will follow up. I will go ahead and get repeated chest x-ray to evaluate the fluid stat us for the patient and we will follow up the patient. 2.Iron deficiency anemia. H and H on the goal. I do not see the need to start any IV iron. 3.pneumonia. Continue Levaquin. 4.Congestive heart failure. We will consider Cardiology eval. 5.Atrial fibrillation. We will follow up with Cardiology. 6.Hypertension, uncontrolled. I will start the patient on nitroglycerin patch and increase the Lasi x. We will follow up response. SONDRA/JJ Voice ID: [id number] Report ID: [id number]
[2018-07-04] MEDS: METOPROLOL TAR 25 MG TAB PO SCH ×2 (05:59→15:02)
[2018-07-04 06:48] LABS: Albumin 2.6 g/dL (3.4-5.0); Magnesium 1.8 mg/dL (1.8-2.4); Phosphorus 5.4 mg/dL (2.5-4.9); Potassium 4.5 mmol/L (3.5-5.1)
[2018-07-04] MEDS: INSULIN LISPRO 100 UNIT/1 ML SQ SCH ×2 (08:00→11:58)
[2018-07-04] MEDS: PANTOPRAZOLE 40MG TABLET PO SCH (08:07)
[2018-07-04] MEDS: AMLODIPINE 10 MG TAB PO SCH (08:51)
[2018-07-04] MEDS: CLOPIDOGREL 75 MG TABLET PO SCH (08:53)
[2018-07-04] MEDS: DIGOXIN 0.125 MG TABLET PO SCH (08:53)
[2018-07-04] MEDS: NITROGLYCERIN 0.2 MG/HR (5 MG) PATCH TD SCH (08:57)
[2018-07-04] MEDS ORDERED: FUROSEMIDE 40 MG/4 ML VIAL IV SCH (09:00)
[2018-07-04 11:19] LABS: Urine Protein/Creatinine Ratio 5.61 ratio (<0.15)
--- NOTE | 2018-07-04 13:16 | CON ---
The patient admitted to Dr. Huertas's service initially on 06/30/2018, has been here since. Reason For Consultation: I was consulted today for congestive heart failure. History Of Present Illness: The patient has extensive history. He has a history of atrial fibrillat ion, in sinus rhythm now. He takes clopidogrel, digoxin for that. He has a history of diabetes, hyp ertension, dyslipidemia, chronic diastolic congestive heart failure. He has had a history of CAD wit h PCIs. He has had a history of pancreatitis, gastroesophageal reflux disease. He has an aortobifem oral stent/endograft secondary to abdominal aortic aneurysm. He came in initially with what sounded more like renal failure, chronic renal disease stage 4, creatinine of 3.4. He has been followed [facility]. Echocardiogram yesterday showed an ejection fraction of 55% with decreased left ventricular co mpliance. The patient is not improving and was found yesterday to have a left lower lobe pneumonia. He is on antibiotics. He may have cough, hemoptysis. No fever. Denied PND. Denied pedal edema. Chest x-ray does not show any volume overload. He has had a CT of his head that was negative. EKG s howed anterolateral ischemia versus LVH. Allergies: HE IS ALLERGIC TO CODEINE, HYDROCODONE. Review of Systems: Negative. Social History: Negative. Family History: Noncontributory. Medications: Present medications include Lipitor, Plavix, Dexilant, digoxin, Tricor, Lasix, Neuronti n, and insulin. On his list from previous admission, losartan, valsartan with hydrochlorothiazide, a nd Coreg were listed, but he stated he is not taking these anymore. Physical Examination: General: He appeared rather very depressed, mild respiratory distress. Vital Signs: Stable. Sinus rhythm. Afebrile. HEENT: Negative. Neck: Supple. No bruit or JVD. Chest: Reveals rales at the left base. Cardiac: Revealed regular rhythm and rate with an S4 gallops. No murmurs or rubs. Abdomen: Benign. Extremities: Revealed trace edema. Diagnostic Data: As stated earlier. Impression And Plan: 1.I think Mr. Lockwoods symptoms are most likely secondary to the pneumonia. There is certainly no evidence of volume overload by chest x-ray. 2.He has chronic congestive heart failure that is diastolic with some mild acute exacerbation. 3.Chronic renal disease, which is severely contributing to his overall symptoms. 4.He has atrial fibrillation. He is in sinus rhythm. He is on Plavix and I would not certainly jaci nge that at this point. 5.He has coronary artery disease, status post percutaneous coronary intervention. 6.He has hypertension, diabetes, dyslipidemia. He has endograft in his abdominal aorta. Mr. Padilla gets most of his medical care in [place]. I personally agree with the present regimen right now. We should try to avoid ARB, MING inhibitors, and excessive diuresis on him. Definitely co ntinue the antibiotics. I have no plan to do any invasive cardiac workup on him at this point. I ag ree with Dr. Huertas's care and Nephrology's care. ALIA/JJ Voice ID: [id number] Report ID: [id number]
--- NOTE | 2018-07-04 13:44 | RAD REPORT ---
EXAM DESCRIPTION: RAD - Chest Pa And Lat (2 Views) - 07/04/2018 1:33 pm CLINICAL HISTORY: Pneumonia COMPARISON: July 02 TECHNIQUE: PA and lateral views of the chest were obtained. FINDINGS: The lungs are normal volume. A large area of consolidation has developed throughout most o f the right upper lobe. Trachea remains midline. There is patchy lateral right lung base opacificatio n as well. The lower left lung field opacification seen July 02 has cleared. Heart size is jeffrey l and central vasculature is within normal limits. No pleural effusion or pneumothorax seen. No acu te bony finding noted. No aortic abnormality. IMPRESSION: Large right upper lobe pneumonia with a small component of lateral right lung base pneum onia. Infiltrative changes in the left base seen July 02 have cleared.
[2018-07-04] MEDS ORDERED: D50W 25 GM/50 ML SYRINGE IV PRN (16:59)
[2018-07-04] MEDS ORDERED: GLUCAGON 1 MG/VIAL IM PRN (16:59)
[2018-07-04] MEDS: DIPHENHYDRAMINE 25 MG TAB/CAP PO PRN ×2 (18:14→22:31)
[2018-07-04] MEDS: HYDROCODONE/APAP 5/325 MG TAB PO PRN ×2 (18:14→22:32)
--- NOTE | 2018-07-04 18:19 | P.PN ---
Subjective Date of Service: 07/04/18 Patient seen and examined at bedside. No family at bedside. Chart reviewed and case discussed with Nursing staff. Headache resolved. States he is still not feeling 100%, though his breathing has improved slightly from admission. Review of Systems As noted Physical Examination - Vital Signs Temperature: 98.2 F Blood Pressure: 147/68 Pulse: 75 Respirations: 20 Pulse Ox (%): 96 - Physical Exam General: Alert, In no apparent distress, Oriented x3 HEENT: Atraumatic, PERRLA, EOMI Neck: Supple, JVD not distended Respiratory: Clear to auscultation bilaterally, Normal air movement Cardiovascular: Regular rate/rhythm, Normal S1 S2 Gastrointestinal: Normal bowel sounds, No tenderness Musculoskeletal: No tenderness Integumentary: No rashes Neurological: Normal speech, Normal tone, Normal affect Lymphatics: No axilla or inguinal lymphadenopathy Assessment And Plan - Plan A 62-year-old male with: 1. Acute congestive heart failure exacerbation, diastolic. ECHO with 50% EF. We will continue with daily weights. Monitor I's and O's strictly. Place on fluid restricted diet. Continue IV Lasix 2. Chronic kidney disease stage 4. The patient's creatinine is slightly above baseline. The patient sees energy operations vice president in [place]. We will consult Dr. Wilkins. Recommendations appreciated. We will continue to monitor creatinine and avoid nephrotoxins. 3. Atrial fibrillation, chronic, on anticoagulation. We will resume home medications as appropriate. Continue rate control. 4. Shortness of breath, likely secondary to congestive heart failure exacerbation. No fevers though diminished breath sounds on LLL, concerning for pneumonia. He has a cough with clear sputum production. Denies any significant history of recent smoking. May have element of chronic obstructive pulmonary disease. We will continue with nebulizer treatments. 5. Left Lower lobe Pneumonia: diminished breath sounds and xray concerning for PNA. Continue levaquin PO. Sputum cultures pending 5. Essential hypertension. Continue home medications as appropriate. 6. Intractable Headache. Resolved. CT scan negative 7. Chronic back pain, midline with sciatica. 8. Gastroesophageal reflux disease. We will continue PPI. 9. Obesity, BMI 31.9. Physician Review: Patient Assessed, Agree with Above Assessment and Plan Time Spent Managing PTS Care (In Minutes): 35
[2018-07-04] MEDS: INSULIN -REGULAR HUMAN 50 UNIT/0.5 ML ML SQ SCH ×2 (21:00→21:28)
[2018-07-04] MEDS: ATORVASTATIN 40 MG TAB PO SCH (21:26)
[2018-07-04] MEDS: ZOLPIDEM TARTRATE 10 MG TABLET PO SCH (21:26)
[2018-07-04] MEDS: GABAPENTIN 300 MG CAP PO SCH (21:26)
[2018-07-04] MEDS: INSULIN GLARGINE 100 UNITS/ML SQ SCH (21:27)
[2018-07-04] MEDS: levoFLOXacin 250 MG TAB PO SCH (22:37)
--- NOTE | 2018-07-04 23:30 | P.PN ---
Subjective Date of Service: 07/04/18 Subjective: No new changes pt with CKD Presented with SOB and chest pain , initial CXR showed congestion? started on lasix, but cr trending up repeated CXR no effusion Will hold Laisx Ap and lat CXR tomorrow Nephriotic raneg proteinuria F/u SPEP Physical Examination - Vital Signs Temperature: 98.4 F Blood Pressure: 157/84 Pulse: 89 Respirations: 16 Pulse Ox (%): 91 - Physical Exam General: Oriented x3, Mild distress HEENT: Atraumatic Neck: Supple, Without JVD or thyroid abnormality Respiratory: Clear to auscultation bilaterally Cardiovascular: No edema Assessment And Plan - Current Problems (Diagnosis) (1) Acute renal injury Current Visit: No Status: Acute (2) IDDM (insulin dependent diabetes mellitus) Onset Date: 07/06/16 Current Visit: No Status: Acute (3) Atrial fibrillation Current Visit: No Status: Chronic Qualifiers: Atrial fibrillation type: chronic Qualified Code(s): I48.2 - Chronic atrial fibrillation - Plan Progressive CKD CKD likely due to DM US no hydro nephrotic range proteinuria UA +3 prot, no rbc Cr trending up, CXR no edema or effusion will hold lasix rpt CXR tomorrow Anemia S/U SPEP likely 2/2 CKD will start on ZAINA Chest pain resolved now possibly to pneumonia Cardiology evaluation appreciated HTN cont current meds DM with neuropathy as per primary Physician Review: Patient Assessed, Agree with Above Assessment and Plan
[2018-07-05] MEDS: HYDROCODONE/APAP 5/325 MG TAB PO PRN ×2 (01:54→05:41)
[2018-07-05] MEDS: DIPHENHYDRAMINE 25 MG TAB/CAP PO PRN ×2 (01:55→05:41)
[2018-07-05] MEDS ORDERED: COLCHICINE 0.6 MG TAB PO ONE (02:42)
[2018-07-05] MEDS ORDERED: predniSONE 20 MG TAB PO ONE (02:43)
[2018-07-05 05:16] LABS: Absolute Lymphocytes (CBC) 0.9 K/uL (0.7-4.9); Absolute Monocytes 0.5 K/uL (0.1-1.3); Absolute Neutrophil 5.4 K/uL (1.8-8.0); Basophils % 0.7 % (0-1.3); Eosinophils % 2.2 % (0-4.4); Hematocrit 29.3 % (39.6-49.0); Lymphocytes % 13.2 % (15.3-44.8); MCH 29.1 pg (27.0-35.0); MCV 82.4 fL (80-100); MPV 9.4 fL (7.6-11.3); Monocytes % 7.5 % (3.3-12.3); RBC Red Blood Cell Count 3.55 M/uL (4.33-5.43)
[2018-07-05 05:31] LABS: Albumin 2.5 g/dL (3.4-5.0); Bilirubin Total 0.5 mg/dL (0.2-1.0); Magnesium 1.7 mg/dL (1.8-2.4); Phosphorus 3.9 mg/dL (2.5-4.9); Potassium 3.9 mmol/L (3.5-5.1); Protein, Total 5.8 g/dL (6.4-8.2)
[2018-07-05] MEDS: METOPROLOL TAR 25 MG TAB PO SCH ×2 (05:41→17:08)
[2018-07-05] MEDS ORDERED: HYDROCORTISONE SUC 100 MG INJ IV ONE (05:48)
--- NOTE | 2018-07-05 06:06 | P.PN ---
Date of Service: 07/05/18 Notified regarding toe pain; has been on diuretics and in the setting of kidney disease most likely gouty arthropathy. Gave colchicine x 1 as its levels can increase significantly in the setting of kidney failure so will dose cautiously along with steroids which can cause resultant hyperkalemia and worsening uremia. Patient also mentioned that he had hemoptysis. On evaluation he had large cup of bright red blood in the sputum. Will get dedicated CT chest without contrast and pulmonary consultation. Denies night sweats, and no exposure to TB. Has a right upper lobe pneumonic process. Could be postobstructive pneumonia. Hemoptysis just started in the hospital. No significant weight loss complaint. Will discuss with pulmonary regarding their recommendations. - Date of Service Date of Service: 07/05/18 - Vital Signs Temp Pulse Resp BP Pulse Ox 98.5 F 92 H 16 161/77 H 91 07/05/18 00:00 07/05/18 05:41 07/05/18 00:00 07/05/18 05:41 07/05/18 00:00 - Physical Exam HEENT: Head atraumatic, normocephalic Lungs: Other (rhonchi and rales) Heart: Normal heart sounds Abdomen: Soft, Bowel sounds are normal with no guarding Extremities: No leg edema - Problems (Diagnosis) (1) Right upper lobe pneumonia Current Visit: Yes Status: Acute (2) Hemoptysis Current Visit: Yes Status: Acute (3) Acute gouty arthropathy Current Visit: Yes Status: Acute (4) Encounter for monitoring antiplatelet therapy Current Visit: Yes Status: Acute (5) CKD (chronic kidney disease) Current Visit: Yes Status: Acute (6) Atrial fibrillation Current Visit: No Status: Chronic Qualifiers: Atrial fibrillation type: chronic Qualified Code(s): I48.2 - Chronic atrial fibrillation - Assessment and Plan PLAN: 1. Pulmonary consult 2. Treat gout cautiously with colchicine and will add dose of prednisone- monitor renal function closely 3. Hold antiplatelet therapy 4. Monitor CHF 5. Pain control - Discharge Plan Discharge Plan: Home Plan to discharge in: Greater than 2 days - Code Status/Comfort Care Code Status: Full Code - Physician Review Physician Review: Patient Assessed, Agree with Above Assessment and Plan Critical Care: No Time Spent Managing Pts Care (In Minutes): 30
[2018-07-05] MEDS: FENTANYL CITR 100 MCG/2 ML IV PRN ×2 (06:21→17:15)
[2018-07-05] MEDS: INSULIN -REGULAR HUMAN 50 UNIT/0.5 ML ML SQ SCH ×5 (07:30→21:45)
[2018-07-05] MEDS: PANTOPRAZOLE 40MG TABLET PO SCH (08:42)
[2018-07-05] MEDS ORDERED: FUROSEMIDE 40 MG/4 ML VIAL IV ONE (08:44)
--- NOTE | 2018-07-05 08:44 | P.CNS ---
Date of Consult: 07/05/18 Chief Complaint: Hemoptysis and shortness of breath History of Present Illness: Patient is 62 years of age started having some shortness of breath started on Sunday and 2 days later developed hemoptysis denies any fever chills chest pain no prior history of cardiopulmonary problems. Patient essentially has never smoked he has renal failure still having some hemoptysis abnormal chest x-ray history of coronary artery disease patient has had stents Allergies codeine Allergy (Verified 04/07/14 01:52) Itching hydrocodone Allergy (Verified 04/08/14 03:45) Itching Hydrocodone-Aceta Allergy (Uncoded 11/05/16 15:04) Unknown Home Medications: Atorvastatin Calcium [Lipitor] 40 mg PO BEDTIME 06/30/18 Clopidogrel Bisulfate [Plavix*] 75 mg PO DAILY 06/30/18 Dexlansoprazole [Dexilant] 60 mg PO DAILY 06/30/18 Digoxin [Lanoxin] 0.125 mg PO DAILY 06/30/18 Fenofibric Acid (Choline) [Fenofibric Acid] 135 mg PO DAILY 06/30/18 Furosemide [Lasix] 20 mg PO DAILY 06/30/18 Gabapentin 300 mg PO BID 06/30/18 Insulin Glargine,Hum.rec.anlog [Lantus Solostar] 50 units SQ BEDTIME 06/30/18 Insulin Lispro [Humalog Kwikpen U-100] 30 units SQ TID 06/30/18 Losartan Potassium 50 mg PO BID 06/30/18 Magnesium Oxide [Magnesium] 250 mg PO DAILY 06/30/18 Multivitamin-Min/Iron/FA/Vit K [Multi-Day Plus Minerals Tablet] 1 tab PO DAILY 06/30/18 Zolpidem Tartrate 10 mg PO BEDTIME 06/30/18 Amlodipine [Norvasc] 10 mg PO DAILY 07/04/18 Colchicine 0.6 mg PO DAILY 07/04/18 Tizanidine [Zanaflex*] 4 mg PO BEDTIME 07/04/18 - Past Medical/Surgical History Diabetic: Yes -: DM -: HTN -: A fib -: triple aortic aneurysm -: Back Pain -: Atrial Fibrillation -: Gerd -: Pancreatitis -: Appendectomy -: Cholecystectomy -: Spinal fusion x2, Disc surgery x3 -: Repair of AAA -: Coronary Stents - Social History Smoking Status: Current some day smoker Alcohol use: No CD- Drugs: No Caffeine use: Yes Place of Residence: Home Review of Systems 10-point ROS is otherwise unremarkable Physical Examination Temp Pulse Resp BP Pulse Ox 98.4 F 92 H 17 161/77 H 91 07/05/18 04:00 07/05/18 05:41 07/05/18 04:00 07/05/18 05:41 07/05/18 04:00 General: Alert, Oriented x3 HEENT: Atraumatic Neck: Supple Respiratory: Crackles/rales (Crackles on the right side) Cardiovascular: No edema, Regular rate/rhythm Gastrointestinal: Normal bowel sounds, Soft and benign - Problems (1) Abnormal chest x-ray Current Visit: Yes Status: Acute Plan: Patient is 62 years of age admitted with abnormal chest x-ray shortness of breath and hemoptysis he has significant impairment in his renal function impressive airspace opacity in the right lung doubt sepsis normal white count patient's chest x-ray on 06/30 was normal he has developed this patchy infiltrate again most likely pulmonary edema patient needs Lasix BNP is also well a elevated echocardiogram evidence of diastolic dysfunction blood pressure is elevated renal ultrasound is unremarkable sputum Gram stain is pending I given him a dose of Lasix. DDx pulmonary renal symd. Pa dn C anca and Ati GBM Ab
[2018-07-05] MEDS: DIGOXIN 0.125 MG TABLET PO SCH (09:00)
[2018-07-05] MEDS: AMLODIPINE 10 MG TAB PO SCH (09:50)
[2018-07-05] MEDS: NITROGLYCERIN 0.2 MG/HR (5 MG) PATCH TD SCH (09:51)
--- NOTE | 2018-07-05 10:29 | RAD REPORT ---
EXAM DESCRIPTION: CT - Thorax Wo Con CLINICAL HISTORY: Chest pain hemoptysis COMPARISON: CTANGIO CHEST dated 09/06/2008; Chest Pa And Lat (2 Views) dated 07/04/2018; Chest Single V iew dated 07/02/2018 FINDINGS: Extensive alveolar infiltrates are present in the right upper lobe, superior segment right lower lobe and portions of the right middle lobe compatible with pneumonia. Small similar infiltrate is present in the lingula. Small right pleural effusion is seen. Small amount of pericardial fluid i s present. Few mildly prominent lymph nodes are seen in the mediastinum and hilar region. No concerning bony finding. The spleen is mildly enlarged in size. All CT scans are performed using dose optimization technique as appropriate and may include automated exposure control or mA/KV adjustment according to patient size. IMPRESSION: Alveolar lung opacities are present, growth greatest in the right upper lobe, most alejandrina tible with pneumonia. Trace right pleural fluid and pericardial fluid. Mildly prominent lymph nodes are present in the mediastinum and hilar region, likely reactive.
--- NOTE | 2018-07-05 10:39 | RAD REPORT ---
EXAM DESCRIPTION: RAD - Chest Pa And Lat (2 Views) - 07/05/2018 10:33 am CLINICAL HISTORY: Shortness of breath, PNA interval improvement Chest pain. COMPARISON: Chest Pa And Lat (2 Views) dated 07/04/2018; Chest Single View dated 07/02/2018; Chest Sin gle View dated 06/30/2018; Chest Single View dated 12/01/2017 FINDINGS: Patchy airspace opacities are present in the right lung, appearing mildly progressive sinc e the prior study. The left lung is grossly clear. Trace right pleural fluid. The heart is upper limi t normal in size. Bilateral shoulder prostheses noted. IMPRESSION: Mild worsening in the right lung pneumonia pattern since comparative study.
[2018-07-05 12:51] LABS: Urine Appearance CLEAR; Urine Bilirubin NEGATIVE (NEG); Urine Blood 1+ (NEG); Urine Color YELLOW; Urine Glucose 1+ (NEG); Urine Protein 3+ (NEG); Urine Urobilinogen 0.2 mg/dL (0.2-1.0)
[2018-07-05 12:55] LABS: Urine Microscopic Reflex ORDER UMIC
[2018-07-05 13:14] LABS: Urine Bacteria <20 /HPF (NONE SEEN); Urine RBC <5 /HPF (NONE SEEN)
[2018-07-05 13:15] LABS: Urine Culture Reflex Order NOT NEEDED
[2018-07-05] MEDS ORDERED: HYDRALAZINE HCL 20 MG/ML VIAL IV PRN (15:25)
[2018-07-05] MEDS: GABAPENTIN 300 MG CAP PO SCH (21:42)
[2018-07-05] MEDS: ZOLPIDEM TARTRATE 10 MG TABLET PO SCH (21:42)
[2018-07-05] MEDS: INSULIN GLARGINE 100 UNITS/ML SQ SCH (21:42)
[2018-07-05] MEDS: ATORVASTATIN 40 MG TAB PO SCH (21:44)
--- NOTE | 2018-07-05 22:07 | P.PN ---
Subjective Date of Service: 07/06/18 Chief Complaint: Hemoptysis and shortness of breath Patient seen and examined at bedside. No family at bedside. Chart reviewed and case discussed with Nursing staff. Headache resolved. States he is still not feeling 100%, though his breathing has improved slightly from admission. He is coughing/spitting up blood Review of Systems As needed Physical Examination - Vital Signs Temperature: 97.8 F Blood Pressure: 155/84 Pulse: 79 Respirations: 18 Pulse Ox (%): 95 - Physical Exam General: Alert, In no apparent distress, Oriented x3 HEENT: Atraumatic, PERRLA, EOMI Neck: Supple, JVD not distended Respiratory: Clear to auscultation bilaterally, Normal air movement Cardiovascular: Regular rate/rhythm, Normal S1 S2 Gastrointestinal: Normal bowel sounds, No tenderness Musculoskeletal: No tenderness Integumentary: No rashes Neurological: Normal speech, Normal tone, Normal affect Lymphatics: No axilla or inguinal lymphadenopathy Assessment And Plan - Plan A 62-year-old male with: 1. Acute congestive heart failure exacerbation, diastolic. ECHO with 50% EF. We will continue with daily weights. Monitor I's and O's strictly. Place on fluid restricted diet. 1 time dose of IV Lasix given. Does not sound overloaded on exam, repeat chest x-ray improved. 2. Chronic kidney disease stage 4. The patient's creatinine is slightly above baseline. The patient sees process architect in [place]. We will consult Dr. Wilkins. Recommendations appreciated. We will continue to monitor creatinine and avoid nephrotoxins. 3. Atrial fibrillation, chronic, on anticoagulation. We will resume home medications as appropriate. Continue rate control. 4. Shortness of breath, likely secondary to congestive heart failure exacerbation. No fevers though diminished breath sounds on LLL, concerning for pneumonia. He has a cough with clear sputum production. Denies any significant history of recent smoking. May have element of chronic obstructive pulmonary disease. We will continue with nebulizer treatments. 5. Left Lower lobe Pneumonia: diminished breath sounds and xray concerning for PNA. Continue levaquin PO. Sputum cultures pending 6. Essential hypertension. Continue home medications as appropriate. 7. Hemoptysis: Differential diagnosis includes pneumonia, pulmonary renal syndrome, congestive heart failure. Nephrology and pulmonology consulted. Labs pending 6. Intractable Headache. Resolved. CT scan negative 7. Chronic back pain, midline with sciatica. 8. Gastroesophageal reflux disease. We will continue PPI. 9. Obesity, BMI 31.9. Physician Review: Patient Assessed, Agree with Above Assessment and Plan
--- NOTE | 2018-07-05 22:18 | P.PN ---
Subjective Date of Service: 07/05/18 Chief Complaint: Hemoptysis and shortness of breath pt with CKD Presented with SOB and chest pain , initial CXR showed congestion? started on lasix, but cr trending up chest CT; mild pleural and pericardial efusion Had hemoptysis today pulmonary f/u agree with sending ANCA and Anti-GBM will send for BONNIE and c3, c4 Might benifit from bronchscopy will resume lasix Nephriotic raneg proteinuria F/u SPEP Physical Examination - Vital Signs Temperature: 97.8 F Blood Pressure: 155/84 Pulse: 79 Respirations: 18 Pulse Ox (%): 95 - Physical Exam General: In no apparent distress, Oriented x3 HEENT: Atraumatic Neck: Supple, Without JVD or thyroid abnormality Respiratory: Clear to auscultation bilaterally Cardiovascular: No edema Assessment And Plan - Current Problems (Diagnosis) (1) Acute renal injury Current Visit: No Status: Acute (2) IDDM (insulin dependent diabetes mellitus) Onset Date: 07/06/16 Current Visit: No Status: Acute (3) Atrial fibrillation Current Visit: No Status: Chronic Qualifiers: Atrial fibrillation type: chronic Qualified Code(s): I48.2 - Chronic atrial fibrillation - Plan Progressive CKD CKD likely due to DM Cr 1.4 in 2015 and 2.8 in 11/2017 was following with nephrolgist before but last visit was >1yr ago as per pt US no hydro nephrotic range proteinuria UA +3 prot, no rbc will cont lasix f/u serology w/u now with hemoptysis ,will try to R/O pulmo-renal disease Anemia f/U SPEP likely 2/2 CKD will start on ZAINA Chest pain resolved now possibly to pneumonia Cardiology evaluation appreciated HTN cont current meds DM with neuropathy as per primary Physician Review: Patient Assessed, Agree with Above Assessment and Plan
[2018-07-05] MEDS: levoFLOXacin 250 MG TAB PO SCH (22:36)
[2018-07-06 05:25] LABS: Absolute Monocytes 0.5 K/uL (0.1-1.3); Absolute Neutrophil 5.7 K/uL (1.8-8.0); Basophils % 0.6 % (0-1.3); Eosinophils % 2.2 % (0-4.4); Hematocrit 29.5 % (39.6-49.0); Lymphocytes % 13.9 % (15.3-44.8); MCH 29.1 pg (27.0-35.0); MCV 81.9 fL (80-100); MPV 9.1 fL (7.6-11.3); Monocytes % 6.9 % (3.3-12.3)
[2018-07-06] MEDS: METOPROLOL TAR 25 MG TAB PO SCH (05:39)
[2018-07-06 05:45] LABS: Albumin 2.6 g/dL (3.4-5.0); Bilirubin Total 0.5 mg/dL (0.2-1.0); Magnesium 1.8 mg/dL (1.8-2.4); Phosphorus 3.4 mg/dL (2.5-4.9); Potassium 3.8 mmol/L (3.5-5.1); Protein, Total 6.4 g/dL (6.4-8.2)
[2018-07-06] MEDS: INSULIN -REGULAR HUMAN 50 UNIT/0.5 ML ML SQ SCH ×2 (07:30→11:30)
[2018-07-06] MEDS: NITROGLYCERIN 0.2 MG/HR (5 MG) PATCH TD SCH (09:00)
[2018-07-06] MEDS: PANTOPRAZOLE 40MG TABLET PO SCH (09:09)
[2018-07-06] MEDS: AMLODIPINE 10 MG TAB PO SCH (09:09)
[2018-07-06] MEDS: DIGOXIN 0.125 MG TABLET PO SCH (09:10)
[2018-07-06 09:22] VITALS: O2SAT 94
[2018-07-06] MEDS ORDERED: FUROSEMIDE 40 MG/4 ML VIAL IV ONE (10:32)
[2018-07-06] MEDS ORDERED: FUROSEMIDE 20 MG/ 2ML VIAL IV ONE (10:33)
--- NOTE | 2018-07-06 10:36 | P.PN ---
Subjective Date of Service: 07/06/18 Chief Complaint: Hemoptysis and shortness of breath Subjective: Improving (Patient has improved significantly his breathing has improved no further hemoptysis) Review of Systems Unremarkable Physical Examination - Vital Signs Temperature: 98.2 F Blood Pressure: 157/79 Pulse: 78 Respirations: 18 Pulse Ox (%): 96 - Physical Exam General: Alert, Oriented x3 Respiratory: Clear to auscultation bilaterally Cardiovascular: No edema, Regular rate/rhythm Assessment & Plan - Problems (Diagnosis) (1) Abnormal chest x-ray Current Visit: Yes Status: Acute Plan: Patient is 62 years of age she is doing much better his kidney function is improved again some Lasix yesterday awaiting immunological tests repeat chest x- ray evaluate for home oxygen sputum cultures on the no evidence of active sepsis patient is on low-dose levofloxacin if his chest x-ray has improved consider higher doses of Lasix possible discharge Physician Review: Patient Assessed, Agree with Above Assessment and Plan
--- NOTE | 2018-07-06 11:54 | RAD REPORT ---
EXAM DESCRIPTION: [place] Single View07/06/2018 11:28 am CLINICAL HISTORY: Chest pain COMPARISON: July 05 FINDINGS: Minimal improvement in the right lung alveolar opacities. Left lung appears clear of acute infiltrate. Heart is mildly enlarged IMPRESSION: Minimal improvement in a right pneumonia
[2018-07-06 16:45] VITALS: BP 155/84; TEMP 97.8
--- NOTE | 2018-07-06 16:52 | P.DS ---
Admission Date: 07/02/18 Discharge Date: 07/06/18 Disposition: ROUTINE DISCHARGE Discharge Condition: GOOD Reason for Admission: Hemoptysis and shortness of breath Consultations: Nephrology, Dr. Wilkins Pulmonology, Dr. Macias Brief History of Present Illness: Admitting Diagnoses: 1. Acute congestive heart failure exacerbation. 2. Chronic kidney disease stage 4. 3. Atrial fibrillation, chronic, not on anticoagulation other than Plavix. 4. Shortness of breath, resolved. 5. Essential hypertension, stable. 6. Mass on pancreas. 7. Chronic back pain, midline with sciatica. 8. Obesity, BMI 31.9. Hospital Course: The patient is a 62-year-old male, who came into the hospital with shortness of breath. The patient was found to have elevated BNP of 5000. Chest x-ray showed volume overload. He was given Lasix, breathing treatments, which improved his condition. The patient was started on CHF guidelines and Lasix. He improved with treatment. Nephrology was also consulted due to his chronic kidney disease. He has been following with a glazier supervisor in [place], however, has not seen the glazier supervisor for a long time. Last known records from [facility], his creatinine was 1.7 and 2 and this has increased in his levels. The patient otherwise did well. His shortness of breath resolved. His symptoms did improve significantly. Going forward, the patient will be on low-dose Lasix for his heart failure. Echocardiogram was also done. The patient will also need to follow up with Cardiology. The patient states he is in the process of switching his physicians back to [place], including his primary care physician and glazier supervisor. The patient was then discharged home in a stable condition. Hospital Course: The patient is a 62-year-old male, who came into the hospital with shortness of breath. The patient was found to have elevated BNP of 5000. Chest x-ray showed volume overload. He was given Lasix, breathing treatments, which improved his condition. The patient was started on CHF guidelines and Lasix. He improved with treatment. Nephrology was also consulted due to his chronic kidney disease. He has been following with a glazier supervisor in [place], however , has not seen the glazier supervisor for a long time. Last known records from [facility], his creatinine was 1.7 and 2 and this has increased in his levels. Patient had episode of hypotension and discharge was held. Repeat chest x-ray was concerning for pneumonia. He was started on oral Levaquin. He continued to have cough, he did have some hemoptysis. Pulmonology was consulted, concerns for possible pulmonary renal syndrome. Labs were sent. Nephrology was also consulted. He did receive 1 time dosage of IV Lasix on the day of discharge. His symptoms did improve significantly. On the day of discharge, he denied any more hemoptysis, and shortness of breath had resolved. He was off the oxygen, satting 94-98% on room air. He will continue his low-dose Lasix for his heart failure. Echocardiogram was also done. At the time of discharge, he was hemodynamically stable, did not notice any more hemoptysis, his breathing was back to baseline, he was off of the oxygen. He was tolerating a regular diet and he was ambulating without any concerns. His diagnosis/symptoms were explained, all questions were answered and patient verbalized understanding. He was discharged on oral Levaquin to complete a 7 day course. He was also instructed to hold his colchichine until nephrology appointment. He was instructed to follow up with nephrology on Sunday, July 08, 2018 to make sure creatinine remains stable. Information for nephrology was provided. He was also instructed to follow up with cardiology in 1 week. Information for cardiology was provided to patient. He was also instructed to follow up with pulmonology in 1 week. Information for pulmonology was given to patient. Vital Signs/Physical Exam: Temp Pulse Resp BP Pulse Ox 97.8 F 79 18 155/84 H 95 07/06/18 16:44 07/06/18 16:44 07/06/18 16:44 07/06/18 16:44 07/06/18 16:44 General: Alert, In no apparent distress, Oriented x3 HEENT: Atraumatic, PERRLA, EOMI Neck: Supple, JVD not distended Respiratory: Clear to auscultation bilaterally, Normal air movement Cardiovascular: Regular rate/rhythm, Normal S1 S2 Gastrointestinal: Normal bowel sounds, No tenderness Musculoskeletal: No tenderness Integumentary: No rashes Neurological: Normal speech, Normal tone, Normal affect Lymphatics: No axilla or inguinal lymphadenopathy Laboratory Data at Discharge: WBC 7.5 K/uL (4.3-10.9) 07/06/18 04:30 Hgb 10.5 g/dL (13.6-17.9) L 07/06/18 04:30 Hct 29.5 % (39.6-49.0) L 07/06/18 04:30 Plt Count 164 K/uL (152-406) D 07/06/18 04:30 PT 12.5 SECONDS (9.5-12.5) 06/30/18 12:40 INR 1.06 06/30/18 12:40 Sodium 142 mmol/L (136-145) 07/06/18 04:30 Potassium 3.8 mmol/L (3.5-5.1) 07/06/18 04:30 BUN 65 mg/dL (7-18) H 07/06/18 04:30 Creatinine 3.60 mg/dL (0.55-1.3) H 07/06/18 04:30 Glucose 78 mg/dL (74-106) 07/06/18 04:30 Phosphorus 3.4 mg/dL (2.5-4.9) 07/06/18 04:30 Magnesium 1.8 mg/dL (1.8-2.4) 07/06/18 04:30 Total Bilirubin 0.5 mg/dL (0.2-1.0) 07/06/18 04:30 AST 18 U/L (15-37) 07/06/18 04:30 ALT 23 U/L (12-78) 07/06/18 04:30 Alkaline Phosphatase 44 U/L (45-117) L 07/06/18 04:30 Troponin I 0.02 ng/mL (0.0-0.045) 07/01/18 12:23 Home Medications: Atorvastatin Calcium [Lipitor] 40 mg PO BEDTIME 06/30/18 Clopidogrel Bisulfate [Plavix*] 75 mg PO DAILY 06/30/18 Dexlansoprazole [Dexilant] 60 mg PO DAILY 06/30/18 Digoxin [Lanoxin*] 0.125 mg PO DAILY 06/30/18 Fenofibric Acid (Choline) [Fenofibric Acid] 135 mg PO DAILY 06/30/18 Furosemide [Lasix*] 20 mg PO DAILY 06/30/18 Gabapentin 300 mg PO BID 06/30/18 Insulin Glargine,Hum.rec.anlog [Lantus Solostar] 50 units SQ BEDTIME 06/30/18 Insulin Lispro [Humalog Kwikpen U-100] 30 units SQ TID 06/30/18 Losartan Potassium 50 mg PO BID 06/30/18 Magnesium Oxide [Magnesium] 250 mg PO DAILY 06/30/18 Multivitamin-Min/Iron/FA/Vit K [Multi-Day Plus Minerals Tablet] 1 tab PO DAILY 06/30/18 Zolpidem Tartrate 10 mg PO BEDTIME 06/30/18 Amlodipine [Norvasc*] 10 mg PO DAILY 07/04/18 Tizanidine [Zanaflex*] 4 mg PO BEDTIME 07/04/18 levoFLOXacin [Levaquin*] 250 mg PO Q24H #5 tab 07/06/18 New Medications: levoFLOXacin [Levaquin*] 250 mg PO Q24H #5 tab Patient Discharge Instructions: Please follow up with the primary care physician in 1 week. Please follow up with nephrology on Sunday to make sure your creatinine is stable. Please follow up with pulmonology in 1 week. Please follow up with cardiology in 1-2 weeks. Medication changes made: Do not take colchicine until you have seen nephrology on Sunday. This can affect her kidneys as well. New medications: Levaquin, this is an antibiotic for your pneumonia. Prescription has been sent to pharmacy. Diet: Renal Activity: Ad judy Followup: Demario Macias MD [ACTIVE - CAN ADMIT] - 1 Week Linda Wilkins MD [ACTIVE - CAN ADMIT] - 07/08/18 Jaskaran Ramos MD [ACTIVE - CAN ADMIT] - 1-2 Weeks Physician Review: Patient Assessed, Agree with Above Assessment and Plan Time spent managing pt's care (in minutes): 55
--- NOTE | 2018-07-07 03:22 | PN ---
Date of Progress Note: 07/06/2018 Chief Complaint: Chronic kidney stage 4. Patient presented to the hospital because of shortness of breath, chest pain. He was started on Lasi x. Renal function has been declining. The patient developed shortness of breath. Lasix was resumed . Today, patient denies complaints and he has requested to be discharged to home and he has nonoliguric urine output. Review of Systems: Denies fever, chills. Physical Examination: Lungs: Clear to auscultation bilaterally. Heart: S1, S2. Abdomen: Soft, benign. Extremities: Slight edema. Acute on chronic kidney injury. Baseline creatinine is 3.0 was up to 3.4. There is some for improve ment. Today, creatinine 3.6, BUN 65. Electrolytes as follows sodium 142, potassium 3.8, chloride 10 6, CO2 30, phosphorus 3.4, magnesium 1.8, and calcium 8.3. Impression And Plan: 1.Acute on chronic kidney injury, nonoliguric. There is some trend of improvement over last 24 hour s. The patient has baseline creatinine of 2.85 as of November 2017, prior to that back in 2015 creatinine was up to 2.6. 2.The patient will continue renal diet. Monitor electrolytes closely and check renal panel. The kali igor will follow up with outpatient case monitor service. 3.Hypertension. Hold MING inhibitor due to acute kidney injury. 4.Fluid overload. Continue Lasix. 5.Proteinuria, nephrotic range. Urinalysis did not show active urinary sediment. The patient will follow up with Nephrology service evaluation to reassess serology test. 6.Diabetes mellitus. Likely proteinuria represent diabetic kidney disease. Continue insulin and av oid oral hypoglycemic agents because of risk of hypoglycemia and the patient cannot take metformin du e to the fact that it may cause severe lactic acidosis. 7.Possible pneumonia antibiotics per primary team. 8.Chronic anemia, likely secondary to chronic kidney disease. The patient will have workup to scree n for monoclonal gammopathy of unknown significance. EB/MODL Voice ID: [id number] Report ID: [id number]
[2018-07-07 05:06] LABS: Albumin, (SPE) 3.6 g/dL (3.8-4.8); Alpha-1-Globulins 0.3 g/dL (0.2-0.3); Alpha-2-Globulins 0.7 g/dL (0.5-0.9); Gamma Globulins 0.8 g/dL (0.8-1.7); INTERPRETATION REPORT
[2018-07-09 18:43] LABS: P-ANCA Anti-Myeloperoxidase Ab <1.0 AI (<1.0)
== END 2018-07-06 17:15 | disposition home or self-care (01) | DRG 291 ==
LOC: ER 11:46 → ERHOLD 14:47 → 2ND 16:45 → OBSVTOIN 07-02 21:12
PROVIDERS: ADMIT Family Medicine; ATTEND Family Medicine
DX: I13.0 Hypertensive heart and chronic kidney disease with heart failure and stage 1 through stage 4 chronic kidney disease, or unspecified chronic kidney disease (principal); K85.90 Acute pancreatitis without necrosis or infection, unspecified; N17.0 Acute kidney failure with tubular necrosis; J18.9 Pneumonia, unspecified organism; I50.33 Acute on chronic diastolic (congestive) heart failure; N18.4 Chronic kidney disease, stage 4 (severe); I48.2 Chronic atrial fibrillation; Z79.01 Long term (current) use of anticoagulants; G89.29 Other chronic pain; M54.40 Lumbago with sciatica, unspecified side; K21.9 Gastro-esophageal reflux disease without esophagitis; E66.9 Obesity, unspecified; Z68.31 Body mass index [BMI] 31.0-31.9, adult; E11.22 Type 2 diabetes mellitus with diabetic chronic kidney disease; Z79.4 Long term (current) use of insulin; I95.1 Orthostatic hypotension; K86.9 Disease of pancreas, unspecified; Z88.5 Allergy status to narcotic agent; D50.9 Iron deficiency anemia, unspecified; I25.10 Atherosclerotic heart disease of native coronary artery without angina pectoris; Z98.61 Coronary angioplasty status; D63.1 Anemia in chronic kidney disease; E11.40 Type 2 diabetes mellitus with diabetic neuropathy, unspecified; E87.5 Hyperkalemia; M10.9 Gout, unspecified; R80.8 Other proteinuria
CPT/HCPCS: 36415; 70450; 71045; 71046; 71250; 76770; 80048; 80053; 80069; 80076; 80162; 81003; 81015; 82570; 82607; 82728; 82746; 82962; 83520; 83540; 83735; 83880; 83970; 84156; 84165; 84443; 84466; 84484; 85025; 85044; 85610; 86021; 86038; 86160; 87070; 87205; 93005; 93306; 94760; 96374; 99285; G0378; J0360; J1720; J1940; J2405; J3010; J7030; J7512